=== PATIENT | male | born 1955 | race Caucasian/White ===

== ENCOUNTER 2018-01-05 15:35 | Emergency (ER) | payer MEDICAID, SELFPAY ==
[2018-01-05 15:36] VITALS: BP 117/71; PULSE 80; RESP 20; TEMP 36.9; O2SAT 98; BMI 33.7
--- NOTE | 2018-01-05 15:53 | CT_ITS ---
CT head/brain wo con HISTORY: Headache, pain,/laceration following injury ITS.REASON: HIT BY TREE LIMB ORDERING PHYSICIAN: Renny Kathleen MD PATIENT AGE: 62 years COMPARISON: None TECHNIQUE: Axial images obtained without contrast. Brain and bone windows reviewed. FINDINGS: No midline shift, mass effect, intracranial hemorrhage, hydrocephalus, or extra-axial fluid collection is evident. The calvarium has an unremarkable appearance. No mastoid effusion. There is an air-fluid level in the sphenoid sinus. IMPRESSION: 1. No acute intracranial finding. 2. Small air-fluid level in the sphenoid sinus
--- NOTE | 2018-01-05 15:53 | XR_ITS ---
XR shoulder LT min 2V HISTORY: Pain following injury ITS.REASON: HIT BY TREE LIMB ORDERING PHYSICIAN: Renny Kathleen MD PATIENT AGE: 62 years COMPARISON: None FINDINGS: No fracture or dislocation. No lytic or blastic change. There is normal mineralization. The joint spaces are well-preserved. No significant degenerative/arthritic changes. No erosive changes evident. IMPRESSION: Negative, no acute finding
--- NOTE | 2018-01-05 15:55 | CT_ITS ---
CT cervical spine w con CLINICAL INDICATION: Neck pain following injury, sprain/strain ITS.REASON: HIT BY TREE LIMB ORDERING PHYSICIAN: Renny Kathleen MD PATIENT AGE: 62 years TECHNIQUE: Axial images are obtained with sagittal and coronal reformats COMPARISON: None FINDINGS: Normal alignment. No obvious fracture or dislocation. No prevertebral soft tissue swelling. There is multilevel degenerative disc disease from C2 to T1 with decrease in the disc spaces and minimal hypertrophic changes of the endplates. Uncovertebral hypertrophy is also present. There is bilateral foraminal narrowing right greater than left C5-C6. No acute finding the lung apices. IMPRESSION: 1. No acute fracture 2. Cervical spondylosis with bilateral foraminal narrowing at C5-6
--- NOTE | 2018-01-05 17:27 | [facility].EDGENADL ---
ED Disposition Clinical Impression: Contusion of left shoulder Qualifiers: Encounter type: initial encounter Qualified Code(s): S40.012A - Contusion of left shoulder, initial encounter Head contusion Qualifiers: Encounter type: initial encounter Contusion of head detail: scalp Qualified Code(s): S00.03XA - Contusion of scalp, initial encounter Disposition: Home, Self-Care Condition on Discharge: Good Instructions: DI for Closed Head Injury, DI for Shoulder Pain Additional Instructions: Additional instructions for HEAD INJURY: See your physician as soon as possible for further evaluation. Return immediately if severe headache, vomiting, problems with vision or speech, numbness or weakness of the extremities, or severe neck pain. Additional instructions for CONTROLLED SUBSTANCES: You have been prescribed a medication that is a controlled substance. Controlled substances include pain medications known as opiates and sedative nerve medications known as benzodiazepines. Some common opiates include: Codeine (such as Tylenol #3) Hydrocodone (Vicodin, Lortab, Lorcet, Register) Oxycodone (Percocet, Percodan, Oxycodone, Oxy IR) Some common benzodiazepines include: Diazepam (Valium) Lorazepam (Ativan) Alprazolam (Xanax) Clonazepam (Klonopin) Oxazepam (Serax) All of these controlled substances are highly addictive and frequently abused. Misuse can and frequently does lead to addiction as well as overdose and . Medication should be stored in a locked cabinet or other secure storage unit. Do not store the medication in a motor vehicle. Short term supplies, 3 days or less, are prescribed because of the highly addictive nature of the medication. Any of the controlled substance medication NOT taken should be disposed of properly and NOT SAVED. The recommended method of disposing of unused medications is: Place the medicines in a sealable plastic bag. If the medicine is a solid, crush it or add water to dissolve it. Add something undesirable (cat litter, coffee grounds, etc.) Dispose of sealed bag in household trash Do not flush or pour unused medicines down a sink or drain. Controlled substances should not be shared, given away or sold. Because of the addictive nature and frequent abuse, these medications are sometimes stolen. These medications should be kept in a safe place where they cannot be stolen. Do not keep them in your car or purse. Lost or stolen prescriptions for controlled substances WILL NOT BE REFILLED in this emergency department, regardless of whether a police report was filed. Prescriptions: Acetaminophen with Codeine [Tylenol with Codeine #3 tablet] 1 - 2 tab PO Q6HP PRN #12 tab PRN Reason: Moderate Pain Referrals: Mickey Fine [Primary Care Provider] - - Critical Care Critical Care Time: No Attestation: On 01/05/18, the high probability of a clinically significant, sudden or life threatening deterioration of the following system(s) required my full and direct attention, intervention and personal management. The time I documented below is in addition to time spent performing reported procedures but includes the following listed in this critical care notation. Medical Decision Making - Nicholas Inquiry Pt receiving controlled substance: Yes Nicholas was queried for this patient: Yes Reference #:: [id number] Risks and benefits of using a controlled substance: were discussed with pt by me Comment: 0 rxs. Vital Signs: 01/05/18 15:36 Temperature 98.4 F Temperature Source Oral Pulse Rate [Right Radial] 80 Respiratory Rate 20 Blood Pressure [Right Arm] 117/71 Blood Pressure Mean [Right Arm] 86 Blood Pressure Source [Right Arm] Automatic Cuff Blood Pressure Position [Right Arm] Supine 02 Sat by Pulse Oximetry 98 Oxygen Delivery Method Room Air - Radiology Data #1 Image(s): Shoulder Image Reviewed: Yes I have reviewed radiologist's interpretation Preliminary Findings: Syl
[2018-01-05 18:25] VITALS: BP 112/85; PULSE 60; RESP 18; TEMP 36.7; O2SAT 96
== END 2018-01-05 18:25 | disposition home or self-care (01) ==
PROVIDERS: Emergency Provider Emergency Medicine; Family Provider Internal Medicine; PCP Internal Medicine
DX: S40.012A Contusion of left shoulder, initial encounter (principal); S00.03XA Contusion of scalp, initial encounter; W20.8XXA Other cause of strike by thrown, projected or falling object, initial encounter; Y92.89 Other specified places as the place of occurrence of the external cause; Z88.0 Allergy status to penicillin
CPT/HCPCS: 70450; 72126; 73030; 99282

== ENCOUNTER → 2018-03-09 15:51 | Outpatient (CLI) | payer MEDICAID, SELFPAY ==
--- NOTE | 2018-03-09 | XR_ITS ---
XR knee LT 3V HISTORY: ITS.REASON: LT KNEE PAIN/SWELLING ORDERING PHYSICIAN: Mickey Fine PATIENT AGE: 62 years COMPARISON: 06/12/2015 FINDINGS: There are moderate osteoarthritic changes of the medial compartment and patellofemoral joint with mild osteoarthritis of the lateral compartment. Bony spurring is present at the tibial spines and posterior patella. Otherwise negative. IMPRESSION: Osteoarthritis. This is slightly progressed when compared to the previous exam
== END ==
PROVIDERS: PCP Internal Medicine; Visit Provider Internal Medicine
DX: M25.562 Pain in left knee (principal); M25.462 Effusion, left knee
CPT/HCPCS: 73562

== ENCOUNTER → 2018-04-15 16:22 | Outpatient (CLI) | payer MEDICAID, SELFPAY ==
--- NOTE | 2018-04-15 16:26 | XR_ITS ---
XR cervical spine 5V Ordering Physician: Mickey Fine Patient Age: 62 years: Male HISTORY: ITS.REASON: LOWER NECK PAIN TECHNIQUE: 5 view cervical spine series COMPARISON :01/05/[address] FINDINGS No fracture nor subluxation. Prevertebral soft tissues appear normal. Degenerative disc space narrowing and cervical spondylosis most evident C5/6 disc space narrowing and mild posterior hypertrophic ridging at this level. This is nicely seen on the recent CT from December.. Mild/moderate bilateral foraminal encroachment at this level most evident to the left. Facets overall unremarkable. Only scant degenerative changes. C1-C2 relationships normal... Only very subtle levocurvature of the C-spine., Again noted. . The small ossifications of the posterior aspect of C7-T1 again noted reflecting old or developmental feature. IMPRESSION: 1. No acute findings. 2.... C5/6 Degenerative disc & Cervical spondylosis features most notable .. Posterior spurring & hypertrophic changes most evident the left, yielding mild bilateral foraminal encroachment, left greater than right (as nicely seen on December 2017 CT.) 3. C6/7 with scant disc space narrowing and very minor cervical spondylosis..
== END ==
PROVIDERS: PCP Internal Medicine; Visit Provider Internal Medicine
DX: M54.2 Cervicalgia (principal)
CPT/HCPCS: 72050

== ENCOUNTER → 2018-04-29 09:38 | Outpatient (CLI) | payer MEDICAID, SELFPAY ==
--- NOTE | 2018-04-29 10:00 | US_ITS ---
US abdomen limited History:Upper abdominal pain with nausea Ordering Physician:Mickey Fine Patient Age: 62 years Comparison:None Findings: Pancreas:Not well demonstrated due to overlying bowel gas Liver:2 cm isoechogenicity along the left hepatic lobe anteriorly likely related to a hepatic cyst. There is some increased echogenicity of the liver suggesting fatty liver. Right Kidney:Cortical thinning. No hydronephrosis Gallbladder:There is a small amount of gallbladder sludge. No shadowing stones demonstrated. No wall thickening, pericholecystic fluid, or biliary dilatation. The common bile duct is 4 mm. Gallbladder slightly distended at 11 x 3 cm Impression: 1. No gallstones apparent. 2. Mildly distended gallbladder with sludge. 3. Fatty liver with hepatic cyst
== END ==
PROVIDERS: Family Provider Internal Medicine; PCP Internal Medicine; Visit Provider Internal Medicine
DX: R10.13 Epigastric pain (principal); R11.0 Nausea; K21.9 Gastro-esophageal reflux disease without esophagitis
CPT/HCPCS: 76705

== ENCOUNTER → 2018-05-09 09:33 | Outpatient (CLI) | payer MEDICAID, SELFPAY ==
--- NOTE | 2018-05-09 09:36 | NM_ITS ---
HEPATOBILIARY SCAN WITH CCK: ORDERING PHYSICIAN : Mickey Fine PATIENT AGE: 62 years GENDER: Male HISTORY: Right upper quadrant pain and nausea Following 8.0 millicuries Tc Choletec, images of the right upper quadrant were obtained. There is prompt uptake of radionuclide by the liver which is grossly unremarkable. Small bowel is visualized. This initial pre-CCK portion of the study is normal. The gallbladder was allowed to fill out to 30 minutes which point 2 micrograms CCK was administered by way infusion pump in the typical fashion. This results in robust 92% percent fraction (normal greater than 50%; borderline 35-50%). Visual inspection of images supports the second No pain with CCK administration.. Ultrasound showed no gallstones IMPRESSION: 1. Normal functioning gallbladder . 92% gallbladder ejection fraction following CCK. No pain with administration
== END ==
PROVIDERS: Family Provider Internal Medicine; PCP Internal Medicine; Visit Provider Internal Medicine
DX: R10.11 Right upper quadrant pain (principal)
CPT/HCPCS: 78227; A9537; J2805

== ENCOUNTER → 2018-05-11 10:57 | Outpatient (CLI) | payer MEDICAID, SELFPAY ==
[2018-05-11 11:11] LABS: Basophils % 0.4 % (0.1-2.0); Eosinophils # 0.2 K/mm3 (0.0-0.4); Eosinophils % 2.7 % (0.1-12.0); Hematocrit 45.5 % (42.0-52.0); Hemoglobin 14.5 g/dL (14.1-18.0); Lymphocytes # 1.3 K/mm3 (0.7-4.5); Lymphocytes % 22.6 K/mm3 (10-50); Mean Corpuscular HGB Conc 31.8 g/dL (31.8-35.4); Mean Corpuscular Volume 84.9 fl (80-94); Mean Platelet Volume 8.2 fl (7.4-10.4); Monocytes # 0.5 K/mm3 (0.1-1.0); Monocytes % 8.4 % (1.7-9.3); Neutrophils # 3.7 K/mm3 (1.8-7.8); Platelet Count 216 K/mm3 (142-424); Red Blood Count 5.36 M/mm3 (4.60-6.20); Red Cell Distribution Width 13.8 % (11.5-17.5); White Blood Count 5.6 K/mm3 (4.8-10.8)
[2018-05-11 13:05] LABS: Alanine Aminotransferase 43 U/L (12-78); Albumin/Globulin Ratio 1.1 (1.1-1.8); Alkaline Phosphatase 66 U/L (46-116); Anion Gap 10.7 mEq/L (5-15); Aspartate Amino Transferase 20 U/L (15-37); Bilirubin,Total 0.8 mg/dL (0.2-1.0); Blood Urea Nitrogen 26 mg/dL (7-18); Calcium 10.1 mg/dL (8.5-10.1); Carbon Dioxide 29 mmol/L (21.0-32.0); Chloride 104 mmol/L (98-107); Creatinine,Serum 1.36 mg/dL (0.70-1.30); Estimated Glomerular Filt Rate 53 ml/min (>60); GFR (African American) 64 ML/MIN (>60); Globulin 3.5 gm/dl (1.3-3.2); Glucose 108 mg/dL (74-106); Potassium 4.7 mmoL/L (3.5-5.1); Sodium 139 mmol/L (136-145); Total Protein,Serum 7.5 gm/dL (6.4-8.2)
== END ==
PROVIDERS: Visit Provider Surgery
DX: Z01.818 Encounter for other preprocedural examination (principal); K81.0 Acute cholecystitis
CPT/HCPCS: 36415; 80053; 85025; 93005

== ENCOUNTER 2018-10-08 16:15 | Observation (INO) ==
--- NOTE | 2018-10-08 16:57 | Emergency Department Note ---
ED Disposition Clinical Impression: Thrombophlebitis arm, Nephrolithiasis, Arm DVT (deep venous thromboembolism), acute, Renal insufficiency Disposition: Still a Patient Condition on Discharge: Fair Referrals: Mickey Fine [Primary Care Provider] - - Critical Care Critical Care Time: No Attestation: On 10/08/18, the high probability of a clinically significant, sudden or life threatening deterioration of the following system(s) required my full and direct attention, intervention and personal management. The time I documented below is in addition to time spent performing reported procedures but includes the following listed in this critical care notation. Medical Decision Making - Nicholas Inquiry Pt receiving controlled substance: No Nicholas was queried for this patient: No Vital Signs: 10/08/18 16:29 Temperature 98.5 F Temperature Source Oral Pulse Rate [Left Radial] 69 Respiratory Rate 18 Blood Pressure [Right Arm] 129/68 Blood Pressure Mean [Right Arm] 88 Blood Pressure Source [Right Arm] Automatic Cuff Blood Pressure Position [Right Arm] Sitting 02 Sat by Pulse Oximetry 96 Oxygen Delivery Method Room Air - Lab Data Lab Results 10/08/18 17:20: WBC 4.9, RBC 4.96, Hgb 14.0 L, Hct 43.6, MCV 87.8, MCH 28.2, MCHC 32.0, RDW 13.1, Plt Count 242, MPV 7.7, Neut % (Auto) 64.5, Lymph % (Auto) 22.9, Hand % (Auto) 8.5, Eos % (Auto) 3.3, Baso % (Auto) 0.7, Neut # (Auto) 3.2, Lymph # (Auto) 1.1, Hand # (Auto) 0.4, Eos # (Auto) 0.2, Baso # (Auto) 0.0 10/08/18 17:20: PT 10.0, INR 0.97, APTT 25.7 10/08/18 17:20: D-Dimer 818 H* 10/08/18 17:25: Sodium 135 L, Potassium 3.8, Chloride 101, Carbon Dioxide 24, Anion Gap 13.8, BUN 26 H, Creatinine 1.49 H, Estimated Creat Clear 67, Estimated GFR 47 L, Est GFR ( Amer) 57 L, Glucose 125 H, Calcium 9.8, Total Bilirubin 0.4, AST 18, ALT 61, Alkaline Phosphatase 105, Total Protein 7.3, Albumin 3.5, Globulin 3.8 H, Albumin/Globulin Ratio 0.9 L Result diagrams: 10/08/18 17:20 10/08/18 17:25 Orders (Tests/Meds): ED MEDICATIONS Discontinued Medications Generic Name Dose Route Start Last Admin Trade Name Laciq PRN Reason Stop Dose Admin Enoxaparin Sodium 80 mg 10/08/18 16:53 10/08/18 17:28 Lovenox 80mg/0.8ml Syringe SQ 10/08/18 16:54 80 mg ONCE ONE Administration Iopamidol 75 ml 10/08/18 18:56 12 18:57 [id number]; 75ml Vial IV 10/08/18 18:57 75 ml ONCE ONE Administration Protocol Sodium Chloride 40 ml 10/08/18 18:56 10/08/18 18:57 Rad-Ns 50ml Vial IV 10/08/18 18:57 40 ml ONCE ONE Administration Sodium Chloride 10 ml 10/08/18 18:56 10/08/18 18:57 Rad-Saline Flush 10ml Syringe IV 10/08/18 18:57 10 ml ONCE ONE Administration ORDERS Category Date Time Status CT angio chest Stat Cat Scan 10/08/18 16:52 Taken US extremity LT limited Stat Exams 10/08/18 16:52 Ordered - CT Data CT Scan: Chest Time Received: 19:[address] Reviewed: Yes: I have viewed the radiologist's interpretation Preliminary Findings: Normal/NAD Medical Decision Narrative: The CT scan of the chest was negative for PE but the patient clinical presentation is strongly suggestive of a DVT of the left upper extremity. I spoke with Dr. Hull who covers Dr. Pace. After discussion we agreed to admit the patient and repeat the Lovenox in 12 hours obtain ultrasound in the morning and Dr. Pace will decide what is his best course of anticoagulation if needed. General Adult HPI - General Chief complaint: PAIN Stated complaint: Surg Kidney stones/Left swollen ,pain Time Seen by Provider: 10/08/18 16:40 Mode of Arrival: Ambulatory Limitations: No Limitations Description of Symptoms (Recalled from ER Triage Doc. by RN): Pt states he had surgery one week ago and states the arm he had an IV in his left arm and now he states it is swollen and was hot to touch earlier, states it hurts up into his left shoulder - History of Present Illness HPI narrative: 63 years old white male with a history of gout, GERD, appendectomy and 8 nephrolithiasis. His last kidney stone was 8 days ago when he required an IV access and lithotripsy. 2 days afterward he developed pain at the IV access site that progressively gotten worse to the left shoulder without chest pain, palpitations, shortness of breath shortness of breath, or hemoptysis. Onset (ago): day(s) (Guarded 6 days ago progressively worse to the left shoulder.) Location: left, upper extremity Severity: moderate Severity scale (1-10): 5 Quality: aching, dull Consistency: constant Relieving factors: movement Exacerbating factors: rest Associated symptoms: denies other symptoms Treatments prior to arrival: none - Related Data Home Medications Medication Instructions Recorded Confirmed Amlodipine Besylate [Norvasc 10mg 10 mg PO DAILY 04/17/18 10/08/18 tablet] Citalopram Hydrobromide [Celexa 10 mg PO DAILY 04/17/18 10/08/18 10mg Tablet] Ferrous Sulfate 325 mg PO TID 04/17/18 10/08/18 Loperamide HCl [Imodium 2 mg 2 mg PO NEEDED PRN 04/17/18 10/08/18 capsule] Losartan/Hydrochlorothiazide 1 tab PO DAILY 04/17/18 10/08/18 [Losartan-Hctz 100-25 mg Tab] Meloxicam 7.5 mg PO BID 04/17/18 10/08/18 Omeprazole [Omeprazole 20mg 40 mg PO DAILY 04/17/18 10/08/18 Capsule] Ondansetron HCl 4 mg PO NEEDED PRN 04/17/18 10/08/18 Tamsulosin HCl [Flomax 0.4mg 0.4 mg PO DAILY 04/17/18 10/08/18 capsule] Previous Rx's Medication Instructions Recorded Oxycodone HCl/Acetaminophen 1 each PO Q4HP PRN #20 tab 09/16/18 [Percocet 10-325 mg Tablet] Allergies Allergy/AdvReac Type Severity Reaction Status Date / Time No Known Allergies Allergy Verified 09/20/18 14:47 [facility] History - Hepatitis A Screen Drug use history?: No High risk sexual behaviors?: No History of sexually transmitted infection?: No Currently employed?: No Childcare worker?: No Do you have indoor plumbing?: Yes Do you have electricity?: Yes Attestation statement:: This patient has been screened for Hepatitis A risk factors. Medical History: Reports:: Hiatal Hernia, Hypertension Denies:: Cancer, Diabetes Mellitus Type 1, Diabetes Mellitus Type 2, Internal Pacemaker, Lung Disease, MRSA, Seizures Other Medical History: Denies: Blood Transfusion Reaction Laterality Cases: Right: Arthroscopy Knee Other Surgeries: Yes: No Previous Surgery, Appendectomy, Cholecystectomy, Other. No: Pacemaker Amputation: No Fractures: No - Social History Smoking Status: Never smoker Alcohol Intake: never Alcohol Intake Frequency:: other Substance Use Type: denies use Occupational Status: retired Housing: house Household Members: spouse - Psychiatric History Expresses thoughts of harming self/others: None Suicide Plan Description: No Plan Family Hx:: Hypertension ROS Obtained: Yes All systems reviewed & no additional complaints Physical Exam - General General appearance: alert, in no apparent distress - Head Head exam: atraumatic, normocephalic, normal inspection - Eye Eye exam: Present: normal appearance, PERRL, EOMI. Absent: scleral icterus, nystagmus - ENT ENT exam: Present: normal exam, normal oropharynx, mucous membranes moist, TM's normal bilaterally, normal external ear exam - Neck Neck exam: Present: normal inspection, full ROM, trachea midline. Absent: tenderness, meningismus, lymphadenopathy - Chest Chest inspection: Present: normal inspection, symmetric chest wall rise. Absent: tenderness - Respiratory Respiratory exam: Present: normal lung sounds bilaterally. Absent: respiratory distress, wheezes - Cardiovascular Cardiovascular exam: Present: regular rate, normal rhythm. Absent: JVD - Abdominal Exam Abdominal exam: Present: soft, normal bowel sounds. Absent: distention, tenderness, guarding, rebound, rigidity - Extremities Exam Extremities exam: Present: normal inspection, full ROM, tenderness, normal capillary refill, other (There is tenderness and cordlike structure in the dorsum of the left forearm extends to the left biceps medially. No palpable masses in the left axilla. No visible dilated veins in the anterior chest..). Absent: calf tenderness - Back Exam Back exam: Present: normal inspection. Absent: tenderness, CVA tenderness (R), CVA tenderness (L) - Neurological Exam Neurological exam: Present: alert, oriented X3, CN II-XII intact, motor sensory deficit, reflexes normal - Psychiatric Psychiatric exam: Present: normal affect, normal mood - Skin Skin exam: Present: warm, dry, intact, normal color - Lymphatic Lymphatic Findings: no adenopathy
[2018-10-08 17:42] LABS: Basophils % 0.7 % (0.1-2.0); Eosinophils # 0.2 K/mm3 (0.0-0.4); Eosinophils % 3.3 % (0.1-12.0); Hematocrit 43.6 % (42.0-52.0); Lymphocytes # 1.1 K/mm3 (0.7-4.5); Lymphocytes % 22.9 % (10-50); Mean Corpuscular Hemoglobin 28.2 pg (27.0-31.2); Mean Corpuscular Volume 87.8 fl (80-94); Mean Platelet Volume 7.7 fl (7.4-10.4); Monocytes # 0.4 K/mm3 (0.1-1.0); Monocytes % 8.5 % (1.7-9.3); Neutrophils # 3.2 K/mm3 (1.8-7.8); Neutrophils % 64.5 % (37.0-80.0); Platelet Count 242 K/mm3 (142-424); Red Blood Count 4.96 M/mm3 (4.60-6.20); Red Cell Distribution Width 13.1 % (11.5-17.5); White Blood Count 4.9 K/mm3 (4.8-10.8)
[2018-10-08 17:47] LABS: Activated Partial Thrombo Time 25.7 seconds (23.6-34.0); INR 0.97 (0.9-1.1)
[2018-10-08 17:52] LABS: Albumin Level 3.5 gm/dL (3.4-5.0); Albumin/Globulin Ratio 0.9 (1.1-1.8); Anion Gap 13.8 mEq/L (5-15); Bilirubin,Total 0.4 mg/dL (0.2-1.0); Calcium 9.8 mg/dL (8.5-10.1); Globulin 3.8 gm/dl (1.3-3.2); Potassium 3.8 mmoL/L (3.5-5.1); Total Protein,Serum 7.3 gm/dL (6.4-8.2)
[2018-10-09 06:41] LABS: Basophils # 0.1 K/mm3 (0-0.2); Basophils % 1.2 % (0.1-2.0); Eosinophils # 0.2 K/mm3 (0.0-0.4); Eosinophils % 4.1 % (0.1-12.0); Hematocrit 38.3 % (42.0-52.0); Lymphocytes # 1.4 K/mm3 (0.7-4.5); Lymphocytes % 36.6 % (10-50); Mean Corpuscular HGB Conc 32.7 g/dL (31.8-35.4); Mean Corpuscular Hemoglobin 28.5 pg (27.0-31.2); Mean Corpuscular Volume 87.2 fl (80-94); Mean Platelet Volume 7.7 fl (7.4-10.4); Monocytes # 0.4 K/mm3 (0.1-1.0); Monocytes % 9.8 % (1.7-9.3); Neutrophils # 1.9 K/mm3 (1.8-7.8); Neutrophils % 48.3 % (37.0-80.0); Platelet Count 202 K/mm3 (142-424); Red Cell Distribution Width 13.1 % (11.5-17.5); White Blood Count 3.9 K/mm3 (4.8-10.8)
[2018-10-09 06:45] LABS: Hemoglobin 12.5 g/dL (14.1-18.0)
[2018-10-09 06:58] LABS: Calcium 8.7 mg/dL (8.5-10.1)
--- NOTE | 2018-10-09 11:23 | H&P/Discharge Summary ---
General - General Admission date:: 10/08/18 Discharge date: 10/09/18 *Admission Date: 10/08/18 *History of present illness: Mr. Celis is a 63-year-old male with history of kidney stones status post lithotripsy approximately 1 week ago. He presented to the ER with left arm pain initiating at the site of his IV. He describes tenderness along the entire distribution of the cephalic and basilic veins. All the way up to his left axilla. Denies any swelling, fevers, redness. Pain reportedly began just over the past day or 2. Not taken anything for the pain at home. Otherwise doing well from his lithotripsy with no complaints of dysuria, hematuria. Admitted to medicine for further management of concern for DVT in left upper extremity versus thrombophlebitis. Ultrasound pending. [facility] History I have reviewed the patient's past medical history: Yes Medical History: Reports:: Hiatal Hernia, Hypertension Denies:: Cancer, Diabetes Mellitus Type 1, Diabetes Mellitus Type 2, Internal Pacemaker, Lung Disease, MRSA, Seizures Other Medical History: Denies: Blood Transfusion Reaction Laterality Cases: Right: Arthroscopy Knee, Bilateral: Tonsillectomy Other Surgeries: Yes: No Previous Surgery, Appendectomy, Cholecystectomy, Other (kidney stone removal). No: Pacemaker Amputation: No Fractures: No - *Social History Educational Level: Attended High School Smoking Status: Never smoker Alcohol Intake: never Alcohol Intake Frequency:: other Substance Use Type: denies use Occupational Status: retired Housing: house Household Members: spouse - Psychiatric History Expresses thoughts of harming self/others: None Suicide Plan Description: No Plan *Family Hx:: Cancer, Coronary Artery Disease, Heart Attack, Hypertension Review of Systems - Review of Systems Review of systems:: pertinent systems reviewed and negative unless documented below Exam Vital signs and Labs for Last 24 Hours: Temp Pulse Resp BP Pulse Ox 97.9 F 52 L 15 133/82 95 10/09/18 08:00 10/09/18 08:00 10/09/18 08:00 10/09/18 08:00 10/09/18 08:00 Laboratory Results - last 24 hr 10/08/18 17:20: WBC 4.9, RBC 4.96, Hgb 14.0 L, Hct 43.6, MCV 87.8, MCH 28.2, MCHC 32.0, RDW 13.1, Plt Count 242, MPV 7.7, Neut % (Auto) 64.5, Lymph % (Auto) 22.9, Talbot % (Auto) 8.5, Eos % (Auto) 3.3, Baso % (Auto) 0.7, Neut # (Auto) 3.2, Lymph # (Auto) 1.1, Talbot # (Auto) 0.4, Eos # (Auto) 0.2, Baso # (Auto) 0.0 10/08/18 17:20: PT 10.0, INR 0.97, APTT 25.7 10/08/18 17:20: D-Dimer 818 H* 10/08/18 17:25: Sodium 135 L, Potassium 3.8, Chloride 101, Carbon Dioxide 24, Anion Gap 13.8, BUN 26 H, Creatinine 1.49 H, Estimated Creat Clear 67, Estimated GFR 47 L, Est GFR ( Amer) 57 L, Glucose 125 H, Calcium 9.8, Total Bilirubin 0.4, AST 18, ALT 61, Alkaline Phosphatase 105, Total Protein 7.3, Albumin 3.5, Globulin 3.8 H, Albumin/Globulin Ratio 0.9 L 10/09/18 06:29: WBC 3.9 L, RBC 4.40 L, Hgb 12.5 L D, Hct 38.3 L, MCV 87.2, MCH 28.5, MCHC 32.7, RDW 13.1, Plt Count 202, MPV 7.7, Neut % (Auto) 48.3, Lymph % (Auto) 36.6, Talbot % (Auto) 9.8 H, Eos % (Auto) 4.1, Baso % (Auto) 1.2, Neut # (Auto) 1.9, Lymph # (Auto) 1.4, Talbot # (Auto) 0.4, Eos # (Auto) 0.2, Baso # (Auto) 0.1 10/09/18 06:29: Sodium 137, Potassium 4.0, Chloride 106, Carbon Dioxide 24, Anion Gap 11.0, BUN 19 H D, Creatinine 1.20, Estimated Creat Clear 86, Estimated GFR 61, Est GFR ( Amer) 74 D, Glucose 85 D, Calcium 8.7 D I & O for Last 24 hours: Intake & Output 10/06/18 10/07/18 10/08/18 10/09/18 23:59 23:59 23:59 23:59 Intake Total 2038 Balance 2038 Weight 98.6 kg - Constitutional no acute distress, obese - *Routine HEENT Exam Head: Present: normocephalic, atraumatic Eye: Present: EOMI ENT: Present: mucous membranes moist - *Routine Neck Exam Present: supple - Routine Chest/Breast/Axilla Exam Chest wall: Absent: tenderness - *Routine Respiratory Exam Present: CTA bilaterally. Absent: prolonged expiratory phase, wheezes, crackles - *Routine Cardiovascular Exam Present: RRR, Normal S1, Normal S2 - *Routine Rectal Exam Patient deferred: visual exam - *Routine Exam Patient deferred: penile exam - *Routine Extremities Exam Absent: cyanosis, clubbing, edema, palpable cord Comments: Left upper extremity tender from 2 inches proximal to wrist along cephalic vein distribution up to left axilla. No fluctuance, warmth, erythema, palpable cords. - *Routine Skin Exam Present: intact. Absent: cyanosis, erythema - *Routine Neurological Exam Present: alert, oriented X3. Absent: altered mental status Hospital Course Hospital Course: Admitted for medical management and pain control. Pain controlled with morphine. Received Lovenox. Pain somewhat improved with this treatment. Initiated warm compresses. Ultrasound of left upper extremity obtained showing SVT of cephalic vein, no evidence of DVT. Initiated ASA 325 daily for 6 weeks. Follow-up with PCP this week for further management. Home therapy of daily ASA 325mg, Ibuprofen for pain 600-800mg q6hr PRN, and Warm compresses daily. Medically stable at time of DC home. Results Labs on day of discharge: Labs from last 24 hours 10/09/18 10/09/18 10/08/18 06:29 06:29 17:25 WBC 3.9 L RBC 4.40 L Hgb 12.5 L D Hct 38.3 L MCV 87.2 MCH 28.5 MCHC 32.7 RDW 13.1 Plt Count 202 MPV 7.7 Neut % (Auto) 48.3 Lymph % (Auto) 36.6 Talbot % (Auto) 9.8 H Eos % (Auto) 4.1 Baso % (Auto) 1.2 Neut # (Auto) 1.9 Lymph # (Auto) 1.4 Talbot # (Auto) 0.4 Eos # (Auto) 0.2 Baso # (Auto) 0.1 PT INR APTT D-Dimer Sodium 137 135 L Potassium 4.0 3.8 Chloride 106 101 Carbon Dioxide 24 24 Anion Gap 11.0 13.8 BUN 19 H D 26 H Creatinine 1.20 1.49 H Estimated Creat Clear 86 67 Estimated GFR 61 47 L Est GFR ( Amer) 74 D 57 L Glucose 85 D 125 H Calcium 8.7 D 9.8 Total Bilirubin 0.4 AST 18 ALT 61 Alkaline Phosphatase 105 Total Protein 7.3 Albumin 3.5 Globulin 3.8 H Albumin/Globulin Ratio 0.9 L 10/08/18 10/08/18 10/08/18 17:20 17:20 17:20 WBC 4.9 RBC 4.96 Hgb 14.0 L Hct 43.6 MCV 87.8 MCH 28.2 MCHC 32.0 RDW 13.1 Plt Count 242 MPV 7.7 Neut % (Auto) 64.5 Lymph % (Auto) 22.9 Talbot % (Auto) 8.5 Eos % (Auto) 3.3 Baso % (Auto) 0.7 Neut # (Auto) 3.2 Lymph # (Auto) 1.1 Talbot # (Auto) 0.4 Eos # (Auto) 0.2 Baso # (Auto) 0.0 PT 10.0 INR 0.97 APTT 25.7 D-Dimer 818 H* Sodium Potassium Chloride Carbon Dioxide Anion Gap BUN Creatinine Estimated Creat Clear Estimated GFR Est GFR ( Amer) Glucose Calcium Total Bilirubin AST ALT Alkaline Phosphatase Total Protein Albumin Globulin Albumin/Globulin Ratio DS: Diagnosis - Discharge Diagnosis (1) Thrombophlebitis arm Status: Acute Problem details: Superficial Venous thrombosis of left Cephalic vein. Treated with lovenox and transitioned to ASA 325 for further treatment. Warm compresses 2-3 x daily (2) Elevated d-dimer Status: Acute (3) Renal insufficiency Status: Acute Discharge Medications - Medications for Discharge Home Medication List at Discharge: New Ibuprofen [Motrin 400mg tablet] 800 mg PO Q6HP PRN tablet PRN Reason: Breakthru Mild Pain Aspirin [Aspirin 325mg Tab] 325 mg PO DAILY 30 Days #30 tablet Continue Ferrous Sulfate 325 mg PO TID Ondansetron HCl 4 mg PO NEEDED PRN PRN Reason: Nausea Meloxicam 7.5 mg PO BID Loperamide HCl [Imodium 2 mg capsule] 2 mg PO NEEDED PRN PRN Reason: Diarrhea Citalopram Hydrobromide [Celexa 10mg Tablet] 10 mg PO DAILY Amlodipine Besylate [Norvasc 10mg tablet] 10 mg PO DAILY Losartan/Hydrochlorothiazide [Losartan-Hctz 100-25 mg Tab] 1 tab PO DAILY Omeprazole [Omeprazole 20mg Capsule] 40 mg PO DAILY Oxycodone HCl/Acetaminophen [Percocet 10-325 mg Tablet] 1 each PO Q4HP PRN #20 tab PRN Reason: Moderate To Severe Pain Allopurinol [Allopurinol 100mg tablet] 100 mg PO HS Tamsulosin HCl [Flomax 0.4mg capsule] 0.4 mg PO DAILY Disposition Disposition: Home, Self-Care
--- NOTE | 2018-10-09 13:00 | Non-Invasive Vascular Report ---
"Venous Exam Indications: 729.5 Pain in limb. Recent IV left forearm IMPRESSIONS 1. There is no evidence of significant reflux. 2. Superficial vein thrombosis involving the cephalic veinsuperficial of the left upper extremity, no evidence of DVT. History: Swelling in the left upper extremity. Left upper extremity venous duplex. Doppler flow study including spectral analysis, color and morales scale imaging. CRITICAL FINDINGS - Reported to: QUEENIE Bueno - Read back and verified. - 10/09/18 - 1250 - SVT Cephalic vein Tables: Venous flow and imaging: + + + |Location |Flow properties | + + + |Left internal jugular|Normal phasicity; spontaneous; compressible | + + + |Left subclavian |Normal phasicity; spontaneous; normal | | |augmentation; compressible | + + + |Left axillary |Normal phasicity; spontaneous; normal | | |augmentation; compressible | + + + |Left brachial |Normal phasicity; spontaneous; normal | | |augmentation; compressible | + + + |Left cephalic |Diminished phasicity; diminished spontaneity; | | |diminished augmentation; partially compressible | + + + |Left basilic |Normal phasicity ; spontaneous; normal | | |augmentation; compressible | + + + |Left radial |Compressible | + + + |Left ulnar |Compressible | + + + |Right subclavian |Normal phasicity; spontaneous; normal | | |augmentation; compressible | + + + (Report amended ) Electronically signed by: Eugenio Hilario [id number]"
--- NOTE | 2018-10-09 15:36 | Pharmacy Consult Notes ---
[facility] Pharmacy VTE Monitoring - Patient Demographics Admission date: 10/08/18 Report Date: 10/09/18 Time: 15:36 Allergies/Adverse Reactions: Patient Allergies No Known Allergies Allergy (Verified 09/20/18 14:47) Height: 1.78 m Weight: 98.6 kg - VTE Risk Labs: VTE Related Lab Results Hgb 12.5 g/dL (14.1-18.0) L D 10/09/18 06:29 Hct 38.3 % (42.0-52.0) L 10/09/18 06:29 Plt Count 202 K/mm3 (142-424) 10/09/18 06:29 PT 10.0 seconds (9.4-11.8) 10/08/18 17:20 INR 0.97 (0.9-1.1) 10/08/18 17:20 APTT 25.7 seconds (23.6-34.0) 10/08/18 17:20 BUN 19 mg/dL (7-18) H D 10/09/18 06:29 Creatinine 1.20 mg/dL (0.70-1.30) 10/09/18 06:29 Estimated Creat Clear 86 mL/min (50-200) 10/09/18 06:29 Was VTE Risk Assessment Performed: Yes VTE Score: 3 VTE Risk Level: Low Risk - Prophylaxis VTE Prophylaxis Ordered?: Yes Types of VTE Prophylaxis: Pharmacological Pharmacologic Type: Enoxaparin
== END 2018-10-09 14:51 | disposition home or self-care (01) ==
LOC: 2ND 16:15 → ER 16:15 → 2ND 20:46
PROVIDERS: ADMIT Family Medicine; ATTEND Internal Medicine Adolescent Medicine
CPT/HCPCS: 36415; 71275; 80048; 80053; 85025; 85378; 85610; 85730; 93971; 99284; G0378; Q9967

== ENCOUNTER → 2018-11-01 14:25 | Outpatient (CLI) | payer MEDICARE, SELFPAY ==
--- NOTE | 2018-11-01 14:32 | NVE_ITS ---
Venous Exam Indications: 729.5 Pain in limb. IMPRESSIONS 1. There is no evidence of significant reflux. 2. No evidence of deep vein thrombosis involving the veins of the left upper extremity 3. Superficial vein thrombosis involving the cephalic vein of the left upper extremity Left upper extremity venous duplex. Doppler flow study including spectral analysis, color and morales scale imaging. Location: Vascular laboratory. Patient status: Outpatient. CRITICAL FINDINGS - Reported to: Rashmi - Read back and verified. - 11/01/18 - 1445 - + SVT Tables: Venous flow and imaging: + + + Location Flow properties + + + Left internal jugular Normal phasicity; spontaneous; compressible + + + Left subclavian Normal phasicity; spontaneous; normal augmentation; compressible + + + Left axillary Normal phasicity; spontaneous; normal augmentation; compressible + + + Left brachial Normal phasicity; spontaneous; normal augmentation; compressible + + + Left cephalic Noncompressible + + + Left basilic Normal phasicity; spontaneous; normal augmentation; compressible + + + Left radial Compressible + + + Left ulnar Compressible + + + Right subclavian Normal phasicity; spontaneous; normal augmentation; compressible + + + (Report amended ) Electronically signed by: Tim Cuevas [id number]
== END ==
PROVIDERS: PCP Internal Medicine; Visit Provider Internal Medicine
DX: M79.602 Pain in left arm (principal); I80.8 Phlebitis and thrombophlebitis of other sites
CPT/HCPCS: 93971

== ENCOUNTER → 2018-11-08 09:37 | Outpatient (CLI) | payer MEDICARE, SELFPAY ==
--- NOTE | 2018-11-08 09:42 | CT_ITS ---
CT abdomen pelvis wo/w con CLINICAL INDICATION: Follow up left renal mass ITS.REASON: Renal Mass ORDERING PHYSICIAN: Chao Aparicio MD PATIENT AGE: 63 years COMPARISON: None TECHNIQUE: Axial images obtained without and with contrast. Sagittal and coronal reformats generated and reviewed. All CT scans at the facility use one or more dose reduction, viz: automated exposure control, ma/kV adjustment per patient size (including targeted exams where dose is matched to indication, i.e. head), or iterative reconstruction technique. PROCEDURE: Oral Contrast: None IV Contrast: 75 mL of Isovue-370. FINDINGS: Lung bases are clear. There are coronary artery calcifications. Hepatic cyst once again noted unchanged. Postcholecystectomy changes. The spleen, adrenal glands, and pancreas are unremarkable. There are multiple right renal calculi. The largest stone is in the mid polar region posteriorly 6 mm. There are small stone fragments in the right renal pelvis posteriorly measuring up to 3 mm. No hydronephrosis. No ureteral calculi. In the lower pole right kidney there is a complex hepatic lesion which measures 2.7 cm AP and 2 cm transverse. This is similar when compared to the previous exam and also similar when compared to 04/17/2018. The lesion is mostly fatty density with central area of soft tissue density consistent with an angiomyolipoma not significant changed. This does not demonstrate any contrast enhancement. In addition, there is an 18 mm isodense exophytic nodule projecting off the posterior aspect of the right kidney which is best identified on the immediate post enhanced images. This was identified on an older exam of 09/04/2016 measuring approximately 14 mm at that time. There has been some slight increase in size. There is a 4 cm cyst along the upper pole of the left kidney. No ureteral calculi. Urinary bladder has an unremarkable appearance. Prostate is slightly enlarged at 5.4 cm. There are some central prostate calcifications. No acute bony anomalies. IMPRESSION: 1. There is an 18 mm exophytic isodense nodule along the mid and posterior aspect of the right kidney which is slightly increased in size from 09/04/2016. A low-grade neoplasm is considered. 2. Right renal calculi noted as described above. 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
[2018-11-08 10:21] LABS: Blood Urea Nitrogen 20 mg/dL (7-18); Creatinine,Serum 1.16 mg/dL (0.70-1.30); Estimated Glomerular Filt Rate 63 ml/min (>60); GFR (African American) 76 ML/MIN (>60)
== END ==
PROVIDERS: PCP Internal Medicine; Visit Provider Urology
DX: N28.9 Disorder of kidney and ureter, unspecified (principal)
CPT/HCPCS: 36415; 74178; 82565; 84520; Q9967

== ENCOUNTER → 2018-11-09 14:19 | Outpatient (CLI) | payer MEDICARE, MEDICAID, SELFPAY ==
--- NOTE | 2018-11-09 14:27 | XR_ITS ---
XR hand LT min 3V HISTORY: Pain following injury ITS.REASON: S/P INJURY TO LT 3RD/4TH FINGER ORDERING PHYSICIAN: Mickey Fine PATIENT AGE: 63 years COMPARISON: None FINDINGS: No fracture or dislocation. There are osteoarthritic changes at the PIP joint of the second and third digits. IMPRESSION: No acute finding
== END ==
PROVIDERS: PCP Internal Medicine; Visit Provider Internal Medicine
DX: M79.645 Pain in left finger(s) (principal)
CPT/HCPCS: 73130

== ENCOUNTER → 2018-11-28 15:16 | Outpatient (CLI) | payer MEDICARE, SELFPAY ==
--- NOTE | 2018-11-28 15:18 | MR_ITS ---
MR cervical spine wo con, MR 3-d myelogram/MRCP HISTORY: PT states neck pain X 8-10 months. PT states when he lifts anything he gets dizzy as well. ITS.REASON: NECK PAIN, CERVICALGIA ORDERING PHYSICIAN: Mickey Fine PATIENT AGE: 63 years Comparison: CT 01/05/18. TECHNIQUE: Standard multiplanar multiecho sequences are performed without contrast. 3-D MIP and myelographic images are also rendered and reviewed FINDINGS: There is normal alignment. The craniocervical junction has an unremarkable appearance. C2-C3: Unremarkable. C3-C4: Unremarkable. C4-C5: Unremarkable. C5-C6: There is degenerative disc disease with mild concentric bulging disc. There is a small left paracentral and foraminal disc osteophyte complex causing left lateral recess and foraminal narrowing. There is mild right foraminal narrowing from uncovertebral hypertrophy as well. C6-C7: Mild degenerative disc disease. C7-T1: Mild degenerative disc disease. IMPRESSION: 1. Degenerative disc disease at C5-C6 with mild concentric bulging disc. There is a small left paracentral and foraminal disc osteophyte complex causing left lateral recess and foraminal narrowing. There is mild right foraminal narrowing from uncovertebral hypertrophy as well. 2. Cervical spondylosis with degenerative disc disease at C6-C7 and C7-T1.
== END ==
PROVIDERS: PCP Internal Medicine; Visit Provider Internal Medicine
DX: M54.2 Cervicalgia (principal)
CPT/HCPCS: 72141; 76376

== ENCOUNTER 2018-12-02 08:00 | Outpatient (RCR) | payer MEDICARE, SELFPAY ==
--- NOTE | 2018-10-26 08:45 | HMH.PTOPEV ---
PT Outpatient Evaluation Rehab PT Outpatient Evaluation Start: 10/26/18 07:57 Freq: Status: Active Protocol: Document 10/26/18 08:39 PHORNE (Rec: 10/26/18 08:45 PHORNE [id number]) Electronically Signed By Gabe Abdullahi, PT 10/26/18 08:39 Outpatient Therapy Subjective History Subjective History Pt is 63 yowm who presents with c/o pain in neck x 3-4 yrs, steadily worsening. He reports no c/o radicular symptoms or headaches, but does have associated dizziness with lifting and certain movements. He had X-ray and Ct scan perfomred which show C5- 6 DDD. He has PMH of HTN and kidney stones. Chief Complaint Pain Symptom Type Ache Dull Symptoms Relieved By Rest/Positioning Symptoms Aggravated By Physical Activity Lifting Prior Functional Limitations Lifting Current Functional Limitations Lifting Symptom Description Constant but Variable Level of pain today (0-10) 3 Pain scale - at its worst (0-10) 10 Cervical Eval Palpation Cervical Muscles R CT Junction L CT Junction R Upper Trapezius L Upper Trapezius Cervical/Thoracic Palpation Findings Tenderness Posture Head/C-Spine Posture Sitting Position Flexed Head/C-Spine Posture Standing Position Flexed Flexibility Deficits Upper Trapezius Muscle Length (R) Moderate Tightness (L) Moderate Tightness Levaetor Scapulae Muscle Length (R) Moderate Tightness (L) Moderate Tightness Passive Joint Mobility Cervical PIVM Dec: R C3/4 L C3/4 R C4/5 L C4/5 R C5/6 L C5/6 R C6/7 L C6/7 R C7/T1 L C7/T1 WNL: R OA L OA R AA L AA R C2/3 L C2/3 AROM Cervical Spine Extension Active Range of 0-45 Motion (degrees) Cervical Spine Flexion Active Range of 0-45 Motion (degrees)
== END 2018-12-02 08:05 | disposition home or self-care (01) ==
LOC: PT 08:00
PROVIDERS: Visit Provider Internal Medicine
DX: M54.2 Cervicalgia (principal)
CPT/HCPCS: 97010; 97012; 97014; 97035; 97110; 97140; 97163; G0283

== ENCOUNTER → 2019-05-15 11:05 | Outpatient (CLI) | payer MEDICARE, SELFPAY ==
[2019-05-15 11:39] LABS: Blood Urea Nitrogen 17 mg/dL (7-18); Creatinine,Serum 1.13 mg/dL (0.70-1.30); Estimated Glomerular Filt Rate 65 ml/min (>60); GFR (African American) 79 ML/MIN (>60)
--- NOTE | 2019-05-15 11:41 | CT_ITS ---
CT abdomen pelvis wo/w con CLINICAL INDICATION: ITS.REASON: pain ORDERING PHYSICIAN: Chao Aparicio MD PATIENT AGE: 63 years COMPARISON: 09/16/2018, 08/19/2016, and 11/08/2018. TECHNIQUE: Axial images obtained with sagittal and coronal reformats. All CT scans at the facility use one or more dose reduction, viz: automated exposure control, ma/kV adjustment per patient size (including targeted exams where dose is matched to indication, i.e. head), or iterative reconstruction technique. PROCEDURE: Oral Contrast: None IV Contrast: Yes . FINDINGS: Lower thorax: There is a subpleural noncalcified 6 mm nodular density posteriorly involving the superior segment of the right lower lobe. On the prior studies which included this area of the lower chest this was not present. ABDOMEN: Liver shows stable hypodense lesions since 08/19/2016 suggesting benign etiology. There are clips in the gallbladder fossa. Spleen, adrenal glands and pancreas are normal. Left kidney shows stable hypodense upper pole lesion suggesting a cyst. Right kidney now shows 2 small calcifications at the right UPJ and there is now mild right renal hydronephrosis. There are 2 contiguous 2 mm stones in the posterior calyx at the midpole area of the right kidney and stable 2.0 mm and 3.0 mm stones in the lower pole calyx of the right kidney. The previously described 1.8 cm posterior right renal cortical lesion is no lateral present and there is a hazy density at this site suggesting this was probably a cyst and has since collapsed. Also the hypodense area at the lower pole of the right kidney shows some fat however this was more solid on prior studies and therefore was probably a collapsed cyst as well rather than angiomyolipoma. There is no aortic dilatation. Contrasted study shows focal decreased nephrogram involving posterior right renal cortex at the site of the collapsed cyst. The remainder of the renal nephrograms appear normal. Partially contrast-filled urinary bladder on delayed images appear normal. GI tract is unremarkable however stomach is incompletely distended with fluid for adequate evaluation. There is no ascites or free air. Appendix is not visualized. There is no acute osseous or pelvic process. Impression: 2 of the small right renal stones have now migrated to the right UPJ causing obstructive changes. The larger of the 2 stones is approximately 4.1 mm and there are still at least 2 small stones in the posterior right renal pelvis and several intrarenal stones on the right side. Interval collapse of the posterior mid right renal lesion which apparently was a cyst. Stable liver lesions suggesting benign etiology.
== END ==
PROVIDERS: PCP Internal Medicine; Visit Provider Urology
DX: C64.9 Malignant neoplasm of unspecified kidney, except renal pelvis (principal); N20.0 Calculus of kidney
CPT/HCPCS: 36415; 74178; 82565; 84520; Q9967

== ENCOUNTER → 2019-10-23 10:24 | Outpatient (CLI) | payer MEDICARE, SELFPAY ==
--- NOTE | 2019-10-23 10:27 | XR_ITS ---
PROCEDURE: XR KUB CLINICAL INDICATION: kidney stone COMPARISON: CT ABDOMEN PELVIS WO CON from 10/21/2019 FINDINGS: There is scattered stool and gas in the hepatic flexure and transverse colon. This partially obscures the upper poles of both kidneys. However there is a faint opacity projecting over the expected location of the pelvis and/or lower pole right kidney likely representing at the UP junction right kidney. There are no suspicious calculi is seen along the course of either ureter. IMPRESSION: Renal shadows partially obscured but I suspect basically unchanged position of right UPJ calculus Dictated by: Dr. Jayson Weeks MD 10/23/2019 11:[address] Jayson Weeks MD in [place] 10/23/2019 11:22
== END ==
PROVIDERS: PCP Internal Medicine; Visit Provider Urology
DX: N20.0 Calculus of kidney (principal)
CPT/HCPCS: 74018

== ENCOUNTER → 2019-11-02 13:50 | Outpatient (CLI) | payer MEDICARE, SELFPAY ==
--- NOTE | 2019-11-02 13:57 | XR_ITS ---
PROCEDURE: XR KUB CLINICAL INDICATION: KIDNEY STONE Right-sided kidney stones COMPARISON: XR KUB from 10/23/2019 FINDINGS: There are multiple small punctate calculi in the mid and lower pole region of the right kidney. These appear more fragmented than when compared to the previous study. No obvious ureteral calculi. IMPRESSION: Right nephrolithiasis Dictated by: Tim Cuevas MD 11/02/2019 14:32 Electronically signed by Tim Cuevas MD in [place] 11/02/2019 14:32
[2019-11-13 15:10] LABS: Ca oxalate dihydrate 35 % (.)
[2019-11-15 17:35] LABS: Specimen Type Comment: (.)
== END ==
PROVIDERS: PCP Internal Medicine; Visit Provider Urology
DX: N20.0 Calculus of kidney (principal)
CPT/HCPCS: 74018; 82370

== ENCOUNTER → 2019-11-07 08:59 | Outpatient (CLI) | payer MEDICARE, SELFPAY ==
--- NOTE | 2019-11-07 09:08 | CT_ITS ---
PROCEDURE: CT ABDOMEN PELVIS WO/W CON CLINICAL INDICATION: renal cell cancer Interval resolution of previously described urinary tract obstruction at right ureteropelvic junction. Nonobstructing right renal calculi remain with continued right pyelocaliectasis. 1. Fat and soft tissue density mass along the inferior medial aspect of the right kidney not significantly changed over the short interval. Neoplasm benign or malignant should be considered. COMPARISON: CT ABDOMEN PELVIS WO CON from 10/21/2019 TECHNIQUE: IV Contrast: 75ML OPTIRAY 350 Oral Contrast none Axial images obtained with sagittal and coronal reformats. All CT scans at the facility use one or more dose reduction, viz: automated exposure control, ma/kV adjustment per patient size (including targeted exams where dose is matched to indication, i.e. head), or iterative reconstruction technique. FINDINGS: LOWER THORAX: No acute finding ABDOMEN & PELVIS: There has been interval resolution of previously described right urinary tract obstruction. The previously described uretero pelvic junction obstructing stone is no longer present.. Nonobstructing stones of the right kidney are noted. Along the inferior medial aspect of the right kidney there is a mixed predominantly fat and soft tissue density mass at least 2.5 x 2.2 x 2.1 centimeters in AP transverse and cephalocaudal dimensions. This may or may not correlate with stated history of renal cell carcinoma. The finding appears similar to the previous exam. Angiomyolipoma would also be in the differential diagnosis. There is been some interval decrease in right pyelocaliectasis. Hypodense lesions within the right liver are again noted and likely benign cysts 1 in the posterior liver appears smaller than on previous exam. There is a small hiatal hernia. Splenic granulomas are noted. Cortical cyst of the upper pole of left kidney is noted. There has been cholecystectomy. There is mild diverticulosis. Degenerative changes are seen throughout the spine. The prostate gland is enlarged with dystrophic calcification. IMPRESSION: Interval resolution of previously described right urinary tract obstruction. Nonobstructing right intrarenal stones are again noted. Continue presence of mixed fat and soft tissue and tissue density mass arising from inferior medial right kidney unchanged over the short interval. Neoplasm benign or malignant again should be considered. Dictated by: Donovan Cabello 11/07/2019 12:43 Electronically signed by Donovan Cabello in [place] 11/07/2019 12:43
[2019-11-07 09:24] LABS: Blood Urea Nitrogen 14 mg/dL (7-18); Creatinine,Serum 1.02 mg/dL (0.70-1.30); Estimated Glomerular Filt Rate 73 ml/min (>60); GFR (African American) 88 ML/MIN (>60)
== END ==
PROVIDERS: PCP Internal Medicine; Visit Provider Urology
DX: C64.9 Malignant neoplasm of unspecified kidney, except renal pelvis (principal)
CPT/HCPCS: 36415; 74178; 82565; 84520; Q9967

== ENCOUNTER → 2020-05-08 08:56 | Outpatient (CLI) | payer MEDICARE, SELFPAY ==
--- NOTE | 2020-05-08 09:01 | NM_ITS ---
PROCEDURE: NM BONE SCAN WHOLE BODY CLINICAL INDICATION: DIFFUSE JOINT PAIN, NECK PAIN History of kidney cancer COMPARISON: CT ABDOMEN PELVIS WO/W CON from 11/07/2019 TECHNIQUE: Dose: 25.1 mCi technetium MDP FINDINGS: Nonspecific periarticular activity is present in the knees, ankles, and shoulders. There is hydronephrosis of the right kidney with prominent activity noted in the right renal pelvis and calyceal system IMPRESSION: 1. No convincing evidence of metastatic disease. 2. Right hydronephrosis Dictated by: Tim Cuevas MD 05/08/2020 14:28 Electronically signed by Tim Cuevas MD in [place] 05/08/2020 14:28
== END ==
PROVIDERS: PCP Internal Medicine; Visit Provider Internal Medicine
DX: M54.2 Cervicalgia (principal)
CPT/HCPCS: 78306; A9503

== ENCOUNTER → 2020-05-17 12:31 | Outpatient (CLI) | payer MEDICARE, SELFPAY ==
[2020-05-17 16:11] LABS: Coronavirus 19 IgG Antibody Negative (Negative); Coronavirus 19 IgM Antibody Negative (Negative)
== END ==
PROVIDERS: Visit Provider Urology
DX: N13.5 Crossing vessel and stricture of ureter without hydronephrosis (principal); Z01.818 Encounter for other preprocedural examination
CPT/HCPCS: 36415; 86328

== ENCOUNTER 2020-05-20 08:01 | Day surgery (SDC) | payer MEDICARE, SELFPAY ==
[2020-05-16 12:52] VITALS: BMI 30.9
[2020-05-20] VITALS (10 sets, daily range): BP systolic 117–152; BP diastolic 72–87; PULSE 53–67; RESP 12–18; TEMP 36.4–36.6; O2SAT 96–99
--- NOTE | 2020-05-20 10:42 | P.PN_ITS ---
[facility] Anesthesia Checklist - Patient Identification Patient Identification: Arm Band, Verbal (Name & ) - Structural Data Admitted From: Home Planned Operative Procedure/s: Cystoscopy, retrogrades, pyelogram, right stent placement Consent for Planned Operative Procedure(s) Verified: Yes Verified Documents: Surgical Consent, History and Physical - NPO Status Verified Time NPO: 19:00 - Chart Verification Results Verified: None - Additional verifications Anesthesia Reactions: No Hx Blood Transfusions: No Blood Transfusion Reaction: Yes - Airway Assessment C-Spine Mobility Assessed: Yes (MP 3, full proctor, thick neck, TMD 3) TMJ Mobility Assessed: Yes Dentition: Poor Dentition (Broken teeth, missing) - Neurological Assessment Level of Consciousness: Awake, Alert, Appropriate, Follows Commands Hx Seizures: No Numbness or tingling in extremities: No - Anesthesia Plan Anesthesia Risk discussed: Yes Anesthesia Plan: Verified ASA Class: III Anesthesia Type: General [facility] History I have reviewed the patient's past medical history: Yes Medical History: Reports:: Cancer (kidney?), Deep Vein Thrombosis, Gastroesophageal Reflux Disease(GERD), Hiatal Hernia, Hypertension, Kidney Stones, MRSA (kidney), Seizures Denies:: Diabetes Mellitus Type 1, Diabetes Mellitus Type 2, Internal Pacemaker, Lung Disease *Have you ever received a pneumonia vaccine?: No *Have you received a flu vaccine this season?: Yes Other Medical History: Reports: Anemia, Arthritis, Blood Transfusion Reaction Comment:: obesity Anesthesia experience/problems:: None Laterality Cases: Right: Arthroscopy Knee, Bilateral: Tonsillectomy Other Surgeries: Yes: Appendectomy, Cancer Surgery, Cardiac Catheterization, Cholecystectomy, Colonoscopy, Other (kidney stone removal). No: Pacemaker Amputation: No Fractures: No - *Social History Last grade of school completed: 9th or 10th Smoking Status: Never smoker Alcohol Intake: never Alcohol Intake Frequency:: other Substance Use Type: denies use *Occupational Status:: retired Housing: house Household Members: spouse *Travel in the last 8 weeks: None Family Hx:: Cancer
--- NOTE | 2020-05-20 10:46 | HMH.ANESI ---
[facility] Anesthesia Record Part I Intake, IV Amount: 500 Estimated blood loss (mL): 0 Urine output (mL): 0 (NM) Blood Products used (#): none Blood Pressure: 129/77 SaO2: 96 Pulse Rate: 58 Respiratory Rate: 12 Temperature: 97.6 F Patient is:: Awake, Drowsy Stable to PACU at:: 10:48
--- NOTE | 2020-05-20 10:59 | XR_ITS ---
PROCEDURE: XR ABDOMEN MIN 2V CLINICAL INDICATION: CYSTOGRAM , STENT COMPARISON: CT ABDOMEN PELVIS WO/W CON from 11/07/2019 FINDINGS: Multiple images are submitted during contrast injection into the distal ureter under fluoroscopy. A right ureteral stent was placed. The proximal aspect of the stent was medial to the contrast within the renal caliceal system there was injected. There may be a duplicated renal collecting system. Please correlate with fluoroscopic findings. The distal aspect the urinary stent appears to be in good position in the region of the urinary bladder. Fluoroscopy time: 1 minutes and 29 seconds IMPRESSION: Status post stent placement with C-arm guidance Dictated by: Tim Cuevas MD 05/21/2020 07:13 Electronically signed by Tim Cuevas MD in [place] 05/21/2020 07:13
--- NOTE | 2020-05-20 11:10 | P.OP_ITS ---
Date of procedure: 05/20/20 Pre-op Diagnosis:: Right flank pain/right UPJ obstruction Post-op Diagnosis:: Right hydronephrosis with right ureteral deviation and narrowing Procedure performed:: Cystoscopy with right retrograde pyelogram and right stent placement Surgeon:: Mak Washington MD PERIPHERAL EDP EQUIPMENT OPERATOR:: Kj Lopez Anesthesia: GETA Estimated blood loss (mL): 0 Clinical Note:: 64-year-old white male with a 1 year history of a right-sided flank pain noted to have right hydronephrosis and deviation of the ureter on the CT scan. He is status post cryotherapy to the right lower pole 2 years ago. Operative findings:: Right ureter follows a normal course and caliber to the proximal portion of the ureter where the ureter is deviated laterally and there is a little narrowing of the proximal ureter but it is not extremely tight. The right renal pelvis is extrarenal and and shows severe hydronephrosis. Operative note:: Patient taken to the operating room after informed consent was obtained. Placed on the operating table in the supine position and prepped and draped in the standard surgical fashion. Preoperative antibiotics and sequential compression devices placed. He was placed into the dorsal lithotomy position prepped draped in standard surgical fashion. 22 Ross passed into the urethra and into the bladder without difficulty. The prostate showed some mild bilobar hyperplasia. The bladder was examined in a systematic fashion. There is no evidence of mucosal abnormalities, stones, trabeculation or cellule formation. The ureteral orifices were well away from the bladder neck and clear reflux was noted from each. Ureteral orifices were noted to be of normal shape and caliber. A cone- tip catheter was passed into the right ureteral orifice and contrast injected in a retrograde fashion. The right ureter showed a normal course and caliber to the proximal ureter where it deviated laterally and there was some narrowing at the proximal ureter. As it bent back to the medial portion there is noted to be severe hydronephrosis and caliectasis. Drainage films did not show a nice peristaltic motion from the renal pelvis. A guidewire was passed into the renal pelvis and it curled in a capacious extrarenal renal pelvis. A 6 x 26 Romanian stent was then passed over the guidewire and the guidewire and string removed. There was a good curl proximally and distally. The bladder drained and the scope removed. Urojet placed into the urethra for comfort measures. Patient tolerated well and discharged to recovery in stable condition. Condition: stable Disposition: PACU Specimens:: None Complications:: None
--- NOTE | 2020-05-20 19:26 | HMH.ANESII ---
[facility] Anesthesia Record Part II Discharge Time: 11:08 Destination: Surgical Day Care (OP Surgery) PACU nurse assessment reviewed?: Yes Patient Condition:: Good Anesthesia Complications:: None Swallowing reflex intact?: Yes Cyanosis?: No Blood Pressure: 123/76 Pulse Rate: 55 Temperature: 97.6 F Mental Status: Alert & Oriented Pain level:: 0 Nausea and/or vomitting:: None Intake, IV Amount: 0
== END 2020-05-20 11:39 | disposition home or self-care (01) ==
LOC: OR 08:03
PROVIDERS: PCP Internal Medicine; Visit Provider Urology
PROC: (CPT 52282; principal; 2020-05-20 11:30)
DX: N13.1 Hydronephrosis with ureteral stricture, not elsewhere classified; Q62.61 Deviation of ureter; Z85.53 Personal history of malignant neoplasm of renal pelvis; K21.9 Gastro-esophageal reflux disease without esophagitis; E78.5 Hyperlipidemia, unspecified; I10 Essential (primary) hypertension; I80.8 Phlebitis and thrombophlebitis of other sites; Z95.0 Presence of cardiac pacemaker; Z86.14 Personal history of Methicillin resistant Staphylococcus aureus infection; Z87.442 Personal history of urinary calculi; Z86.69 Personal history of other diseases of the nervous system and sense organs; Z90.89 Acquired absence of other organs
CPT/HCPCS: 52282; 74019; 76000; 96374; C2617; J2405; Q9967

== ENCOUNTER 2020-05-24 20:09 | Emergency (ER) | payer MEDICARE, SELFPAY ==
--- NOTE | 2020-05-24 20:22 | PC.NURSE ---
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 Washington for the symptoms he is experiencing since he couldn't remember what the names of them were and so our MD would be aware before pharmacy closes tonight while waiting to be evaluated by MD.
[2020-05-24 20:24] VITALS: BP 120/81; PULSE 72; RESP 16; TEMP 36.8; O2SAT 96; BMI 30.8
[2020-05-24 20:36] LABS: Microscopic, Urine URINE MICROSCOPIC (MICROSCOPIC)
--- NOTE | 2020-05-24 20:40 | PC.NURSE ---
Pts returned from pharmacy at this time, pharmacy was already closed.
[2020-05-24 20:52] VITALS: BP 119/82; PULSE 74; RESP 17; TEMP 36.8; O2SAT 97
--- NOTE | 2020-05-24 20:58 | HMH.EDUROGM ---
ED Disposition Clinical Impression: Left against medical advice, Drug-seeking behavior Disposition: Home, Self-Care Condition on Discharge: Good Instructions: DI for Urinary Tract Infection (UTI), DI for Urinary Tract Infection in Children Referrals: Mickey Fine [Primary Care Provider] - - Critical Care Critical Care Time: No Attestation: On 05/24/20, the high probability of a clinically significant, sudden or life threatening deterioration of the following system(s) required my full and direct attention, intervention and personal management. The time I documented below is in addition to time spent performing reported procedures but includes the following listed in this critical care notation. Medical Decision Making - Medical Records Medical records reviewed: Yes: I reviewed the patient's medical records. - Nicholas Inquiry Pt receiving controlled substance: No Vital Signs: 05/24/20 20:24 05/24/20 20:52 Temperature 98.2 F 98.2 F Temperature Source Oral Oral Pulse Rate 74 Pulse Rate [Right Brachial] 72 Respiratory Rate 16 17 Blood Pressure 119/82 Blood Pressure [Right Arm] 120/81 Blood Pressure Mean [Right Arm] 94 Blood Pressure Source Automatic Cuff Blood Pressure Source [Right Arm] Automatic Cuff Blood Pressure Position Sitting Blood Pressure Position [Right Arm] Sitting 02 Sat by Pulse Oximetry 96 Oxygen Delivery Method Room Air Room Air Orders (Tests/Meds): ORDERS Category Date Time Status Urinalysis and Microscopic Stat Lab 05/24/20 20:12 Received Medical Decision Narrative: After I asked the patient 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 I let her know that since she had pain medicine already called and and antibiotics to treat this issue per Dr. Washington from earlier today that I would not change the present management. At that time patient did walk out of the room and used explicit profanities towards me and is very abusive I then asked the patient to leave the emergency department or I was calling the police. Male Urogenital HPI - General Chief complaint: Urogenital-Male Stated complaint: Stint in urethea Wednesday, pain and bleeding Time Seen by Provider: 05/24/20 20:20 Mode of Arrival: Ambulatory Limitations: No Limitations Description of Symptoms (Recalled from ER Triage Doc. by RN): Patient reports he had surgery on wednesday with Dr. Washington and had a stent placed in his urethra. Patient reports since then he has been expericing alot of pain, blood in his urine and passing clots. Patient contacted Dr. Garcia office and today and they prescribed some pain medicine and antibiotic but he did not go pick those up and came here instead. - History of Present Illness HPI Narrative: 64-year-old male presents the emergency department for pain and bleeding in his urine. Patient recently had a stent placed on Wednesday by Dr. Washington and was told that having pain and some blood in the urine would be normal after the stent. Patient called her office today complaining about excessive pain and Dr. Washington called in pain medications and antibiotics to the patient's pharmacy. Patient states that when he went to the pharmacy to get the medications they would have been ready till 745 and since he was in pain he decided to come to the emergency department instead of taking his meds up at the pharmacy.Patient denies any recent cough or shortness of breath, patient denies any sore throat or headache, patient denies any loss of taste or smell, patient denies any malaise or fatigue, patient denies any abdominal pain nausea vomiting or diarrhea. - Related Data Home Medications Medication Instructions Recorded Confirmed Amlodipine Besylate [Norvasc 10mg 10 mg PO DAILY 04/17/18 05/13/20 tablet] Citalopram Hydrobromide 10 mg PO DAILY 04/17/18 05/13/20 [Ci
[2020-05-24 21:08] LABS: Appearance,Urine TURBID (Clear); Bilirubin,Urine Negative (Negative); Blood, Urine 3+ (Negative); Color,Urine RED (Yellow); Glucose,Urine (UA) Negative (Negative); Ketones,Urine TRACE (Negative); Leukocyte Esterase,Urine TRACE (Negative); Nitrate,Urine Negative (Negative); Protein,Urine 2+ (Negative); Specific Gravity, Urine >= 1.030 (1.005-1.030); Urobilinogen,Urine 0.2 EU/dl (0.2)
[2020-05-24 21:09] LABS: RBC,Urine TNTC #/hpf (0-3)
== END 2020-05-24 20:52 | disposition home or self-care (01) ==
PROVIDERS: Emergency Provider Family Medicine; PCP Internal Medicine
DX: Z53.21 Procedure and treatment not carried out due to patient leaving prior to being seen by health care provider (principal); G89.18 Other acute postprocedural pain; R31.9 Hematuria, unspecified
CPT/HCPCS: 81001; 87086; 99282

== ENCOUNTER 2020-05-26 16:00 | Inpatient (IN) | payer MEDICARE, SELFPAY ==
[2020-05-26 16:11] VITALS: BP 136/87; PULSE 71; RESP 17; TEMP 36.6; O2SAT 93; BMI 30.2
--- NOTE | 2020-05-26 16:15 | CT_ITS ---
Procedure: CT ABDOMEN PELVIS W CON Patient Age:64Y CLINICAL INDICATION: lower abd pain, recent urethral stent?? - Per ER History of kidney Renal cancer frozen twice (Provided history from ER or patient does not match findings) Stent placed 05/20/2020; with the right ureteral stent present on today's images. COMPARISON: CT ABDOMEN PELVIS WO/W CON from 11/07/2019 TECHNIQUE: 75 cc Optiray 350 IV contrast with 70 second scanning and then 4 minutes delayed scanning. But no oral contrast utilized Helical axial images obtained with sagittal and coronal reformats. All CT scans at the facility use one or more dose reduction, viz: automated exposure control, ma/kV adjustment per patient size (including targeted exams where dose is matched to indication, i.e. head), or iterative reconstruction technique. FINDINGS: Lower thorax: Lung bases clear. Small sliding hiatal hernia noted with generous surrounding fat. Heart normal size minimal coronary artery calcification ABDOMEN: Liver: Stable appearance since October 2019 again noting a benign hepatic cyst measuring up to 2 cm at the anterior left lobe. Smaller less than 10 mm cyst at the posterior right lobe. Gallbladder: Surgically removed. Common duct normal Pancreas: No masses or peripancreatic fluid collections. Spleen: unremarkable Adrenals: unremarkable tract RIGHT KIDNEY//URETER: Right ureteral stent in place; partially decompressed a previously dilated right pelvocaliceal system since October 2019. Mild residual prominence/dilatation of right pelvocaliceal structures. Ureteral stent appears to be in appropriate position with upper pigtail at the right renal pelvis and lower pigtail within the bladder Nonobstructing calculi lower pole right kidney-four small punctate calculi. Largest measuring 3 mm I believe associated with an area of scarring, volume loss with resulting dilated calyx posterior aspect lower pole right kidney. Similar appearance was seen previously with perhaps subtle decreased perfusion here. .. Axial image [id number] Inferior to the lower pole right kidney is a stable basically stable, perhaps incrementally smaller, small mass lesion measuring 2.7 cm AP the 18 mm height and width. But it is certainly no larger than October. 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 LEFT KIDNEY: 3.8 cm cyst upper pole. Left kidney left ureter otherwise unremarkable.. PELVIS:Images include the base of the scrotum were node bilateral vasectomy clips. Upper normal fluid surrounding both testicles may reflect minor hydrocele bilateral. Prostate appears is satisfactory upper normal-slightly enlarged measuring 4.8 cm transverse. Central calcifications. Urinary bladder.. Right ureteral stent pigtail within urinary bladder. Upper normal wall thickness at the posterior aspect of urinary bladder. Minimal air anterior aspect of urinary bladder requires correlation urinalysis to exclude UTI.. More likely air in the bladder is iatrogenic. ---GI tract------- Large bowel. Scattered diverticuli throughout the sigmoid colon and less evident left colon. Moderate stool right colon. Small bowel.: Abnormal Abnormal 20 cm length dilated small bowel loop the right lower quadrant anterior to the right colon. This segment of dilated small bowel loop measures up to 4 cm diameter point of obstruction and transition a described below at the lower right pelvis. Increased fluid with undigested food material/yielding stool appearing like material seen within this dilated small-bowel loop. This abnormal loop well seen on coronal image 29,-39. 24- More inferiorly at right pelvis there is abrupt tapering/rather abrupt
--- NOTE | 2020-05-26 16:21 | HMH.EDGENADL ---
ED Disposition Clinical Impression: Small bowel obstruction, Post-op pain Disposition: Admitted As Inpatient Condition on Discharge: Fair Time of Disposition: 18:18 - Critical Care Critical Care Time: No Attestation: On 05/26/20, the high probability of a clinically significant, sudden or life threatening deterioration of the following system(s) required my full and direct attention, intervention and personal management. The time I documented below is in addition to time spent performing reported procedures but includes the following listed in this critical care notation. Medical Decision Making - Medical Records Medical records reviewed: Yes: I reviewed the patient's medical records. - Nicholas Inquiry Pt receiving controlled substance: No Vital Signs: 05/26/20 16:11 05/26/20 16:38 05/26/20 17:29 Temperature 97.9 F Temperature Source Oral Pulse Rate Pulse Rate [Right Radial] 71 74 70 Respiratory Rate 17 Blood Pressure Blood Pressure [Right Arm] 136/87 112/69 118/74 Blood Pressure Mean [Right Arm] 103 83 88 Blood Pressure Source Blood Pressure Source [Right Arm] Automatic Cuff Automatic Cuff Blood Pressure Position Blood Pressure Position [Right Arm] Sitting Sitting 02 Sat by Pulse Oximetry 93 L 95 94 L Oxygen Delivery Method Room Air Room Air Room Air 05/26/20 18:00 05/26/20 19:36 Temperature 97.9 F Temperature Source Oral Pulse Rate 70 Pulse Rate [Right Radial] 72 Respiratory Rate 17 Blood Pressure 112/63 Blood Pressure [Right Arm] 113/66 Blood Pressure Mean [Right Arm] 81 Blood Pressure Source Automatic Cuff Blood Pressure Source [Right Arm] Automatic Cuff Blood Pressure Position Sitting Blood Pressure Position [Right Arm] Sitting 02 Sat by Pulse Oximetry 95 Oxygen Delivery Method Room Air - Lab Data Lab Results 05/26/20 16:30: Urine Color [place]ia[place]ro, Urine Appearance Cloudy, Urine pH 6.5, Ur Specific [place] 1.025, Urine Protein 3+, Urine Glucose (UA) 1+, Urine Ketones Trace, Urine Blood 3+, Urine Nitrate Positive, Urine Bilirubin 1+ A, Urine Urobilinogen >=8.0, Ur Leukocyte Esterase 2+ A, Urine RBC Tntc, Urine WBC 10-20, Ur Squamous Epith Cells 10-20, Urine Bacteria 1+ 05/26/20 16:30: WBC 10.4, RBC 5.08, Hgb 15.9, Hct 44.3, MCV 87.3, MCH 31.3 H, MCHC 35.9 H, RDW 14.3, Plt Count 250, MPV 7.7, Neut % (Auto) 84.0 H, Lymph % (Auto) 10.7, Evans % (Auto) 3.9, Eos % (Auto) 1.0, Baso % (Auto) 0.4, Neut # (Auto) 8.7 H, Lymph # (Auto) 1.1, Evans # (Auto) 0.4, Eos # (Auto) 0.1, Baso # (Auto) 0.0 05/26/20 16:30: Sodium 137, Potassium 4.2, Chloride 101, Carbon Dioxide 24, Anion Gap 16.2 H, BUN 32 H, Creatinine 1.40 H, Estimated Creat Clear 70, Estimated GFR 51 L, Est GFR ( Amer) 61, Glucose 114 H, Calcium 10.9 H, Total Bilirubin 0.7, AST 36, ALT 52, Alkaline Phosphatase 78, Total Protein 8.1, Albumin 4.6, Globulin 3.5 H, Albumin/Globulin Ratio 1.3 Result diagrams: 05/26/20 16:30 05/26/20 16:30 Orders (Tests/Meds): ED MEDICATIONS Generic Name Dose Route Start Last Admin Trade Name Freq PRN Reason Stop Dose Admin Sodium Chloride 1,000 mls @ 999 mls/hr 05/26/20 19:41 Sod Chlor 0.9% 1000ml Bag IV 05/26/20 20:41 .Q1H1M MELLISA Ceftriaxone Sodium 1 gm/ 50 mls @ 100 mls/hr 05/27/20 19:00 Sodium Chloride IV 06/09/20 18:59 Q24H MELLISA Protocol Sodium Chloride 1,000 mls @ 150 mls/hr 05/26/20 19:41 Sod Chlor 0.9% 1000ml Bag IV 06/25/20 19:40 .Q6H40M MELLISA Morphine Sulfate 4 mg 05/26/20 19:41 Morphine 2mg/Ml Syringe IV 06/25/20 19:40 Q4HP PRN Severe Pain Ondansetron HCl 4 mg 05/26/20 19:41 Zofran 4mg/2ml Vial IV 06/25/20 19:40 Q8HP PRN Nausea Discontinued Medications Generic Name Dose Route Start Last Admin Trade Name Freq PRN Reason Stop Dose Admin Sodium Chloride 1,000 mls @ 999 mls/hr 05/26/20 16:30 05/26/20 16:27 Sod Chlor 0.9% 1000ml Bag IV 05/26/20 17:30 999 mls/hr .Q1H1M MELLISA Admini
[2020-05-26 16:34] LABS: Basophils % 0.4 % (0.1-2.0); Eosinophils # 0.1 K/mm3 (0.0-0.4); Hematocrit 44.3 % (42.0-52.0); Hemoglobin 15.9 g/dL (14.1-18.0); Lymphocytes # 1.1 K/mm3 (0.7-4.5); Lymphocytes % 10.7 % (10-50); Mean Corpuscular HGB Conc 35.9 g/dL (31.8-35.4); Mean Corpuscular Hemoglobin 31.3 pg (27.0-31.2); Mean Corpuscular Volume 87.3 fl (80-94); Mean Platelet Volume 7.7 fl (7.4-10.4); Monocytes # 0.4 K/mm3 (0.1-1.0); Monocytes % 3.9 % (1.7-9.3); Neutrophils # 8.7 K/mm3 (1.8-7.8); Platelet Count 250 K/mm3 (142-424); Red Blood Count 5.08 M/mm3 (4.60-6.20); Red Cell Distribution Width 14.3 % (11.5-17.5); White Blood Count 10.4 K/mm3 (4.8-10.8)
[2020-05-26 16:37] LABS: Microscopic, Urine URINE MICROSCOPIC (MICROSCOPIC)
[2020-05-26 16:38] VITALS: BP 112/69; PULSE 74; O2SAT 95
[2020-05-26 16:39] LABS: Appearance,Urine CLOUDY (Clear); Blood, Urine 3+ (Negative); Color,Urine ORANGE (Yellow); Glucose,Urine (UA) 1+ (Negative); Ketones,Urine TRACE (Negative); Leukocyte Esterase,Urine 2+ (Negative); Nitrate,Urine POSITIVE (Negative); PH,Urine 6.5 (5.0-8.5); Protein,Urine 3+ (Negative); Specific Gravity, Urine 1.025 (1.005-1.030); Urobilinogen,Urine >=8.0 EU/dl (0.2)
[2020-05-26 16:41] LABS: Alanine Aminotransferase 52 U/L (12-78); Albumin Level 4.6 g/dl (3.5-5.0); Albumin/Globulin Ratio 1.3 (1.1-1.8); Alkaline Phosphatase 78 U/L (38-126); Anion Gap 16.2 mEq/L (5-15); Aspartate Amino Transferase 36 U/L (17-59); Bilirubin,Total 0.7 mg/dl (0.2-1.3); Blood Urea Nitrogen 32 mg/dl (9-20); Calcium 10.9 mg/dl (8.4-10.2); Carbon Dioxide 24 mmol/L (22.0-30.0); Chloride 101 mmol/L (98-107); Creatinine Clearance Estimated 70 mL/min (50-200); Estimated Glomerular Filt Rate 51 ml/min (>60); GFR (African American) 61 ML/MIN (>60); Globulin 3.5 g/dL (1.3-3.2); Glucose 114 mg/dl (74-100); Potassium 4.2 mmoL/L (3.5-5.1); Sodium 137 mmol/L (136-145); Total Protein,Serum 8.1 g/dl (6.3-8.2)
[2020-05-26 16:42] LABS: Bilirubin,Urine 1+ (Negative)
[2020-05-26 16:48] LABS: RBC,Urine TNTC #/hpf (0-3)
[2020-05-26 16:49] LABS: Bacteria,Urine 1+ /lpf
--- NOTE | 2020-05-26 17:28 | PC.NURSE ---
Pt returned from rad
[2020-05-26 17:29] VITALS: BP 118/74; PULSE 70; O2SAT 94
[2020-05-26 18:00] VITALS: BP 113/66; PULSE 72; O2SAT 95
--- NOTE | 2020-05-26 18:42 | PC.NURSE ---
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 maya) per ER MD request
--- NOTE | 2020-05-26 18:44 | PC.NURSE ---
MAMTA GRAMAJO speaking with Dr. Kennedy
--- NOTE | 2020-05-26 18:48 | PC.NURSE ---
faculty i on call medical assistant for jeanne espino.
--- NOTE | 2020-05-26 18:50 | PC.NURSE ---
Dr Barnard returned call.
--- NOTE | 2020-05-26 19:05 | PC.NURSE ---
notified lab of new orders on pt, spoke with re
[2020-05-26 19:08] VITALS: BMI 31.2
[2020-05-26 19:36] VITALS: BP 112/63; PULSE 70; RESP 17; TEMP 36.6; O2SAT 96
[2020-05-26 19:39] LABS: Lactic Acid 0.8 mmol/L (0.7-2.1)
[2020-05-26 19:58] VITALS: BP 110/59; PULSE 50; RESP 18; TEMP 36.7; O2SAT 93
--- NOTE | 2020-05-26 19:58 | PC.NURSE ---
PT ARRIVED TO THE FLOOR VIA W/C FROM ED @ 1957.
--- NOTE | 2020-05-27 03:07 | PC.NURSE ---
Pt A&OX4. Lungs CTA. Pt c/o of lower abd pain medicated per MAR. ABD is tender with guarding. Pt has ambulated to BR independently several times this shift. Pt is NPO for consults this AM. 20G RAC infusing NS @ 150ml VSS
[2020-05-27 04:00] VITALS: BP 105/56; PULSE 64; RESP 18; TEMP 36.4; O2SAT 98
[2020-05-27 05:46] VITALS: BMI 32.0
[2020-05-27 05:50] LABS: Basophils % 0.8 % (0.1-2.0); Eosinophils # 0.1 K/mm3 (0.0-0.4); Eosinophils % 2.6 % (0.1-12.0); Hematocrit 38.7 % (42.0-52.0); Hemoglobin 13.6 g/dL (14.1-18.0); Lymphocytes # 1.3 K/mm3 (0.7-4.5); Lymphocytes % 25.9 % (10-50); Mean Corpuscular HGB Conc 35.2 g/dL (31.8-35.4); Mean Corpuscular Hemoglobin 31.5 pg (27.0-31.2); Mean Corpuscular Volume 89.6 fl (80-94); Mean Platelet Volume 8.1 fl (7.4-10.4); Monocytes # 0.4 K/mm3 (0.1-1.0); Monocytes % 7.2 % (1.7-9.3); Neutrophils # 3.2 K/mm3 (1.8-7.8); Neutrophils % 63.4 % (37.0-80.0); Platelet Count 181 K/mm3 (142-424); Red Blood Count 4.32 M/mm3 (4.60-6.20); Red Cell Distribution Width 14.2 % (11.5-17.5); White Blood Count 5.1 K/mm3 (4.8-10.8)
[2020-05-27 06:00] LABS: Blood Urea Nitrogen 25 mg/dl (9-20); Carbon Dioxide 27 mmol/L (22.0-30.0); Chloride 103 mmol/L (98-107); Creatinine Clearance Estimated 95 mL/min (50-200); Estimated Glomerular Filt Rate 67 ml/min (>60); GFR (African American) 81 ML/MIN (>60); Glucose 95 mg/dl (74-100); Sodium 137 mmol/L (136-145)
[2020-05-27 06:02] LABS: Lactic Acid 0.6 mmol/L (0.7-2.1)
[2020-05-27 06:15] LABS: Calcium 9.5 mg/dl (8.4-10.2)
--- NOTE | 2020-05-27 07:13 | HMH.PHAVTE ---
[facility] Pharmacy VTE Monitoring - Patient Demographics Admission date: 05/26/20 Report Date: 05/27/20 Time: 07:13 Allergies/Adverse Reactions: Patient Allergies No Known Allergies Allergy (Verified 05/24/20 20:34) Height: 1.78 m Weight: 101.406 kg Patient Problems: Current Active Problems Abdominal pain (Acute) Small bowel obstruction (Acute) Post-op pain (Acute) - VTE Risk Labs: VTE Related Lab Results Hgb 13.6 g/dL (14.1-18.0) L D 05/27/20 05:40 Hct 38.7 % (42.0-52.0) L 05/27/20 05:40 Plt Count 181 K/mm3 (142-424) D 05/27/20 05:40 BUN 25 mg/dl (9-20) H 05/27/20 05:40 Creatinine 1.10 mg/dl (0.66-1.25) D 05/27/20 05:40 Estimated Creat Clear 95 mL/min (50-200) 05/27/20 05:40 VTE Risk Level: Low Risk - Prophylaxis VTE Prophylaxis Ordered?: Yes Types of VTE Prophylaxis: TEDS Knee High Location of Applied Device: Bilateral Lower Extremeties - VTE Diagnosis Confirmed Treatment or plan recommended: Continue Current Treatment
--- NOTE | 2020-05-27 07:56 | HMH.PHAINT ---
MEDICATION RECONCILIATION COMPLETED ON PATIENT USING EXTERNAL FILL HISTORY FROM PHARMACY. -RYNE CARUSO, ALBIND
--- NOTE | 2020-05-27 07:57 | HMH.GSCON ---
*Admission Date: 05/26/20 *Reason for consult:: Bowel obstruction *History of present illness: Patient is a pleasant 64-year-old male. He had undergone right ureteral stent placement 1 week ago for right hydronephrosis. He has had 1 year history of right flank pain. He states that a couple of days after his stent placement he had some onset of right lower quadrant abdominal pain. This is become progressively severe over several days until quite severe yesterday evening. Had some associated vomiting. He presented to the emergency department yesterday evening where he underwent thorough evaluation. He had CT scan with intravenous contrast which revealeled appropriate stent placement but there were findings of possible obstructive loop of small bowel in the right lower quadrant. He was admitted for inpatient management and surgical and urologic consultations. Patient has continued to have pain requiring narcotics. Of note, he previously underwent open appendectomy decades ago. Review of Systems - Review of Systems Review of systems:: pertinent systems reviewed and negative unless documented below - *Neurologic Denies dizziness, Denies headache(s) [facility] History Medical History: Reports:: Deep Vein Thrombosis, Gastroesophageal Reflux Disease(GERD), Hiatal Hernia, Hypertension, Kidney Stones Denies:: Cancer, Diabetes Mellitus Type 1, Diabetes Mellitus Type 2, Internal Pacemaker, Lung Disease, MRSA, Seizures *Have you ever received a pneumonia vaccine?: No *Have you received a flu vaccine this season?: Yes Other Medical History: Reports: Anemia, Arthritis, Blood Transfusion Reaction Laterality Cases: Right: Arthroscopy Knee, Bilateral: Tonsillectomy Other Surgeries: Yes: No Previous Surgery, Appendectomy, Cancer Surgery, Cardiac Catheterization, Cholecystectomy, Colonoscopy, Other (kidney stone removal). No: Pacemaker Amputation: No Fractures: No - *Social History Last grade of school completed: High school graduate Smoking Status: Former smoker Alcohol Intake: never Alcohol Intake Frequency:: other Substance Use Type: denies use *Occupational Status:: retired Housing: house Household Members: spouse *Travel in the last 8 weeks: None Family Hx:: No significant family history Meds Home Medications Medication Instructions Recorded Confirmed Type Amlodipine Besylate [Norvasc 10mg 10 mg PO DAILY 04/17/18 05/26/20 History tablet] Citalopram Hydrobromide 10 mg PO DAILY 04/17/18 05/26/20 History [Citalopram 10mg Tablet] Ferrous Sulfate 325 mg PO TID 04/17/18 05/26/20 History Tamsulosin HCl [Flomax 0.4mg 0.4 mg PO DAILY 04/17/18 05/26/20 History capsule] allopurinoL [Allopurinol 100mg 300 mg PO HS 10/08/18 05/26/20 History tablet] Phenazopyridine HCl 200 mg PO TIDP PRN 05/26/20 05/27/20 History levoFLOXacin [Levaquin 500mg 500 mg PO DAILY 05/26/20 05/26/20 History tab] Aspirin [Aspirin 81mg EC Tab] 81 mg PO DAILY 05/27/20 05/27/20 History Diclofenac Sodium [Diclofenac 75mg 75 mg PO BID 05/27/20 05/27/20 History Tab] Hydrocodone/Acetaminophen 1 each PO Q4HP PRN 05/27/20 05/27/20 History [Hydrocodone-Acetamin 5-325 mg] Losartan Potassium [Cozaar 100mg 100 mg PO DAILY 05/27/20 05/27/20 History Tablets] Omeprazole [Omeprazole 40mg 40 mg PO DAILY 05/27/20 05/27/20 History Capsule] Trazodone HCl [Desyrel 50mg tablet] 50 mg PO HSP PRN 05/27/20 05/27/20 History hydroCHLOROthiazide [HCTZ 25mg 25 mg PO DAILY 05/27/20 05/27/20 History tab] Allergies Allergy/AdvReac Type Severity Reaction Status Date / Time No Known Allergies Allergy Verified 05/24/20 20:34 Exam Vital signs and Labs for Last 24 Hours: Temp Pulse Resp BP Pulse Ox 97.6 F 64 18 105/56 L 98 05/27/20 04:00 05/27/20 04:00 05/27/20 04:00 05/27/20 04:00 05/27/20 04:00 Laboratory Results - last 24 hr 05/26/20 16:30: Urine Color [place], Urine Appearance Cloudy, Urine pH 6.5, Ur
[2020-05-27 08:00] VITALS: BP 124/54; PULSE 62; RESP 20; TEMP 36.9; O2SAT 95
--- NOTE | 2020-05-27 08:22 | HMH.HP ---
*Admission Date: 05/26/20 *Chief complaint: Small bowel obstruction *History of present illness: Patient is a pleasant 64-year-old male. He had undergone right ureteral stent placement 1 week ago for right hydronephrosis. He has had 1 year history of right flank pain. He states that a couple of days after his stent placement he had some onset of right lower quadrant abdominal pain. This is become progressively severe over several days until quite severe yesterday evening. Had some associated vomiting. He presented to the emergency department yesterday evening where he underwent thorough evaluation. He had CT scan with intravenous contrast which revealeled appropriate stent placement but there were findings of possible obstructive loop of small bowel in the right lower quadrant. He was admitted for inpatient management and surgical and urologic consultations. Patient has continued to have pain requiring narcotics. Of note, he previously underwent open appendectomy decades ago. Above note per surgery consultation. Patient notes that his functional status at home is excellent. Denies cardiac or pulmonary issues. Has never had problems with surgery, anesthesia or free bleeding. [facility] History I have reviewed the patient's past medical history: Yes Medical History: Reports:: Deep Vein Thrombosis, Gastroesophageal Reflux Disease(GERD), Hiatal Hernia, Hypertension, Kidney Stones Denies:: Cancer, Diabetes Mellitus Type 1, Diabetes Mellitus Type 2, Internal Pacemaker, Lung Disease, MRSA, Seizures *Have you ever received a pneumonia vaccine?: No *Have you received a flu vaccine this season?: Yes Other Medical History: Reports: Anemia, Arthritis, Blood Transfusion Reaction Laterality Cases: Right: Arthroscopy Knee, Bilateral: Tonsillectomy Other Surgeries: Yes: No Previous Surgery, Appendectomy, Cancer Surgery, Cardiac Catheterization, Cholecystectomy, Colonoscopy, Other (kidney stone removal). No: Pacemaker Amputation: No Fractures: No - *Social History Last grade of school completed: High school graduate Smoking Status: Former smoker Alcohol Intake: never Alcohol Intake Frequency:: other Substance Use Type: denies use *Occupational Status:: retired Housing: house Household Members: spouse *Travel in the last 8 weeks: None Family Hx:: No significant family history Review of Systems - Review of Systems Review of systems:: pertinent systems reviewed and negative unless documented below - *Neurologic Denies dizziness, Denies headache(s) Meds Home Medications Medication Instructions Recorded Confirmed Type Amlodipine Besylate [Norvasc 10mg 10 mg PO DAILY 04/17/18 05/26/20 History tablet] Citalopram Hydrobromide 10 mg PO DAILY 04/17/18 05/26/20 History [Citalopram 10mg Tablet] Ferrous Sulfate 325 mg PO TID 04/17/18 05/26/20 History Tamsulosin HCl [Flomax 0.4mg 0.4 mg PO DAILY 04/17/18 05/26/20 History capsule] allopurinoL [Allopurinol 100mg 300 mg PO HS 10/08/18 05/26/20 History tablet] Phenazopyridine HCl 200 mg PO TIDP PRN 05/26/20 05/27/20 History levoFLOXacin [Levaquin 500mg 500 mg PO DAILY 05/26/20 05/26/20 History tab] Aspirin [Aspirin 81mg EC Tab] 81 mg PO DAILY 05/27/20 05/27/20 History Diclofenac Sodium [Diclofenac 75mg 75 mg PO BID 05/27/20 05/27/20 History Tab] Hydrocodone/Acetaminophen 1 each PO Q4HP PRN 05/27/20 05/27/20 History [Hydrocodone-Acetamin 5-325 mg] Losartan Potassium [Cozaar 100mg 100 mg PO DAILY 05/27/20 05/27/20 History Tablets] Omeprazole [Omeprazole 40mg 40 mg PO DAILY 05/27/20 05/27/20 History Capsule] Trazodone HCl [Desyrel 50mg tablet] 50 mg PO HSP PRN 05/27/20 05/27/20 History hydroCHLOROthiazide [HCTZ 25mg 25 mg PO DAILY 05/27/20 05/27/20 History tab] Allergies Allergy/AdvReac Type Severity Reaction Status Date / Time No Known Allergies Allergy Verified 05/24/20 20:34 Exam Vital signs and Labs for Last 24 H
--- NOTE | 2020-05-27 08:22 | PC.NURSE ---
Contacted Dr. Washington's office about consult for this pt. Stated he is aware and would be up after his surgeries this AM.
--- NOTE | 2020-05-27 08:27 | FL_ITS ---
PROCEDURE: FL SMALL BOWEL FOLLOW THROUGH CLINICAL INDICATION: RLQ ABDOMINAL PAIN, ABNORMAL CT SCAN COMPARISON: No exams were available for comparison FINDINGS: Fluoroscopy time: 1 minutes 24 seconds Boiler Setter exam shows a right ureteral stent in place. Evaluation of the small bowel is performed following ingestion of barium Gastrografin mixed. There is a small duodenal diverticulum projecting off the medial portion of the duodenum. Small bowel has an unremarkable appearance. No dilatation, obstructing lesions, or mucosal abnormalities are evident. Spot views of the terminal ileum are unremarkable. IMPRESSION: Unremarkable small bowel follow-through Dictated by: Tim Cuevas MD 05/27/2020 14:39 Electronically signed by Tim Cuevas MD in [place] 05/27/2020 14:39
--- NOTE | 2020-05-27 10:28 | PC.NURSE ---
pt to radiology @ 1014
--- NOTE | 2020-05-27 12:16 | PC.NURSE ---
back from radiology
[2020-05-27 15:18] VITALS: BP 110/62; PULSE 90; RESP 18; TEMP 36.5; O2SAT 96
--- NOTE | 2020-05-27 17:05 | HMH.CONS ---
*Admission Date: 05/26/20 *Reason for consult:: Right lower quadrant pain status post recent right ureteral stent placement *History of present illness: Patient is a pleasant 64-year-old male. He had undergone right ureteral stent placement 1 week ago for right hydronephrosis. He has had 1 year history of right flank pain. He states that a couple of days after his stent placement he had some onset of right lower quadrant abdominal pain. This is become progressively severe over several days until quite severe yesterday evening. Had some associated vomiting. He presented to the emergency department yesterday evening where he underwent thorough evaluation. He had CT scan with intravenous contrast which revealed appropriate stent placement but there were findings of possible obstructive loop of small bowel in the right lower quadrant. He was admitted for inpatient management and surgical and urologic consultations. Patient has continued to have pain requiring narcotics. Of note, he previously underwent open appendectomy decades ago. After Allran is seen the patient and a small bowel follow-through was performed which showed no evidence of bowel obstruction today. Patient still having some right lower quadrant discomfort is taking some narcotics. His white count is normal and his creatinine has improved. Patient has a history of a right lower pole renal mass and is undergone cryotherapy twice for treatment of the renal mass. 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 A stent was placed recently for passive dilation. Plan is to leave it in for 6 weeks [facility] History Medical History: Reports:: Deep Vein Thrombosis, Gastroesophageal Reflux Disease(GERD), Hiatal Hernia, Hypertension, Kidney Stones Denies:: Cancer, Diabetes Mellitus Type 1, Diabetes Mellitus Type 2, Internal Pacemaker, Lung Disease, MRSA, Seizures *Have you ever received a pneumonia vaccine?: No *Have you received a flu vaccine this season?: Yes Other Medical History: Reports: Anemia, Arthritis, Blood Transfusion Reaction Laterality Cases: Right: Arthroscopy Knee, Bilateral: Tonsillectomy Other Surgeries: Yes: No Previous Surgery, Appendectomy, Cancer Surgery, Cardiac Catheterization, Cholecystectomy, Colonoscopy, Other (kidney stone removal). No: Pacemaker Amputation: No Fractures: No - *Social History Last grade of school completed: High school graduate Smoking Status: Former smoker Alcohol Intake: never Alcohol Intake Frequency:: other Substance Use Type: denies use *Occupational Status:: retired Housing: house Household Members: spouse *Travel in the last 8 weeks: None Family Hx:: No significant family history Review of Systems - Review of Systems Review of systems:: pertinent systems reviewed and negative unless documented below - *Neurologic Denies dizziness, Denies headache(s) Meds Home Medications Medication Instructions Recorded Confirmed Type Amlodipine Besylate [Norvasc 10mg 10 mg PO DAILY 04/17/18 05/26/20 History tablet] Citalopram Hydrobromide 10 mg PO DAILY 04/17/18 05/26/20 History [Citalopram 10mg Tablet] Ferrous Sulfate 325 mg PO TID 04/17/18 05/26/20 History Tamsulosin HCl [Flomax 0.4mg 0.4 mg PO DAILY 04/17/18 05/26/20 History capsule] allopurinoL [Allopurinol 100mg 300 mg PO HS 10/08/18 05/26/20 History tablet] Phenazopyridine HCl 200 mg PO TIDP PRN 05/26/20 05/27/20 History levoFLOXacin [Levaquin 500mg 500 mg PO DAILY 05/26/20 05/26/20 History tab] Aspirin [Aspirin 81mg EC Tab] 81 mg PO DAILY 05/27/20 05/27/20 History Diclofenac Sodium [Diclofenac 75mg 75 mg PO BID 05/27/20 05/27/20 History Tab] Hydrocodone/Acetaminophen 1 each PO Q4HP PRN 05/27/20 05/27/20 History [Hydrocodone-Acetamin 5-325 mg] Losartan Potassium [Coz
--- NOTE | 2020-05-27 17:09 | PC.NURSE ---
Pt has done well this shift. No issues noted. Initiated clear liquid diet this afternoon per Dr. Kennedy. Is tolerating clears well. Has had 2 normal BMs today. VSS. Is ambulatory to and from bathroom without assistance. He refuses TEDs.
[2020-05-27 20:00] VITALS: BP 122/71; PULSE 50; RESP 17; TEMP 36.7; O2SAT 97
[2020-05-28 04:00] VITALS: BP 118/69; PULSE 52; RESP 16; TEMP 36.7; O2SAT 95
[2020-05-28 05:07] VITALS: BMI 32.1
--- NOTE | 2020-05-28 05:23 | PC.NURSE ---
PT. C/O R SIDE PAIN X1 THIS SHIFT; ADMINISTERED MORPHINE PER MAR; EFFECTIVENESS NOTED. PT. REPORTED DYSURIA AT BEGINNING OF SHIFT, EDUCATED PT. ON AVAILABLE PRN MEDS, PT. DID NOT WANT TO TAKE THESE MEDS AT THIS TIME. NO C/O N/V/D, SOA OR DIZZINESS THIS SHIFT.
--- NOTE | 2020-05-28 07:06 | HMH.GSPN ---
Subjective Narrative: Patient slept well overnight. Small bowel follow-through showed no evidence of any obstruction and was normal . Seen by urology. Patient started on clear liquids. Did have some right lower quadrant pain last night. Exam Vital signs and Labs for Last 24 Hours: Temp Pulse Resp BP Pulse Ox 98.0 F 52 L 16 118/69 95 05/28/20 04:00 05/28/20 04:00 05/28/20 04:00 05/28/20 04:00 05/28/20 04:00 I & O for Last 24 hours: Intake & Output 05/25/20 05/26/20 05/27/20 05/28/20 11:59 11:59 11:59 11:59 Intake Total 1375 / 1375 2143 / 2143 Output Total 700 / 700 2952 / 2952 Balance 675 / 675 -809 / -809 Weight 223 lb 9 oz 224 lb Microbiology Reports for the Last 24 Hours: Microbiology 05/26/20 16:30 Urine,Clean Catch Urine Culture - Preliminary NO GROWTH AFTER 24 HOURS - *Routine Abdominal Exam Present: soft Comments: Minor right lower quadrant tenderness. Progress Note: A&P (1) Small bowel obstruction Status: Acute Current Visit: Yes (2) Abdominal pain Status: Acute Current Visit: Yes Assessment and Plan for All Diagnoses:: I will see how he does with advancement to full liquids.
--- NOTE | 2020-05-28 07:17 | HMH.ACPN2 ---
Internal Medicine - PN: Subj *Date: 05/28/20 *Time: 08:12 Interval history: Patient did well overnight tolerating diet. No vomiting, chest pain, abdominal pain. Hemodynamically stable this morning. Had 2 bowel movements yesterday. Denies shortness of breath, syncope. Exam Vital signs and Labs for Last 24 Hours: Temp Pulse Resp BP Pulse Ox 98.0 F 52 L 16 118/69 95 05/28/20 04:00 05/28/20 04:00 05/28/20 04:00 05/28/20 04:00 05/28/20 04:00 I & O for Last 24 hours: Intake & Output 05/25/20 05/26/20 05/27/20 05/28/20 23:59 23:59 23:59 23:59 Intake Total 1845 / 1845 1673 / 1673 Output Total 200 / 200 2802 / 3152 1600 / 1600 Balance -200 / -200 -957 / -1307 73 / 73 Weight 99.11 kg 101.406 kg 101.605 kg Microbiology Reports for the Last 24 Hours: Microbiology 05/26/20 16:30 Urine,Clean Catch Urine Culture - Preliminary NO GROWTH AFTER 24 HOURS Narrative: - *Routine HEENT Exam Head: Present: normocephalic Eye: Present: EOMI, PERRL ENT: Present: mucous membranes moist - *Routine Neck Exam Present: supple. Absent: lymphadenopathy - *Routine Respiratory Exam Present: CTA bilaterally - *Routine Cardiovascular Exam Present: RRR - *Routine Abdominal Exam Present: soft. Very minimal tenderness in right lower quadrant, otherwise nontender through the rest of the abdomen; No masses no CVA tenderness; - *Routine Extremities Exam Absent: cyanosis, clubbing, edema - *Routine Skin Exam Present: warm. Absent: rash - *Routine Neurological Exam Present: alert, oriented X3 Assessment and Plan (1) Small bowel obstruction Current visit: Yes Status: Acute Category: Medical Code(s): K56.609 - Unspecified intestinal obstruction, unspecified as to partial versus complete obstruction (2) Abdominal pain Current visit: Yes Status: Acute Category: Medical Code(s): R10.9 - Unspecified abdominal pain (3) Obesity (BMI 30.0-34.9) Current visit: No Status: Chronic Category: Medical Code(s): E66.9 - Obesity, unspecified Complicates all aspects of his care - Assessment and plan all Dx Assessment and Plan for all problems:: Patient's abdominal exam somewhat improved. Tolerating advancement in diet. Continue full liquid today, if tolerates that through lunch, will advance to mechanical soft. Hemodynamically stable. Transition pain regimen to oral. Continue antibiotics at this time. Discharge criteria include oral pain regimen, hemodynamically stable, toleration of fluid and oral intake needs, daily bowel movement and urine output. Anticipate discharge likely tomorrow
[2020-05-28 07:29] VITALS: BP 133/75; PULSE 57; RESP 20; TEMP 37; O2SAT 95
--- NOTE | 2020-05-28 10:26 | HMH.CONFU ---
Internal Medicine - PN: Subj *Date: 05/28/20 *Time: 10:26 Interval history: Patient still complains of some right lower quadrant pain. The pain is improved from his admission but is still present. In the absence of a bowel obstruction I believe his stent is the likely source of his discomfort. He does state trouble with prior stent placement. He is tolerating clear liquids and has had 2 bowel movements since yesterday. Exam Vital signs and Labs for Last 24 Hours: Temp Pulse Resp BP Pulse Ox 98.6 F 57 L 20 133/75 95 05/28/20 07:29 05/28/20 07:29 05/28/20 07:29 05/28/20 07:29 05/28/20 07:29 I & O for Last 24 hours: Intake & Output 05/25/20 05/26/20 05/27/20 05/28/20 23:59 23:59 23:59 23:59 Intake Total 1845 / 1845 2077 / 2077 Output Total 200 / 200 2802 / 3152 1600 / 1600 Balance -200 / -200 -957 / -1307 477 / 477 Weight 99.11 kg 101.406 kg 101.605 kg Microbiology Reports for the Last 24 Hours: Microbiology 05/26/20 16:30 Urine,Clean Catch Urine Culture - Preliminary NO GROWTH AFTER 24 HOURS Narrative: Well-nourished white male in no apparent distress Pupils equal round reactive to light Head is normocephalic Neck is symmetric Normal respiratory effort Abdomen normal visual inspection Alert and oriented x3 Assessment and Plan (1) Small bowel obstruction Current visit: Yes Status: Acute Category: Medical Code(s): K56.609 - Unspecified intestinal obstruction, unspecified as to partial versus complete obstruction (2) Abdominal pain Current visit: Yes Status: Acute Category: Medical Code(s): R10.9 - Unspecified abdominal pain Patient with history of right UPJ obstruction creating right-sided hydronephrosis. Recent CT scan shows improvement in the right hydronephrosis but patient new development of right lower quadrant pain. It is likely that the stent is causing the discomfort and we discussed that trying to put up with the pain for a few weeks so that the ureter may dilate appropriately. If he cannot tolerate the discomfort we discussed removing the stent sooner. He will contact me if he cannot tolerate it. (3) Obesity (BMI 30.0-34.9) Current visit: No Status: Chronic Category: Medical Code(s): E66.9 - Obesity, unspecified
[2020-05-28 16:00] VITALS: BP 112/67; PULSE 63; RESP 20; TEMP 36.7; O2SAT 99
--- NOTE | 2020-05-28 16:33 | PC.NURSE ---
NO C/O OF N/V/D THIS SHIFT. PT HAS BEEN UP TO CHAIR VISITING WITH FAMILY T/O SHIFT. PT NOT ON TELE, ON RA SAT 99%. PT HAS TOLERATED FULL LIQUID DIET DIET T/O SHIFT. NO ABD PAIN THIS SHIFT. NO NEEDS AT THIS TIME. WILL CONTINUE TO MONITOR
[2020-05-28 19:53] VITALS: BP 135/74; PULSE 55; RESP 17; TEMP 36.8; O2SAT 96
[2020-05-28 20:30] VITALS: O2SAT 96
[2020-05-29] VITALS: BP 128/74; PULSE 56; RESP 17; TEMP 36.7; O2SAT 96
--- NOTE | 2020-05-29 03:22 | PC.NURSE ---
A&OX4. PT HAS TOLERATED ROOM AIR WELL THROUGHOUT SHIFT. RESPIRATIONS REGULAR AND UNLABORED. CLEAR LUNG SOUNDS NOTED THROUGHOUT. NO COUGH NOTED. ACTIVE BOWEL SOUNDS HEARD IN ALL 4 QUADRANTS. SOFT AND NONTENDER ABDOMEN. PT AMBULATES INDEPENDENTLY IN THE ROOM AND TO THE RESTROOM. STEADY GAIT NOTED. TOLERATES WELL. 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 NO EDEMA NOTED. NO COMPLAINS OF PAIN OR NAUSEA THUS FAR. NS INFUSING AT 75ML/HR. +2 PULSES NOTED THROUGHOUT. HAS TOLERATED SOFT DIET WELL TONIGHT. PT CURRENTLY SLEEPING IN BED WITH CALL LIGHT WITHIN REACH. BED IN LOWEST POSITION. VSS. NO CONCERNS AT THIS TIME. WILL CONTINUE TO MONITOR.
[2020-05-29 04:00] VITALS: BP 121/79; PULSE 54; RESP 16; TEMP 36.7; O2SAT 94
[2020-05-29 06:00] VITALS: BMI 31.6
[2020-05-29 06:34] LABS: Basophils % 0.8 % (0.1-2.0); Eosinophils # 0.2 K/mm3 (0.0-0.4); Hematocrit 39.1 % (42.0-52.0); Hemoglobin 13.6 g/dL (14.1-18.0); Lymphocytes # 1.4 K/mm3 (0.7-4.5); Lymphocytes % 27.7 % (10-50); Mean Corpuscular Hemoglobin 31.2 pg (27.0-31.2); Mean Corpuscular Volume 89.2 fl (80-94); Mean Platelet Volume 7.8 fl (7.4-10.4); Monocytes # 0.4 K/mm3 (0.1-1.0); Monocytes % 7.8 % (1.7-9.3); Neutrophils # 3.1 K/mm3 (1.8-7.8); Neutrophils % 60.7 % (37.0-80.0); Platelet Count 192 K/mm3 (142-424); Red Blood Count 4.38 M/mm3 (4.60-6.20); Red Cell Distribution Width 14.2 % (11.5-17.5)
[2020-05-29 06:41] LABS: Anion Gap 12.2 mEq/L (5-15); Blood Urea Nitrogen 13 mg/dl (9-20); Calcium 9.7 mg/dl (8.4-10.2); Carbon Dioxide 28 mmol/L (22.0-30.0); Chloride 101 mmol/L (98-107); Creatinine Clearance Estimated 104 mL/min (50-200); Estimated Glomerular Filt Rate 84 ml/min (>60); GFR (African American) 102 ML/MIN (>60); Glucose 100 mg/dl (74-100); Potassium 4.2 mmoL/L (3.5-5.1); Sodium 137 mmol/L (136-145)
--- NOTE | 2020-05-29 07:57 | HMH.DCSUM ---
General - General Admission date:: 05/26/20 Discharge date: 05/29/20 HPI HPI: Patient is a pleasant 64-year-old male. He had undergone right ureteral stent placement 1 week ago for right hydronephrosis. He has had 1 year history of right flank pain. He states that a couple of days after his stent placement he had some onset of right lower quadrant abdominal pain. This is become progressively severe over several days until quite severe yesterday evening. Had some associated vomiting. He presented to the emergency department yesterday evening where he underwent thorough evaluation. He had CT scan with intravenous contrast which revealeled appropriate stent placement but there were findings of possible obstructive loop of small bowel in the right lower quadrant. He was admitted for inpatient management and surgical and urologic consultations. Patient has continued to have pain requiring narcotics. Of note, he previously underwent open appendectomy decades ago. Above note per surgery consultation. Patient notes that his functional status at home is excellent. Denies cardiac or pulmonary issues. Has never had problems with surgery, anesthesia or free bleeding. Hospital Course Hospital Course: Patient was admitted, placed on bowel rest, IV fluids, and surgery was consulted. CT scan reading was certainly indicative of bowel obstruction but his clinical situation improved very quickly. Small bowel follow-through was done which revealed no evidence of obstruction and diet was restarted. Urology was consulted, felt that the stent was probably the cause of his very mild pain, and instructed patient to call if he could not handle the pain to have the stent removed. Of note patient has not been taking his narcotic pain medication because of issues with sleep disturbance and constipation when he takes this. Over the last couple of days patient continues to improve, good diet, good bowel movements yesterday. This morning his abdomen was soft and nontender. Will be discharged home with a limited diet and surgical follow-up. Objective Vital signs: Temp Pulse Resp BP Pulse Ox 98.1 F 54 L 16 121/79 94 L 05/29/20 04:00 05/29/20 04:00 05/29/20 04:00 05/29/20 04:00 05/29/20 04:00 no acute distress - *Routine HEENT Exam Head: Present: normocephalic Eye: Present: EOMI, PERRL ENT: Present: mucous membranes moist - *Routine Neck Exam Present: supple - *Routine Respiratory Exam Present: CTA bilaterally - *Routine Cardiovascular Exam Present: RRR - *Routine Abdominal Exam Present: soft, normoactive bowel sounds. Absent: tenderness - *Routine Extremities Exam Absent: cyanosis, clubbing, edema - *Routine Skin Exam Present: warm. Absent: rash - Detailed Eye Exam Eyelids: Bilateral normal inspection Results Labs on day of discharge: Labs from last 24 hours 05/29/20 05/29/20 06:05 05:58 WBC 5.0 RBC 4.38 L Hgb 13.6 L Hct 39.1 L MCV 89.2 MCH 31.2 MCHC 35.0 RDW 14.2 Plt Count 192 MPV 7.8 Neut % (Auto) 60.7 Lymph % (Auto) 27.7 [place] % (Auto) 7.8 Eos % (Auto) 3.0 Baso % (Auto) 0.8 Neut # (Auto) 3.1 Lymph # (Auto) 1.4 [place] # (Auto) 0.4 Eos # (Auto) 0.2 Baso # (Auto) 0.0 Sodium 137 Potassium 4.2 Chloride 101 Carbon Dioxide 28 Anion Gap 12.2 BUN 13 D Creatinine 0.90 Estimated Creat Clear 104 Estimated GFR 84 Est GFR ( Amer) 102 D Glucose 100 Calcium 9.7 Preliminary micro results at discharge 05/26/20 19:24 Blood Culture - Preliminary Blood NO GROWTH AFTER 48 HOURS 05/26/20 19:24 Blood Culture - Preliminary Blood NO GROWTH AFTER 48 HOURS DS: Diagnosis - Discharge Diagnosis (1) Small bowel obstruction Status: Resolved (2) Abdominal pain Status: Resolved (3) Obesity (BMI 30.0-34.9) Status: Chronic Discharge Plan - Patient Discharge Instructions ACTIVITY:
[2020-05-29 08:00] VITALS: BP 133/70; PULSE 63; RESP 18; TEMP 36.7; O2SAT 97
--- NOTE | 2020-05-29 08:00 | HMH.GSPN ---
Subjective Narrative: Patient feels much better. He has been tolerating full liquids without issue. He moved his bowels a couple times yesterday. He states he does feel somewhat full today like he does need to have a bowel movement but has had no results. He states that his pain is resolved. Exam Vital signs and Labs for Last 24 Hours: Temp Pulse Resp BP Pulse Ox 98.1 F 54 L 16 121/79 94 L 05/29/20 04:00 05/29/20 04:00 05/29/20 04:00 05/29/20 04:00 05/29/20 04:00 Laboratory Results - last 24 hr 05/29/20 05:58: WBC 5.0, RBC 4.38 L, Hgb 13.6 L, Hct 39.1 L, MCV 89.2, MCH 31.2, MCHC 35.0, RDW 14.2, Plt Count 192, MPV 7.8, Neut % (Auto) 60.7, Lymph % (Auto) 27.7, [place] % (Auto) 7.8, Eos % (Auto) 3.0, Baso % (Auto) 0.8, Neut # (Auto) 3.1, Lymph # (Auto) 1.4, [place] # (Auto) 0.4, Eos # (Auto) 0.2, Baso # (Auto) 0.0 05/29/20 06:05: Sodium 137, Potassium 4.2, Chloride 101, Carbon Dioxide 28, Anion Gap 12.2, BUN 13 D, Creatinine 0.90, Estimated Creat Clear 104, Estimated GFR 84, Est GFR ( Amer) 102 D, Glucose 100, Calcium 9.7 I & O for Last 24 hours: Intake & Output 05/26/20 05/27/20 05/28/20 05/29/20 11:59 11:59 11:59 11:59 Intake Total 1375 / 1375 2547 / 2547 480 / 480 Output Total 700 / 700 3902 / 3902 800 / 800 Balance 675 / 675 -1355 / -1355 -320 / -320 Weight 223 lb 9 oz 224 lb 221 lb 3 oz Microbiology Reports for the Last 24 Hours: Microbiology 05/26/20 19:24 Blood Blood Culture - Preliminary NO GROWTH AFTER 48 HOURS 05/26/20 19:24 Blood Blood Culture - Preliminary NO GROWTH AFTER 48 HOURS 05/26/20 16:30 Urine,Clean Catch Urine Culture - Final NO GROWTH AFTER 48 HOURS - *Routine Abdominal Exam Comments: Abdomen is soft and nontender. Progress Note: A&P (1) Small bowel obstruction Status: Resolved Current Visit: Yes (2) Abdominal pain Status: Resolved Current Visit: Yes (3) Obesity (BMI 30.0-34.9) Status: Chronic Current Visit: No Assessment and Plan for All Diagnoses:: Plan is for discharge home today
--- NOTE | 2020-05-29 10:22 | HMH.PHAINT ---
DISCHARGE COUNSELING COMPLETED ON PATIENT. NO NEW PRESCRIPTIONS AT THIS TIME. PATIENT IS TO HOLD IRON SUPPLEMENT AT THIS TIME PER DR. MIRANDA BECAUSE OF CONSTIPATION. PATIENT VERBALIZED UNDERSTANDING AND HAD NO QUESTIONS AT THIS TIME. -RYNE CARUSO, ALBIND
== END 2020-05-29 10:30 | disposition home or self-care (01) | DRG 699 ==
LOC: ER 16:19 → 2ND 20:16
PROVIDERS: Internal Medicine Adolescent Medicine; Admitting Provider Family Medicine; Emergency Provider Emergency Medicine; PCP Internal Medicine; Visit Provider Internal Medicine Adolescent Medicine
DX: T83.84XA Pain due to genitourinary prosthetic devices, implants and grafts, initial encounter (principal); N13.30 Unspecified hydronephrosis; R10.31 Right lower quadrant pain; I10 Essential (primary) hypertension; Z79.899 Other long term (current) drug therapy; Z85.50 Personal history of malignant neoplasm of unspecified urinary tract organ; D64.9 Anemia, unspecified
CPT/HCPCS: 36415; 74177; 74250; 80048; 80053; 81001; 83605; 85025; 87040; 87086; 96365; 96375; 96376; 99282; 99285; J2405; Q9967

== ENCOUNTER → 2020-06-07 16:16 | Outpatient (CLI) | payer MEDICARE, SELFPAY | PROVIDERS: Visit Provider Surgery | DX: N13.5 Crossing vessel and stricture of ureter without hydronephrosis (principal) | CPT/HCPCS: 87086; 87088; 87186 ==

== ENCOUNTER → 2020-06-24 10:46 | Outpatient (CLI) | payer MEDICARE, SELFPAY ==
[2020-06-24 13:40] LABS: Coronavirus 19 IgG Antibody Negative (Negative); Coronavirus 19 IgM Antibody Negative (Negative)
== END ==
PROVIDERS: Visit Provider Surgery
DX: Z01.818 Encounter for other preprocedural examination (principal); Z12.11 Encounter for screening for malignant neoplasm of colon
CPT/HCPCS: 36415; 86328

== ENCOUNTER 2020-06-25 09:26 | Day surgery (SDC) | payer MEDICARE, SELFPAY ==
[2020-06-25 10:53] VITALS: BP 141/80; PULSE 54; RESP 18; TEMP 36; O2SAT 96; BMI 30.1
[2020-06-25 12:01] VITALS: O2SAT 97
[2020-06-25 12:33] VITALS: BP 92/60; PULSE 60; RESP 18; TEMP 36.1; O2SAT 96
--- NOTE | 2020-06-25 12:34 | HMH.SCOPE ---
- Procedure: Date: 06/25/20 Patient Date of :: 1955 Procedure Performed:: Total colonoscopy to terminal ileum with random biopsies Indications:: Patient presents for colonoscopy after his inpatient hospitalization. He had been admitted with right lower quadrant pain. CT scan was suggestive of bowel obstruction with dilated segment of bowel in the right lower quadrant. Of note, about 3 weeks ago patient had ureteral stent placed and he was concerned that this could be the etiology of his pain. He did see Dr. Washington as an inpatient. He did undergo a small bowel follow-through as an inpatient which was normal with no evidence of obstruction. Patient has continued to have some hematuria. He denies any nausea. He states that his bowels are still not right. Particularly he describes some bowel irregularity with occasionally loose stools and hard stools. It appears as though his last colonoscopy was by Dr. Han in 2010. Plan was made to perform colonoscopy with particular attention to the cecum and ileocecal region. Consideration is to be given for possible capsule endoscopy. Performing Provider:: Jairo Kennedy MD Referring Provider:: Johnie Sanchez MD Sedation:: Propofol Procedure:: Patient was taken to endoscopy procedure room. He was positioned in a lateral decubitus position. Adequate intravenous sedation was achieved with anesthesia titration of propofol. Variable stiffness Olympus colonoscope was inserted via the anus and advanced to the cecum without difficulty. Colonic preparation was fair as there was fatty liquid stool throughout the colon. However adequate visualization was achieved with thorough irrigation and suctioning. Ileocecal valve and appendiceal orifice were clearly identified. Colonoscope was advanced briefly into the terminal ileum which appeared grossly normal. Colonoscope was withdrawn through the colon with careful surveillance. There were no masses lesions or diverticuli noted. Several biopsies were obtained using cold biopsy forceps differentiating right and left colon to evaluate for any microscopic colitis. Retroflexion within the rectum revealed no evidence of any pathologic internal hemorrhoids. Colonoscope was withdrawn. Findings:: No mass lesion Recommendations:: Follow-up on pathology. His right lower quadrant pain and change in bowel habits may be functional. Complications:: None immediately apparent Estimated blood obtained (mL): 2
[2020-06-25 12:43] VITALS: BP 109/72; PULSE 49; RESP 18; O2SAT 92
[2020-06-25 12:53] VITALS: BP 117/76; PULSE 45; RESP 18; O2SAT 94
[2020-06-25 13:07] VITALS: BP 132/87; PULSE 57; RESP 18; O2SAT 96
== END 2020-06-25 13:07 | disposition home or self-care (01) ==
LOC: OUTP 09:27
PROVIDERS: PCP Internal Medicine; Visit Provider Surgery
PROC: 0DJD8ZZ Inspection of Lower Intestinal Tract, Via Natural or Artificial Opening Endoscopic (ICD-10-PCS; CPT 45380; principal; 2020-06-25 11:30)
DX: R19.7 Diarrhea, unspecified (principal); K59.09 Other constipation; R31.9 Hematuria, unspecified; R10.31 Right lower quadrant pain; Z79.82 Long term (current) use of aspirin; Z79.899 Other long term (current) drug therapy; Z87.39 Personal history of other diseases of the musculoskeletal system and connective tissue; Z90.89 Acquired absence of other organs; Z87.891 Personal history of nicotine dependence; E78.5 Hyperlipidemia, unspecified; I10 Essential (primary) hypertension
CPT/HCPCS: 45380; 88305

== ENCOUNTER → 2020-07-05 10:36 | Outpatient (CLI) | payer MEDICARE, SELFPAY ==
[2020-07-05 19:00] LABS: Coronavirus 19 IgG Antibody Negative (Negative); Coronavirus 19 IgM Antibody Negative (Negative)
== END ==
PROVIDERS: Visit Provider Urology
DX: Z03.818 Encounter for observation for suspected exposure to other biological agents ruled out (principal)
CPT/HCPCS: 36415; 86328

== ENCOUNTER 2020-07-08 08:24 | Day surgery (SDC) | payer MEDICARE, SELFPAY ==
[2020-07-08 08:51] VITALS: BP 120/62; PULSE 53; RESP 18; TEMP 36.3; O2SAT 98; BMI 30.1
--- NOTE | 2020-07-08 08:52 | HMH.ANESCL ---
[facility] Anesthesia Checklist - Patient Identification Patient Identification: Arm Band, Verbal (Name & ) - Structural Data Admitted From: Home Planned Operative Procedure/s: cysto Consent for Planned Operative Procedure(s) Verified: No Verified Documents: History and Physical - NPO Status Verified Time NPO: 00:00 - Additional verifications Patient : No Anesthesia Reactions: No Hx Blood Transfusions: No Blood Transfusion Reaction: Yes Cephalosporin Allergy: No Previous Colonoscopy: Yes - Cardiovascular Assessment Heart Sounds: S1 & S2 Pulse Strength: Baseline Pulse Rhythm: Regular Peripheral Edema: No - Airway Assessment C-Spine Mobility Assessed: Yes TMJ Mobility Assessed: Yes Dentition: Good Dentition - Neurological Assessment Level of Consciousness: Awake, Alert, Appropriate Hx Seizures: No Numbness or tingling in extremities: No - Anesthesia Plan Anesthesia Risk discussed: Yes Anesthesia Plan: Verified ASA Class: III Anesthesia Type: MAC [facility] History I have reviewed the patient's past medical history: Yes Medical History: Reports:: Cancer, Deep Vein Thrombosis, Gastroesophageal Reflux Disease(GERD), Hiatal Hernia, Hyperlipidemia, Hypertension, Kidney Stones, MRSA, Urinary Tract Infection Denies:: Diabetes Mellitus Type 1, Diabetes Mellitus Type 2, Internal Pacemaker, Lung Disease, Seizures *Have you ever received a pneumonia vaccine?: No *Have you received a flu vaccine this season?: Yes Other Medical History: Reports: Anemia, Arthritis, Blood Transfusion Reaction Anesthesia experience/problems:: none Laterality Cases: Right: Arthroscopy Knee, Bilateral: Tonsillectomy Other Surgeries: Yes: No Previous Surgery, Appendectomy, Cancer Surgery, Cardiac Catheterization, Cholecystectomy, Colonoscopy, Other (kidney stone removal). No: Pacemaker Amputation: No Fractures: No - *Social History Smoking Status: Former smoker Alcohol Intake: never Alcohol Intake Frequency:: other Substance Use Type: denies use *Occupational Status:: retired Housing: house Household Members: spouse *Travel in the last 8 weeks: None Family Hx:: No significant family history
[2020-07-08 10:09] VITALS: BP 85/41; PULSE 49; RESP 18; TEMP 36.1; O2SAT 98
[2020-07-08 10:20] VITALS: BP 86/43; PULSE 51; RESP 18; O2SAT 91
[2020-07-08 10:29] VITALS: BP 91/48; PULSE 48; RESP 18; O2SAT 96
[2020-07-08 10:43] VITALS: BP 89/52; PULSE 52; RESP 18; O2SAT 95
--- NOTE | 2020-07-08 13:49 | P.OP_ITS ---
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 A ureteral stent was placed for decompression of the right extrarenal pelvis. With a stent in place a repeat CT scan shows decompression of the right renal pelvis. The patient's right flank pain has resolved although he has had some moderate stent colic. Operative findings:: Right ureteral stent noted from the right ureteral orifice on cystoscopy. It was removed without difficulty. Operative note:: Patient taken to the operating room after informed consent was obtained. Placed on the operating table in the supine position and monitored anesthesia care administered. Sequential compression devices and preoperative antibiotics administered. He was prepped draped in the standard surgical fashion. The flexible cystoscope introduced into the urethral meatus and it was passed proximally into the bladder without difficulty. Right ureteral stent was noted from the right ureteral orifice. Flexible grasper was passed through the scope and the stent grasped and removed without difficulty. The scope was repassed in the bladder and there is no evidence of any ureteral or bladder trauma. Patient tolerated procedure well we will see him back in 3 weeks in follow-up. Condition: stable Disposition: same day Specimens:: Right ureteral stent Complications:: None
== END 2020-07-08 10:43 | disposition home or self-care (01) ==
LOC: OR 08:25
PROVIDERS: PCP Internal Medicine; Visit Provider Urology
PROC: (CPT 52310; principal; 2020-07-08 10:00)
DX: N13.5 Crossing vessel and stricture of ureter without hydronephrosis (principal); K21.9 Gastro-esophageal reflux disease without esophagitis; E78.5 Hyperlipidemia, unspecified; I10 Essential (primary) hypertension; D64.9 Anemia, unspecified; M19.90 Unspecified osteoarthritis, unspecified site; Z87.442 Personal history of urinary calculi; I82.409 Acute embolism and thrombosis of unspecified deep veins of unspecified lower extremity; Z87.440 Personal history of urinary (tract) infections; Z86.14 Personal history of Methicillin resistant Staphylococcus aureus infection; Z87.39 Personal history of other diseases of the musculoskeletal system and connective tissue; Z90.89 Acquired absence of other organs
CPT/HCPCS: 52310

== ENCOUNTER 2020-09-05 10:00 | Outpatient (RCR) | payer MEDICARE, SELFPAY | END 2020-09-05 10:05 | disposition home or self-care (01) | LOC: PT 10:00 | PROVIDERS: Visit Provider Internal Medicine | DX: M54.2 Cervicalgia (principal); M54.6 Pain in thoracic spine; M25.561 Pain in right knee | CPT/HCPCS: 20560; 97010; 97014; 97035; 97110; 97140; 97163; 97164; G0283 ==

== ENCOUNTER → 2020-09-30 13:18 | Outpatient (POV) | payer MEDICARE, SELFPAY | PROVIDERS: Visit Provider Nurse Practitioner Family | DX: Z00.00 Encounter for general adult medical examination without abnormal findings (principal) ==

== ENCOUNTER → 2020-12-23 15:36 | Outpatient (CLI) | payer MEDICARE, SELFPAY ==
--- NOTE | 2020-12-23 15:45 | XR_ITS ---
PROCEDURE: XR KNEE LT 3V CLINICAL INDICATION: LEFT KNEE PAIN AND SWELLING COMPARISON: CR [id number] KNEE-4 OR 5 VIEWS-RT from 04/24/2015 CR [id number] KNEE-4 OR 5 VIEWS-LT from 04/24/2015 CR [id number] KNEE-3 VIEWS-LT from 06/12/2015 CR [id number] XR knee LT 3V from 03/09/2018 FINDINGS: No fracture or dislocation. No lytic or blastic change. There is normal mineralization. There are moderate to severe osteoarthritic changes of the medial compartment and patellofemoral joint with decrease in the joint space and osteophyte formation. Prominent osteophytes are present at tibial spines as well. The osteoarthritis has progressed compared to 03/09/2018. Other findings:None. IMPRESSION: Moderate to severe osteoarthritic Dictated by: Tim Cuevas MD 12/23/2020 17:16 Tim Cuevas MD in [place] 12/23/2020 17:16
== END ==
PROVIDERS: PCP Internal Medicine; Visit Provider Internal Medicine
DX: M25.562 Pain in left knee (principal); M25.462 Effusion, left knee
CPT/HCPCS: 73562

== ENCOUNTER → 2021-01-06 11:07 | Outpatient (POV) | payer MEDICARE, SELFPAY | PROVIDERS: Visit Provider Nurse Practitioner Family | DX: Z00.00 Encounter for general adult medical examination without abnormal findings (principal) ==

== ENCOUNTER → 2021-01-10 14:08 | Outpatient (CLI) | payer MEDICARE, SELFPAY ==
--- NOTE | 2021-01-10 14:11 | XR_ITS ---
PROCEDURE: XR KNEE LT 4V CLINICAL INDICATION: left knee pain COMPARISON: No exams were available for comparison FINDINGS: There are moderate to severe osteoarthritic changes of the medial compartment and patellofemoral joint with mild osteoarthritis of the lateral compartment. Intra-articular loose body projects over the lateral compartment measuring 9 mm. No fracture or dislocation. No lytic or blastic change. There may be a small suprapatellar effusion Other findings:None. IMPRESSION: Overall no change moderate to severe osteoarthritis of the left knee Dictated by: Tim Cuevas MD 01/10/2021 14:48 Tim Cuevas MD in [place] 01/10/2021 14:48
== END ==
PROVIDERS: PCP Internal Medicine; Visit Provider Orthopaedic Surgery
DX: M25.562 Pain in left knee (principal)
CPT/HCPCS: 73564

== ENCOUNTER 2021-04-17 09:04 | Emergency (ER) | payer MEDICARE, SELFPAY ==
[2021-04-17] VITALS (7 sets, daily range): BP systolic 153–163; BP diastolic 81–100; PULSE 46–74; RESP 13–18; TEMP 36.7–36.8; O2SAT 94–98; BMI 33.0
--- NOTE | 2021-04-17 09:04 | ECG_ITS ---
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: Resting ECG HR:52 bpm ECG Measurements Heart Rate 52 AXES AR 190 P 57 QRSd 82 QRS 6 QT 414 T 38 QTc 385 Conclusion Sinus bradycardia Minimal voltage criteria for LVH, may be normal variant Borderline ECG Electronically signed by : Douglas Pace, 04/17/2021 18:02:51
--- NOTE | 2021-04-17 09:07 | HMH.EDGENADL ---
ED Disposition Clinical Impression: Atypical chest pain, Left arm pain, Paresthesias in left hand Disposition: Home, Self-Care Condition on Discharge: Good Instructions: DI for Atypical Chest Pain Additional Instructions: Prednisone as prescribed. Dinuba as needed for pain for sleep. Follow-up with Dr. Oviedo/Alberto in the office within 1 to 2 weeks. Follow-up with primary care provider, call for appointment. Additional instructions for CHEST PAIN: See your physician as soon as possible for further evaluation. Return immediately if worsening chest pain, vomiting, shortness of breath, fever, coughing of blood. Prescriptions: Hydrocod/Acet 5/325 mg [[place] 5/325mg tablet] 1 tab PO Q6HP PRN #10 tab PRN Reason: Pain Transmission Status: Sent to [facility] #[id number] predniSONE [Prednisone 20mg Tab] 20 mg PO BID #10 tab Transmission Status: Pending to [facility] #[id number] Referrals: Mickey Fine [Primary Care Provider] - - Critical Care Critical Care Time: No Attestation: On , the high probability of a clinically significant, sudden or life threatening deterioration of the following system(s) required my full and direct attention, intervention and personal management. The time I documented below is in addition to time spent performing reported procedures but includes the following listed in this critical care notation. Medical Decision Making - Medical Records Medical records reviewed: Yes: I reviewed the patient's medical records. MR Comment: Prior cardiac cath result reviewed, see below. - Nicholas Inquiry Pt receiving controlled substance: No Vital Signs: 04/17/21 09:10 04/17/21 09:30 04/17/21 10:00 Temperature 98.0 F Temperature Source Oral Pulse Rate 54 L 53 L Pulse Rate [Right] 55 L Respiratory Rate 18 13 14 Blood Pressure 163/99 H 154/100 H Blood Pressure Mean 120 119 Blood Pressure Source [Right Arm] Automatic Cuff Blood Pressure Position [Right Arm] Sitting 02 Sat by Pulse Oximetry 97 95 95 04/17/21 10:30 Temperature Temperature Source Pulse Rate 46 L Pulse Rate [Right] Respiratory Rate 18 Blood Pressure 154/87 H Blood Pressure Mean 120 Blood Pressure Source [Right Arm] Blood Pressure Position [Right Arm] 02 Sat by Pulse Oximetry 94 L - Lab Data Lab Results 04/17/21 09:03: WBC 5.5, RBC 5.08, Hgb 15.2, Hct 44.2, MCV 87.0, MCH 29.9, MCHC 34.3, RDW 13.9, Plt Count 230, MPV 7.8, Neut % (Auto) 60.1, Lymph % (Auto) 28.3, [place] % (Auto) 6.7, Eos % (Auto) 3.9, Baso % (Auto) 1.1, Neut # (Auto) 3.3, Lymph # (Auto) 1.5, [place] # (Auto) 0.4, Eos # (Auto) 0.2, Baso # (Auto) 0.1 04/17/21 09:03: Troponin I < 0.01 04/17/21 09:03: Sodium 139, Potassium 4.3, Chloride 104, Carbon Dioxide 29, Anion Gap 10.3, BUN 13, Creatinine 1.00, Estimated Creat Clear 106, Estimated GFR 75, Est GFR ( Amer) 90, Glucose 104 H, Calcium 10.1, Total Bilirubin 0.8, AST 45, ALT 55, Alkaline Phosphatase 68, NT-Pro-B Natriuret Pep 128 H, Total Protein 7.3, Albumin 4.2, Globulin 3.1, Albumin/Globulin Ratio 1.4 04/17/21 12:24: Troponin I < 0.01 Result diagrams: 04/17/21 09:03 04/17/21 09:03 Orders (Tests/Meds): ED MEDICATIONS Discontinued Medications Generic Name Dose Route Start Last Admin Trade Name Freq PRN Reason Stop Dose Admin Iopamidol 70 ml 04/17/21 11:27 04/17/21 11:28 Iopamidol-370 (76%);100ml Bottle IV 04/17/21 11:28 70 ml ONCE ONE Administration Sodium Chloride 50 ml 04/17/21 11:27 04/17/21 11:28 0.9 % Sodium Chloride 50 Ml Vial IV 04/17/21 11:28 50 ml ONCE ONE Administration Sodium Chloride 10 ml 04/17/21 11:27 04/17/21 11:28 Sodium Chloride 0.9% 10ml Syr (Rad Only) IV 04/17/21 11:28 10 ml ONCE ONE Administration ORDERS Category Date Time Status Consult to Cardiology [CONS] Routine Cons 04/17/21 09:46 Active Troponin I Q3H Lab 04/17/21 15:30 Ordered PROCEDURES Left heart catheterization L
--- NOTE | 2021-04-17 09:16 | XR_ITS ---
PROCEDURE: XR CHEST PORTABLE CLINICAL HISTORY: chest pain COMPARISON: CR CXR1 CHEST-PORTABLE from 03/01/2014 CR CXR1 CHEST-PORTABLE from 03/21/[address] angio chest from 10/08/2018 CR XR CHEST PORTABLE from 08/07/2019 FINDINGS: The cardiomediastinal silhouette and pulmonary vascularity are within normal limits. The lungs are clear without infiltrates, suspicious nodules, or pleural effusions. No acute bony abnormalities. IMPRESSION: No acute findings. Dictated by: Tim Cuevas MD 04/17/2021 10:26 Tim Cuevas MD in [place] 04/17/2021 10:26
--- NOTE | 2021-04-17 09:20 | PC.NURSE ---
rad here for portable cxr
[2021-04-17 09:25] LABS: Basophils # 0.1 K/mm3 (0-0.2); Basophils % 1.1 % (0.1-2.0); Eosinophils # 0.2 K/mm3 (0.0-0.4); Eosinophils % 3.9 % (0.1-12.0); Hematocrit 44.2 % (42.0-52.0); Hemoglobin 15.2 g/dL (14.1-18.0); Lymphocytes # 1.5 K/mm3 (0.7-4.5); Lymphocytes % 28.3 % (10-50); Mean Corpuscular HGB Conc 34.3 g/dL (31.8-35.4); Mean Corpuscular Hemoglobin 29.9 pg (27.0-31.2); Mean Platelet Volume 7.8 fl (7.4-10.4); Monocytes # 0.4 K/mm3 (0.1-1.0); Monocytes % 6.7 % (1.7-9.3); Neutrophils # 3.3 K/mm3 (1.8-7.8); Neutrophils % 60.1 % (37.0-80.0); Platelet Count 230 K/mm3 (142-424); Red Blood Count 5.08 M/mm3 (4.60-6.20); Red Cell Distribution Width 13.9 % (11.5-17.5); White Blood Count 5.5 K/mm3 (4.8-10.8)
[2021-04-17 09:32] LABS: Alanine Aminotransferase 55 U/L (12-78); Albumin Level 4.2 g/dl (3.5-5.0); Albumin/Globulin Ratio 1.4 (1.1-1.8); Alkaline Phosphatase 68 U/L (38-126); Anion Gap 10.3 mEq/L (5-15); Aspartate Amino Transferase 45 U/L (17-59); Bilirubin,Total 0.8 mg/dl (0.2-1.3); Blood Urea Nitrogen 13 mg/dl (9-20); Calcium 10.1 mg/dl (8.4-10.2); Carbon Dioxide 29 mmol/L (22.0-30.0); Chloride 104 mmol/L (98-107); Creatinine Clearance Estimated 106 mL/min (50-200); Estimated Glomerular Filt Rate 75 ml/min (>60); GFR (African American) 90 ML/MIN (>60); Globulin 3.1 g/dL (1.3-3.2); Glucose 104 mg/dl (74-100); Potassium 4.3 mmoL/L (3.5-5.1); Sodium 139 mmol/L (136-145); Total Protein,Serum 7.3 g/dl (6.3-8.2)
[2021-04-17 09:40] LABS: NT Pro Brain Natriuretic Pep. 128 pg/mL (0-125)
--- NOTE | 2021-04-17 09:46 | PC.NURSE ---
called for cardiology consult
[2021-04-17 09:47] LABS: Troponin I < 0.01 ng/ml (0.00-0.034)
--- NOTE | 2021-04-17 10:47 | PC.NURSE ---
Alberto Arguelles at bedside
--- NOTE | 2021-04-17 10:54 | CT_ITS ---
PROCEDURE INFORMATION: Exam: CTA Chest With Contrast Exam date and time: 04/17/2021 10:54 AM Age: 65 years old Clinical indication: Pain; Angina pectoris; Additional info: Cp, left arm numbness, R/O aortic dissection TECHNIQUE: Imaging protocol: Computed tomographic angiography of the chest with contrast. 3D rendering (Not supervised by radiologist): MIP and/or 3D reconstructed images were created by the technologist. Radiation optimization: All CT scans at this facility use at least one of these dose optimization techniques: automated exposure control; mA and/or kV adjustment per patient size (includes targeted exams where dose is matched to clinical indication); or iterative reconstruction. Contrast material: ISO 370; Contrast volume: 100 ml; Contrast route: INTRAVENOUS (IV); COMPARISON: 1. AGCHEST CT angio chest 10/08/2018 6:51 PM 2. CR XR CHEST PORTABLE 04/17/2021 9:21 AM FINDINGS: Pulmonary arteries: Normal. No pulmonary emboli. Aorta: The contrast bolus is not optimized for evaluation of the aorta. Nevertheless, no obvious aortic aneurysm or dissection. Lungs: Unremarkable. No consolidation. No masses. Pleural spaces: Unremarkable. No pneumothorax. No pleural effusion. Heart: Coronary artery calcifications. No cardiomegaly. Mediastinal space: Small hiatal hernia, present previously. Lymph nodes: Unremarkable. No enlarged lymph nodes. Liver: Hypodensity in the liver is difficult to completely characterize. It is unchanged since the previous CT and probably a simple cyst. Bones/joints: Unremarkable. No acute fracture. Soft tissues: Unremarkable. IMPRESSION: 1. Coronary artery calcifications are associated with stenotic lesions. 2. Otherwise, unremarkable CT angiogram chest. No aortic aneurysm or dissection.
--- NOTE | 2021-04-17 11:50 | HMH.CNCARD ---
History of Present Illness Consult date: 04/17/21 Requesting physician: Renny Kathleen Consult reason: chest pain Chief complaint: chest pain, arm pain Additional Medical History:: 1. Hypertension 2. Mild coronary artery disease by cardiac catheterization, 2018 3. History of cervical radiculopathy improved with rehab 4. Hyperlipidemia 5. History of gout 6. History of arthritis 7. Status post cholecystectomy History of present illness: 3-day history of constant pain in his left anterior chest going down his left arm to his hand. Some tingling of his hand and fingers. Denies shortness of breath, diaphoresis. He has had nausea today without vomiting. No previous similar pain. He had a heart cath done a couple of years ago at this facility for chest pain, but that chest pain was different. He does have hypertension and hyperlipidemia. He does not smoke and he is not diabetic. No neck pain. No leg pain or swelling. States that he has a prior history of a blood clot in his left arm a couple of years ago from an IV. The above per Dr. Kathleen The above confirmed with the patient. No aggravating or alleviating symptoms noted. Pain has been consistent for 3 days. EKG is sinus rhythm with no acute ST segment changes, minor voltage criteria for LVH noted.. Initial troponin is normal. Chest x-ray shows no acute findings. [facility] History Medical History: Reports:: Deep Vein Thrombosis, Diabetes Mellitus Type 2, Gastroesophageal Reflux Disease(GERD), Hiatal Hernia, Hyperlipidemia, Hypertension, Kidney Stones, Urinary Tract Infection Denies:: Cancer, Diabetes Mellitus Type 1, Internal Pacemaker, Lung Disease, MRSA, Seizures *Have you ever received a pneumonia vaccine?: No *Have you received a flu vaccine this season?: No Other Medical History: Reports: Anemia, Arthritis, Blood Transfusion Reaction Laterality Cases: Right: Arthroscopy Knee, Bilateral: Tonsillectomy Other Surgeries: Yes: No Previous Surgery, Appendectomy, Cancer Surgery, Cardiac Catheterization, Cholecystectomy, Colonoscopy, Other (kidney stone removal). No: Pacemaker Amputation: No Fractures: No - *Social History Smoking Status: Never smoker Alcohol Intake: never Alcohol Intake Frequency:: other Substance Use Type: denies use *Occupational Status:: retired Housing: house Household Members: spouse *Travel in the last 8 weeks: Inside the [facility] Family Hx:: Cancer Meds Home Medications Medication Instructions Recorded Confirmed Type Amlodipine Besylate [Norvasc 10mg 10 mg PO DAILY 04/17/18 02/28/21 History tablet] Citalopram Hydrobromide 10 mg PO DAILY 04/17/18 02/28/21 History [Citalopram 10mg Tablet] Ferrous Sulfate 325 mg PO TID 04/17/18 02/28/21 History Tamsulosin HCl [Flomax 0.4mg 0.4 mg PO DAILY 04/17/18 02/28/21 History capsule] allopurinoL [Allopurinol 100mg 300 mg PO HS 10/08/18 02/28/21 History tablet] Phenazopyridine HCl 200 mg PO TIDP PRN 05/26/20 02/28/21 History Aspirin [Aspirin 81mg EC Tab] 81 mg PO DAILY 05/27/20 02/28/21 History Diclofenac Sodium [Diclofenac 75mg 75 mg PO BID 05/27/20 02/28/21 History Tab] Hydrocodone/Acetaminophen 1 each PO Q4HP PRN 05/27/20 02/28/21 History [Hydrocodone-Acetamin 5-325 mg] Losartan Potassium [Cozaar 100mg 100 mg PO DAILY 05/27/20 02/28/21 History Tablets] Omeprazole [Omeprazole 40mg 40 mg PO DAILY 05/27/20 02/28/21 History Capsule] Trazodone HCl [Desyrel 50mg tablet] 50 mg PO HSP PRN 05/27/20 02/28/21 History hydroCHLOROthiazide [HCTZ 25mg 25 mg PO DAILY 05/27/20 02/28/21 History tab] meloxicam 15 mg tablet 15 mg PO tab 07/22/20 02/28/21 History Allergies Allergy/AdvReac Type Severity Reaction Status Date / Time No Known Allergies Allergy Verified 04/17/21 09:15 Exam Vital signs and Labs for Last 24 Hours: Temp Pulse Resp BP Pulse Ox 98.0 F 46 L 18 154/87 H 94 L 04/17/21 09:10 04/17/21 10:30 04/17/21 10:30
--- NOTE | 2021-04-17 12:56 | PC.NURSE ---
Dr Kathleen speaking with Alberto Arguelles
--- NOTE | 2021-04-17 13:09 | PC.NURSE ---
LAbs states that second trop will be finished in 7 minutes
[2021-04-17 13:15] LABS: Troponin I < 0.01 ng/ml (0.00-0.034)
== END 2021-04-17 13:58 | disposition home or self-care (01) ==
PROVIDERS: Emergency Provider Emergency Medicine; PCP Internal Medicine
DX: R07.89 Other chest pain (principal); R20.0 Anesthesia of skin; I25.10 Atherosclerotic heart disease of native coronary artery without angina pectoris; E11.9 Type 2 diabetes mellitus without complications; K21.9 Gastro-esophageal reflux disease without esophagitis; E78.5 Hyperlipidemia, unspecified; R06.02 Shortness of breath; I10 Essential (primary) hypertension
CPT/HCPCS: 36415; 71045; 71275; 80053; 83880; 84484; 85025; 93005; 96374; 99283; Q9967

== ENCOUNTER → 2021-07-16 09:27 | Outpatient (CLI) | payer MEDICARE, SELFPAY ==
[2021-07-16 09:47] LABS: Basophils # 0.1 K/mm3 (0-0.2); Eosinophils # 0.2 K/mm3 (0.0-0.4); Eosinophils % 3.4 % (0.1-12.0); Hematocrit 48.1 % (42.0-52.0); Hemoglobin 15.4 g/dL (14.1-18.0); Lymphocytes # 1.5 K/mm3 (0.7-4.5); Lymphocytes % 28.7 % (10-50); Mean Corpuscular HGB Conc 31.9 g/dL (31.8-35.4); Mean Corpuscular Hemoglobin 29.8 pg (27.0-31.2); Mean Corpuscular Volume 93.3 fl (80-94); Monocytes # 0.4 K/mm3 (0.1-1.0); Monocytes % 6.8 % (1.7-9.3); Neutrophils # 3.2 K/mm3 (1.8-7.8); Neutrophils % 60.1 % (37.0-80.0); Platelet Count 250 K/mm3 (142-424); Red Blood Count 5.15 M/mm3 (4.60-6.20); Red Cell Distribution Width 14.3 % (11.5-17.5); White Blood Count 5.3 K/mm3 (4.8-10.8)
[2021-07-16 11:03] LABS: Alanine Aminotransferase 56 U/L (12-78); Albumin Level 4.3 g/dl (3.5-5.0); Albumin/Globulin Ratio 1.5 (1.1-1.8); Alkaline Phosphatase 62 U/L (38-126); Anion Gap 12.2 mEq/L (5-15); Aspartate Amino Transferase 45 U/L (17-59); Bilirubin,Total 0.8 mg/dl (0.2-1.3); Blood Urea Nitrogen 23 mg/dl (9-20); Calcium 10.4 mg/dl (8.4-10.2); Carbon Dioxide 31 mmol/L (22.0-30.0); Chloride 102 mmol/L (98-107); Chol/HDL Ratio 2.9 (1-3.5); Cholesterol 141 mg/dl (140-200); Estimated Glomerular Filt Rate 67 ml/min (>60); GFR (African American) 81 ML/MIN (>60); Globulin 2.8 g/dL (1.3-3.2); Glucose 97 mg/dl (74-100); HDL Cholesterol 48 mg/dl (40-60); Potassium 5.2 mmoL/L (3.5-5.1); Sodium 140 mmol/L (136-145); Total Protein,Serum 7.1 g/dl (6.3-8.2); Triglycerides 112 mg/dl (30-150); VLDL Cholesterol 22 mg/dL (0-40)
[2021-07-16 11:15] LABS: Direct LDL Cholesterol 62.56 mg/dL (100-129)
[2021-07-16 11:34] LABS: Prostate Specific Ag, Diagnost 0.526 ng/ml (0.0-4.0)
== END ==
PROVIDERS: Visit Provider Internal Medicine
DX: I10 Essential (primary) hypertension (principal); I25.10 Atherosclerotic heart disease of native coronary artery without angina pectoris; E78.5 Hyperlipidemia, unspecified; D50.9 Iron deficiency anemia, unspecified; M15.0 Primary generalized (osteo)arthritis; N40.1 Benign prostatic hyperplasia with lower urinary tract symptoms; Z85.528 Personal history of other malignant neoplasm of kidney
CPT/HCPCS: 36415; 80053; 80061; 84153; 85025

== ENCOUNTER 2021-07-28 10:36 | Inpatient (IN) | payer MEDICARE, SELFPAY ==
[2021-07-28] VITALS (13 sets, daily range): BP systolic 113–140; BP diastolic 68–88; PULSE 59–85; RESP 14–18; TEMP 36.6–36.9; O2SAT 90–95; BMI 33.0; BMI 32.1
--- NOTE | 2021-07-28 10:40 | CT_ITS ---
PROCEDURE INFORMATION: Exam: CT Abdomen And Pelvis With Contrast Exam date and time: 07/28/2021 10:40 AM Age: 65 years old Clinical indication: Abdominal pain; Generalized; Patient HX: Patient had previous bowel obstruction and is having pain in abdomen similar, nausea, vomitting and pain; Additional info: Pain, n/v TECHNIQUE: Imaging protocol: Computed tomography of the abdomen and pelvis with contrast. Radiation optimization: All CT scans at this facility use at least one of these dose optimization techniques: automated exposure control; mA and/or kV adjustment per patient size (includes targeted exams where dose is matched to clinical indication); or iterative reconstruction. Contrast material: [place]OV[place]; Contrast volume: 75 ml; Contrast route: IV; COMPARISON: CT ABDOMEN PELVIS W CON 05/26/2020 5:03 PM FINDINGS: Lungs: The lung bases are unremarkable. Mediastinal space: There is a hiatal hernia. Liver: There is a stable 1.9 cm low-dense lesion anterior margin of the liver which may represent hemangioma since there appears to be early contrast spilling peripherally. There is also stable 1.1 cm low-dense lesion. Gallbladder and bile ducts: Cholecystectomy. Pancreas: The pancreas is normal. Spleen: Calcified granulomas are seen in the spleen likely due to old granulomatous disease. Adrenal glands: The adrenal glands are unremarkable. Kidneys and ureters: There are multiple right renal calculi which have increased in number in comparison to the 05/26/2020 CT. There also appears to be asymmetric renal cortical thinning possibly due to prior infection or infarction. There is a stable 1.7 cm fat containing lesion lower pole right kidney which may be postoperative or could represent an angiomyolipoma among other etiologies. There is no hydronephrosis. No left renal calculi. There is a stable 5 cm upper pole cyst left kidney. No follow-up required. Stomach and bowel: There are fluid filled mildly dilated small bowel loops measuring up 3.2 cm in width. The colon is decompressed. The point of obstruction may be in midline the level of the umbilicus. Series 601 images 33, 34 or in the right lower quadrant. Diverticulae are again seen without evidence of diverticulitis. Appendix: No evidence of appendicitis. Intraperitoneal space: Unremarkable. No free air. No significant fluid collection. Vasculature: There is no evidence of an infrarenal abdominal aortic aneurysm. There is mild atherosclerotic calcification. Lymph nodes: There is a 1.2 cm mesenteric lymph nodes right lower quadrant. Urinary bladder: Unremarkable as visualized. Reproductive: Vasectomy. Bones/joints: Unremarkable. No acute fracture. Soft tissues: Unremarkable. IMPRESSION: 1. Probable early or partial small bowel obstruction which may be due to adhesions or internal hernia. No obstructing mass is identified. 2. Hiatal hernia. 3. Multiple nonobstructing right renal calculi.
--- NOTE | 2021-07-28 10:44 | ECG_ITS ---
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: Resting ECG HR:85 bpm ECG Measurements Heart Rate 85 AXES KS 156 P 32 QRSd 78 QRS 0 QT 368 T 27 QTc 437 Conclusion Normal sinus rhythm Normal ECG Electronically signed by : Douglas Pace MD 07/29/2021 10:54:49
[2021-07-28 11:05] LABS: Basophils % 0.2 % (0.1-2.0); Eosinophils % 0.4 % (0.1-12.0); Hematocrit 49.5 % (42.0-52.0); Hemoglobin 16.3 g/dL (14.1-18.0); Lymphocytes # 0.8 K/mm3 (0.7-4.5); Lymphocytes % 9.9 % (10-50); Mean Corpuscular Hemoglobin 30.5 pg (27.0-31.2); Mean Corpuscular Volume 92.4 fl (80-94); Mean Platelet Volume 8.4 fl (7.4-10.4); Monocytes # 0.3 K/mm3 (0.1-1.0); Monocytes % 3.9 % (1.7-9.3); Neutrophils # 6.9 K/mm3 (1.8-7.8); Neutrophils % 85.6 % (37.0-80.0); Platelet Count 303 K/mm3 (142-424); Red Blood Count 5.35 M/mm3 (4.60-6.20); Red Cell Distribution Width 14.4 % (11.5-17.5)
[2021-07-28 11:07] LABS: MANUAL DIFFERENTIAL MANUAL DIFFERENTIAL (MANUAL DIFF)
[2021-07-28 11:08] LABS: Chloride 101 mmol/L (98-107); Potassium 4.3 mmoL/L (3.5-5.1); Sodium 137 mmol/L (136-145)
[2021-07-28 11:11] LABS: Alanine Aminotransferase 57 U/L (12-78); Albumin Level 4.6 g/dl (3.5-5.0); Albumin/Globulin Ratio 1.3 (1.1-1.8); Alkaline Phosphatase 82 U/L (38-126); Anion Gap 12.3 mEq/L (5-15); Aspartate Amino Transferase 47 U/L (17-59); Bilirubin,Total 1.1 mg/dl (0.2-1.3); Blood Urea Nitrogen 14 mg/dl (9-20); Calcium 10.4 mg/dl (8.4-10.2); Carbon Dioxide 28 mmol/L (22.0-30.0); Creatinine Clearance Estimated 106 mL/min (50-200); Estimated Glomerular Filt Rate 84 ml/min (>60); GFR (African American) 102 ML/MIN (>60); Globulin 3.5 g/dL (1.3-3.2); Glucose 137 mg/dl (74-100); Lipase 75 U/L (23-300); Total Protein,Serum 8.1 g/dl (6.3-8.2)
--- NOTE | 2021-07-28 11:20 | HMH.EDGENADL ---
ED Disposition Clinical Impression: Small bowel obstruction Disposition: Admitted As Inpatient Condition on Discharge: Fair Referrals: Mickey Fine [Primary Care Provider] - Time of Disposition: 16:39 - Critical Care Critical Care Time: No Attestation: On 07/28/21, the high probability of a clinically significant, sudden or life threatening deterioration of the following system(s) required my full and direct attention, intervention and personal management. The time I documented below is in addition to time spent performing reported procedures but includes the following listed in this critical care notation. Medical Decision Making - Medical Records Medical records reviewed: Yes: I reviewed the patient's medical records. - Nicholas Inquiry Pt receiving controlled substance: No Vital Signs: 07/28/21 10:37 07/28/21 11:09 07/28/21 11:31 Temperature 97.8 F Temperature Source Oral Pulse Rate 70 Pulse Rate [Right Radial] 85 Respiratory Rate 14 16 18 Blood Pressure 114/72 113/68 Blood Pressure [Right Arm] 133/85 Blood Pressure Mean 83 Blood Pressure Mean [Right Arm] 101 Blood Pressure Source [Right Arm] Automatic Cuff Blood Pressure Position [Right Arm] Sitting 02 Sat by Pulse Oximetry 93 L 90 L Oxygen Delivery Method Room Air 07/28/21 12:07 07/28/21 12:30 07/28/21 13:00 Temperature Temperature Source Pulse Rate 65 61 64 Pulse Rate [Right Radial] Respiratory Rate 16 18 16 Blood Pressure 115/78 118/81 Blood Pressure [Right Arm] Blood Pressure Mean Blood Pressure Mean [Right Arm] Blood Pressure Source [Right Arm] Blood Pressure Position [Right Arm] 02 Sat by Pulse Oximetry 95 91 L 93 L Oxygen Delivery Method 07/28/21 13:30 07/28/21 14:00 07/28/21 14:30 Temperature Temperature Source Pulse Rate 66 62 73 Pulse Rate [Right Radial] Respiratory Rate 16 16 16 Blood Pressure 113/77 122/82 132/88 Blood Pressure [Right Arm] Blood Pressure Mean Blood Pressure Mean [Right Arm] Blood Pressure Source [Right Arm] Blood Pressure Position [Right Arm] 02 Sat by Pulse Oximetry 95 94 L 94 L Oxygen Delivery Method 07/28/21 15:00 Temperature Temperature Source Pulse Rate 62 Pulse Rate [Right Radial] Respiratory Rate 16 Blood Pressure 125/80 Blood Pressure [Right Arm] Blood Pressure Mean Blood Pressure Mean [Right Arm] Blood Pressure Source [Right Arm] Blood Pressure Position [Right Arm] 02 Sat by Pulse Oximetry 93 L Oxygen Delivery Method - Lab Data Lab results reviewed: Yes: I reviewed the patient's lab results. Lab Results 07/28/21 10:50: WBC 8.0, RBC 5.35, Hgb 16.3, Hct 49.5, MCV 92.4, MCH 30.5, MCHC 33.0, RDW 14.4, Plt Count 303, MPV 8.4, Neut % (Auto) 85.6 H, Lymph % (Auto) 9.9 L, [place] % (Auto) 3.9, Eos % (Auto) 0.4, Baso % (Auto) 0.2, Neut # (Auto) 6.9, Lymph # (Auto) 0.8, [place] # (Auto) 0.3, Eos # (Auto) 0.0, Baso # (Auto) 0.0, Total Counted 100, Neutrophils % (Manual) 91 H, Lymphocytes % (Manual) 7 L, Monocytes % (Manual) 2, Platelet Estimate Normal, Hypochromasia 2+ 07/28/21 10:50: Sodium 137, Potassium 4.3, Chloride 101, Carbon Dioxide 28, Anion Gap 12.3, BUN 14, Creatinine 0.90, Estimated Creat Clear 106, Estimated GFR 84, Est GFR ( Amer) 102, Glucose 137 H, Calcium 10.4 H, Total Bilirubin 1.1, AST 47, ALT 57, Alkaline Phosphatase 82, Total Protein 8.1, Albumin 4.6, Globulin 3.5 H, Albumin/Globulin Ratio 1.3, Lipase 75 07/28/21 13:15: Urine Color [place], Urine Appearance Sl cloudy, Urine pH 7.0, Ur Specific [place] 1.015, Urine Protein Trace, Urine Glucose (UA) Negative, Urine Ketones Trace, Urine Blood 3+, Urine Nitrate Negative, Urine Bilirubin 1+ A, Urine Urobilinogen 1.0, Ur Leukocyte Esterase Negative, Urine RBC 5-10, Urine WBC Occasional, Ur Squamous Epith Cells None, Urine Bacteria Trace Result diagrams: 07/28/21 10:50 07/28/21 10:50 Orders (Tests/Meds): ED MEDICATIONS Discontinued Medicati
[2021-07-28 11:47] LABS: Hypochromasia 2+; Lymphocytes % 7 % (10-50); Monocytes % 2 % (2-9); Neutrophils % 91 % (42-76); Platelet Estimate Normal; Total Cells Counted 100
[2021-07-28 13:22] LABS: Microscopic, Urine URINE MICROSCOPIC (MICROSCOPIC)
[2021-07-28 13:27] LABS: Appearance,Urine SL CLOUDY (Clear); Blood, Urine 3+ (Negative); Color,Urine ORANGE (Yellow); Glucose,Urine (UA) Negative (Negative); Ketones,Urine TRACE (Negative); Leukocyte Esterase,Urine Negative (Negative); Nitrate,Urine Negative (Negative); Protein,Urine TRACE (Negative); Specific Gravity, Urine 1.015 (1.005-1.030)
[2021-07-28 13:33] LABS: Bilirubin,Urine 1+ (Negative)
[2021-07-28 13:39] LABS: Bacteria,Urine Trace /lpf; WBC,Urine Occasional #/hpf (0-3)
--- NOTE | 2021-07-28 14:41 | PC.NURSE ---
Danish PARKER CALLED SPOKE WITH DR ROWE WITH CT FINDINGS OF A BOWEL OBSTRUCTION
--- NOTE | 2021-07-28 16:12 | PC.NURSE ---
DR ROWE SPOKE WITH DR ALTAMIRANO REGARDING ADMISSION
--- NOTE | 2021-07-28 16:23 | PC.NURSE ---
HOUSE CALLED FOR BED
[2021-07-28 17:15] LABS: Coronavirus 19, PCR Not Detected (NotDetected); Influenza A, PCR Not Detected (NotDetected); Influenza B, PCR Not Detected (NotDetected)
--- NOTE | 2021-07-28 20:37 | HMH.GSCON ---
*Admission Date: 07/28/21 *Reason for consult:: Bowel obstruction *History of present illness: Patient is a 65-year-old white male. He has had previous laparoscopic cholecystectomy and apparent epigastric hernia repair as well as open appendectomy many years ago. He had been admitted in May 2020 with a probable partial small bowel obstruction. He had dilated loops of small bowel in the right lower quadrant. This was able to be managed nonoperatively. He underwent small bowel follow-through during that hospitalization and this was unremarkable. After discharge she underwent colonoscopy with cannulation of terminal ileum. Interestingly, the patient states that he previously had capsule endoscopy performed in [place]. He was in his usual state of health until earlier today. He had developed some upper abdominal and epigastric type pain. He felt bloated. He had vomiting of foul yellowish thick material. He has had decreased stool output. He underwent CT scan in the emergency department which revealed findings consistent with possible partial or early bowel obstruction. Review of Systems - Review of Systems Review of systems:: pertinent systems reviewed and negative unless documented below [facility] History I have reviewed the patient's past medical history: Yes Medical History: Reports:: Deep Vein Thrombosis, Diabetes Mellitus Type 2, Gastroesophageal Reflux Disease(GERD), Hiatal Hernia, Hyperlipidemia, Hypertension, Kidney Stones, Urinary Tract Infection Denies:: Cancer, Diabetes Mellitus Type 1, Internal Pacemaker, Lung Disease, MRSA, Seizures *Have you ever received a pneumonia vaccine?: No *Have you received a flu vaccine this season?: Yes Other Medical History: Reports: Anemia, Arthritis, Blood Transfusion Reaction Laterality Cases: Right: Arthroscopy Knee, Bilateral: Tonsillectomy Other Surgeries: Yes: No Previous Surgery, Appendectomy, Cancer Surgery, Cardiac Catheterization, Cholecystectomy, Colonoscopy, Other (kidney stone removal). No: Pacemaker Amputation: No Fractures: No - *Social History Smoking Status: Never smoker Alcohol Intake: never Alcohol Intake Frequency:: other Substance Use Type: denies use *Occupational Status:: retired Housing: house Household Members: spouse *Travel in the last 8 weeks: None Family Hx:: Cancer Meds Home Medications Medication Instructions Recorded Confirmed Type Amlodipine Besylate [Norvasc 10mg 10 mg PO DAILY 04/17/18 07/28/21 History tablet] Citalopram Hydrobromide 10 mg PO DAILY 04/17/18 07/28/21 History [Citalopram 10mg Tablet] Ferrous Sulfate 325 mg PO TID 04/17/18 07/28/21 History Tamsulosin HCl [Flomax 0.4mg 0.4 mg PO DAILY 04/17/18 07/28/21 History capsule] allopurinoL [Allopurinol 100mg 300 mg PO HS 10/08/18 07/28/21 History tablet] Phenazopyridine HCl 200 mg PO TIDP PRN 05/26/20 07/28/21 History Aspirin [Aspirin 81mg EC Tab] 81 mg PO DAILY 05/27/20 07/28/21 History Diclofenac Sodium [Diclofenac 75mg 75 mg PO BID 05/27/20 07/28/21 History Tab] Losartan Potassium [Cozaar 100mg 100 mg PO DAILY 05/27/20 07/28/21 History Tablets] Omeprazole [Omeprazole 40mg 40 mg PO DAILY 05/27/20 07/28/21 History Capsule] Trazodone HCl [Desyrel 50mg tablet] 50 mg PO HSP PRN 05/27/20 07/28/21 History hydroCHLOROthiazide [HCTZ 25mg 25 mg PO DAILY 05/27/20 07/28/21 History tab] meloxicam 15 mg tablet 15 mg PO DAILY tab 07/22/20 07/28/21 History Hydrocod/Acet 5/325 mg [[place] 1 tab PO Q6HP PRN #10 tab 04/17/21 07/28/21 Rx 5/325mg tablet] predniSONE [Prednisone 20mg 20 mg PO BID 07/28/21 07/28/21 History Tab] Allergies Allergy/AdvReac Type Severity Reaction Status Date / Time No Known Allergies Allergy Verified 04/17/21 09:15 Exam Vital signs and Labs for Last 24 Hours: Temp Pulse Resp BP Pulse Ox 98.1 F 62 16 140/82 94 L 07/28/21 18:54 07/28/21 18:54 07/28/21 18:54 07/28/21 18:54 10
--- NOTE | 2021-07-29 03:24 | PC.NURSE ---
Pt is A/O x4. Pt has c/o of pain in abdomen t/o the shift, admin meds per MAR with relief. IV is patent and infusing LR @ 150ml/hr. This RN attempted NG insertion, as well as supervisor fabrication department. Pt would not sit still and ended up refusing NG at this time. VSS, call light within reach. Will continue to monitor.
[2021-07-29 04:00] VITALS: BP 111/61; PULSE 62; RESP 14; TEMP 36.9; O2SAT 93
[2021-07-29 05:35] VITALS: BMI 32.5
--- NOTE | 2021-07-29 06:17 | XR_ITS ---
PROCEDURE: XR ACUTE ABDOMEN SERIES CLINICAL INDICATION: SBO progress COMPARISON: CT CT ABDOMEN PELVIS W CON from 07/28/2021 FINDINGS: Frontal view of the chest shows no acute finding. Upright and supine views of the abdomen demonstrates numerous right renal calculi. Small amount of contrast is present in the urinary bladder. There are few scattered air-fluid levels within the small bowel. 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 No free air is evident. There is now some air noted in the rectosigmoid region. IMPRESSION: Persistent air-fluid levels within the small bowel which does not appear significantly distended. There is now some air noted in the rectosigmoid region. Dictated by: Tim Cuevas MD 07/29/2021 08:37 Tim Cuevas MD in [place] 07/29/2021 08:37
--- NOTE | 2021-07-29 06:34 | HMH.GSPN ---
Subjective Narrative: Patient states that he feels somewhat better. Still has upper abdominal pain. No nausea. Was unable to tolerate NG tube insertion. Progress Note: A&P Assessment and Plan for All Diagnoses:: We will obtain small bowel follow-through today Exam Vital signs and Labs for Last 24 Hours: Temp Pulse Resp BP Pulse Ox 98.5 F 62 14 111/61 93 L 07/29/21 04:00 07/29/21 04:00 07/29/21 04:00 07/29/21 04:00 07/29/21 04:00 Laboratory Results - last 24 hr 07/28/21 10:50: WBC 8.0, RBC 5.35, Hgb 16.3, Hct 49.5, MCV 92.4, MCH 30.5, MCHC 33.0, RDW 14.4, Plt Count 303, MPV 8.4, Neut % (Auto) 85.6 H, Lymph % (Auto) 9.9 L, [place] % (Auto) 3.9, Eos % (Auto) 0.4, Baso % (Auto) 0.2, Neut # (Auto) 6.9, Lymph # (Auto) 0.8, [place] # (Auto) 0.3, Eos # (Auto) 0.0, Baso # (Auto) 0.0, Total Counted 100, Neutrophils % (Manual) 91 H, Lymphocytes % (Manual) 7 L, Monocytes % (Manual) 2, Platelet Estimate Normal, Hypochromasia 2+ 07/28/21 10:50: Sodium 137, Potassium 4.3, Chloride 101, Carbon Dioxide 28, Anion Gap 12.3, BUN 14, Creatinine 0.90, Estimated Creat Clear 106, Estimated GFR 84, Est GFR ( Amer) 102, Glucose 137 H, Calcium 10.4 H, Total Bilirubin 1.1, AST 47, ALT 57, Alkaline Phosphatase 82, Total Protein 8.1, Albumin 4.6, Globulin 3.5 H, Albumin/Globulin Ratio 1.3, Lipase 75 07/28/21 13:15: Urine Color [place], Urine Appearance Sl cloudy, Urine pH 7.0, Ur Specific [place] 1.015, Urine Protein Trace, Urine Glucose (UA) Negative, Urine Ketones Trace, Urine Blood 3+, Urine Nitrate Negative, Urine Bilirubin 1+ A, Urine Urobilinogen 1.0, Ur Leukocyte Esterase Negative, Urine RBC 5-10, Urine WBC Occasional, Ur Squamous Epith Cells None, Urine Bacteria Trace 07/28/21 17:05: SARS-CoV-2 (PCR) Not detected, Influenza A Untype (PCR) Not detected, Influenza Type B (PCR) Not detected I & O for Last 24 hours: Intake & Output 07/26/21 07/27/21 07/28/21 07/29/21 11:59 11:59 11:59 11:59 Weight 230 lb 227 lb 3.2 oz - *Routine Abdominal Exam Present: soft
--- NOTE | 2021-07-29 06:35 | FL_ITS ---
PROCEDURE: FL SMALL BOWEL FOLLOW THROUGH CLINICAL INDICATION: abdominal pain, nausea. COMPARISON: CT ABDPELWW CT abdomen pelvis wo/w con from 05/15/[address] ABDOMEN PELVIS W CON from 05/26/2020 DX,RF FL SMALL BOWEL FOLLOW THROUGH from 05/27/[address] ABDOMEN PELVIS W CON from 07/28/2021 FINDINGS: Fluoroscopy time: 2.07 minutes. There is mild dilatation of the small bowel with loops measuring up 2 4 cm in with. This prominence is present throughout the small bowel to the right lower quadrant where there is a persistent bandlike area of narrowing. Spot-compression views are obtained of this region showing a persistent moderate degree of narrowing raising the question of a small apple-core type lesion. However there is no shouldering of contrast. There is some minimal poststenotic dilatation. Retrospective review of the CT scan of 07/28/2021 also shows an area of narrowing at this region. The small bowel is decompressed distal to this area. The terminal ileum has an unremarkable appearance.. IMPRESSION: Partial small bowel obstruction with a transition point in the right lower quadrant involving the mid to distal 1/3 of the ileum. This could be related to an area of adhesions versus an early apple-core lesion. Dictated by: Tim Cuevas MD 07/29/2021 14:06 Tim Cuevas MD in [place] 07/29/2021 14:06
[2021-07-29 07:03] LABS: Basophils % 0.3 % (0.1-2.0); Eosinophils % 0.7 % (0.1-12.0); Hematocrit 43.2 % (42.0-52.0); Mean Corpuscular HGB Conc 32.3 g/dL (31.8-35.4); Mean Platelet Volume 8.7 fl (7.4-10.4); Monocytes # 0.5 K/mm3 (0.1-1.0); Monocytes % 10.3 % (1.7-9.3); Neutrophils % 66.8 % (37.0-80.0); Platelet Count 217 K/mm3 (142-424); Red Blood Count 4.64 M/mm3 (4.60-6.20); Red Cell Distribution Width 14.4 % (11.5-17.5); White Blood Count 4.5 K/mm3 (4.8-10.8)
--- NOTE | 2021-07-29 07:24 | HMH.HP ---
*Admission Date: 07/28/21 *Chief complaint: Abdominal pain *History of present illness: 65-year-old male with history of partial small bowel obstruction hospitalized 1 year ago presented to the emergency department after decrease in bowel movements along with mild abdominal pain and distention reminiscent of prior bowel obstruction. Work-up in the emergency department revealed an early partial small bowel obstruction. Patient was admitted for IV fluids and bowel rest. There was an attempt to place an NG tube but this caused severe pain. Patient reports mild improvement this morning. [facility] History I have reviewed the patient's past medical history: Yes Medical History: Reports:: Cancer (Kidney), Deep Vein Thrombosis, Gastroesophageal Reflux Disease(GERD), Hiatal Hernia, Hyperlipidemia, Hypertension, Kidney Stones, Urinary Tract Infection Denies:: Diabetes Mellitus Type 1, Diabetes Mellitus Type 2, Internal Pacemaker, Lung Disease, MRSA, Seizures *Have you ever received a pneumonia vaccine?: No *Have you received a flu vaccine this season?: Yes Other Medical History: Reports: Anemia, Arthritis, Blood Transfusion Reaction Laterality Cases: Right: Arthroscopy Knee, Bilateral: Tonsillectomy Other Surgeries: Yes: No Previous Surgery, Appendectomy, Cancer Surgery, Cardiac Catheterization, Cholecystectomy, Colonoscopy, EGD, Hernia Repair, Other (kidney stone removal). No: Pacemaker Amputation: No Fractures: No - *Social History Smoking Status: Never smoker Alcohol Intake: never Alcohol Intake Frequency:: other Substance Use Type: denies use *Occupational Status:: retired Housing: house Household Members: spouse *Travel in the last 8 weeks: None Family Hx:: No significant family history Review of Systems - Review of Systems Review of systems:: pertinent systems reviewed and negative unless documented below Meds Home Medications Medication Instructions Recorded Confirmed Type Amlodipine Besylate [Norvasc 10mg 10 mg PO DAILY 04/17/18 07/28/21 History tablet] Citalopram Hydrobromide 10 mg PO DAILY 04/17/18 07/28/21 History [Citalopram 10mg Tablet] Ferrous Sulfate 325 mg PO TID 04/17/18 07/28/21 History Tamsulosin HCl [Flomax 0.4mg 0.4 mg PO DAILY 04/17/18 07/28/21 History capsule] allopurinoL [Allopurinol 100mg 300 mg PO HS 10/08/18 07/28/21 History tablet] Phenazopyridine HCl 200 mg PO TIDP PRN 05/26/20 07/28/21 History Aspirin [Aspirin 81mg EC Tab] 81 mg PO DAILY 05/27/20 07/28/21 History Diclofenac Sodium [Diclofenac 75mg 75 mg PO BID 05/27/20 07/28/21 History Tab] Losartan Potassium [Cozaar 100mg 100 mg PO DAILY 05/27/20 07/28/21 History Tablets] Omeprazole [Omeprazole 40mg 40 mg PO DAILY 05/27/20 07/28/21 History Capsule] Trazodone HCl [Desyrel 50mg tablet] 50 mg PO HSP PRN 05/27/20 07/28/21 History hydroCHLOROthiazide [HCTZ 25mg 25 mg PO DAILY 05/27/20 07/28/21 History tab] meloxicam 15 mg tablet 15 mg PO DAILY tab 07/22/20 07/28/21 History Hydrocod/Acet 5/325 mg [[place] 1 tab PO Q6HP PRN #10 tab 04/17/21 07/28/21 Rx 5/325mg tablet] predniSONE [Prednisone 20mg 20 mg PO BID 07/28/21 07/28/21 History Tab] Allergies Allergy/AdvReac Type Severity Reaction Status Date / Time No Known Allergies Allergy Verified 04/17/21 09:15 Exam Vital signs and Labs for Last 24 Hours: Temp Pulse Resp BP Pulse Ox 98.5 F 62 14 111/61 93 L 07/29/21 04:00 07/29/21 04:00 07/29/21 04:00 07/29/21 04:00 07/29/21 04:00 Laboratory Results - last 24 hr 07/28/21 10:50: WBC 8.0, RBC 5.35, Hgb 16.3, Hct 49.5, MCV 92.4, MCH 30.5, MCHC 33.0, RDW 14.4, Plt Count 303, MPV 8.4, Neut % (Auto) 85.6 H, Lymph % (Auto) 9.9 L, [place] % (Auto) 3.9, Eos % (Auto) 0.4, Baso % (Auto) 0.2, Neut # (Auto) 6.9, Lymph # (Auto) 0.8, [place] # (Auto) 0.3, Eos # (Auto) 0.0, Baso # (Auto) 0.0, Total Counted 100, Neutrophils % (Manual) 91 H, Lymphocytes % (Manual) 7 L, Monocytes %
--- NOTE | 2021-07-29 07:59 | HMH.PHAVTE ---
[facility] Pharmacy VTE Monitoring - Patient Demographics Admission date: 07/29/21 Report Date: 07/29/21 Time: 08:00 Allergies/Adverse Reactions: Patient Allergies No Known Allergies Allergy (Verified 04/17/21 09:15) Height: 1.78 m Weight: 103.056 kg Patient Problems: Current Active Problems Small bowel obstruction (Acute) - VTE Risk Labs: VTE Related Lab Results Hgb 16.3 g/dL (14.1-18.0) 07/28/21 10:50 Hct 43.2 % (42.0-52.0) 07/29/21 06:44 Plt Count 217 K/mm3 (142-424) D 07/29/21 06:44 BUN 14 mg/dl (9-20) 07/28/21 10:50 Creatinine 0.90 mg/dl (0.66-1.25) 07/28/21 10:50 Estimated Creat Clear 106 mL/min (50-200) 07/28/21 10:50 Was VTE Risk Assessment Performed: Yes VTE Score: 3 VTE Risk Level: Low Risk Clinical Trial Participant: No - Prophylaxis VTE Prophylaxis Ordered?: Yes Types of VTE Prophylaxis: TEDS Knee High, Pharmacological Pharmacologic Type: Enoxaparin
[2021-07-29 08:00] VITALS: BP 126/66; PULSE 66; RESP 18; TEMP 37.2; O2SAT 94; O2SAT 96
[2021-07-29 08:02] LABS: Alanine Aminotransferase 88 U/L (12-78); Albumin Level 3.6 g/dl (3.5-5.0); Albumin/Globulin Ratio 1.3 (1.1-1.8); Alkaline Phosphatase 90 U/L (38-126); Anion Gap 9.4 mEq/L (5-15); Aspartate Amino Transferase 81 U/L (17-59); Bilirubin,Total 1.8 mg/dl (0.2-1.3); Blood Urea Nitrogen 22 mg/dl (9-20); Calcium 9.4 mg/dl (8.4-10.2); Carbon Dioxide 28 mmol/L (22.0-30.0); Chloride 104 mmol/L (98-107); Creatinine Clearance Estimated 104 mL/min (50-200); Estimated Glomerular Filt Rate 84 ml/min (>60); GFR (African American) 102 ML/MIN (>60); Globulin 2.7 g/dL (1.3-3.2); Glucose 98 mg/dl (74-100); Potassium 4.4 mmoL/L (3.5-5.1); Sodium 137 mmol/L (136-145); Total Protein,Serum 6.3 g/dl (6.3-8.2)
--- NOTE | 2021-07-29 08:10 | PC.NURSE ---
pt off floor with radiology at this time.
--- NOTE | 2021-07-29 10:56 | PC.NURSE ---
PT REPORTS LARGE FORMED BM
--- NOTE | 2021-07-29 13:58 | HMH.PHAINT ---
MEDICATION RECONCILIATION COMPLETE USING PHARMACY INFORMATION
[2021-07-29 16:00] VITALS: BP 113/64; PULSE 56; RESP 20; TEMP 36.6; O2SAT 90
[2021-07-29 20:00] VITALS: BP 123/69; PULSE 68; RESP 18; TEMP 37.1; O2SAT 95
--- NOTE | 2021-07-29 20:00 | PC.NURSE ---
HE IS AOX4, ABLE TO MAKE NEEDS KNOWN TO STAF, HAS TOLERATED AMBULATING IN ROOM INDEPENDENTLY. WAS UP TO CHAIR FOR MOST OF SHIFT, REPORTS BM AFTER SB F/T THIS AFTERNOON, ABD IS MILDLY DISTENDED WITH SOME TENDERNESS. VSS.
[2021-07-30 04:00] VITALS: BP 107/66; PULSE 55; RESP 20; TEMP 36.6; O2SAT 93
[2021-07-30 04:58] VITALS: BMI 32.5
--- NOTE | 2021-07-30 05:24 | PC.NURSE ---
A&OX4. TOLERATING RA WELL. PT HAS HAD NO C/O PAIN/NA/VO THUS FAR THIS SHIFT. TOLERATING NPO DIET WELL. RESTING MAJORITY OF SHIFT. VSS WILL CONTINUE TO MONITOR.
--- NOTE | 2021-07-30 06:00 | XR_ITS ---
PROCEDURE INFORMATION: Exam: XR Complete Acute Abdomen Series Including Chest Exam date and time: 07/30/2021 6:00 AM Age: 65 years old Clinical indication: Screening exam; Patient HX: F/u sbo; Additional info: Sbo progress TECHNIQUE: Imaging protocol: XR complete acute abdomen series, including 2 or more views of the abdomen and a single view chest. COMPARISON: CR XR ACUTE ABDOMEN SERIES 07/29/2021 8:13 AM FINDINGS: Lungs: Lungs are clear. Pleural spaces: No pleural effusion or pneumothorax. Heart/Mediastinum: Cardiomediastinal silhouette is within normal limits. Gastrointestinal tract: Dilation of small bowel loops in the upper abdomen measuring up to 3.9 cm. Enteric contrast is seen throughout the colon. Intraperitoneal space: Normal. No free air. Organs: Cholecystectomy clips. Bones/joints: Osseous structures appear within normal limits. No acute fractures. Soft tissues: Normal. IMPRESSION: Enteric contrast is seen throughout the colon. Persistently dilated loops of small bowel are seen in the upper abdomen, which again may reflect a partial small-bowel obstruction.
--- NOTE | 2021-07-30 06:43 | P.PN_ITS ---
Subjective Narrative: Patient states he feels good today. No complaints. Had large bowel movement while in radiology for SBFT yesterday. No obstruction but lesion in ileum possibly secondary to adhesions or intrinsic lesion. Progress Note: A&P (1) Small bowel obstruction Status: Acute Assessment and Plan for All Diagnoses:: Plan to give full liquid. If tolerates may be able to be discharged. Likely would plan outpatient capsule endoscopy. Exam Vital signs and Labs for Last 24 Hours: Temp Pulse Resp BP Pulse Ox 98 F 55 L 20 107/66 L 93 L 07/30/21 04:00 07/30/21 04:00 07/30/21 04:00 07/30/21 04:00 07/30/21 04:00 Laboratory Results - last 24 hr 07/29/21 06:44: WBC 4.5 L D, RBC 4.64, Hgb 14.0 L D, Hct 43.2, MCV 93.0, MCH 30.0, MCHC 32.3, RDW 14.4, Plt Count 217 D, MPV 8.7, Neut % (Auto) 66.8, Lymph % (Auto) 22.0, [place] % (Auto) 10.3 H, Eos % (Auto) 0.7, Baso % (Auto) 0.3, Neut # (Auto) 3.0, Lymph # (Auto) 1.0, [place] # (Auto) 0.5, Eos # (Auto) 0.0, Baso # (Auto) 0.0 07/29/21 06:44: Sodium 137, Potassium 4.4, Chloride 104, Carbon Dioxide 28, Anion Gap 9.4, BUN 22 H D, Creatinine 0.90, Estimated Creat Clear 104, Estimated GFR 84, Est GFR ( Amer) 102, Glucose 98 D, Calcium 9.4, Total Bilirubin 1.8 H, AST 81 H D, ALT 88 H D, Alkaline Phosphatase 90, Total Protein 6.3, Albumin 3.6 D, Globulin 2.7, Albumin/Globulin Ratio 1.3 I & O for Last 24 hours: Intake & Output 07/27/21 07/28/21 07/29/21 07/30/21 11:59 11:59 11:59 11:59 Weight 230 lb 227 lb 3.2 oz 227 lb 2 oz - *Routine Abdominal Exam Present: soft. Absent: tenderness
--- NOTE | 2021-07-30 07:04 | P.PN_ITS ---
Internal Medicine - PN: Subj *Date: 07/30/21 *Time: 07:04 Interval history: Patient had a large BM yesterday which relieved some of his abdominal pain. Upper GI with small bowel follow-through was also performed which did confirm the presence of partial small bowel obstruction in the right lower quadrant. Exam Vital signs and Labs for Last 24 Hours: Temp Pulse Resp BP Pulse Ox 98 F 55 L 20 107/66 L 93 L 07/30/21 04:00 07/30/21 04:00 07/30/21 04:00 07/30/21 04:00 07/30/21 04:00 Laboratory Results - last 24 hr 07/29/21 06:44: WBC 4.5 L D, RBC 4.64, Hgb 14.0 L D, Hct 43.2, MCV 93.0, MCH 30.0, MCHC 32.3, RDW 14.4, Plt Count 217 D, MPV 8.7, Neut % (Auto) 66.8, Lymph % (Auto) 22.0, [place] % (Auto) 10.3 H, Eos % (Auto) 0.7, Baso % (Auto) 0.3, Neut # (Auto) 3.0, Lymph # (Auto) 1.0, [place] # (Auto) 0.5, Eos # (Auto) 0.0, Baso # (Auto) 0.0 07/29/21 06:44: Sodium 137, Potassium 4.4, Chloride 104, Carbon Dioxide 28, Anion Gap 9.4, BUN 22 H D, Creatinine 0.90, Estimated Creat Clear 104, Estimated GFR 84, Est GFR ( Amer) 102, Glucose 98 D, Calcium 9.4, Total Bilirubin 1.8 H, AST 81 H D, ALT 88 H D, Alkaline Phosphatase 90, Total Protein 6.3, Albumin 3.6 D, Globulin 2.7, Albumin/Globulin Ratio 1.3 I & O for Last 24 hours: Intake & Output 07/27/21 07/28/21 07/29/21 07/30/21 11:59 11:59 11:59 11:59 Weight 230 lb 227 lb 3.2 oz 227 lb 2 oz Narrative: Patient looks comfortable. Abdomen is soft and nontender with active bowel sounds. Assessment and Plan (1) Small bowel obstruction Status: Acute Category: Medical Code(s): K56.609 - Unspecified intestinal obstruction, unspecified as to partial versus complete obstruction - Assessment and plan all Dx Assessment and Plan for all problems:: 1. Diet has been advanced by Dr. Kennedy 2. Encourage ambulation
[2021-07-30 08:00] VITALS: BP 113/63; PULSE 64; RESP 18; TEMP 36.7; O2SAT 95
[2021-07-30 13:42] VITALS: BMI 32.5
[2021-07-30 16:00] VITALS: BP 116/66; PULSE 58; RESP 16; TEMP 36.9; O2SAT 96
--- NOTE | 2021-07-30 17:18 | HMH.DCSUM ---
General - General Admission date:: 07/28/21 Discharge date: 07/30/21 HPI HPI: 65-year-old male with history of partial small bowel obstruction hospitalized 1 year ago presented to the emergency department after decrease in bowel movements along with mild abdominal pain and distention reminiscent of prior bowel obstruction. Work-up in the emergency department revealed an early partial small bowel obstruction. Patient was admitted for IV fluids and bowel rest. There was an attempt to place an NG tube but this caused severe pain. Patient reports mild improvement this morning. Hospital Course Hospital Course: Patient was admitted for partial small bowel obstruction. Consult to general surgery was made and patient was evaluated by Dr. Kennedy who is familiar with the patient. Patient underwent upper GI with small bowel follow-through which showed partial small bowel obstruction in the right lower quadrant at the terminal ileum. After upper GI with small bowel follow-through patient had a large bowel movement with improvement in abdominal pain. Patient continued to have bowel movements. On July 30 diet was advanced to full liquids which patient tolerated throughout the day without nausea, abdominal distention or increase in pain. Patient was discharged home. Dr. Kennedy is recommended capsule endoscopy. He will follow up with Dr. Kennedy in 1 week. Patient will follow up with his primary care physician Dr. Fine in 1 week. Objective Vital signs: Temp Pulse Resp BP Pulse Ox 98.5 F 58 L 16 116/66 96 07/30/21 16:00 07/30/21 16:00 07/30/21 16:00 07/30/21 16:00 07/30/21 16:00 DS: Diagnosis - Discharge Diagnosis (1) Small bowel obstruction Status: Acute Discharge Plan - Patient Discharge Instructions ACTIVITY: Continue current activity DIET: continue same diet Patient Instructions: Small Bowel Obstruction, DI for Acute Abdominal Pain - Follow up Plan Follow up with: Jairo Kennedy MD [Staff Physician] - 1 week (Call the office in the morning for appointment time.) Mickey Fine [Primary Care Provider] - 1 week (Call the office in the morning for appointment time.) Disposition: Home, Self-Care Condition at discharge:: Improved Home Medications: Home Medications Medication Instructions Recorded Confirmed Type Citalopram Hydrobromide 10 mg PO DAILY 04/17/18 07/28/21 History [Citalopram 10mg Tablet] Ferrous Sulfate 325 mg PO TID 04/17/18 07/28/21 History Tamsulosin HCl [Flomax 0.4mg 0.4 mg PO DAILY 04/17/18 07/28/21 History capsule] allopurinoL [Allopurinol 100mg 300 mg PO HS 10/08/18 07/28/21 History tablet] Phenazopyridine HCl 200 mg PO TIDP PRN 05/26/20 07/28/21 History Aspirin [Aspirin 81mg EC Tab] 81 mg PO DAILY 05/27/20 07/28/21 History Diclofenac Sodium [Diclofenac 75mg 75 mg PO BIDP PRN 05/27/20 07/29/21 History Tab] Losartan Potassium [Cozaar 100mg 100 mg PO DAILY 05/27/20 07/28/21 History Tablets] Omeprazole [Omeprazole 40mg 40 mg PO DAILY 05/27/20 07/28/21 History Capsule] Trazodone HCl [Desyrel 50mg tablet] 50 mg PO HSP PRN 05/27/20 07/28/21 History Hydrocod/Acet 5/325 mg [[place] 1 tab PO Q6HP PRN #10 tab 04/17/21 07/28/21 Rx 5/325mg tablet] Atorvastatin Calcium [Lipitor 20mg 20 mg PO HS 07/29/21 07/29/21 History Tab] Potassium Chloride [Klor-Con 10mEq 10 meq PO BID 07/29/21 07/29/21 History tab] Prescriptions/Medication Reconciliation: Continued Ferrous Sulfate 325 mg PO TID Citalopram Hydrobromide [Citalopram 10mg Tablet] 10 mg PO DAILY allopurinoL [Allopurinol 100mg tablet] 300 mg PO HS Aspirin [Aspirin 81mg EC Tab] 81 mg PO DAILY Diclofenac Sodium [Diclofenac 75mg Tab] 75 mg PO BIDP PRN PRN Reason: PAIN Omeprazole [Omeprazole 40mg Capsule] 40 mg PO DAILY Trazodone HCl [Desyrel 50mg tablet] 50 mg PO HSP PRN PRN Reason: Sleep Potassium Chlori
== END 2021-07-30 18:30 | disposition home or self-care (01) | DRG 390 ==
LOC: ER 10:40 → 2ND 16:39
PROVIDERS: Admitting Provider Family Medicine; Emergency Provider Family Medicine; PCP Internal Medicine; Visit Provider Family Medicine
DX: K56.609 Unspecified intestinal obstruction, unspecified as to partial versus complete obstruction (principal); K21.9 Gastro-esophageal reflux disease without esophagitis; E11.9 Type 2 diabetes mellitus without complications; I10 Essential (primary) hypertension; Z20.822 Contact with and (suspected) exposure to COVID-19; Z86.718 Personal history of other venous thrombosis and embolism; M19.90 Unspecified osteoarthritis, unspecified site; E78.5 Hyperlipidemia, unspecified; Z85.528 Personal history of other malignant neoplasm of kidney
CPT/HCPCS: 74021; 74177; 74250; 80053; 81001; 83690; 85007; 85025; 93005; 96365; 96375; 96376; 99284; C9803; J2405; Q9967; U0003; U0005

== ENCOUNTER → 2021-08-25 16:14 | Outpatient (CLI) | payer MEDICARE, SELFPAY ==
--- NOTE | 2021-08-25 16:18 | MM_ITS ---
PROCEDURE: MM DIG MAMM BI DX W/CAD Digital Breast Tomosynthesis Included Left breast ultrasound complete CLINICAL INDICATION: KNOT LT BREAST, LT BREAST TENDERNESS COMPARISON: US US BREAST LT COMPLETE from 08/25/2021 TECHNIQUE: Standard CC and MLO images and 3D Tomosynthesis was obtained. R2 CAD reviewed. Left breast ultrasound FINDINGS: Right breast has an unremarkable appearance. Flame shaped increase in fibroglandular tissue noted in the retroareolar region and central aspect of the left breast consistent with gynecomastia. No malignant appearing mass or microcalcification. Small nodules present in the left axilla suggesting a small lymph node at 4 mm Left breast ultrasound: Irregular decreased echogenicity is present in the retroareolar region on the left consistent with gynecomastia. IMPRESSION: Left-sided gynecomastia. No evidence of malignancy. BI-RAD Category: 2 Benign Finding FOLLOW-UP: Follow-up as clinically warranted (A letter has been sent to the patient regarding results of the study.) Dictated by: Tim Cuevas MD 08/27/2021 17:49 Tim Cuevas MD in [place] 08/27/2021 17:49
[2021-08-25 21:07] LABS: HCG,Quantitative < 2 mIU/ml (0-5.42)
[2021-08-27 10:25] LABS: Estradiol 23.6 pg/mL (7.6-42.6); FSH 2.7 mIU/mL (1.5-12.4); LH 2.7 mIU/mL (1.7-8.6); Testosterone,Total 200 ng/dL (264-916)
== END ==
PROVIDERS: PCP Internal Medicine; Visit Provider Internal Medicine
DX: N63.20 Unspecified lump in the left breast, unspecified quadrant (principal); N62 Hypertrophy of breast; E29.1 Testicular hypofunction
CPT/HCPCS: 76641; 77062; 77066; 82670; 83001; 83002; 84403; 84702; G0279

== ENCOUNTER → 2021-11-01 11:52 | Outpatient (CLI) | payer MEDICARE, SELFPAY | PROVIDERS: Visit Provider Internal Medicine | DX: I10 Essential (primary) hypertension (principal); E78.5 Hyperlipidemia, unspecified ==

== ENCOUNTER → 2021-11-15 11:10 | Outpatient (CLI) | payer MEDICARE, SELFPAY ==
[2021-11-16 09:13] LABS: Testosterone,Total 220 ng/dL (264-916)
== END ==
PROVIDERS: PCP Internal Medicine; Visit Provider Internal Medicine
DX: E29.1 Testicular hypofunction (principal)
CPT/HCPCS: 36415; 84403

== ENCOUNTER 2022-01-30 08:37 | Emergency (ER) | payer MEDICARE, SELFPAY ==
--- NOTE | 2022-01-30 08:35 | ECG_ITS ---
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: Resting ECG HR:69 bpm ECG Measurements Heart Rate 69 AXES GA 190 P 33 QRSd 77 QRS 9 QT 378 T 63 QTc 397 Conclusion SINUS RHYTHM NORMAL ECG UNCONFIRMED REPORT Electronically signed by : Douglas Pace MD 01/30/2022 14:50:19
[2022-01-30 08:37] VITALS: BP 130/82; PULSE 70; RESP 20; TEMP 36.6; O2SAT 98; BMI 33.0
--- NOTE | 2022-01-30 08:38 | HMH.EDCP ---
ED Disposition Clinical Impression: Spasm of muscle Disposition: Home, Self-Care Condition on Discharge: Good Instructions: DI for Atypical Chest Pain Additional Instructions: Are to take in your furosemide/Lasix every other day for the next few days to see whether your symptoms improve. You may take [id number] Tylenol for your symptoms. Please return to the emergency department immediately if you have any new symptoms or if your symptoms worsen. Your work-up today in the emergency department did not reveal any dangerous or life-threatening conditions. Referrals: Mickey Fine [Primary Care Provider] - - Critical Care Critical Care Time: No Attestation: On , the high probability of a clinically significant, sudden or life threatening deterioration of the following system(s) required my full and direct attention, intervention and personal management. The time I documented below is in addition to time spent performing reported procedures but includes the following listed in this critical care notation. Medical Decision Making - Medical Records Medical records reviewed: Yes: I reviewed the patient's medical records. - Nicholas Inquiry Pt receiving controlled substance: No Vital Signs: 01/30/22 08:37 01/30/22 10:00 Temperature 97.9 F Temperature Source Oral Pulse Rate 70 Pulse Rate [Radial] 70 Respiratory Rate 20 17 Blood Pressure 117/84 Blood Pressure [Right Arm] 130/82 Blood Pressure Mean 92 Blood Pressure Mean [Right Arm] 98 Blood Pressure Position [Right Arm] Sitting 02 Sat by Pulse Oximetry 98 97 Oxygen Delivery Method Room Air Room Air - Lab Data Lab results reviewed: Yes: I reviewed the patient's lab results. Lab Results 01/30/22 08:45: WBC 5.8, RBC 5.18, Hgb 15.6, Hct 46.6, MCV 89.9, MCH 30.1, MCHC 33.4, RDW 14.2, Plt Count 273, MPV 8.2, Neut % (Auto) 62.7, Lymph % (Auto) 22.6, Rush % (Auto) 12.5 H, Eos % (Auto) 1.5, Baso % (Auto) 0.7, Neut # (Auto) 3.7, Lymph # (Auto) 1.3, Rush # (Auto) 0.7, Eos # (Auto) 0.1, Baso # (Auto) 0.0 01/30/22 08:45: Sodium 136, Potassium 4.3, Chloride 104, Carbon Dioxide 25, Anion Gap 11.3, BUN 16, Creatinine 0.90, Estimated Creat Clear 104, Estimated GFR 84, Est GFR ( Amer) 102, Glucose 111 H, Calcium 10.0, Total Bilirubin 0.7, AST 58, ALT 85 H, Alkaline Phosphatase 92, Troponin I < 0.01, NT-Pro-B Natriuret Pep < 11.1, Total Protein 7.4, Albumin 4.4, Globulin 3.0, Albumin/Globulin Ratio 1.5 01/30/22 08:45: PT 11.0, INR 0.97, APTT 26.2 01/30/22 08:45: Magnesium 1.8 Result diagrams: 01/30/22 08:45 01/30/22 08:45 Orders (Tests/Meds): ED MEDICATIONS Discontinued Medications Generic Name Dose Route Start Last Admin Trade Name Freq PRN Reason Stop Dose Admin Ketorolac Tromethamine 30 mg 01/30/22 09:38 01/30/22 09:58 Ketorolac 30mg/Ml Vial IV 01/30/22 09:39 30 mg ONCE ONE Administration ORDERS Category Date Time Status XR chest portable Stat Exams 01/30/22 08:47 Taken Troponin I Q3H Lab 01/30/22 12:00 Ordered Troponin I Q3H Lab 01/30/22 15:00 Ordered ECG Request by /Wilder Stat Y 01/30/22 08:47 Ordered - Radiology Data #1 Image(s): Chest Image Reviewed: Yes I reviewed the patient's radiology image Preliminary Findings: Normal/NAD - ECG Data Tracing #1 I reviewed this ECG and interpreted as documented below: The patient is ECG was performed at 8:35 AM it shows a normal sinus rhythm with a rate of 69 bpm there are no signs of ischemia. There is no dysrhythmia. There are no peaked T waves. There are no ST depressions. The intervals are normal. Normal Sinus Rhythm: Yes - FORREST Score for Non-Stemi Age of Patient: 60-69 years old Heart Rate: 70-89 bpm Systolic Blood Pressure: 120-139 mmhg Serum Creatinine: 0.80-1.19 mg/dl CHF [place] Class: I-No CHF Other Risk Factors: None Non-Stemi Risk Score: 108 Medical Decision Narrative: The patient presents to the emergency department complaining of mu
--- NOTE | 2022-01-30 08:47 | XR_ITS ---
FINAL REPORT CLINICAL HISTORY: chest pain, cramping all over FINDINGS: SINGLE VIEW CHEST. The heart is normal in size. The mediastinum is unremarkable. There is mild bibasilar atelectasis or scarring. There is no pneumothorax. IMPRESSION: Mild bibasilar atelectasis or scarring. Reviewed, Interpreted and Dictated by Jairo Nur III, MD Transcribed by Ofelia Pierce Authenticated by Jairo Nur III, MD on 01/30/2022 10:37:50 AM [facility]
[2022-01-30 09:26] LABS: Basophils % 0.7 % (0.1-2.0); Eosinophils # 0.1 K/mm3 (0.0-0.4); Eosinophils % 1.5 % (0.1-12.0); Hematocrit 46.6 % (42.0-52.0); Hemoglobin 15.6 g/dL (14.1-18.0); Lymphocytes # 1.3 K/mm3 (0.7-4.5); Lymphocytes % 22.6 % (10-50); Mean Corpuscular HGB Conc 33.4 g/dL (31.8-35.4); Mean Corpuscular Hemoglobin 30.1 pg (27.0-31.2); Mean Corpuscular Volume 89.9 fl (80-94); Mean Platelet Volume 8.2 fl (7.4-10.4); Monocytes # 0.7 K/mm3 (0.1-1.0); Monocytes % 12.5 % (1.7-9.3); Neutrophils # 3.7 K/mm3 (1.8-7.8); Neutrophils % 62.7 % (37.0-80.0); Platelet Count 273 K/mm3 (142-424); Red Blood Count 5.18 M/mm3 (4.60-6.20); Red Cell Distribution Width 14.2 % (11.5-17.5); White Blood Count 5.8 K/mm3 (4.8-10.8)
[2022-01-30 09:28] LABS: Magnesium 1.8 mg/dl (1.6-2.3)
[2022-01-30 09:34] LABS: Alanine Aminotransferase 85 U/L (12-78); Albumin Level 4.4 g/dl (3.5-5.0); Albumin/Globulin Ratio 1.5 (1.1-1.8); Alkaline Phosphatase 92 U/L (38-126); Anion Gap 11.3 mEq/L (5-15); Aspartate Amino Transferase 58 U/L (17-59); Bilirubin,Total 0.7 mg/dl (0.2-1.3); Blood Urea Nitrogen 16 mg/dl (9-20); Carbon Dioxide 25 mmol/L (22.0-30.0); Chloride 104 mmol/L (98-107); Creatinine Clearance Estimated 104 mL/min (50-200); Estimated Glomerular Filt Rate 84 ml/min (>60); GFR (African American) 102 ML/MIN (>60); Glucose 111 mg/dl (74-100); Potassium 4.3 mmoL/L (3.5-5.1); Sodium 136 mmol/L (136-145); Total Protein,Serum 7.4 g/dl (6.3-8.2)
[2022-01-30 09:35] LABS: Activated Partial Thrombo Time 26.2 seconds (22.8-30.6); INR 0.97 (0.9-1.1)
[2022-01-30 09:46] LABS: NT Pro Brain Natriuretic Pep. < 11.1 pg/mL (0-125); Troponin I < 0.01 ng/ml (0.00-0.034)
[2022-01-30 10:00] VITALS: BP 117/84; PULSE 70; RESP 17; O2SAT 97
[2022-01-30 10:35] VITALS: BP 123/81; PULSE 68; RESP 16; TEMP 36.6; O2SAT 97
[2022-01-30 11:25] LABS: Creatine Kinase 258 U/L (55-170)
== END 2022-01-30 10:36 | disposition home or self-care (01) ==
PROVIDERS: Emergency Provider Emergency Medicine; PCP Internal Medicine
DX: R07.89 Other chest pain (principal); M62.838 Other muscle spasm; I10 Essential (primary) hypertension; E78.5 Hyperlipidemia, unspecified; K21.9 Gastro-esophageal reflux disease without esophagitis; R06.09 Other forms of dyspnea
CPT/HCPCS: 71045; 80053; 82550; 83735; 83880; 84484; 85025; 85610; 85730; 93005; 96374; 96375; 99284

== ENCOUNTER → 2022-02-13 17:18 | Outpatient (CLI) | payer MEDICARE, SELFPAY ==
[2022-02-13 19:41] LABS: Chloride 105 mmol/L (98-107); Sodium 139 mmol/L (136-145)
[2022-02-13 19:42] LABS: Potassium 4.5 mmoL/L (3.5-5.1)
[2022-02-13 19:45] LABS: Anion Gap 10.5 mEq/L (5-15); Blood Urea Nitrogen 16 mg/dl (9-20); Calcium 9.4 mg/dl (8.4-10.2); Carbon Dioxide 28 mmol/L (22.0-30.0); Estimated Glomerular Filt Rate 67 ml/min (>60); GFR (African American) 81 ML/MIN (>60); Glucose 72 mg/dl (74-100)
== END ==
PROVIDERS: PCP Internal Medicine; Visit Provider Internal Medicine
DX: E83.42 Hypomagnesemia (principal); I10 Essential (primary) hypertension; M79.10 Myalgia, unspecified site; R25.2 Cramp and spasm
CPT/HCPCS: 80048; 83735

== ENCOUNTER → 2022-04-03 16:51 | Outpatient (CLI) | payer MEDICARE, SELFPAY ==
[2022-04-03 18:06] LABS: Basophils # 0.1 K/mm3 (0-0.2); Basophils % 1.4 % (0.1-2.0); Eosinophils # 0.2 K/mm3 (0.0-0.4); Eosinophils % 4.3 % (0.1-12.0); Hematocrit 42.3 % (42.0-52.0); Lymphocytes # 1.2 K/mm3 (0.7-4.5); Lymphocytes % 30.6 % (10-50); Mean Corpuscular Hemoglobin 29.8 pg (27.0-31.2); Mean Corpuscular Volume 90.2 fl (80-94); Mean Platelet Volume 9.6 fl (7.4-10.4); Monocytes # 0.3 K/mm3 (0.1-1.0); Monocytes % 7.5 % (1.7-9.3); Neutrophils # 2.1 K/mm3 (1.8-7.8); Neutrophils % 56.3 % (37.0-80.0); Platelet Count 245 K/mm3 (142-424); Red Blood Count 4.69 M/mm3 (4.60-6.20); Red Cell Distribution Width 14.8 % (11.5-17.5); White Blood Count 3.8 K/mm3 (4.8-10.8)
[2022-04-03 18:28] LABS: Alanine Aminotransferase 76 U/L (12-78); Albumin Level 3.8 g/dl (3.5-5.0); Albumin/Globulin Ratio 1.4 (1.1-1.8); Alkaline Phosphatase 88 U/L (38-126); Anion Gap 8.2 mEq/L (5-15); Aspartate Amino Transferase 55 U/L (17-59); Bilirubin,Total 0.3 mg/dl (0.2-1.3); Blood Urea Nitrogen 21 mg/dl (9-20); Calcium 9.9 mg/dl (8.4-10.2); Carbon Dioxide 27 mmol/L (22.0-30.0); Chloride 104 mmol/L (98-107); Chol/HDL Ratio 3.1 (1-3.5); Cholesterol 141 mg/dl (140-200); Estimated Glomerular Filt Rate 74 ml/min (>60); GFR (African American) 90 ML/MIN (>60); Globulin 2.7 g/dL (1.3-3.2); Glucose 99 mg/dl (74-100); HDL Cholesterol 46 mg/dl (40-60); Potassium 4.2 mmoL/L (3.5-5.1); Sodium 135 mmol/L (136-145); Total Protein,Serum 6.5 g/dl (6.3-8.2); Triglycerides 73 mg/dl (30-150); VLDL Cholesterol 15 mg/dL (0-40)
[2022-04-03 18:40] LABS: Direct LDL Cholesterol 64.05 mg/dL (100-129)
[2022-04-03 18:46] LABS: 25-OH Vitamin D, Total 59.6 ng/mL (30-100)
[2022-04-03 18:59] LABS: Prostate Specific Ag Screen 0.4 ng/ml (0.0-4.0); Thyroid Stimulating Hormone 1.26 uIU/mL (0.465-4.68)
== END ==
PROVIDERS: PCP Internal Medicine; Visit Provider Internal Medicine
DX: I25.10 Atherosclerotic heart disease of native coronary artery without angina pectoris (principal); I10 Essential (primary) hypertension; E78.5 Hyperlipidemia, unspecified; D50.9 Iron deficiency anemia, unspecified; K21.9 Gastro-esophageal reflux disease without esophagitis; M15.0 Primary generalized (osteo)arthritis; Z85.528 Personal history of other malignant neoplasm of kidney; E66.9 Obesity, unspecified; Z68.32 Body mass index [BMI] 32.0-32.9, adult; Z12.5 Encounter for screening for malignant neoplasm of prostate
CPT/HCPCS: 80053; 80061; 82306; 84443; 85025; G0103

== ENCOUNTER 2022-04-05 00:27 | Emergency (ER) | payer MEDICARE, SELFPAY ==
[2022-04-05 00:29] VITALS: BP 163/91; PULSE 69; RESP 18; TEMP 36.7; O2SAT 95; BMI 30.1
--- NOTE | 2022-04-05 00:38 | HMH.EDGENADL ---
ED Disposition Clinical Impression: Ureteral stone with hydronephrosis Disposition: Home, Self-Care Condition on Discharge: Good Instructions: DI for Kidney Stones Prescriptions: Tamsulosin HCl [Flomax 0.4mg capsule] 0.4 mg PO HS 14 Days #14 cap Transmission Status: Pending to [facility] # Ketorolac Tromethamine [Toradol 10mg tablet] 10 mg PO TID PRN 5 Days #15 tab MDD 40mg/day PRN Reason: Moderate Pain Transmission Status: Pending to [facility] # Referrals: Mickey Fine MD [Primary Care Provider] - Mak Washington MD [Staff Physician] - - Critical Care Critical Care Time: No Attestation: On 04/05/22, the high probability of a clinically significant, sudden or life threatening deterioration of the following system(s) required my full and direct attention, intervention and personal management. The time I documented below is in addition to time spent performing reported procedures but includes the following listed in this critical care notation. Medical Decision Making - Medical Records Medical records reviewed: Yes: I reviewed the patient's medical records. - Nicholas Inquiry Pt receiving controlled substance: No Vital Signs: 04/05/22 00:29 04/05/22 02:43 04/05/22 03:00 Temperature 98.1 F Temperature Source Oral Pulse Rate 67 57 L Pulse Rate [Right] 69 Respiratory Rate 18 Blood Pressure 159/91 H 156/93 H Blood Pressure [Right Arm] 163/91 H Blood Pressure Mean 114 114 Blood Pressure Mean [Right Arm] 115 02 Sat by Pulse Oximetry 95 92 L 97 - Lab Data Lab Results 04/05/22 01:18: WBC 5.8 D, RBC 4.87, Hgb 14.3, Hct 43.5, MCV 89.2, MCH 29.3, MCHC 32.9, RDW 14.6, Plt Count 251, MPV 8.6, Neut % (Auto) 74.3, Lymph % (Auto) 16.7, [place] % (Auto) 5.5, Eos % (Auto) 2.4, Baso % (Auto) 1.0, Neut # (Auto) 4.3, Lymph # (Auto) 1.0, [place] # (Auto) 0.3, Eos # (Auto) 0.1, Baso # (Auto) 0.1 04/05/22 01:18: Sodium 136, Potassium 4.3, Chloride 100, Carbon Dioxide 31 H, Anion Gap 9.3, BUN 20, Creatinine 1.10, Estimated Creat Clear 87, Estimated GFR 67, Est GFR ( Amer) 81, Glucose 107 H, Calcium 10.3 H, Total Bilirubin 0.2, AST 49, ALT 71, Alkaline Phosphatase 78, Total Protein 6.5, Albumin 3.8, Globulin 2.7, Albumin/Globulin Ratio 1.4, Lipase 130 04/05/22 03:25: Urine Color Yellow, Urine Appearance Clear, Urine pH 6.0, Ur Specific [place] 1.010, Urine Protein Negative, Urine Glucose (UA) Negative, Urine Ketones Negative, Urine Blood Trace-i, Urine Nitrate Negative, Urine Bilirubin Negative, Urine Urobilinogen 0.2, Ur Leukocyte Esterase Negative, Urine RBC 3-5, Urine WBC Occasional, Urine Bacteria Trace Result diagrams: 04/05/22 01:18 04/05/22 01:18 Orders (Tests/Meds): ED MEDICATIONS Generic Name Dose Route Start Last Admin Trade Name Freq PRN Reason Stop Dose Admin Sodium Chloride 1,000 mls @ 999 mls/hr 04/05/22 01:00 04/05/22 01:07 Sod Chlor 0.9% 1000ml Bag IV 04/05/22 02:00 999 mls/hr .Q1H1M MELLISA Administration Sodium Chloride 1,000 mls @ 999 mls/hr 04/05/22 03:30 04/05/22 03:30 Sod Chlor 0.9% 1000ml Bag IV 04/05/22 04:30 999 mls/hr .Q1H1M MELLISA Administration Morphine Sulfate 4 mg 04/05/22 00:49 04/05/22 01:06 Morphine 4mg/Ml Syringe IV 05/05/22 00:48 4 mg Q4HP PRN Administration Mild to Moderate Pain Discontinued Medications Generic Name Dose Route Start Last Admin Trade Name Freq PRN Reason Stop Dose Admin Belladonna Alkaloids 60 ml 04/05/22 00:49 04/05/22 01:00 Gi Cocktail 60ml Udc PO 04/05/22 00:50 60 ml ONCE ONE Administration Diatrizoate Meglum/Diatrizoate Sod 30 ml 04/05/22 00:49 04/05/22 01:00 Diatrizoate Daja 66% & Diatrizoate Na 10% 30ml Udc PO 04/05/22 00:50 30 ml ONCE ONE Administration Dicyclomine HCl 20 mg 04/05/22 00:49 04/05/22 01:06 Dicyclomine 10mg Capsule PO 04/05/22 00:50 20 mg ONCE ONE Administration Iopamidol 75 ml 04/05/22 02:33 04/05/22 02:34 I
--- NOTE | 2022-04-05 00:49 | CT_ITS ---
PROCEDURE INFORMATION: Exam: CT Abdomen And Pelvis With Contrast Exam date and time: 04/05/2022 2:16 AM Age: 66 years old Clinical indication: Nausea and vomiting; Abdominal pain; Localized; Lower; Prior surgery; Surgery type: Gallbladder, hernia, kidney stone TECHNIQUE: Imaging protocol: Computed tomography of the abdomen and pelvis with contrast. Radiation optimization: All CT scans at this facility use at least one of these dose optimization techniques: automated exposure control; mA and/or kV adjustment per patient size (includes targeted exams where dose is matched to clinical indication); or iterative reconstruction. Contrast material: ISOVUE; Contrast volume: 75 ml; Contrast route: IV; COMPARISON: CT ABDOMEN PELVIS W CON 07/28/2021 11:44 AM FINDINGS: Diaphragm: Small hiatal hernia, unchanged. Liver: No suspicious liver lesions. Gallbladder and bile ducts: Status post cholecystectomy. Pancreas: Unremarkable. Spleen: Scattered punctate calcifications in the spleen compatible with sequelae of prior granulomatous disease, unchanged. Adrenal glands: Unremarkable. Kidneys and ureters: Proximal right ureteral stone (6 mm) at the ureteropelvic junction with moderate associated right hydronephrosis, delayed nephrogram and perinephric fat stranding. Multiple additional 4-5 mm non-obstructing right renal stones. No left renal or ureteral stones. No left hydronephrosis. Stable left simple renal cyst. Stomach and bowel: Oral contrast material is present in the stomach and bowel to the level of the ascending colon. Small gas-containing periampullary duodenal diverticulum. No evidence of small bowel obstruction. Colonic diverticulosis without evidence of diverticulitis, unchanged. Appendix: No evidence of appendicitis. Intraperitoneal space: No free fluid. No pneumoperitoneum. Vasculature: Mild amount of calcific arterial atherosclerosis. No abdominal aortic aneurysm or dissection. Lymph nodes: Unremarkable. Urinary bladder: Unremarkable. Reproductive: Mildly enlarged prostate with nonspecific prostate calcifications, unchanged. Bones/joints: No acute osseous abnormality. Soft tissues: Gynecomastia. IMPRESSION: 1. Right ureteral stone (6 mm) at the ureteropelvic junction with moderate associated hydronephrosis and renal edema. 2. Multiple additional 4-5 mm non-obstructing right renal stones. 3. Small gas-containing periampullary duodenal diverticulum. Findings can be associated with intermittent biliary colic. 4. Gynecomastia. 5. Additional chronic ancillary findings are unchanged from prior exam, as detailed above.
--- NOTE | 2022-04-05 01:03 | PC.NURSE ---
notified xray pt completed oral contrast
[2022-04-05 01:33] LABS: Basophils # 0.1 K/mm3 (0-0.2); Eosinophils # 0.1 K/mm3 (0.0-0.4); Eosinophils % 2.4 % (0.1-12.0); Hematocrit 43.5 % (42.0-52.0); Hemoglobin 14.3 g/dL (14.1-18.0); Lymphocytes % 16.7 % (10-50); Mean Corpuscular HGB Conc 32.9 g/dL (31.8-35.4); Mean Corpuscular Hemoglobin 29.3 pg (27.0-31.2); Mean Corpuscular Volume 89.2 fl (80-94); Mean Platelet Volume 8.6 fl (7.4-10.4); Monocytes # 0.3 K/mm3 (0.1-1.0); Monocytes % 5.5 % (1.7-9.3); Neutrophils # 4.3 K/mm3 (1.8-7.8); Neutrophils % 74.3 % (37.0-80.0); Platelet Count 251 K/mm3 (142-424); Red Blood Count 4.87 M/mm3 (4.60-6.20); Red Cell Distribution Width 14.6 % (11.5-17.5); White Blood Count 5.8 K/mm3 (4.8-10.8)
[2022-04-05 01:45] LABS: Alanine Aminotransferase 71 U/L (12-78); Albumin Level 3.8 g/dl (3.5-5.0); Albumin/Globulin Ratio 1.4 (1.1-1.8); Alkaline Phosphatase 78 U/L (38-126); Anion Gap 9.3 mEq/L (5-15); Aspartate Amino Transferase 49 U/L (17-59); Bilirubin,Total 0.2 mg/dl (0.2-1.3); Blood Urea Nitrogen 20 mg/dl (9-20); Calcium 10.3 mg/dl (8.4-10.2); Carbon Dioxide 31 mmol/L (22.0-30.0); Chloride 100 mmol/L (98-107); Creatinine Clearance Estimated 87 mL/min (50-200); Estimated Glomerular Filt Rate 67 ml/min (>60); GFR (African American) 81 ML/MIN (>60); Globulin 2.7 g/dL (1.3-3.2); Glucose 107 mg/dl (74-100); Lipase 130 U/L (23-300); Potassium 4.3 mmoL/L (3.5-5.1); Sodium 136 mmol/L (136-145); Total Protein,Serum 6.5 g/dl (6.3-8.2)
--- NOTE | 2022-04-05 02:20 | PC.NURSE ---
pt vomited 2x recently, MS aware, pheneregan ordered per DEC and CT updated to include IV contrast.
[2022-04-05 02:43] VITALS: BP 159/91; PULSE 67; O2SAT 92
[2022-04-05 03:00] VITALS: BP 156/93; PULSE 57; O2SAT 97
[2022-04-05 03:28] LABS: Microscopic, Urine URINE MICROSCOPIC (MICROSCOPIC)
[2022-04-05 03:29] LABS: Appearance,Urine CLEAR (Clear); Bilirubin,Urine Negative (Negative); Blood, Urine TRACE-I (Negative); Color,Urine YELLOW (Yellow); Glucose,Urine (UA) Negative (Negative); Ketones,Urine Negative (Negative); Leukocyte Esterase,Urine Negative (Negative); Nitrate,Urine Negative (Negative); Protein,Urine Negative (Negative); Urobilinogen,Urine 0.2 EU/dl (0.2)
[2022-04-05 03:53] LABS: Bacteria,Urine Trace /lpf; WBC,Urine Occasional #/hpf (0-3)
[2022-04-05 04:45] VITALS: BP 145/75; PULSE 57; RESP 18; TEMP 36.7; O2SAT 98
== END 2022-04-05 04:46 | disposition home or self-care (01) ==
PROVIDERS: Emergency Provider Student in an Organized Health Care Education/Training Program; PCP Internal Medicine
DX: N13.2 Hydronephrosis with renal and ureteral calculous obstruction (principal); Z87.442 Personal history of urinary calculi; I10 Essential (primary) hypertension
CPT/HCPCS: 74177; 80053; 81001; 83690; 85025; 96361; 96374; 96375; 96376; 99284; J2405; Q9967

== ENCOUNTER → 2022-04-07 14:35 | Outpatient (CLI) | payer MEDICARE, SELFPAY | PROVIDERS: PCP Internal Medicine; Visit Provider Urology | DX: N20.1 Calculus of ureter (principal); Z01.812 Encounter for preprocedural laboratory examination; Z20.822 Contact with and (suspected) exposure to COVID-19 | CPT/HCPCS: C9803; U0003; U0005 ==

== ENCOUNTER 2022-04-09 09:39 | Day surgery (SDC) | payer MEDICARE, SELFPAY ==
[2022-04-09] VITALS (10 sets, daily range): BP systolic 118–133; BP diastolic 71–86; PULSE 53–76; RESP 12–18; TEMP 36.3–37.1; O2SAT 93–97; BMI 31.5
--- NOTE | 2022-04-09 10:14 | P.PN_ITS ---
[facility] Anesthesia Checklist - Patient Identification Patient Identification: Arm Band - Structural Data Admitted From: Home Planned Operative Procedure/s: Cysto with stent - NPO Status Verified Time NPO: 00:00 - Additional verifications Anesthesia Reactions: No Hx Blood Transfusions: No Blood Transfusion Reaction: Yes - Airway Assessment C-Spine Mobility Assessed: Yes TMJ Mobility Assessed: Yes Dentition: Poor Dentition - Neurological Assessment Level of Consciousness: Awake Hx Seizures: No Numbness or tingling in extremities: No - Anesthesia Plan Anesthesia Risk discussed: Yes Anesthesia Plan: Verified ASA Class: III Anesthesia Type: General [facility] History I have reviewed the patient's past medical history: Yes Medical History: Reports:: Cancer, Deep Vein Thrombosis, Gastroesophageal Reflux Disease(GERD), Hiatal Hernia, Hyperlipidemia, Hypertension, Kidney Stones, Urinary Tract Infection Denies:: Diabetes Mellitus Type 1, Diabetes Mellitus Type 2, Internal Pacem jay, Lung Disease, MRSA, Seizures *Have you ever received a pneumonia vaccine?: No *Have you received a flu vaccine this season?: No Other Medical History: Reports: Anemia, Arthritis, Blood Transfusion Reaction Anesthesia experience/problems:: None Laterality Cases: Right: Arthroscopy Knee, Bilateral: Tonsillectomy Other Surgeries: Yes: No Previous Surgery, Appendectomy, Cancer Surgery, Cardiac Catheterization, Cholecystectomy, Colonoscopy, EGD, Hernia Repair, Other (kidney stone removal). No: Pacemaker Amputation: No Fractures: No - *Social History Smoking Status: Never smoker Alcohol Intake: never Alcohol Intake Frequency:: other Substance Use Type: denies use *Occupational Status:: retired Housing: house Household Members: spouse *Travel in the last 8 weeks: None Family Hx:: No significant family history
--- NOTE | 2022-04-09 12:16 | XR_ITS ---
FINAL REPORT CLINICAL HISTORY: RIGHT STENT PLACED IN KIDNEY IN OR FLUORO TIME-1.28 FINDINGS: Fluoroscopic guidance was provided for the operating services. Two spot films were provided. A minute 28 seconds of fluoroscopy time was utilized. A ureteral stent is visualized. IMPRESSION: 1 minute 28 seconds of fluoroscopy time. Reviewed, Interpreted and Dictated by Jairo Nur III, MD Transcribed by Kermit Hendricks Authenticated and [facility]
--- NOTE | 2022-04-09 12:21 | HMH.ANESI ---
[facility] Anesthesia Record Part I Intake, IV Amount: 1,500 Estimated blood loss (mL): 0 Urine output (mL): 0 Blood Pressure: 132/72 SaO2: 95 Pulse Rate: 57 Respiratory Rate: 12 Temperature: 98.8 F Patient is:: Awake, Stable Stable to PACU at:: 12:15
--- NOTE | 2022-04-09 12:28 | HMH.OPNOTE ---
Date of procedure: 04/09/22 Pre-op Diagnosis:: Right proximal ureteral stone, 6 mm Post-op Diagnosis:: Same Procedure performed:: Cystoscopy with ureteral stone manipulation and right stent placement Surgeon:: Mak Washington MD BOTTOM TURNING LATHE TENDER:: iMc Randhawa Anesthesia: LMA Estimated blood loss (mL): 0 Clinical Note:: 66-year-old white male with history of nephrolithiasis with recent right flank pain. CT reveals a 6 mm proximal ureteral stone with hydronephrosis. Patient presents today for urologic management. Operative findings:: Hazy calcification in the right proximal ureter. It was manipulated back into the renal pelvis and a 6 Indonesian stent was placed. Operative note:: Patient taken to the operating room after informed consent was obtained. He was placed on the operating table in the supine position and general anesthesia administered. Preoperative antibiotics and sequential compression devices placed. Patient then placed into the dorsal lithotomy position and prepped and draped in the standard surgical fashion. The 22 Indonesian cystoscope passed into the urethra and into the bladder without difficulty. The bladder was examined in a systematic fashion. There is no evidence of stones, diverticula, trabeculation. Ureteral orifices in their normal anatomic position. A 5 Indonesian ureteral catheter passed into the right ureter and then under fluoroscopy the catheter was visualized up to the level of the right proximal ureteral stone which was a bit hazy. The stone was manipulated back into the renal pelvis and a guidewire then passed through the ureteral catheter and the ureteral catheter removed. A 6 x 26 Indonesian stent then passed over the guidewire. The guidewire removed and the string removed. There was copious urine from the ureteral stent after placement. The bladder drained the scope removed Urojet placed into the urethra for comfort measures. Patient tolerated procedure well. Condition: stable Disposition: PACU Specimens:: None Complications:: None
--- NOTE | 2022-04-13 08:34 | P.PN_ITS ---
[facility] Anesthesia Record Part II Discharge Time: 12:45 Destination: [facility] PACU nurse assessment reviewed?: Yes Patient Condition:: Good Anesthesia Complications:: None Swallowing reflex intact?: Yes Cyanosis?: No Blood Pressure: 122/74 Pulse Rate: 73 Temperature: 97.4 F Mental Status: Alert & Oriented Pain level:: 0 Nausea and/or vomitting:: None Intake, IV Amount: 500
[2022-04-13 08:35] VITALS: BP 122/74; PULSE 73; TEMP 36.3
== END 2022-04-09 13:21 | disposition home or self-care (01) ==
LOC: OR 09:40
PROVIDERS: PCP Internal Medicine; Visit Provider Urology
DX: N20.1 Calculus of ureter (principal); R10.9 Unspecified abdominal pain; Z87.442 Personal history of urinary calculi; K21.9 Gastro-esophageal reflux disease without esophagitis; I10 Essential (primary) hypertension; E78.5 Hyperlipidemia, unspecified; Z87.440 Personal history of urinary (tract) infections
CPT/HCPCS: 52282; 74018; 76000; 96374; C2617; J2405

== ENCOUNTER → 2022-04-30 16:27 | Outpatient (CLI) | payer MEDICARE, SELFPAY | PROVIDERS: PCP Internal Medicine; Visit Provider Urology | DX: N20.0 Calculus of kidney (principal); N20.1 Calculus of ureter; Z01.812 Encounter for preprocedural laboratory examination; Z20.822 Contact with and (suspected) exposure to COVID-19 | CPT/HCPCS: C9803; U0003; U0005 ==

== ENCOUNTER 2022-05-01 08:21 | Day surgery (SDC) | payer MEDICARE, SELFPAY ==
[2022-05-01] VITALS (9 sets, daily range): BP systolic 130–155; BP diastolic 60–91; PULSE 56–79; RESP 13–18; TEMP 36.2–36.4; O2SAT 93–97; BMI 30.1
--- NOTE | 2022-05-01 08:28 | XR_ITS ---
FINAL REPORT CLINICAL HISTORY: KIDNEY STONES FINDINGS: There is a nonobstructive bowel gas pattern. There are no abnormally dilated loops of small bowel. A right ureteral stent is present. There are multiple stones adjacent to the proximal stent measuring up to 6 mm. Postoperative changes are seen in the right upper quadrant. IMPRESSION: Right nephrolithiasis with ureteral stent in place. Reviewed, Interpreted and Dictated by Jairo Nur III, MD Transcribed by Kermit Hendricks Authenticated and [facility]
--- NOTE | 2022-05-01 12:37 | P.PN_ITS ---
[facility] Anesthesia Record Part I Intake, IV Amount: 300 Estimated blood loss (mL): 0 Urine output (mL): 0 Blood Pressure: 132/60 SaO2: 94 Pulse Rate: 79 Respiratory Rate: 13 Temperature: 97.6 F Patient is:: Drowsy, Oral/Nasal airway Stable to PACU at:: 12:35
--- NOTE | 2022-05-01 14:11 | P.OP_ITS ---
Date of procedure: 05/01/22 Pre-op Diagnosis:: Right nephrolithiasis Post-op Diagnosis:: Same Procedure performed:: Right ESWL Surgeon:: Mak Washington MD REFINERY OPERATOR ALKYLATION:: Tiffanie Ko Anesthesia: LMA Estimated blood loss (mL): 0 Clinical Note:: 66-year-old white male with a history of nephrolithiasis with recent right renal colic noted to have a 6 mm stone in the right proximal ureter. He also had some stones in his right lower pole. He underwent right stent placement 3 weeks ago. 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 He presents today for ESWL. Preoperative KUB reveals that the right lower pole stones now are at the right UPJ along with the original right proximal ureteral stone. Operative findings:: Preoperative KUB reveals for calcifications at the right UPJ. The stent is in good position. ESWL was performed with good fragmentation of the stones. Operative note:: Patient taken to the operating room after informed consent was obtained. He was placed on the operating table in the supine position and general anesthesia administered. Preoperative antibiotics and sequential compression devices placed. He was padded and positioned appropriately. The treatment head was focused onto the right kidney stones and 3000 shockwaves delivered at a maximum energy level of 7. There appeared to be good fragmentation of the stones. Patient tolerated procedure well there are no complications. Condition: stable Disposition: same day Specimens:: None Complications:: None
--- NOTE | 2022-05-04 07:09 | HMH.ANESII ---
[facility] Anesthesia Record Part II Discharge Time: 13:05 Destination: Surgical Day Care (OP Surgery) PACU nurse assessment reviewed?: Yes Patient Condition:: Good Anesthesia Complications:: None Swallowing reflex intact?: Yes Cyanosis?: No Blood Pressure: 137/83 Pulse Rate: 56 Temperature: 97.5 F Mental Status: Alert & Oriented Pain level:: 0 Nausea and/or vomitting:: None Intake, IV Amount: 0
[2022-05-04 07:10] VITALS: BP 137/83; PULSE 56; TEMP 36.4
== END 2022-05-01 13:35 | disposition home or self-care (01) ==
PROVIDERS: PCP Internal Medicine; Visit Provider Urology
DX: N13.2 Hydronephrosis with renal and ureteral calculous obstruction (principal); C64.1 Malignant neoplasm of right kidney, except renal pelvis; N28.1 Cyst of kidney, acquired; I10 Essential (primary) hypertension; I25.10 Atherosclerotic heart disease of native coronary artery without angina pectoris; E78.5 Hyperlipidemia, unspecified
CPT/HCPCS: 50590; 74018; 96374

== ENCOUNTER → 2022-05-08 14:51 | Outpatient (CLI) | payer MEDICARE, SELFPAY ==
--- NOTE | 2022-05-08 14:56 | XR_ITS ---
FINAL REPORT CLINICAL HISTORY: kidney stone stent on right side FINDINGS: ABDOMEN SINGLE VIEW There is a nonspecific, nonobstructive bowel gas pattern. No bowel dilation is identified. Right ureteral stent is present. There are multiple right renal stones measuring up to 0.8 cm in greatest dimension. No definite stones are seen on the left. IMPRESSION: Right renal stones. Reviewed, Interpreted and Dictated by Johnie Holden MD Transcribed by Francie Perez Authenticated and [facility]
== END ==
PROVIDERS: PCP Internal Medicine; Visit Provider Urology
DX: N20.0 Calculus of kidney (principal)
CPT/HCPCS: 74018

== ENCOUNTER 2022-08-04 00:11 | Observation (INO) | payer MEDICARE, SELFPAY ==
[2022-08-04] VITALS (33 sets, daily range): BP systolic 98–130; BP diastolic 52–79; PULSE 48–70; RESP 12–18; TEMP 36.4–36.8; O2SAT 90–100; BMI 31.5; BMI 29.3
--- NOTE | 2022-08-04 | IR_ITS ---
APPROVED REPORT Patient Location: Inpatient Siding Coreboard Inspector: JOSELINE Napoles RT (R) PROCEDURES Left heart catheterization Left ventriculogram Selective coronary angiogram INDICATION Unstable angina Informed consent was obtained prior to the procedure. COMPLICATIONS None Estimated Blood Loss: Less than 10 mls TECHNIQUE One percent lidocaine used to anesthetize the right anterior aspect of the wrist. The right radial artery was accessed via the Seldinger technique. A 6 [place]uv[place] sheath was placed in the right radial artery. 2.5 mg of verapamil, 800 mcg of nitroglycerin, 1mg Lidocaine and 5000 U Heparin were given through the arterial sheath. The papa catheter was also used to perform left heart catheterization, left ventriculogram and selective coronary angiogram. At the end of the procedure the sheath was removed good hemostasis was achieved using Traclet band, patient was transferred to the postop holding area in stable condition. ANGIOGRAPHIC RESULTS The left main artery Normal The left anterior descending artery Has proximal 30% stenoses with mid vessel 10 to 20% stenoses The circumflex artery Nondominant with mild diffuse 10 to 20% luminal regularities The right coronary artery Dominant and has mid vessel 20 to 30% luminal regularities The REAVES ventriculogram reveals Normal 65% The left ventricular end-diastolic pressure 10 mmHg IMPRESSION Mild nonflow limiting coronary disease Normal ejection fraction Normal left ventricular end-diastolic pressure PLAN 1. Evaluation of noncardiac symptoms 2. Continue to risk factor modification Electronically signed by : New Oviedo MD 08/04/2022 13:35:56
--- NOTE | 2022-08-04 00:08 | ECG_ITS ---
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: Resting ECG HR:58 bpm ECG Measurements Heart Rate 58 AXES WY 192 P 48 QRSd 97 QRS 32 QT 392 T 49 QTc 388 Conclusion SINUS BRADYCARDIA BORDERLINE ECG UNCONFIRMED REPORT Electronically signed by : Douglas Pace MD 08/04/2022 20:12:51
--- NOTE | 2022-08-04 00:15 | PC.NURSE ---
Pt refuses to take Nitro 0.4mg SL tab. states last time I was here and got it made my blood pressure drop and they has to give me something to help it . Pt educated on nitroglycerin, he continues to refuse. MD aware of this
--- NOTE | 2022-08-04 00:25 | XR_ITS ---
PROCEDURE INFORMATION: Exam: XR Chest Exam date and time: 08/04/2022 12:28 AM Age: 66 years old Clinical indication: Patient HX: PT states chest pressure/pain, pain radiating down left upper arm; Additional info: Cp, cough TECHNIQUE: Imaging protocol: Radiologic exam of the chest. Views: 2 views. COMPARISON: CR XR CHEST PORTABLE 01/30/2022 9:08 AM FINDINGS: Lungs: No acute airspace consolidation. No appreciable pulmonary edema. Pleural spaces: No pleural effusion. No pneumothorax. Heart/Mediastinum: Cardiomediastinal silouhette is within normal limits. Bones/joints: No evidence of acute osseous abnormality. IMPRESSION: No acute findings.
--- NOTE | 2022-08-04 00:25 | HMH.EDCP ---
Discharge Plan Disposition Patient Disposition: Admitted as Observation Chief Complaint: Chest Pain Prescriptions Prescriptions: No Action phenazopyridine 200 MG tablet 200 mg PO TIDP PRN (Reason: Dysuria) losartan 100 MG tablet 100 mg PO DAILY omeprazole 40 MG capsule,delayed release(DR/EC) 40 mg PO DAILY diclofenac sodium 75 MG tablet,delayed release (DR/EC) 75 mg PO BIDP PRN (Reason: PAIN) hydrocodone-acetaminophen 1 TAB tablet 1 tab PO Q6HP PRN (Reason: Pain) Qty: 10 0RF atorvastatin 20 MG tablet 20 mg PO HS potassium chloride 10 MEQ tablet extended release 10 meq PO BID magnesium oxide 400 mg (241.3 mg magnesium) tablet 400 mg PO BID Label Comments: TAKE 1 TABLET BY MOUTH TWICE DAILY WITH MEALS FOR MUSCLE CRAMPS allopurinol 300 mg tablet 300 mg PO DAILY Label Comments: TAKE 1 TABLET BY MOUTH EVERY DAY citalopram 10 MG tablet 10 mg PO DAILY Label Comments: TAKE 1 TABLET EVERY MORNING tamsulosin 0.4 MG capsule 0.4 mg PO HS Referrals Follow up/Referrals: Mickey Fine MD [Primary Care Provider] - See instructions Clinical Impressions Clinical Impression: Chest pain, Angina pectoris Discharge ED Provider: Mansoor Norton Chest Pain HPI General Chief Complaint: Chest Pain Stated Complaint: Chest Pain Time Seen by Provider: 08/04/22 00:25 Mode of Arrival: Family Vehicle Source of Information: Patient and Medical Record Limitations: No Limitations Description of Symptoms (Recalled from ER Triage Doc. by RN): Pt c/o midsternal chest pain that radiates into L shoulder and jaw. 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 States he has been dealing with this pain for 2 days but it really started to bother me at work tonight . He also c/o cough for 2 days. Denies fever, chills. Denies headache, n/v/d, or body aches. He had anegative heart cath with Dr. Oviedo in 2019. History of Present Illness HPI narrative: chest pain with rad to lt upper ext progressive over the last 2 days - new type of pain - had cath in 2019 no stents complaint: chest pain indicative of cardiac Onset (ago): day(s) Duration: intermittent Activity at onset: light activity Pain location: substernal Severity: moderate Quality: heaviness Pain radiation: LUE and jaw/teeth Risk Factors for CAD: Hypertension and Family Hx of CAD Treatments prior to or on arrival for Cardiac Chest Pain: none FORREST Score for Non-Stemi Age of Patient: 60-69 years old Heart Rate: 50-69 bpm Systolic Blood Pressure: 100-119 mmHg Serum Creatinine: 0.80-1.19 mg/dl CHF Killip Class: I-No CHF Other Risk Factors: None Non-Stemi Risk Score: 111 Related Data Prior Cardiac Testing/Procedures: Cardiac Angiogram Home Medications Medication Instructions Recorded Confirmed citalopram 10 mg tablet 10 mg PO DAILY mood 04/17/18 05/18/22 phenazopyridine 200 mg tablet 200 mg PO TIDP PRN Dysuria 05/26/20 05/18/22 diclofenac sodium 75 mg 75 mg PO BIDP PRN PAIN 05/27/20 05/18/22 tablet,delayed release losartan 100 mg tablet 100 mg PO DAILY Hypertension 05/27/20 05/18/22 omeprazole 40 mg capsule,delayed 40 mg PO DAILY GERD 05/27/20 05/18/22 release atorvastatin 20 mg tablet 20 mg PO HS Cholesterol 07/29/21 05/18/22 potassium chloride 10 mEq 10 meq PO BID POTASSIUM SUPPLEMENT 07/29/21 05/18/22 tablet,extended release tamsulosin 0.4 mg capsule 0.4 mg PO HS prostate 04/09/22 05/18/22 allopurinol 300 mg tablet 300 mg PO DAILY gout 08/04/22 08/04/22 magnesium oxide 400 mg (241.3 mg 400 mg PO BID muscle cramps 08/04/22 08/04/22 magnesium) tablet Previous Rx's Medication Instructions Recorded hydrocodone 5 mg-acetaminophen 325 1 tab PO Q6HP PRN Pain #10 tabs 04/17/21 mg tablet Allergies Allergy/AdvReac Type Severity Reaction Status Date / Time No Known Allergies Allergy Verified 05/18/22 15:38 [facility] Medical History (Updated 08/04/22 @ 01:23 by Mansoor
[2022-08-04 00:35] LABS: Coronavirus 19, PCR Not Detected (NotDetected); Influenza A, PCR Not Detected (NotDetected); Influenza B, PCR Not Detected (NotDetected)
[2022-08-04 00:40] LABS: Basophils # 0.1 K/mm3 (0-0.2); Basophils % 0.8 % (0.1-2.0); Eosinophils # 0.2 K/mm3 (0.0-0.4); Eosinophils % 2.3 % (0.1-12.0); Hemoglobin 14.4 g/dL (14.1-18.0); Lymphocytes # 1.7 K/mm3 (0.7-4.5); Lymphocytes % 20.5 % (10-50); Mean Corpuscular HGB Conc 32.1 g/dL (31.8-35.4); Mean Corpuscular Hemoglobin 28.7 pg (27.0-31.2); Mean Corpuscular Volume 89.5 fl (80-94); Mean Platelet Volume 8.4 fl (7.4-10.4); Monocytes # 0.5 K/mm3 (0.1-1.0); Monocytes % 5.5 % (1.7-9.3); Neutrophils % 70.8 % (37.0-80.0); Platelet Count 268 K/mm3 (142-424); Red Blood Count 5.04 M/mm3 (4.60-6.20); Red Cell Distribution Width 15.4 % (11.5-17.5); White Blood Count 8.4 K/mm3 (4.8-10.8)
[2022-08-04 00:43] LABS: Anion Gap 12.4 mEq/L (5-15); Blood Urea Nitrogen 17 mg/dl (9-20); Calcium 9.8 mg/dl (8.4-10.2); Carbon Dioxide 25 mmol/L (22.0-30.0); Chloride 101 mmol/L (98-107); Creatinine Clearance Estimated 91 mL/min (50-200); Estimated Glomerular Filt Rate 67 ml/min (>60); GFR (African American) 81 ML/MIN (>60); Glucose 143 mg/dl (74-100); Potassium 4.4 mmoL/L (3.5-5.1); Sodium 134 mmol/L (136-145)
[2022-08-04 00:55] LABS: NT Pro Brain Natriuretic Pep. 67.2 pg/mL (0-125)
[2022-08-04 00:56] LABS: Troponin I < 0.01 ng/ml (0.00-0.034)
--- NOTE | 2022-08-04 01:13 | ECG_ITS ---
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: Resting ECG HR:55 bpm ECG Measurements Heart Rate 55 AXES DC 166 P 269 QRSd 100 QRS 30 QT 413 T 32 QTc 401 Conclusion ECTOPIC ATRIAL BRADYCARDIA ABNORMAL RHYTHM ECG UNCONFIRMED REPORT Electronically signed by : Douglas Paec MD 08/04/2022 20:12:47
[2022-08-04 01:24] LABS: Chol/HDL Ratio 2.9 (1-3.5); Cholesterol 146 mg/dl (140-200); HDL Cholesterol 51 mg/dl (40-60); Triglycerides 102 mg/dl (30-150); VLDL Cholesterol 20 mg/dL (0-40)
[2022-08-04 01:35] LABS: Direct LDL Cholesterol 61.81 mg/dL (100-129)
--- NOTE | 2022-08-04 01:51 | EXP.HP ---
History of Present Illness *Admission Date: 08/04/22 *Reason for visit:: chest pain *History of present illness: Mr. Jairo Jin is a 66 year-old male with a past medical history that is positive for HTN, Hyperlipidemia, Gout, Depression and BPH. He presents to the facility due to retrosternal chest pressure that he reports has been going on and off x 3 days duration that has been associated with left arm pain and SOA. The patient was seen today in ER bed 6, his was present at bedside. The patient reports that he had chest pressure/tightness that developed in the left mid-sternal region of his chest 3 days earlier. He reports that the pressure would come and go and seemed to be associated with activity. He reports that 2 days ago in addition to the chest pressure he developed a pain that radiated down into his left arm. He states that the pain became severe in the left arm 1 day ago. Today at work, he reports that the pain worsened, he also reports both chest pressure and arm pain were associated with SOA. He reports he became concerned that it could be his heart so he came into the ER for evaluation. In the ER per records reviewed, Cxray shows no acute cardiopulmonary findings. Troponin was <0.01. BNP was 67.2. ER records show interpretation of EKG showed NSR with no ST segment elevation or depression. ER attending consulted Cardiology. The patient will be seen by Cardiology on 08/04/2022 with possible heart cath for evaluation. The plan of care was discussed with both the patient and his prior to admission, both verbalized understanding and agreement with the plan of care. [facility] PFS Medical History GERD (gastroesophageal reflux disease) Gout History of kidney stones HLD (hyperlipidemia) HTN (hypertension) Surgical History History of extraction of renal calculus Hx laparoscopic cholecystectomy Hx of appendectomy Hx of knee surgery Family History Other Family history of myocardial infarction Lung cancer Social History Smoking Status: Never smoker second hand exposure: No alcohol intake: never counseling provided: none substance use type: denies use current occupational status: employed and unemployed Travel in the last 8 weeks: None household members: spouse housing: house lives independently: No marital status: service: No prison: No current occupation: [employer] current occupational exposures/hazards: No pets and animals: Yes caffeine: No Review of Systems Constitutional Constitutional: Reports system reviewed and no additional complaints, except as documented Eyes Eyes: Reports system reviewed and no additional complaints, except as documented ENT Ears, Nose, Mouth, and Throat: Reports system reviewed and no additional complaints, except as documented *Cardiovascular Cardiovascular: Reports chest pain, Reports chest pain at rest, Reports chest pain with activity, Reports dyspnea, Reports dyspnea on exertion and Reports radiating jaw, neck or arm pain *Respiratory Respiratory: Reports dyspnea and Reports dyspnea on exertion *Gastrointestinal Gastrointestinal: Reports system reviewed and no additional complaints, except as documented *Genitourinary Genitourinary: Reports system reviewed and no additional complaints, except as documented *Musculoskeletal Musculoskeletal: Reports system reviewed and no additional complaints, except as documented *Neurologic Neurologic: Reports system reviewed and no additional complaints, except as documented Endocrine Endocrine: Reports system reviewed and no additional complaints, except as documented Meds Home Medications and Allergies Home Medications Medication Instructions Recorded Con
--- NOTE | 2022-08-04 02:10 | PC.NURSE ---
PT ARRIVED TO FLOOR VIA WHEELCHAIR @ 0208.
[2022-08-04 03:38] LABS: Troponin I < 0.01 ng/ml (0.00-0.034)
--- NOTE | 2022-08-04 05:11 | PC.NURSE ---
pt admitted this shift. he is a&oX4. he has c/o CP and was medicated per MAR. no c/o SOA. PT noted to have inverted P waves on tele for about 15-30 minutes this morning.
[2022-08-04 06:40] LABS: Basophils % 0.5 % (0.1-2.0); Eosinophils # 0.1 K/mm3 (0.0-0.4); Eosinophils % 1.1 % (0.1-12.0); Hematocrit 40.3 % (42.0-52.0); Lymphocytes # 1.2 K/mm3 (0.7-4.5); Lymphocytes % 17.2 % (10-50); Mean Corpuscular HGB Conc 32.2 g/dL (31.8-35.4); Mean Platelet Volume 8.2 fl (7.4-10.4); Monocytes # 0.4 K/mm3 (0.1-1.0); Monocytes % 6.1 % (1.7-9.3); Neutrophils # 5.3 K/mm3 (1.8-7.8); Neutrophils % 75.1 % (37.0-80.0); Platelet Count 208 K/mm3 (142-424); Red Blood Count 4.48 M/mm3 (4.60-6.20); Red Cell Distribution Width 15.5 % (11.5-17.5); White Blood Count 7.1 K/mm3 (4.8-10.8)
[2022-08-04 06:41] LABS: Chloride 103 mmol/L (98-107); Sodium 136 mmol/L (136-145)
[2022-08-04 06:42] LABS: Potassium 4.2 mmoL/L (3.5-5.1)
[2022-08-04 06:44] LABS: Alanine Aminotransferase 22 U/L (12-78); Albumin Level 3.6 g/dl (3.5-5.0); Albumin/Globulin Ratio 1.4 (1.1-1.8); Alkaline Phosphatase 81 U/L (38-126); Anion Gap 11.2 mEq/L (5-15); Aspartate Amino Transferase 29 U/L (17-59); Bilirubin,Total 0.2 mg/dl (0.2-1.3); Blood Urea Nitrogen 16 mg/dl (9-20); Carbon Dioxide 26 mmol/L (22.0-30.0); Cholesterol 126 mg/dl (140-200); Creatinine Clearance Estimated 93 mL/min (50-200); Estimated Glomerular Filt Rate 84 ml/min (>60); GFR (African American) 102 ML/MIN (>60); Globulin 2.5 g/dL (1.3-3.2); Total Protein,Serum 6.1 g/dl (6.3-8.2); Triglycerides 61 mg/dl (30-150); VLDL Cholesterol 12 mg/dL (0-40)
[2022-08-04 06:45] LABS: Calcium 9.4 mg/dl (8.4-10.2); Chol/HDL Ratio 2.7 (1-3.5); Glucose 107 mg/dl (74-100); HDL Cholesterol 46 mg/dl (40-60)
[2022-08-04 06:56] LABS: Direct LDL Cholesterol 55.17 mg/dL (100-129)
[2022-08-04 07:06] LABS: Troponin I < 0.01 ng/ml (0.00-0.034)
--- NOTE | 2022-08-04 07:18 | HMH.PHAINT1 ---
Pharmacy Intervention Comments: home medication list verified suing list from outpatient pharmacy and pt interview
--- NOTE | 2022-08-04 09:04 | CA_ITS ---
APPROVED REPORT EXAM: Comprehensive 2D, Doppler, and color-flow Echocardiogram Supervisor Quality Control: Jacklyn Atwood, HANNAH, RVS Ht: 5 ft 10 in Wt: 204lbs BSA: 2.10 BP: 123/74 mmHg Indications: Unstable angina, Chest pressure x 3 days Left arm pain , SOA, HTN, HLD 2D Dimensions LVDs 2.73 cm LA Volume 63.30 mL Aortic Root 3.19 cm LA Volume Index 30.430644 mL/m2 (M/F) 16-34 Left Atrium 4.47 cm LVOT 1.99 cm (M/F) 1.5-2.5 Ascending Aorta 2.88 cm M-Mode Dimensions RVDd 2.77 cm (0.9-2.6) LA Diam 4.68 cm (1.9-4.0) LVDd 5.38 cm (3.5-5.7) Ao Diam 3.25 cm (2.0-3.7) LVDs 3.41 cm (3.5-5.7) IVSd 1.37 cm (0.6-1.1) PWd 0.84 cm (0.6-1.1) EF (Teich) 65.90% EPSs 0.32 cm FS 36.60% EDV (Teich) 140.10 mL TAPSE 2.39 (<1.7) ESV (Teich) 47.80 mL LV Diastology E Decel Time 193.00 (160-240 msec) E/A Ratio 1.37 MED E' 7.10 (< 7 cm/sec) MED A' 8.90 cm/s E'/MED E' Ratio 16.04 (>14) LAT E' 6.30 (<10 cm/sec) LAT A' 11.10 cm/s E/LAT E' Ratio 18.08 (>14) Aortic Valve LVOT Max 125.00 (70-110 cm/s) LVOT VTI 30.72 cm AoV Peak Torey. 182.00 (50-130 cm/s) AI PHT 736.00 ms AO Peak GR. 13.30 mmHg AO Mean GR. 6.60 (<5 mmHg) AO VTI 45.81 (18-25 cm) HUSEYIN (VTI) 2.09 (2.5-4.5 cm2) Mitral Valve MV A Velocity 83.00 (40-130 cm/s) E/A Ratio 1.37 MV Decel. Time 193.00 (160-240 ms) MV PHT 57.00 ms Pulmonary Valve PV Peak Velocity 84.00 (50-150 cm/s) Tricuspid Valve TR P. Velocity 281.00 cm/s RAP Estimate 10.00 mmHg RVSP 41.50 mmHg Left Ventricle Left atrium is mildly enlarged, left ventricle is normal size, mild concentric left ventricular hypertrophy, estimated ejection fraction 55% with no regional wall motion abnormality, grade 2 diastolic dysfunction seen with tissue Doppler evidence of raise left atrial pressure. Right Ventricle Right atrium and right ventricle are mildly enlarged with normal contractility. Aortic Valve Aortic valve is thickened and calcified without aortic stenosis, there is mild aortic insufficiency. Mitral Valve Mitral valve leaflets are minimally thickened, there is mild to moderate mitral regurgitation. tricuspid regurgitation, Tricuspid Valve Tricuspid valve grossly normal, there is mild tricuspid regurgitation, calculated right ventricular systolic pressure is 29 mmHg. Pulmonic Valve Pulmonic valve is poorly visualized. Great Vessels Aortic root is normal size. Inferior vena cava is normal size with normal inspiratory collapse . Pericardium No significant pericardial effusion noted. Conclusion 1. Mild biatrial enlargement, normal left ventricular size, mild concentric left ventricular hypertrophy, estimated ejection fraction 55% with no regional wall motion abnormality, grade 2 diastolic dysfunction seen with tissue Doppler evidence of raise left atrial pressure. 2. Mildly enlarged right ventricle with normal contractility. 3. Mild aortic, mild to moderate mitral and mild tricuspid regurgitation, calculated right ventricular systolic pressure 49 mmHg. 4. No significant pericardial effusion. 5. Inferior vena cava is normal size with normal inspiratory collapse. Electronically signed by : Micah Diaz MD 08/04/2022 20:59:20
--- NOTE | 2022-08-04 09:51 | EXP.PN ---
Subjective *Date: 08/04/22 *Time: 09:51 Interval history: No acute events overnight. Pt reports he continues to have left, lateral, upper chest pain that is sharp and radiates down his left arm. He also has central chest pressure with exertion. Pt reports shortness of breath with exertion and occasional swelling in ankles. He denies h/o CHF but reports LHC 3 years ago that showed a 30% blockage. Exam Data for Last 24 hours Vital signs and Labs for Last 24 Hours: Temp Pulse Resp BP Pulse Ox 97.9 F 55 L 18 112/65 96 08/04/22 07:48 08/04/22 07:48 08/04/22 07:48 08/04/22 07:48 08/04/22 07:48 Laboratory Results - last 24 hr 08/04/22 00:12: WBC 8.4, RBC 5.04, Hgb 14.4, Hct 45.0, MCV 89.5, MCH 28.7, MCHC 32.1, RDW 15.4, Plt Count 268, MPV 8.4, Neut % (Auto) 70.8, Lymph % (Auto) 20.5, [place] % (Auto) 5.5, Eos % (Auto) 2.3, Baso % (Auto) 0.8, Neut # (Auto) 6.0, Lymph # (Auto) 1.7, [place] # (Auto) 0.5, Eos # (Auto) 0.2, Baso # (Auto) 0.1 08/04/22 00:12: Sodium 134 L, Potassium 4.4, Chloride 101, Carbon Dioxide 25, Anion Gap 12.4, BUN 17, Creatinine 1.10, Estimated Creat Clear 91, Estimated GFR 67, Est GFR ( Amer) 81, Glucose 143 H, Calcium 9.8, Troponin I < 0.01, NT-Pro-B Natriuret Pep 67.2 08/04/22 00:12: SARS-CoV-2 (PCR) Not detected, Influenza A Untype (PCR) Not detected, Influenza Type B (PCR) Not detected 08/04/22 00:12: Triglycerides 102, Cholesterol 146, LDL Cholesterol Direct 61.81 L, VLDL Cholesterol 20, HDL Cholesterol 51, Cholesterol/HDL Ratio 2.9 08/04/22 03:14: Troponin I < 0.01 08/04/22 06:00: Troponin I < 0.01 08/04/22 06:00: WBC 7.1, RBC 4.48 L, Hgb 13.0 L, Hct 40.3 L, MCV 90.0, MCH 29.0, MCHC 32.2, RDW 15.5, Plt Count 208, MPV 8.2, Neut % (Auto) 75.1, Lymph % (Auto) 17.2, [place] % (Auto) 6.1, Eos % (Auto) 1.1, Baso % (Auto) 0.5, Neut # (Auto) 5.3, Lymph # (Auto) 1.2, [place] # (Auto) 0.4, Eos # (Auto) 0.1, Baso # (Auto) 0.0 08/04/22 06:00: Sodium 136, Potassium 4.2, Chloride 103, Carbon Dioxide 26, Anion Gap 11.2, BUN 16, Creatinine 0.90, Estimated Creat Clear 93, Estimated GFR 84, Est GFR ( Amer) 102 D, Glucose 107 H D, Calcium 9.4, Total Bilirubin 0.2, AST 29, ALT 22, Alkaline Phosphatase 81, Total Protein 6.1 L, Albumin 3.6, Globulin 2.5, Albumin/Globulin Ratio 1.4, Triglycerides 61, Cholesterol 126 L, LDL Cholesterol Direct 55.17 L, VLDL Cholesterol 12, HDL Cholesterol 46, Cholesterol/HDL Ratio 2.7 I & O for Last 24 hours: Intake & Output 08/01/22 08/02/22 08/03/22 08/04/22 23:59 23:59 23:59 23:59 Output Total 0 / 0 Balance 0 / 0 Weight 92.941 kg Constitutional Constitutional: no acute distress and cooperative *Routine HEENT Exam Head: Present normocephalic and atraumatic Eye: Present EOMI and PERRL ENT: Present mucous membranes moist *Routine Respiratory Exam Respiratory: Present crackles (bibasilar, otherwise CTAB ); Absent accessory muscle use or respiratory distress *Routine Cardiovascular Exam Cardiovascular: Present RRR, Normal S1 and Normal S2; Absent murmur *Routine Abdominal Exam Abdominal: Present soft and normoactive bowel sounds; Absent tenderness, distended or rebound *Routine Extremities Exam Extremities: Present edema (trace to ankles bilaterally ); Absent clubbing *Routine Skin Exam Skin: Present intact *Routine Neurological Exam Neurological: Present alert, oriented X3, CN II-XII intact, moving all extremities, normal tone and hearing grossly intact; Absent motor deficit or altered mental status Routine Psychiatric Exam Psychiatric: Present normal affect, normal thought process, cooperative, good insight and good judgment Assessment and Plan *Assessment and plan (1) BPH (benign prostatic hyperplasia): Status: Acute Category: Medical Code(s): N40.0 - Benign prostatic hyperplasia without lower urinary tract symptoms Plan: cont home flomax (2) Hypertension: Status: Acute Category: Medical Code(s): I10 - Essential (primary) hy
--- NOTE | 2022-08-04 10:13 | EXP.CARD.CON ---
History of Present Illness History of Present Illness Consult date: 08/04/22 Requesting physician: Johnie Sanchez Consult reason: chest pain Chief complaint: chest pain Additional Medical History:: Significant past medical hx: CAD- medical management 2018 with no imaging since Mixed HLD Renal cell carcinoma Essential HTN 07/2019 [facility] ANGIOGRAPHIC RESULTS The left main artery Normal The left anterior descending artery Has proximal calcified 20% stenoses with mid vessel 10% stenoses The circumflex artery Is codominant and has proximal 20 to 30% stenosis The right coronary artery Is codominant and has proximal and mid vessel 20 to 30% stenosis The REAVES ventriculogram reveals Normal 65% The left ventricular end-diastolic pressure 20 mmHg IMPRESSION Mild [id number] coronary artery disease Normal ejection fraction Mildly elevated LVEDP PLAN 1. Medical management Echo 07/2019 Conclusion 1.? Mildly enlarged left atrium, normal left ventricular size, mild concentric left ventricular hypertrophy, visually estimated ejection fraction 55% with no regional wall motion abnormality, grade 1 diastolic dysfunction seen without tissue Doppler evidence of raise left atrial pressure, endocardial surfaces are poorly visualized. 2.? Mild mitral and tricuspid regurgitation 3.? Thickened and calcified aortic valve without aortic stenosis aortic insufficiency. 4.? No significant pericardial effusion noted. History of present illness: 66 year old white male with above past medical hx presented to ED with complaint of intermittent midsternal chest pressure radiating to left arm, associated with soa x 3 days. Patient reports has had increased episodes of chest pressure x the last 6 months but significantly worse the last few days. Reports pain was usually with activity but lately has been present at rest. Reports sometimes has pain when simply watching tv. Symptoms started again yesterday while at work and would not ease off prompting him to come to ER. Serial trops were negative. EKG showed sinus fadumo rate of 58 with no acute ischemic changes. chest xray showed no acute cardiopulmonary findings. Patient was admitted for cardiology evaluation. [facility] Medical History GERD (gastroesophageal reflux disease) Gout History of kidney stones HLD (hyperlipidemia) HTN (hypertension) Surgical History History of extraction of renal calculus Hx laparoscopic cholecystectomy Hx of appendectomy Hx of knee surgery Family History Other Family history of myocardial infarction Lung cancer Social History Smoking Status: Never smoker second hand exposure: No alcohol intake: never counseling provided: none substance use type: denies use current occupational status: employed and unemployed Travel in the last 8 weeks: None household members: spouse housing: house lives independently: No marital status: service: No skilled nursing: No current occupation: [employer] current occupational exposures/hazards: No pets and animals: Yes caffeine: No Review of Systems Review of Systems Review of systems:: pertinent systems reviewed and negative unless documented below Constitutional Constitutional: Reports system reviewed and no additional complaints, except as documented *Cardiovascular Cardiovascular: Reports chest pain *Respiratory Respiratory: Reports system reviewed and no additional complaints, except as documented *Gastrointestinal Gastrointestinal: Reports system reviewed and no additional complaints, except as documented *Neurologic Neurologic: Reports system reviewed and no additional complaints, except as documented and Denies confusion Psychiatric Psychiatric: Reports system reviewed and no a
--- NOTE | 2022-08-04 21:01 | PC.NURSE ---
Spoke with hospitalist Hung Mcintosh regarding nitro order for tonight. was ordered to hold
[2022-08-05] VITALS: BP 128/73; PULSE 50; PULSE 53; RESP 16; TEMP 37; O2SAT 97
[2022-08-05 04:00] VITALS: BP 125/76; PULSE 53; PULSE 60; RESP 16; TEMP 37; O2SAT 94
--- NOTE | 2022-08-05 05:21 | PC.NURSE ---
pt has denied chest pain and/or SOA this shift. he has ambulated to the BR with standby assist and has tolerated well. pt has been junctional fadumo and sinus fadumo on telemetry. HR has been 50-53. SBP has been 110-128. he remains on RA and O2 sats have been 93-97%. Right radial cath site dressing is C/D/I. BUE warm/pink.
[2022-08-05 06:31] LABS: Chloride 103 mmol/L (98-107); Potassium 4.5 mmoL/L (3.5-5.1); Sodium 135 mmol/L (136-145)
[2022-08-05 06:34] LABS: Anion Gap 8.5 mEq/L (5-15); Blood Urea Nitrogen 13 mg/dl (9-20); Calcium 9.2 mg/dl (8.4-10.2); Carbon Dioxide 28 mmol/L (22.0-30.0); Creatinine Clearance Estimated 93 mL/min (50-200); Estimated Glomerular Filt Rate 84 ml/min (>60); GFR (African American) 102 ML/MIN (>60); Glucose 98 mg/dl (74-100)
[2022-08-05 06:36] LABS: Basophils % 0.5 % (0.1-2.0); Eosinophils # 0.1 K/mm3 (0.0-0.4); Eosinophils % 2.7 % (0.1-12.0); Hematocrit 39.3 % (42.0-52.0); Hemoglobin 12.1 g/dL (14.1-18.0); Lymphocytes # 1.1 K/mm3 (0.7-4.5); Lymphocytes % 25.6 % (10-50); Mean Corpuscular HGB Conc 30.8 g/dL (31.8-35.4); Mean Corpuscular Hemoglobin 28.3 pg (27.0-31.2); Mean Corpuscular Volume 91.9 fl (80-94); Mean Platelet Volume 7.5 fl (7.4-10.4); Monocytes # 0.4 K/mm3 (0.1-1.0); Neutrophils # 2.8 K/mm3 (1.8-7.8); Neutrophils % 62.2 % (37.0-80.0); Platelet Count 191 K/mm3 (142-424); Red Blood Count 4.28 M/mm3 (4.60-6.20); Red Cell Distribution Width 15.1 % (11.5-17.5); White Blood Count 4.5 K/mm3 (4.8-10.8)
[2022-08-05 07:42] VITALS: BP 124/50; PULSE 59; RESP 17; TEMP 36.6; O2SAT 93
--- NOTE | 2022-08-05 08:43 | EXP.CARD.PN ---
Subjective Subjective Date: 08/05/22 Time: 08:00 Principal diagnosis: unstable angina Interval history: s/p [facility] yesterday ANGIOGRAPHIC RESULTS The left main artery Normal The left anterior descending artery Has proximal 30% stenoses with mid vessel 10 to 20% stenoses The circumflex artery Nondominant with mild diffuse 10 to 20% luminal regularities The right coronary artery Dominant and has mid vessel 20 to 30% luminal regularities The REAVES ventriculogram reveals Normal 65% The left ventricular end-diastolic pressure 10 mmHg IMPRESSION Mild nonflow limiting coronary disease Normal ejection fraction Normal left ventricular end-diastolic pressure PLAN 1. Evaluation of noncardiac symptoms 2. Continue to risk factor modification Doing well this am, denies chest pain. Right radial site- no bleeding, warmth, redness noted. Exam Data for Last 24 hours Vital signs and Labs for Last 24 Hours: Temp Pulse Resp BP Pulse Ox 97.9 F 59 L 17 124/50 L 93 L 08/05/22 07:42 08/05/22 07:42 08/05/22 07:42 08/05/22 07:42 08/05/22 07:42 Laboratory Results - last 24 hr 08/05/22 05:50: WBC 4.5 L D, RBC 4.28 L, Hgb 12.1 L, Hct 39.3 L, MCV 91.9, MCH 28.3, MCHC 30.8 L, RDW 15.1, Plt Count 191, MPV 7.5, Neut % (Auto) 62.2, Lymph % (Auto) 25.6, [place] % (Auto) 9.0, Eos % (Auto) 2.7, Baso % (Auto) 0.5, Neut # (Auto) 2.8, Lymph # (Auto) 1.1, [place] # (Auto) 0.4, Eos # (Auto) 0.1, Baso # (Auto) 0.0 08/05/22 05:50: Sodium 135 L, Potassium 4.5, Chloride 103, Carbon Dioxide 28, Anion Gap 8.5, BUN 13, Creatinine 0.90, Estimated Creat Clear 93, Estimated GFR 84, Est GFR ( Amer) 102, Glucose 98, Calcium 9.2 I & O for Last 24 hours: Intake & Output 08/02/22 08/03/22 08/04/22 08/05/22 23:59 23:59 23:59 23:59 Intake Total 960 / 960 360 / 360 Output Total 0 / 0 Balance 960 / 960 360 / 360 Weight 204 lb 14.4 oz Constitutional Constitutional: no acute distress *Routine HEENT Exam Head: Present normocephalic Eye: Present EOMI and PERRL ENT: Present mucous membranes moist *Routine Neck Exam Neck: Present supple; Absent lymphadenopathy *Routine Respiratory Exam Respiratory: Present CTA bilaterally *Routine Cardiovascular Exam Cardiovascular: Present RRR *Routine Abdominal Exam Abdominal: Present soft and normoactive bowel sounds; Absent tenderness *Routine Extremities Exam Extremities: Absent cyanosis, clubbing or edema *Routine Skin Exam Skin: Present warm; Absent rash *Routine Neurological Exam Neurological: Present alert and oriented X3 Progress Note: A&P Assessment and plan (1) Hyperlipidemia: Status: Acute (2) Hypertension: Status: Acute (3) Unstable angina due to arteriosclerosis of autologous artery coronary artery bypass graft: Status: Acute (4) CAD (coronary artery disease): Status: Chronic Assessment and Plan Assessment and Plan for All Diagnoses:: Unstable angina CCS 3- resolved -s/p C yesterday, see report above. Hx of nonflow limiting CAD -Aspirin 81mg QD, Coreg 3.125, and crestor 40mg QD. HTN -Continue Losartan 100mg WD and add coreg 3.125 BID HLD -LDL goal < 55, crestor 40mg QD CV stable: dc home with follow up in office in 2 weeks. Home cardiac meds Aspirin 81mg QD coreg 3.125 BID Losartan 100mg QD Crestor 40mg QD
--- NOTE | 2022-08-05 09:43 | EXP.DC.SUM ---
General Admission date:: 08/04/22 Discharge date: 08/05/22 HPI HPI HPI: Mr. Jairo Jin is a 66 year-old male with a past medical history that is positive for HTN, Hyperlipidemia, Gout, Depression and BPH. He presents to the facility due to retrosternal chest pressure that he reports has been going on and off x 3 days duration that has been associated with left arm pain and SOA. The patient was seen today in ER bed 6, his was present at bedside. The patient reports that he had chest pressure/tightness that developed in the left mid-sternal region of his chest 3 days earlier. He reports that the pressure would come and go and seemed to be associated with activity. He reports that 2 days ago in addition to the chest pressure he developed a pain that radiated down into his left arm. He states that the pain became severe in the left arm 1 day ago. Today at work, he reports that the pain worsened, he also reports both chest pressure and arm pain were associated with SOA. He reports he became concerned that it could be his heart so he came into the ER for evaluation. In the ER per records reviewed, Cxray shows no acute cardiopulmonary findings. Troponin was <0.01. BNP was 67.2. ER records show interpretation of EKG showed NSR with no ST segment elevation or depression. ER attending consulted Cardiology. The patient will be seen by Cardiology on 08/04/2022 with possible heart cath for evaluation. The plan of care was discussed with both the patient and his prior to admission, both verbalized understanding and agreement with the plan of care. Hospital Course Hospital Course Hospital Course: Patient was admitted in the die finisher hours of 08/04 for left-sided chest pain worrisome for acute coronary syndrome. Patient had a left heart cath yesterday which was essentially unchanged from his previous left heart cath 3 years ago that showed 30% blockage of his left anterior descending artery. This did not require stenting and patient will be discharged home with no changes to his home medications. Exam Data for Last 24 hours Vital signs and Labs for Last 24 Hours: Temp Pulse Resp BP Pulse Ox 97.9 F 59 L 17 124/50 L 93 L 08/05/22 07:42 08/05/22 07:42 08/05/22 07:42 08/05/22 07:42 08/05/22 07:42 Laboratory Results - last 24 hr 08/05/22 05:50: WBC 4.5 L D, RBC 4.28 L, Hgb 12.1 L, Hct 39.3 L, MCV 91.9, MCH 28.3, MCHC 30.8 L, RDW 15.1, Plt Count 191, MPV 7.5, Neut % (Auto) 62.2, Lymph % (Auto) 25.6, [place] % (Auto) 9.0, Eos % (Auto) 2.7, Baso % (Auto) 0.5, Neut # (Auto) 2.8, Lymph # (Auto) 1.1, [place] # (Auto) 0.4, Eos # (Auto) 0.1, Baso # (Auto) 0.0 08/05/22 05:50: Sodium 135 L, Potassium 4.5, Chloride 103, Carbon Dioxide 28, Anion Gap 8.5, BUN 13, Creatinine 0.90, Estimated Creat Clear 93, Estimated GFR 84, Est GFR ( Amer) 102, Glucose 98, Calcium 9.2 I & O for Last 24 hours: Intake & Output 08/02/22 08/03/22 08/04/22 08/05/22 23:59 23:59 23:59 23:59 Intake Total 960 / 960 360 / 360 Output Total 0 / 0 0 / 0 Balance 960 / 960 360 / 360 Weight 92.941 kg Constitutional Constitutional: no acute distress *Routine HEENT Exam Head: Present normocephalic Eye: Present EOMI and PERRL ENT: Present mucous membranes moist *Routine Neck Exam Neck: Present supple; Absent lymphadenopathy *Routine Respiratory Exam Respiratory: Present CTA bilaterally *Routine Cardiovascular Exam Cardiovascular: Present RRR *Routine Abdominal Exam Abdominal: Present soft and normoactive bowel sounds; Absent tenderness *Routine Extremities Exam Extremities: Absent cyanosis, clubbing or edema *Routine Skin Exam Skin: Present warm; Absent rash Comments: wrist band removed last night, no evidence of residual bleeding *Routine Neurological Exam Neurological: Present alert and oriented X3 Results Data Completed and Pending Labs on day of discharge: Labs from last 24 hours 08/05/22 08/05/22 05:50 05:50
--- NOTE | 2022-08-06 13:35 | CARE MANAGER ---
Contacted patient related to hospital discharge. He states that he is doing better. He didn't have any new medications and is aware of his follow up appointments. Denies questions or concerns. QUEENIE Gutierrez
== END 2022-08-05 10:57 | disposition home or self-care (01) ==
LOC: ER 01:23 → 2ND 02:04
PROVIDERS: Internal Medicine; Nurse Practitioner Family; Admitting Provider Internal Medicine Adolescent Medicine; Emergency Provider Emergency Medicine; PCP Internal Medicine; Visit Provider Internal Medicine Adolescent Medicine
DX: I25.110 Atherosclerotic heart disease of native coronary artery with unstable angina pectoris (principal); I25.720 Atherosclerosis of autologous artery coronary artery bypass graft(s) with unstable angina pectoris; R07.9 Chest pain, unspecified; E78.5 Hyperlipidemia, unspecified; I10 Essential (primary) hypertension; N40.0 Benign prostatic hyperplasia without lower urinary tract symptoms; Z20.822 Contact with and (suspected) exposure to COVID-19
CPT/HCPCS: G0378; 36415; 71046; 80048; 80053; 80061; 83880; 84484; 85025; 93005; 93306; 93458; 99152; 99285; C1725; C1769; C9803; J1644; J2405; Q9967; U0003; U0005

== ENCOUNTER 2023-02-13 10:25 | Emergency (ER) | payer MEDICARE, SELFPAY ==
[2023-02-13] VITALS (20 sets, daily range): BP systolic 86–113; BP diastolic 45–64; PULSE 44–68; RESP 12–20; TEMP 36.3–36.6; O2SAT 93–98; BMI 30.1
--- NOTE | 2023-02-13 10:31 | ECG_ITS ---
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: Resting ECG HR:53 bpm ECG Measurements Heart Rate 53 AXES VT 186 P 58 QRSd 92 QRS 50 QT 439 T 57 QTc 422 Conclusion SINUS BRADYCARDIA BORDERLINE ECG UNCONFIRMED REPORT Electronically signed by : Douglas Pace MD 02/13/2023 15:38:42
--- NOTE | 2023-02-13 10:40 | ECG_ITS ---
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: Resting ECG HR:48 bpm ECG Measurements Heart Rate 48 AXES OH 191 P 57 QRSd 90 QRS 37 QT 436 T 47 QTc 403 Conclusion SINUS BRADYCARDIA BORDERLINE ECG UNCONFIRMED REPORT Electronically signed by : Douglas Pace MD 02/15/2023 19:45:21
[2023-02-13 10:43] LABS: MANUAL DIFFERENTIAL MANUAL DIFFERENTIAL (MANUAL DIFF)
--- NOTE | 2023-02-13 10:43 | PC.NURSE ---
MD called to patients bedside. pt c/o sharp stabbing pain to abdomen and feeling dizzy again at this time.
--- NOTE | 2023-02-13 10:46 | HMH.EDSYNC ---
Discharge Plan Disposition Patient Disposition: Home, Self-Care Prescriptions Prescriptions: No Action isosorbide mononitrate 30 mg tablet extended release 24 hr 30 mg PO DAILY Qty: 90 3RF losartan 100 MG tablet 100 mg PO DAILY omeprazole 40 MG capsule,delayed release(DR/EC) 40 mg PO DAILY diclofenac sodium 75 MG tablet,delayed release (DR/EC) 75 mg PO BIDP PRN (Reason: PAIN) hydrocodone-acetaminophen 1 TAB tablet 1 tab PO Q6HP PRN (Reason: Pain) Qty: 10 0RF atorvastatin 20 MG tablet 20 mg PO HS potassium chloride 10 MEQ tablet extended release 10 meq PO BID magnesium oxide 400 mg (241.3 mg magnesium) tablet 400 mg PO BID Label Comments: TAKE 1 TABLET BY MOUTH TWICE DAILY WITH MEALS FOR MUSCLE CRAMPS allopurinol 300 mg tablet 300 mg PO DAILY Label Comments: TAKE 1 TABLET BY MOUTH EVERY DAY citalopram 10 MG tablet 10 mg PO DAILY Label Comments: TAKE 1 TABLET EVERY MORNING tamsulosin 0.4 MG capsule 0.4 mg PO HS Referrals Follow up/Referrals: Mickey Fine MD [Primary Care Provider] - See instructions Activity Restrictions/Add. Instructions Additional Instructions/Restrictions: Please do not take any of your blood pressure medication today or tomorrow. Follow-up with your primary care doctor on Wednesday. Return to the emergency department immediately if you feel worse in any way. Your heart rate is much slower than a normal heart rate. I strongly suggest that you be seen by terminal operations supervisor within the next week. I also suggest that you do not take your tamosulin for the next few days. Even though this medication is being used for your prostate, it can lower your blood pressure. Clinical Impressions Clinical Impression: Syncope, vasovagal, Abrasion of knee, left, Bradycardia by electrocardiogram, Hypotension arterial Instructions Patient Instructions: DI for Syncope in Adults (Fainting) Discharge ED Provider: Dawna Reyes Syncope HPI General Chief Complaint: Dizziness Stated Complaint: passed out, dizziness,Pale lips,Shaking Time Seen by Provider: 02/13/23 10:43 Mode of Arrival: Wheelchair Source of Information: Patient and Spouse Limitations: No Limitations Description of Symptoms (Recalled from ER Triage Doc. by RN): pt presents to ED stating that him and his were at the car wash when pt passed out. states when she got out of the vehicle pt was getting off the ground. pt reports when I woke up this morning I was hurting between my shoulder blades. History of Present Illness HPI narrative: The patient presents to the emergency department after having had a syncopal episode about half an hour prior to arrival. This was witnessed by the patient's . Patient has a history of hypertension. He does not have a history of coronary artery disease. He denies Marfan syndrome. And denies illicit drug use. MD complaint: loss of consciousness Related Data Home Medications Medication Instructions Recorded Confirmed citalopram 10 mg tablet 10 mg PO DAILY mood 04/17/18 09/03/22 diclofenac sodium 75 mg 75 mg PO BIDP PRN PAIN 05/27/20 09/03/22 tablet,delayed release losartan 100 mg tablet 100 mg PO DAILY Hypertension 05/27/20 09/03/22 omeprazole 40 mg capsule,delayed 40 mg PO DAILY acid reflux 05/27/20 09/03/22 release atorvastatin 20 mg tablet 20 mg PO HS Cholesterol 07/29/21 09/03/22 potassium chloride 10 mEq 10 meq PO BID POTASSIUM SUPPLEMENT 07/29/21 09/03/22 tablet,extended release tamsulosin 0.4 mg capsule 0.4 mg PO HS prostate 04/09/22 09/03/22 allopurinol 300 mg tablet 300 mg PO DAILY gout 08/04/22 09/03/22 magnesium oxide 400 mg (241.3 mg 400 mg PO BID muscle cramps 08/04/22 09/03/22 magnesium) tablet Previous Rx's Medication Instructions Recorded hydrocodone 5 mg-acetaminophen 325 1 tab PO Q6HP PRN Pain #10 tabs 04/17/21 mg tablet isosorbide mononitrate 30 mg 30 mg PO DAILY #90 tabs
[2023-02-13 10:48] LABS: Basophils % 0.5 % (0.1-2.0); Eosinophils # 0.2 K/mm3 (0.0-0.4); Hematocrit 43.3 % (42.0-52.0); Hemoglobin 13.9 g/dL (14.1-18.0); Lymphocytes # 2.1 K/mm3 (0.7-4.5); Lymphocytes % 39.1 % (10-50); Mean Corpuscular HGB Conc 32.1 g/dL (31.8-35.4); Mean Corpuscular Hemoglobin 28.6 pg (27.0-31.2); Monocytes # 0.3 K/mm3 (0.1-1.0); Monocytes % 6.3 % (1.7-9.3); Neutrophils # 2.7 K/mm3 (1.8-7.8); Neutrophils % 50.9 % (37.0-80.0); Platelet Count 264 K/mm3 (142-424); Red Blood Count 4.86 M/mm3 (4.60-6.20); Red Cell Distribution Width 14.6 % (11.5-17.5); White Blood Count 5.4 K/mm3 (4.8-10.8)
--- NOTE | 2023-02-13 10:49 | CT_ITS ---
PROCEDURE INFORMATION: Exam: CTA Chest With Contrast Exam date and time: 02/13/2023 11:10 AM Age: 67 years old Clinical indication: Pain; Other: Epigastric; Additional info: Syncope followed by epigastric pain radiating TECHNIQUE: Imaging protocol: Computed tomographic angiography of the chest with contrast. 3D rendering (Not supervised by radiologist): MIP and/or 3D reconstructed images were created by the technologist. Radiation optimization: All CT scans at this facility use at least one of these dose optimization techniques: automated exposure control; mA and/or kV adjustment per patient size (includes targeted exams where dose is matched to clinical indication); or iterative reconstruction. Contrast material: ISOVUE; Contrast volume: 100 ml; Contrast route: INTRAVENOUS (IV); REPORTING DATA: Count of CT and Cardiac NM exams in prior 12 months: This patient has received [address] and 0 known cardiac nuclear medicine studies in the 12 months prior to the current study. COMPARISON: CT ANGIO CHEST 04/17/2021 11:34 AM FINDINGS: Pulmonary arteries: There is suboptimal opacification of pulmonary arteries due to contrast bolus timing. Aorta: Regions of atherosclerotic vascular calcification involving the aortic arch. Lungs: Unremarkable. No consolidation. No masses. Pleural spaces: Unremarkable. No pneumothorax. No pleural effusion. Heart: Unremarkable. No cardiomegaly. No pericardial effusion. Coronary arteries: Coronary artery calcification. Lymph nodes: Calcified left hilar lymph nodes. Diaphragm: Small hiatal hernia. Liver: Persistent hypodensity within the liver. Findings incompletely visualized. Kidneys and ureters: Persistent left renal cyst. Nonobstructing calculi upper and mid pole right kidney measuring up to 5 mm . Bones/joints: Unremarkable. No acute fracture. Soft tissues: Unremarkable. IMPRESSION: 1. No large or central pulmonary embolus. Evaluation of the peripheral pulmonary arteries is limited. 2. Please see above report for discussion of nonacute findings.
[2023-02-13 10:52] LABS: Chloride 104 mmol/L (98-107); Sodium 136 mmol/L (136-145)
[2023-02-13 10:55] LABS: Blood Urea Nitrogen 22 mg/dl (9-20); Calcium 9.7 mg/dl (8.4-10.2); Carbon Dioxide 25 mmol/L (22.0-30.0); Creatinine Clearance Estimated 72 mL/min (50-200); Estimated Glomerular Filt Rate 55 ml/min (>60); GFR (African American) 66 ML/MIN (>60); Glucose 157 mg/dl (74-100)
[2023-02-13 11:08] LABS: Troponin I < 0.01 ng/ml (0.00-0.034)
[2023-02-13 11:11] LABS: Eosinophils % 3 % (0-3); Lymphocytes % 32 % (10-50); Monocytes % 6 % (2-9); Neutrophils % 59 % (42-76); RBC Morphology Normal; Total Cells Counted 100
[2023-02-13 11:12] LABS: Platelet Estimate Normal
--- NOTE | 2023-02-13 11:17 | PC.NURSE ---
pt returned from CT scan.
--- NOTE | 2023-02-13 11:22 | PC.NURSE ---
rounded on patient, warm blanket given. updated on POC. updated on wait time for CT result.
[2023-02-13 11:23] LABS: POC Glucose,Bedside 147 (70-110)
--- NOTE | 2023-02-13 11:38 | PC.NURSE ---
L knee abrasion cleansed with saline. Neosporin applied. Dry, non-adhesive dressing applied.
--- NOTE | 2023-02-13 12:29 | PC.NURSE ---
VO for oral fluids and additional NS 1000ml bolus. Pt given oral fluids; tolerating well. Pt updated on plan of care.
--- NOTE | 2023-02-13 13:52 | PC.NURSE ---
pt given additional warm blanket, pt laying on L side, light dimmed in room for comfort, pt trying to rest. call light in reach
[2023-02-13 13:59] LABS: Troponin I < 0.01 ng/ml (0.00-0.034)
--- NOTE | 2023-02-13 14:20 | PC.NURSE ---
Pt awakened. Pt ambulated to bathroom. Denies dizziness or lightheadedness. Steady gait noted.
--- NOTE | 2023-02-13 14:29 | PC.NURSE ---
Provider at bedside.
== END 2023-02-13 14:35 | disposition home or self-care (01) ==
PROVIDERS: Emergency Provider Emergency Medicine; PCP Internal Medicine
DX: R55 Syncope and collapse (principal); R00.1 Bradycardia, unspecified; I95.89 Other hypotension
CPT/HCPCS: 71275; 80048; 82962; 84484; 85007; 85014; 85018; 85048; 85049; 93005; 96360; 96361; 96374; 96376; 99285; Q9967

== ENCOUNTER 2023-02-17 00:21 | Observation (INO) | payer MEDICARE, SELFPAY ==
[2023-02-17] VITALS (16 sets, daily range): BP systolic 137–163; BP diastolic 65–96; PULSE 50–113; RESP 9–20; TEMP 36.4–36.8; O2SAT 93–99; BMI 30.1; BMI 29.7
--- NOTE | 2023-02-17 00:20 | ECG_ITS ---
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: Resting ECG HR:54 bpm ECG Measurements Heart Rate 54 AXES WI 183 P 59 QRSd 99 QRS 24 QT 398 T 34 QTc 383 Conclusion SINUS BRADYCARDIA BORDERLINE ECG UNCONFIRMED REPORT Electronically signed by : Douglas Pace MD 02/17/2023 20:28:37
--- NOTE | 2023-02-17 00:26 | XR_ITS ---
PROCEDURE INFORMATION: Exam: XR Chest Exam date and time: 02/17/2023 12:29 AM Age: 67 years old Clinical indication: Sternal or substernal pain; Patient HX: C/O chest pain that has been going on for a while. states pain has not increased but has not gone away. ; Additional info: Chest pain, nonsmoker TECHNIQUE: Imaging protocol: Radiologic exam of the chest. Views: 2 views. COMPARISON: CT ANGIO CHEST 02/13/2023 11:10 AM FINDINGS: Lungs: Unremarkable. No consolidation. Pleural spaces: Unremarkable. No pleural effusion. No pneumothorax. Heart/Mediastinum: Unremarkable. No cardiomegaly. Bones/joints: Unremarkable. IMPRESSION: No acute findings.
[2023-02-17 00:36] LABS: Basophils % 0.3 % (0.1-2.0); Eosinophils # 0.2 K/mm3 (0.0-0.4); Eosinophils % 2.1 % (0.1-12.0); Hematocrit 43.9 % (42.0-52.0); Hemoglobin 14.5 g/dL (14.1-18.0); Lymphocytes # 1.1 K/mm3 (0.7-4.5); Lymphocytes % 13.6 % (10-50); Mean Corpuscular Hemoglobin 29.1 pg (27.0-31.2); Mean Corpuscular Volume 88.1 fl (80-94); Mean Platelet Volume 7.8 fl (7.4-10.4); Monocytes # 0.5 K/mm3 (0.1-1.0); Monocytes % 5.9 % (1.7-9.3); Neutrophils # 6.2 K/mm3 (1.8-7.8); Neutrophils % 78.3 % (37.0-80.0); Platelet Count 263 K/mm3 (142-424); Red Blood Count 4.98 M/mm3 (4.60-6.20); Red Cell Distribution Width 14.7 % (11.5-17.5); White Blood Count 7.9 K/mm3 (4.8-10.8)
[2023-02-17 00:40] LABS: Anion Gap 12.3 mEq/L (5-15); Blood Urea Nitrogen 21 mg/dl (9-20); Calcium 10.2 mg/dl (8.4-10.2); Carbon Dioxide 28 mmol/L (22.0-30.0); Chloride 102 mmol/L (98-107); Creatinine Clearance Estimated 85 mL/min (50-200); Estimated Glomerular Filt Rate 66 ml/min (>60); GFR (African American) 80 ML/MIN (>60); Glucose 105 mg/dl (74-100); Magnesium 1.9 mg/dl (1.6-2.3); Potassium 4.3 mmoL/L (3.5-5.1); Sodium 138 mmol/L (136-145)
[2023-02-17 00:45] LABS: C-Reactive Protein 5.9 mg/L (0-4)
[2023-02-17 00:53] LABS: Alanine Aminotransferase 34 U/L (12-78); Albumin Level 4.5 g/dl (3.5-5.0); Alkaline Phosphatase 89 U/L (38-126); Aspartate Amino Transferase 37 U/L (17-59); Bilirubin,Indirect 0.9 mg/dL (0.0-0.9); Bilirubin,Total 0.9 mg/dl (0.2-1.3); Bilirubin,Unconjugated 0.9 mg/dL (0.0-1.1); Total Protein,Serum 7.8 g/dl (6.3-8.2)
[2023-02-17 00:54] LABS: NT Pro Brain Natriuretic Pep. 90.1 pg/mL (0-125)
[2023-02-17 00:56] LABS: Troponin I < 0.01 ng/ml (0.00-0.034)
[2023-02-17 00:59] LABS: Procalcitonin 0.063 ng/mL (0.0-2.0)
[2023-02-17 01:17] LABS: Erythrocyte Sedimentation Rate 12 mm/hr (0-20)
--- NOTE | 2023-02-17 03:00 | PC.NURSE ---
rechecked pt's pain, he is in no pain at this time. Denies any nausea as well. notified
--- NOTE | 2023-02-17 03:11 | HMH.EDCP ---
Discharge Plan Disposition Patient Disposition: Admitted as Observation Chief Complaint: Chest Pain Prescriptions Prescriptions: No Action losartan 100 MG tablet 100 mg PO DAILY omeprazole 40 MG capsule,delayed release(DR/EC) 40 mg PO DAILY diclofenac sodium 75 MG tablet,delayed release (DR/EC) 75 mg PO BIDP PRN (Reason: PAIN) hydrocodone-acetaminophen 1 TAB tablet 1 tab PO Q6HP PRN (Reason: Pain) Qty: 10 0RF atorvastatin 20 MG tablet 20 mg PO HS magnesium oxide 400 mg (241.3 mg magnesium) tablet 400 mg PO BID Label Comments: TAKE 1 TABLET BY MOUTH TWICE DAILY WITH MEALS FOR MUSCLE CRAMPS allopurinol 300 mg tablet 300 mg PO DAILY Label Comments: TAKE 1 TABLET BY MOUTH EVERY DAY isosorbide mononitrate 30 mg tablet extended release 24 hr 30 mg PO DAILY citalopram 10 MG tablet 10 mg PO DAILY Label Comments: TAKE 1 TABLET EVERY MORNING tamsulosin 0.4 MG capsule 0.4 mg PO HS Referrals Follow up/Referrals: Mickey Fine MD [Primary Care Provider] - See instructions Clinical Impressions Clinical Impression: Chest pain, Bradycardia by electrocardiogram Discharge ED Provider: Cierra (ED)[place] Chest Pain HPI General Chief Complaint: Chest Pain Stated Complaint: chest pain Time Seen by Provider: 02/17/23 03:12 Mode of Arrival: Family Vehicle Source of Information: Patient, Spouse and Medical Record Limitations: No Limitations Description of Symptoms (Recalled from ER Triage Doc. 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 States he was seen here on 02/13 for a syncopal episode. Pt had a follow up with his PCP and he is to have a holter monitor next week. Pt reports the pain is currently 6/10 on [employer]. He denies any SOA or dyspnea. He reports when the pain worsened tonight he did feel dizzy and light-headed but no LOC. States I was told my heart rate was a little low last time I was here . 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 He reports mild nausea and began having diarrhea earlier today. History of Present Illness HPI narrative: pt at work with episode of chest pain and dizzyness and was here wednesday for syncopal episode and has low hr and bp sep - saw pcp wednesday - has been off bp meds - pt with neg ht cath 2019 - MD complaint: chest pain indicative of cardiac Onset (ago): hour(s) Duration: intermittent Activity at onset: light activity Pain location: substernal and epigastric Severity: moderate Quality: sharp Associated symptoms: nausea Risk Factors for CAD: Hypertension and Family Hx of CAD Treatments prior to or on arrival for Cardiac Chest Pain: none FORREST Score for Non-Stemi Age of Patient: 60-69 years old Heart Rate: 50-69 bpm Systolic Blood Pressure: 140-159 mmHg Serum Creatinine: 0.80-1.19 mg/dl CHF [place] Class: I-No CHF Other Risk Factors: None Non-Stemi Risk Score: 92 Risk Stratification: 1-108 = Low Risk Related Data Prior Cardiac Testing/Procedures: Echocardiogram and Cardiac Angiogram Home Medications Medication Instructions Recorded Confirmed citalopram 10 mg tablet 10 mg PO DAILY mood 04/17/18 02/17/23 diclofenac sodium 75 mg 75 mg PO BIDP PRN PAIN 05/27/20 02/17/23 tablet,delayed release losartan 100 mg tablet 100 mg PO DAILY Hypertension 05/27/20 02/17/23 omeprazole 40 mg capsule,delayed 40 mg PO DAILY acid reflux 05/27/20 02/17/23 release atorvastatin 20 mg tablet 20 mg PO HS Cholesterol 07/29/21 02/17/23 tamsulosin 0.4 mg capsule 0.4 mg PO HS prostate 04/09/22 02/17/23 allopurinol 300 mg tablet 300 mg PO DAILY gout 08/04/22 02/17/23 magnesium oxide 400 mg (241.3 mg 400 mg PO BID muscle cramps 08/04/22 02/17/23 magnesium) tablet isosorbide mononitrate 30 mg 30 mg PO DAILY Chest pain 02/17/23 02/17/23 tablet,extended release 24 hr Previous Rx's Medication Instructions Recorded hydrocodone 5 mg-acetami
--- NOTE | 2023-02-17 03:15 | PC.NURSE ---
Dr. Norton at bedside
[2023-02-17 04:12] LABS: Troponin I < 0.01 ng/ml (0.00-0.034)
--- NOTE | 2023-02-17 04:15 | PC.NURSE ---
Dr. Norton s/w Leonard Platt, hospitalist, for possible admission
--- NOTE | 2023-02-17 04:26 | PC.NURSE ---
Leonard the hospitalist in room talking with patient at this time.
--- NOTE | 2023-02-17 04:33 | EXP.HP ---
History of Present Illness *Admission Date: 02/17/23 *Reason for visit:: Chest Pain *History of present illness: Mr. Jin is a 67-year-old male with a past medical history of HTN, Hyperlipidemia, Gout and BPH. [facility] due to an acute episode of chest pain that occurred while at work. He reports that the pain was located in the mid central portion of his chest with radiation to the epigastric region. He reports that the pain was associated with nausea and dizziness. He had a similar episode 3 days prior to this admission and was seen in the ER, was found to be bradycardic and was given Atropine, he was discharged to home and had follow-up with his PCP and had outpatient Cardiology follow-up arranged. In the ER, the patient underwent an EKG that showed Sinus Bradycardia with HR [address] segment elevation or depression. Troponin was <0.01. Cxray showed no acute cardiopulmonary findings. CBC and CMP were unremarkable. [facility] Disclaimer: The information contained in this section may have been updated after the patient was seen, as this information can be updated by other users. Medical History GERD (gastroesophageal reflux disease) Gout History of kidney stones HLD (hyperlipidemia) HTN (hypertension) Surgical History History of extraction of renal calculus Hx laparoscopic cholecystectomy Hx of appendectomy Hx of knee surgery Family History Other Family history of myocardial infarction Lung cancer Social History Smoking Status: Never smoker second hand exposure: No alcohol intake: never counseling provided: none substance use type: denies use current occupational status: employed and unemployed Travel in the last 8 weeks: None household members: spouse housing: house lives independently: No marital status: service: No residential: No current occupation: [employer] current occupational exposures/hazards: No pets and animals: Yes caffeine: No Review of Systems Review of Systems Review of systems:: pertinent systems reviewed and negative unless documented below Constitutional Constitutional: Reports system reviewed and no additional complaints, except as documented Eyes Eyes: Reports system reviewed and no additional complaints, except as documented ENT Ears, Nose, Mouth, and Throat: Reports system reviewed and no additional complaints, except as documented *Cardiovascular Cardiovascular: Reports chest pain, Reports chest pain with activity, Reports dyspnea and Reports lightheadedness *Respiratory Respiratory: Reports dyspnea *Gastrointestinal Gastrointestinal: Reports nausea *Genitourinary Genitourinary: Reports system reviewed and no additional complaints, except as documented *Musculoskeletal Musculoskeletal: Reports system reviewed and no additional complaints, except as documented Integumentary/Breasts Skin/Breast: Reports system reviewed and no additional complaints, except as documented *Neurologic Neurologic: Reports system reviewed and no additional complaints, except as documented Psychiatric Psychiatric: Reports system reviewed and no additional complaints, except as documented Endocrine Endocrine: Reports system reviewed and no additional complaints, except as documented Hematologic/Lymphatic Hematologic/Lymphatic: Reports system reviewed and no additional complaints, except as documented Allergic/Immunologic Allergic/Immunologic: Reports system reviewed and no additional complaints, except as documented Meds Home Medications and Allergies Home Medications Medication Instructions Recorded Confirmed Type citalopram 10 mg tablet 10 mg PO DAILY mood 04/17/18 02/17/23 History diclofenac sodium 75 mg 75
--- NOTE | 2023-02-17 04:41 | PC.NURSE ---
MICHELLE Taylor, contacted [facility], for bed assignment.
[2023-02-17 04:42] LABS: Chol/HDL Ratio 2.9 (1-3.5); Cholesterol 122 mg/dl (140-200); HDL Cholesterol 42 mg/dl (40-60); Triglycerides 95 mg/dl (30-150); VLDL Cholesterol 19 mg/dL (0-40)
--- NOTE | 2023-02-17 04:48 | PC.NURSE ---
Patient observation admission with dx of Chest Pain and Bradycardia, service of Dr. Sanchez. .
[2023-02-17 04:53] LABS: Direct LDL Cholesterol 57.38 mg/dL (100-129)
--- NOTE | 2023-02-17 05:39 | PC.NURSE ---
pt arrived via wheelchair @ 529am
--- NOTE | 2023-02-17 07:27 | HMH.PHAINT1 ---
Pharmacy Intervention Comments: Reconciled patient's home medications using pharmacy fill history ([facility]).
[2023-02-17 08:39] LABS: Troponin I < 0.01 ng/ml (0.00-0.034)
--- NOTE | 2023-02-17 10:46 | EXP.CARD.CON ---
History of Present Illness History of Present Illness Consult date: 02/17/23 Requesting physician: Johnie Sanchez Consult reason: chest pain Chief complaint: chest pain Additional Medical History:: 1. Coronary artery disease A. Cardiac catheterization, 08/04/2022, mild nonflow limiting CAD with normal EF and LVEDP of 20 mmHg. 10 to 30% stenosis of the LAD, circumflex and RCA noted. Normal left main 2. Hypertension A. Echocardiogram, 07/2019, mild LAE, normal LV size, mild concentric LVH, EF 55% with no regional WMA. Grade 1 DD. Mild MR/TR. Thickened aortic valve without aortic stenosis or insufficiency B. Echo, 08/04/2022, mild biatrial enlargement, normal LV size, mild concentric LVH, EF 55% with no regional WMA. Grade 2 diastolic dysfunction. Enlarged right ventricle with normal contractility. Mild aortic regurgitation, mild to moderate MR and mild TR with RVSP 49 mmHg. C. Echo, 02/17/2023, pending 3. GERD 4. Possible history of hiatal hernia 5. Hyperlipidemia 6. BPH 7. Recent history of syncope (felt to be vasovagal), 02/13/2023 with ER evaluation including CTA of the chest unremarkable except for low blood pressure, mild dehydration and bradycardia which responded to atropine and IV fluids. Blood pressure medications were instructed to be held with no recurrent syncopal episodes since then History of present illness: Mr. Jin is a 67-year-old male with a past medical history of HTN, Hyperlipidemia, Gout and BPH. He presents to [facility] due to an acute episode of chest pain that occurred while at work.? He reports that the pain was located in the mid central portion of his chest with radiation to the epigastric region.? He reports that the pain was associated with nausea and dizziness.? He had a similar episode 3 days prior to this admission and was seen in the ER, was found to be bradycardic and was given Atropine, he was discharged to home and had follow-up with his PCP and had outpatient Cardiology follow-up arranged. In the ER, the patient underwent an EKG that showed Sinus Bradycardia with HR [address] segment elevation or depression.? Troponin was <0.01.? Cxray showed no acute cardiopulmonary findings.? CBC and CMP were unremarkable. The above per Leonard Browning DNP, for the Hospitalist service. Above events confirmed with the patient. Upon further evaluation patient states he has had a history of hiatal hernia and also significant reflux. Since holding his blood pressure medications from his ER visit earlier in the week patient's blood pressure has improved and he has had no more episodes of syncope. Instructed him to hold his losartan, isosorbide and nitro tablets at this time with plans to get a event monitor at discharge. Preliminary echocardiogram today shows preserved ejection fraction and troponins are normal. Recent cardiac catheterization showed only mild disease PFSH [facility] Disclaimer: The information contained in this section may have been updated after the patient was seen, as this information can be updated by other users. Medical History GERD (gastroesophageal reflux disease) Gout History of kidney stones HLD (hyperlipidemia) HTN (hypertension) Surgical History History of extraction of renal calculus Hx laparoscopic cholecystectomy Hx of appendectomy Hx of knee surgery Family History Other Family history of myocardial infarction Lung cancer Social History Smoking Status: Never smoker second hand exposure: No alcohol intake: never counseling provided: none substance use type: denies use current occupational status: employed and unemployed Travel in the last 8 weeks: None household members: spouse housing: house lives independently: No marital sta
--- NOTE | 2023-02-17 11:16 | PC.NURSE ---
Called Dr. Sanchez, new diet orders received.
--- NOTE | 2023-02-17 12:16 | EXP.DC.SUM ---
General Admission date:: 02/16/23 Discharge date: 02/17/23 HPI HPI HPI: Mr. Jin is a 67-year-old male with a past medical history of HTN, Hyperlipidemia, Gout and BPH. He presents to [facility] due to an acute episode of chest pain that occurred while at work. He reports that the pain was located in the mid central portion of his chest with radiation to the epigastric region. He reports that the pain was associated with nausea and dizziness. He had a similar episode 3 days prior to this admission and was seen in the ER, was found to be bradycardic and was given Atropine, he was discharged to home and had follow-up with his PCP and had outpatient Cardiology follow-up arranged. In the ER, the patient underwent an EKG that showed Sinus Bradycardia with HR [address] segment elevation or depression. Troponin was <0.01. Cxray showed no acute cardiopulmonary findings. CBC and CMP were unremarkable. Hospital Course Hospital Course Hospital Course: 67-year-old male with past medical history of HTN, Hyperlipidemia, Gout and BPH presents with an acute episode of chest pain - Chest Pain - Hypertension - Sinus Bradycardia Presents from work with chest pain associated with dizziness and nausea. Monitored overnight with serial troponins. EKG with no ST elevations, showing sinus bradycardia. No signs of ischemia. Held patient's blood pressure medication during admission. Cardiology consulted. Recommend event monitor and holding medications at this time. Patient is to record his blood pressures at home and have close follow-up in 1 to 2 weeks to further evaluate. Echo obtained, formal read still pending, preliminary normal. Lipids well controlled with statin. Continue home statin. Stable for discharge home with close follow-up. Strong concern for noncardiac etiology of his pain. Patient has a history of hiatal hernia. Given positive epigastric pain, will refer to surgery for EGD and further management of noncardiac causes of chest pain. - Hyperlipidemia: Continue Statin - Gout: Continue home Allopurinol - BPH: Continue home Flomax Medically stable to [place] home, follow-up closely with cardiology. Event monitor placed prior to discharge. Exam Data for Last 24 hours Vital signs and Labs for Last 24 Hours: Temp Pulse Resp BP Pulse Ox 97.6 F 51 L 18 143/65 H 96 02/17/23 07:21 02/17/23 07:21 02/17/23 07:21 02/17/23 07:21 02/17/23 07:21 Laboratory Results - last 24 hr 02/17/23 00:23: WBC 7.9, RBC 4.98, Hgb 14.5, Hct 43.9, MCV 88.1, MCH 29.1, MCHC 33.0, RDW 14.7, Plt Count 263, MPV 7.8, Neut % (Auto) 78.3, Lymph % (Auto) 13.6, [place] % (Auto) 5.9, Eos % (Auto) 2.1, Baso % (Auto) 0.3, Neut # (Auto) 6.2, Lymph # (Auto) 1.1, [place] # (Auto) 0.5, Eos # (Auto) 0.2, Baso # (Auto) 0.0, ESR 12 02/17/23 00:23: Sodium 138, Potassium 4.3, Chloride 102, Carbon Dioxide 28, Anion Gap 12.3, BUN 21 H, Creatinine 1.10, Estimated Creat Clear 85, Estimated GFR 66, Est GFR ( Amer) 80, Glucose 105 H, Calcium 10.2, Magnesium 1.9, Troponin I < 0.01, C-Reactive Protein 5.9 H, NT-Pro-B Natriuret Pep 90.1, Procalcitonin 0.063 02/17/23 00:30: Total Bilirubin 0.9, Direct Bilirubin 0.0, Conjugated Bilirubin 0.0, Indirect Bilirubin 0.9, Unconjugated Bilirubin 0.9, AST 37, ALT 34, Alkaline Phosphatase 89, Total Protein 7.8 D, Albumin 4.5 02/17/23 03:30: Troponin I < 0.01 02/17/23 03:30: Triglycerides 95, Cholesterol 122 L, LDL Cholesterol Direct 57.38 L, VLDL Cholesterol 19, HDL Cholesterol 42, Cholesterol/HDL Ratio 2.9 02/17/23 08:00: Troponin I < 0.01 I & O for Last 24 hours: Intake & Output 02/14/23 02/15/23 02/16/23 02/17/23 23:59 23:59 23:59 23:59 Intake Total 1999 / 1999 Output Total 200 / 200 Balance 1800 / 1800 Weight 94.404 kg Constitutional Constitutional: no acute distress and average body habitus *Routine HEENT Exam Head: Present normocephalic Eye: Present EOMI and PERRL ENT: Present mucous
--- NOTE | 2023-02-17 13:22 | P.CONPHA_ITS ---
Pharmacy Intervention Comments: Counseled patient and family on one new medication to START at discharge (pantoprazole), one medication to HOLD until cardiology follow-up (losartan), and two medications to STOP (omeprazole, isosorbide mononitrate) at discharge. Patient and family expressed understanding of therapy changes and new medica tion's indication, dose, route, frequency, and potential side effects.
--- NOTE | 2023-02-18 13:44 | CARE MANAGER ---
Contacted patient related to hospital discharge. He states he is feeling better and has not picked up his prescription yet but is getting it this afternoon. He denies questions or concerns and is aware of follow up appointments. QUEENIE Gutierrez
== END 2023-02-17 14:58 | disposition home or self-care (01) ==
LOC: ER 04:29 → 2ND 05:41
PROVIDERS: Nurse Practitioner Family; Admitting Provider Internal Medicine Adolescent Medicine; Emergency Provider Emergency Medicine; PCP Internal Medicine; Visit Provider Internal Medicine Adolescent Medicine
DX: R07.9 Chest pain, unspecified (principal); I10 Essential (primary) hypertension; E78.5 Hyperlipidemia, unspecified; M10.9 Gout, unspecified; N40.0 Benign prostatic hyperplasia without lower urinary tract symptoms; I25.10 Atherosclerotic heart disease of native coronary artery without angina pectoris; Z79.899 Other long term (current) drug therapy; R00.1 Bradycardia, unspecified; Z82.49 Family history of ischemic heart disease and other diseases of the circulatory system; R06.9 Unspecified abnormalities of breathing
CPT/HCPCS: G0378; 36415; 71046; 80048; 80061; 80076; 83735; 83880; 84145; 84484; 85025; 85651; 86140; 93005; 93270; 93306; 99285

== ENCOUNTER 2023-03-16 08:14 | Day surgery (SDC) | payer MEDICARE, SELFPAY ==
[2023-03-11 15:07] VITALS: BMI 28.7
[2023-03-16 08:35] VITALS: BP 134/81; PULSE 56; RESP 18; TEMP 37.1; O2SAT 93
--- NOTE | 2023-03-16 09:00 | EXP.ANES.CKL ---
[facility] Disclaimer: The information contained in this section may have been updated after the patient was seen, as this information can be updated by other users. Medical History GERD (gastroesophageal reflux disease) Gout History of kidney stones HLD (hyperlipidemia) HTN (hypertension) Syncope, vasovagal Surgical History History of extraction of renal calculus Hx laparoscopic cholecystectomy Hx of appendectomy Hx of knee surgery Family History Other Family history of myocardial infarction Lung cancer Social History Smoking Status: Never smoker second hand exposure: No alcohol intake: never counseling provided: none substance use type: denies use current occupational status: employed and unemployed Travel in the last 8 weeks: None household members: spouse housing: house lives independently: No marital status: service: No assisted: No current occupation: [employer] current occupational exposures/hazards: No pets and animals: Yes caffeine: No [facility] Anesthesia Checklist Patient Identification Patient Identification: Arm Band Structural Data Admitted From: Home Planned Operative Procedure/s: EGD Consent for Planned Operative Procedure(s) Verified: Yes Verified Documents: Surgical Consent and History and Physical NPO Status Verified Time NPO: 00:00 Additional verifications Anesthesia Reactions: No Hx Blood Transfusions: No Blood Transfusion Reaction: Yes Airway Assessment C-Spine Mobility Assessed: Yes TMJ Mobility Assessed: Yes Dentition: Poor Dentition Neurological Assessment Level of Consciousness: Awake and Alert Anesthesia Plan Anesthesia Risk discussed: Yes Anesthesia Plan: Verified ASA Class: III Anesthesia Type: MAC
--- NOTE | 2023-03-16 09:06 | P.PCN_ITS ---
Procedure: Date: 03/16/23 Patient Date of :: 1955 Procedure Performed:: Esophagogastroduodenoscopy with biopsy Indications:: Dysphagia Sliding hiatal hernia Gastroesophageal reflux Performing Provider:: Royal Abdul MD Referring Provider:: . Sedation:: Monitored anesthesia care Procedure:: After informed consent was obtained the patient was taken to the endoscopy suite. Sedation ensued after the patient was transferred to the left lateral decubitus position. Pulse, blood pressure, and oxygen saturation were monitored throughout the procedure. The endoscope was advanced beyond the duodenal bulb. Retroflexion within the gastric lumen was accomplished. The gastroscope was carefully removed and the patient was transferred to recovery in stable condition. Please see findings and specimens below for detail. Findings:: Gastroesophageal junction at 37 cm Mild/early Schatzki ring with no sign of significant stricture Patulous/tortuous esophagus Sliding hiatal hernia (unchanged) Fairly high-arcing cardia Moderate streaking distal gastritis versus gastric antral vascular ectasia (no bleeding) Specimens:: Antral biopsy Recommendations:: Follow-up pathology Consider barium swallow and/or modified barium swallow May benefit from ENT consultation Will discuss evaluation by Dr. Pravin Herrera at the [facility] regarding possible hiatal hernia repair Complications:: No immediate Estimated blood obtained (mL): 1
[2023-03-16 09:10] VITALS: O2SAT 93
[2023-03-16 09:31] VITALS: BP 95/55; PULSE 54; RESP 18; TEMP 36.5; O2SAT 91
[2023-03-16 09:41] VITALS: BP 102/65; PULSE 54; RESP 18; O2SAT 93
[2023-03-16 09:50] VITALS: BP 107/69; PULSE 59; RESP 18; O2SAT 94
[2023-03-16 10:00] VITALS: BP 123/75; PULSE 51; RESP 18; O2SAT 95
== END 2023-03-16 10:00 | disposition home or self-care (01) ==
PROVIDERS: PCP Internal Medicine; Visit Provider Surgery
PROC: 0DJ08ZZ Inspection of Upper Intestinal Tract, Via Natural or Artificial Opening Endoscopic (ICD-10-PCS; CPT 43235; principal; 2023-03-16 09:30)
DX: R13.10 Dysphagia, unspecified (principal); K21.9 Gastro-esophageal reflux disease without esophagitis; K44.9 Diaphragmatic hernia without obstruction or gangrene; Z79.899 Other long term (current) drug therapy
CPT/HCPCS: 43239; 88305

== ENCOUNTER → 2023-04-02 10:03 | Outpatient (CLI) | payer MEDICARE, SELFPAY ==
--- NOTE | 2023-04-02 10:03 | FL_ITS ---
FINAL REPORT CLINICAL HISTORY: DYSPHAGIA X 3 MONTHS 69.12MgY 1.11 MIN FLOURO TIME FINDINGS: ESOPHAGRAM HISTORY: Dysphagia, feels like food getting stuck in throat. TECHNIQUE: Patient ingested thick and thin barium contrast. Spot films were performed. 33 images were saved. FINDINGS: The esophagus demonstrates a moderate sliding-type hiatal hernia. There is no gastroesophageal reflux demonstrated. No mucosal defects are seen. There is severe esophageal dysmotility. No changes of esophagitis are evident. 13 mm barium tablet passes easily through the esophagus and into the stomach. Incidental note is made of silent aspiration of contrast. FLUOROSCOPY TIME: 1.1 minutes RADIATION DOSE: 69.12 mGy IMPRESSION: Moderate hiatal hernia. Severe esophageal dysmotility. Silent aspiration of contrast noted. Reviewed, Interpreted and Dictated by Nikki Waldrop MD Transcribed by Yuki Harper PA-C Authenticated and . [facility]
== END ==
LOC: RAD 10:03
PROVIDERS: PCP Internal Medicine; Visit Provider Surgery
DX: R13.10 Dysphagia, unspecified (principal)
CPT/HCPCS: 74220

== ENCOUNTER → 2023-05-03 10:44 | Outpatient (CLI) | payer MEDICARE, SELFPAY ==
--- NOTE | 2023-05-03 10:44 | FL_ITS ---
FINAL REPORT CLINICAL HISTORY: FT 1:11 difficulty swallowing FINDINGS: MODIFIED BARIUM SWALLOW History: Dysphagia FINDINGS: Fluoroscopy was provided for the speech pathologist to evaluate the swallowing mechanism. The patient was given several different consistencies of barium while the swallow was visualized fluoroscopically. The report of the speech pathologist should be consulted prior to making dietary decisions. FLUOROSCOPY TIME: 1 minute 11 seconds IMPRESSION: Modified barium swallow under fluoroscopic guidance. Please see the report of the speech pathologist for Dietary recommendations. Reviewed, Interpreted and Dictated by Jairo Nur III, MD Transcribed by JAREK Arteaga Authenticated and . [facility]
--- NOTE | 2023-05-03 11:39 | HMH.SLMBS2 ---
Speech & Language Evaluation Speech/Language Mod Barium Swallow Start: 05/03/23 11:21 Freq: once Status: Complete Protocol: Document 05/03/23 11:22 [email or web address] (Rec: 05/03/23 11:39 POORNIMA [id number]) General Information General Current Food Consistency Regular,Thin Liquids Dentition Poor Dentition Oxygen Status Room Air Facial Symmetry Symmetrical Patient Orientation Person,Place,Time,Situation Ability to Follow Directions Excellent Communication Ability No Impairment MBS Recommendations Diet Dietary Recommendations Regular,Thin Liquids Treatment/Strategies Strategy/Precaution Recommend Sitting Upright (90 deg),Small Bites and Sips,Alternate Liquids/Solids Referrals/Other Recommended Referrals GI Consult Mod Barium Swallow Impressions Summary and Impressions Oral Phase Impression Minimal Impairment Oral Phase Summary Minimal impairment of oral phase of swallow. Minimal anterior spillage noted on thin liquid trials. Minimal residue noted in oral cavity on puree consistency trial, which was cleared with liquid wash. Mastication was effective for mechanical soft and regular food trials. AP transit was noted to be effective and timely on all trials. Pharyngeal Phase Impression Mild Impairment Pharyngeal Phase Summary Mild impairment of pharyngeal phase of swallow. No s/sx of aspiration/penetration noted on the study. During thin liquid from cup and straw, pharyngeal stripping BOT retraction were observed to be mildly reduced. Hyolaryngeal elevation was mildly reduced on all consistencies trialed. Minimally reduced epiglottic inversion on all trials. Mild vallecular residue noted on regular food trial which spilled into pyriform sinuses, which was cleared with a thin liquid wash. Pill trial was adequate and pill was successfully cleared. Speech/Language MBS Assessment/Goals/P
== END ==
LOC: RAD 10:44
PROVIDERS: PCP Internal Medicine; Visit Provider Surgery
DX: R13.10 Dysphagia, unspecified (principal); K22.4 Dyskinesia of esophagus
CPT/HCPCS: 70371; 92611

== ENCOUNTER 2023-12-21 17:57 | Inpatient (IN) | payer MEDICARE, SELFPAY ==
[2023-12-21] VITALS (7 sets, daily range): BP systolic 137–159; BP diastolic 85–98; PULSE 55–71; RESP 16–18; TEMP 36.6–36.8; O2SAT 90–97; BMI 33.0; BMI 31.1
--- NOTE | 2023-12-21 18:17 | CT_ITS ---
PROCEDURE INFORMATION: Exam: CT Abdomen And Pelvis With Contrast Exam date and time: 12/21/2023 7:07 PM Age: 68 years old Clinical indication: Abdominal pain; Prior surgery; Surgery date: 6+ months; Surgery type: Hernia repair, gb removed, appendix removed. ; Additional info: Generalized pain, n/v, h/o obstruction TECHNIQUE: Imaging protocol: Computed tomography of the abdomen and pelvis with contrast. Radiation optimization: All CT scans at this facility use at least one of these dose optimization techniques: automated exposure control; mA and/or kV adjustment per patient size (includes targeted exams where dose is matched to clinical indication); or iterative reconstruction. Contrast material: ISOVUE; Contrast volume: 75 ml; Contrast route: IV; COMPARISON: CT ABDOMEN PELVIS W CON 04/05/2022 2:16 AM FINDINGS: Lungs: Lung bases are clear. Diaphragm: Small to moderate-sized hiatal hernia. Liver: A 2.3 cm benign-appearing cyst in the anteromedial segment left lobe of the liver redemonstrated. Subcentimeter low-density lesion in the superior right lobe of liver on image 29 too small to characterize but similar to previous compatible with a cyst or some other benign process. Gallbladder and bile ducts: Status post cholecystectomy. No evident bile duct dilatation allowing for prior cholecystectomy. Pancreas: Normal. No ductal dilation. Spleen: Normal. No splenomegaly. Adrenal glands: Normal. No mass. Kidneys and ureters: Multiple nonobstructing stones noted in the in the upper, mid and lower portions of the right kidney in the right renal pelvis largest measuring 7 mm. Scarring of the posteroinferior medial right kidney noted. Stable 19 mm fat density lesion adjacent to the inferior medial right kidney compatible with benign lesion. Mildly distended right renal pelvis noted with interval improvement that may be residual of the previously noted hydronephrosis. A 4.4 cm benign-appearing cyst superomedial left kidney. No follow-up for this lesion advised. Kidneys and ureters otherwise unremarkable with no obstructing stones or uropathy. Stomach and bowel: [id number] dilated fluid filled small bowel loops are noted extending into the right lower quadrant measuring up to 4.1 cm in diameter. Associated transition to decompressed more distal bowel loops in the anterior upper right pelvis on axial image 104. The more distal small bowel loops in the right lower quadrant and pelvis are essentially completely decompressed. There is associated mild wall thickening and enhancement of the more distal dilated small bowel loops most pronounced involving the loop just proximal to the transition point. Occasional diverticulum in the sigmoid. GI tract structures otherwise unremarkable. No evident pneumatosis or free air. Appendix: Patient is status post appendectomy per history. Intraperitoneal space: Small amount of mesenteric edema noted in the right mid abdomen and right lower quadrant region. Vasculature: [id number] atherosclerotic narrowing of the origins of the celiac and SMA similar to previous. Moderate narrowing of the proximal right and [id number] narrowing of the proximal left renal artery similar to previous. Lymph nodes: Unremarkable. No enlarged lymph nodes. Urinary bladder: Unremarkable as visualized. Reproductive: Unremarkable as visualized. Bones/joints: Unremarkable. No acute fracture. Soft tissues: Unremarkable. IMPRESSION: 1. Findings compatible with distal small bowel obstruction with transition point in the right lower quadrant. Associated mild wall thickening and mesenteric edema of the distal dilated small bowel loops of uncertain significance and might reflect a superimposed enteritis but developing complicated small bowel obstruction can not be totally excluded in the proper clinical setting. 2. Atherosclerotic changes with [id number]-[id number] atherosclerotic narrowing of the SMA, celiac, and left renal arteries. 3. Additional nonemergent findings as above.. COMMENTS: Consistent with the [employer]'s Incidental Findings Committee white paper (J Am Aniyah Radiol 2018): Any incidental renal lesion less than 1 cm or classified as too small to characterize, or any incidental cystic renal lesion characterized as simple-appearing, is likely benign. No follow-up imaging is recommended for these lesions per consensus recommendations based on imaging criteria.
[2023-12-21] MEDS: MORPHINE 4MG/ML SYRINGE 4 MG IV (18:23)
[2023-12-21] MEDS: METOCLOPRAMIDE HCL 10MG/2ML VIAL 10 MG IVP (18:24)
[2023-12-21] MEDS: LACTATED RINGERS 1000ML 1,000 ML 999 ML IV (18:24)
[2023-12-21 18:47] LABS: Basophils % 0.2 % (0.1-2.0); Eosinophils % 0.5 % (0.1-12.0); Hematocrit 50.3 % (42.0-52.0); Hemoglobin 15.6 g/dL (14.1-18.0); Lymphocytes # 1.4 K/mm3 (0.7-4.5); Mean Corpuscular HGB Conc 31.1 g/dL (31.8-35.4); Mean Corpuscular Hemoglobin 29.2 pg (27.0-31.2); Mean Platelet Volume 8.5 fl (7.4-10.4); Monocytes # 0.5 K/mm3 (0.1-1.0); Monocytes % 6.6 % (1.7-9.3); Neutrophils % 74.7 % (37.0-80.0); Platelet Count 286 K/mm3 (142-424); Red Blood Count 5.35 M/mm3 (4.60-6.20)
[2023-12-21 18:50] LABS: Alanine Aminotransferase 59 U/L (12-78); Albumin Level 4.4 g/dl (3.5-5.0); Albumin/Globulin Ratio 1.3 (1.1-1.8); Alkaline Phosphatase 97 U/L (38-126); Anion Gap 11.3 mEq/L (5-15); Aspartate Amino Transferase 47 U/L (17-59); Bilirubin,Total 1.4 mg/dl (0.2-1.3); Blood Urea Nitrogen 18 mg/dl (9-20); Calcium 10.8 mg/dl (8.4-10.2); Carbon Dioxide 29 mmol/L (22.0-30.0); Chloride 102 mmol/L (98-107); Creatinine Clearance Estimated 92 mL/min (50-200); Estimated Glomerular Filt Rate 66 ml/min (>60); GFR (African American) 80 ML/MIN (>60); Globulin 3.5 g/dL (1.3-3.2); Glucose 128 mg/dl (74-100); Lipase 45 U/L (23-300); Potassium 4.3 mmoL/L (3.5-5.1); Sodium 138 mmol/L (136-145); Total Protein,Serum 7.9 g/dl (6.3-8.2)
--- NOTE | 2023-12-21 19:08 | HMH.EDGENADL ---
Discharge Plan Disposition Patient Disposition: Admitted Clinical Impressions Clinical Impression: Small bowel obstruction Discharge ED Provider: Mi Reza General Adult HPI General Chief complaint: Abdominal Pain Stated complaint: abd pain, no bowel movement 2 days Time Seen by Provider: 12/21/23 18:04 Mode of Arrival: Ambulatory Source of Information: Patient Limitations: No Limitations Description of Symptoms (Recalled from ER Triage Doc. by RN): pt c/o upper middle abd pain that is sharp in nature. pt states the pain is intermittant when it hits is an 8/10. pt states his last bm was 3d ago. pt reports this feels the same as when he had a bowel obstruction a few years ago. pt states he has not passed any gas since yesterday. pt reports he started having N/V last night and today it turned brown in color. History of Present Illness HPI narrative: This patient is a 68-year-old male with a history of hiatal hernia, hernia repair surgery, bowel obstruction, hypertension, hyperlipidemia, CAD, and BPH presenting to the emergency department for evaluation with concern for generalized abdominal pain, nausea, vomiting, and inability to pass gas or had a bowel movement since yesterday around 8 AM. Emesis is bilious. He states that this feels the same as his prior bowel obstruction, which he had approximately 2 to 3 years ago. He states that bowel obstruction was treated conservatively. He did not have to have surgery. No other concerns noted, such as fevers, chills, or other issues. Related Data Home Medications Medication Instructions Recorded Confirmed citalopram 10 mg tablet 10 mg PO DAILY mood 04/17/18 12/21/23 diclofenac sodium 75 mg 75 mg PO BIDP PRN PAIN 05/27/20 12/21/23 tablet,delayed release losartan 100 mg tablet 100 mg PO DAILY High blood pressure 05/27/20 12/21/23 atorvastatin 20 mg tablet 20 mg PO HS Cholesterol 07/29/21 12/21/23 tamsulosin 0.4 mg capsule 0.4 mg PO HS prostate 04/09/22 12/21/23 allopurinol 300 mg tablet 300 mg PO DAILY gout 08/04/22 12/21/23 magnesium oxide 400 mg (241.3 mg 400 mg PO BID muscle cramps 08/04/22 12/21/23 magnesium) tablet isosorbide mononitrate 30 mg 30 mg PO DAILY DAILY 03/02/23 12/21/23 tablet,extended release 24 hr pantoprazole 40 mg tablet,delayed 40 mg PO HS GERD 03/11/23 12/21/23 release bisoprolol fumarate 5 mg tablet 1 mg PO HS 12/21/23 12/21/23 hydrocodone 5 mg-acetaminophen 325 1 tab PO Q6H PRN Pain, Moderate 12/21/23 12/21/23 mg tablet Allergies Allergy/AdvReac Type Severity Reaction Status Date / Time No Known Allergies Allergy Verified 05/14/23 09:02 [facility] Disclaimer: The information contained in this section may have been updated after the patient was seen, as this information can be updated by other users. Medical History GERD (gastroesophageal reflux disease) Gout History of kidney stones HLD (hyperlipidemia) HTN (hypertension) Syncope, vasovagal Surgical History History of colonoscopy History of esophagogastroduodenoscopy (EGD) History of extraction of renal calculus Hx laparoscopic cholecystectomy Hx of appendectomy Hx of knee surgery Family History Other Family history of myocardial infarction Lung cancer Social History (Updated 12/21/23 @ 21:04 by Yanna Walton RN) Smoking Status: Never smoker second hand exposure: No alcohol intake: never counseling provided: none substance use type: denies use current occupational status: employed and unemployed Travel in the last 8 weeks: None household members: spouse housing: house lives independently: No marital status: service: No longterm: No current occupation: [employer] current occupational exposures/hazards: No pets and animals: Yes caffeine: No ROS Obtained: Yes All systems reviewed & no additional complaints except as documented Physical Exam General General appearance: alert Comment: Uncomfortable appearing, actively retching Head Head exam: atraumatic and normocephalic Eye Eye exam: Present normal appearance, PERRL and EOMI ENT ENT exam: Present normal exam, normal oropharynx, mucous membranes moist and normal external ear exam Neck Neck exam: Present normal inspection, full ROM and trachea midline; Absent tenderness Chest Chest inspection: Present normal inspection and symmetric chest wall rise; Absent tenderness Respiratory Respiratory exam: Present normal lung sounds bilaterally; Absent respiratory distress, wheezes, stridor or accessory muscle use Cardiovascular Cardiovascular exam: Present regular rate and normal rhythm Abdominal Exam Abdominal exam: Present distention and tenderness (Generalized); Absent guarding, rebound or rigidity Extremities Exam Extremities exam: Present normal inspection, full ROM and normal capillary refill; Absent tenderness or edema Back Exam Back exam: Present normal inspection and full ROM; Absent tenderness Neurological Exam Neurological exam: Present alert, oriented X3, CN II-XII intact and normal gait; Absent motor sensory deficit Psychiatric Psychiatric exam: Present normal affect and normal mood Skin Skin exam: Present warm and dry Medical Decision Making Medical Records Medical records reviewed: Yes I reviewed the patient's medical records. Nicholas Inquiry Pt receiving controlled substance: No Vital Signs: 12/21/23 18:16 12/21/23 18:50 12/21/23 19:00 Temperature 98.3 F Temperature Source Oral Pulse Rate 65 59 L Pulse Rate [Left] 71 Respiratory Rate 18 Blood Pressure 159/98 H 137/85 Blood Pressure [Right Arm] 141/92 H Blood Pressure Mean [Right Arm] 108 Blood Pressure Source [Right Arm] Automatic Cuff Blood Pressure Position [Right Arm] Sitting 02 Sat by Pulse Oximetry 95 90 L 91 L Oxygen Delivery Method Room Air 12/21/23 19:30 Temperature Temperature Source Pulse Rate 59 L Pulse Rate [Left] Respiratory Rate Blood Pressure 155/92 H Blood Pressure [Right Arm] Blood Pressure Mean [Right Arm] Blood Pressure Source [Right Arm] Blood Pressure Position [Right Arm] 02 Sat by Pulse Oximetry 91 L Oxygen Delivery Method Lab Data Lab results reviewed: Yes I reviewed the patient's lab results. Lab Results 12/21/23 18:14: WBC 8.0, RBC 5.35, Hgb 15.6, Hct 50.3, MCV 94.0, MCH 29.2, MCHC 31.1 L, RDW 15.0, Plt Count 286, MPV 8.5, Neut % (Auto) 74.7, Lymph % (Auto) 18.0, [place] % (Auto) 6.6, Eos % (Auto) 0.5, Baso % (Auto) 0.2, Neut # (Auto) 6.0, Lymph # (Auto) 1.4, [place] # (Auto) 0.5, Eos # (Auto) 0.0, Baso # (Auto) 0.0, Sodium 138, Potassium 4.3, Chloride 102, Carbon Dioxide 29, Anion Gap 11.3, BUN 18, Creatinine 1.10, Estimated Creat Clear 92, Estimated GFR 66, Est GFR ( Amer) 80, Glucose 128 H, Calcium 10.8 H, Total Bilirubin 1.4 H, AST 47, ALT 59, Alkaline Phosphatase 97, Total Protein 7.9, Albumin 4.4, Globulin 3.5 H, Albumin/Globulin Ratio 1.3, Lipase 45 12/21/23 18:45: Lactate 1.6 12/21/23 19:22: Urine Color Yellow, Urine Appearance Clear, Urine pH 6.5, Ur Specific [place] 1.020, Urine Protein 1+, Urine Glucose (UA) Negative, Urine Ketones Negative, Urine Blood 3+, Urine Nitrate Negative, Urine Bilirubin 1+ A, Urine Urobilinogen 4.0, Ur Leukocyte Esterase Negative, Urine RBC 10-20, Urine WBC Occasional, Ur Squamous Epith Cells Occasional, Calcium Oxalate Crystal Trace, Urine Bacteria Trace 12/21/23 18:14 12/21/23 18:14 Orders (Tests/Meds): ED MEDICATIONS Generic Name Dose Route Start Last Admin Trade Name Freq PRN Reason Stop Dose Admin Acetaminophen 650 mg 12/21/23 20:25 Acetaminophen 325mg Tab PO 01/20/24 20:24 Q4HP PRN Fever or Mild Pain (1-3) Allopurinol 300 mg 12/22/23 09:00 Allopurinol 300mg Tablet PO 01/21/24 08:59 DAILY [facility] Atorvastatin Calcium 20 mg 12/22/23 21:00 Atorvastatin 20mg Tablet PO 01/21/24 20:59 HS MELLISA Bisoprolol Fumarate 1 mg 12/22/23 21:00 Bisoprolol 5mg Tablet PO 01/21/24 20:59 HS MELLISA Citalopram Hydrobromide 10 mg 12/22/23 09:00 Citalopram 10mg Tablet PO 01/21/24 08:59 DAILY MELLISA Metronidazole 500 mg in 100 mls @ 100 mls/hr 12/21/23 21:30 12/21/23 22:25 Flagyl 500mg/100ml Ivpb IV 12/31/23 21:29 100 mls/hr Q8H MELLISA Administration Irbesartan 150 mg 12/22/23 09:00 Irbesartan 150mg Tab PO 01/21/24 08:59 DAILY MELLISA Isosorbide Mononitrate 30 mg 12/22/23 09:00 Isosorbide [place] 30mg Tab.Er.24h PO 01/21/24 08:59 DAILY MELLISA Morphine Sulfate 2 mg 12/21/23 20:25 12/21/23 22:30 Morphine 2mg/Ml Syringe IV 01/20/24 20:24 2 mg Q2HP PRN Administration Severe Pain (7-10) Sodium Chloride 10 ml 12/21/23 19:07 12/21/23 19:09 Sodium Chloride 0.9% 10ml Syr (Rad Only) IV 01/20/24 19:06 10 ml NEEDED PRN Administration Maintain IV Site Tamsulosin HCl 0.4 mg 12/22/23 21:00 Tamsulosin 0.4mg Capsule PO 01/21/24 20:59 HS MELLISA Discontinued Medications Generic Name Dose Route Start Last Admin Trade Name Freq PRN Reason Stop Dose Admin Lactated Ringer's 1,000 mls @ 999 mls/hr 12/21/23 18:17 12/21/23 18:24 Lactated Ringer's 1000 Ml Bag IV 12/21/23 19:17 999 mls/hr .Q1H1M ONE Administration Iopamidol 75 ml 12/21/23 19:07 12/21/23 19:09 Iopamidol-370 (76%);100ml Bottle IV 12/21/23 19:08 75 ml ONCE ONE Administration Metoclopramide HCl 10 mg 12/21/23 18:17 12/21/23 18:24 Metoclopramide Hcl 10mg/2ml Vial IVP 12/21/23 18:18 10 mg ONCE ONE Administration Morphine Sulfate 4 mg 12/21/23 18:19 12/21/23 18:23 Morphine 4mg/Ml Syringe IV 12/21/23 18:20 4 mg ONCE ONE Administration ORDERS Category Date Time Status CT abdomen pelvis w con Stat Cat Scan 12/21/23 18:17 Completed Surgery Consult (on-call) [Consult to On-Call Gen'l Cons 12/21/23 20:25 Ordered Surgeon] [CONS] Routine Complete Blood Count Auto Diff AMLAB Lab 12/22/23 06:00 Ordered Complete Blood Count Auto Diff Stat Lab 12/21/23 18:14 Completed Comprehensive Metabolic Panel AMLAB Lab 12/22/23 06:00 Ordered Comprehensive Metabolic Panel Stat Lab 12/21/23 18:14 Completed Lactic Acid Stat Lab 12/21/23 18:45 Completed Lipase Stat Lab 12/21/23 18:14 Completed Magnesium AMLAB Lab 12/22/23 06:00 Ordered Urinalysis and Microscopic Stat Lab 12/21/23 19:22 Completed Medical Decision Narrative: In summary, this patient is a 68-year-old male presenting to the Emergency Department for evaluation of generalized abdominal pain, nausea, vomiting, and inability to have a bowel movement or pass gas since yesterday. Differential diagnoses considered include but are not limited to bowel obstruction, constipation, bowel ischemia, gastroenteritis, colitis, pancreatitis, cholecystitis. Ruling out the most morbid conditions drove assessment. On exam, the patient is uncomfortable appearing with abdominal distention and generalized abdominal tenderness. He states this feels the same as her prior bowel obstruction. Based on clinical picture, feel this is most likely. Workup included CBC, CMP, lipase, lactic acid, urinalysis, and CT scan abdomen pelvis with IV contrast. He was given a bolus of IV fluids as well as IV Reglan and morphine for symptomatic improvement. I independently interpreted CT scan prior to the radiologist read and noted for bowel obstruction with dilated loops of bowel that are fluid-filled. Please see their read for final interpretation. Labs were obtained that demonstrated no significant leukocytosis, elevated lactic or other concerns. Labs are overall reassuring. On reassessment, patient had significant improvement after administration of mentioned above. He had no recurrence of vomiting. His abdominal exam is benign. Radiology called me and noted concern for mild mesenteric edema, which they stated was nonspecific and could just be related to enteritis, but could be concerning for possible complicated bowel obstruction. Given the patient's benign exam and normal labs, I do not feel that colonic ischemia is likely. I had an indirect discussion with the hospitalist who admitted the patient for further evaluation and management in the setting of acute small bowel obstruction. I considered placing an NG tube prior to admission, however given that the patient does not have a significant dilated stomach and has not had recurrence of vomiting, I do not feel that this is indicated. Critical Care Critical Care Time Critical Care Time: No
[2023-12-21] MEDS: IOPAMIDOL-370 (76%);100ML BOTTLE 75 ML IV (19:09)
[2023-12-21] MEDS: SODIUM CHLORIDE 0.9% 10ML SYR (RAD ONLY) 10 ML IV (19:09)
[2023-12-21 19:12] LABS: Lactic Acid 1.6 mmol/L (0.7-2.1)
[2023-12-21 19:26] LABS: Microscopic, Urine URINE MICROSCOPIC (MICROSCOPIC)
[2023-12-21 19:35] LABS: Appearance,Urine CLEAR (Clear); Blood, Urine 3+ (Negative); Color,Urine YELLOW (Yellow); Glucose,Urine (UA) Negative (Negative); Ketones,Urine Negative (Negative); Leukocyte Esterase,Urine Negative (Negative); Nitrate,Urine Negative (Negative); PH,Urine 6.5 (5.0-8.5); Protein,Urine 1+ (Negative)
[2023-12-21 19:38] LABS: Bilirubin,Urine 1+ (Negative)
[2023-12-21 19:46] LABS: Bacteria,Urine Trace /lpf; Calcium Oxalate Crystals,Urine Trace /lpf; Squamous Epithelial Cell,Urine Occasional #/hpf (0-5); WBC,Urine Occasional #/hpf (0-3)
--- NOTE | 2023-12-21 20:18 | PC.NURSE ---
supervisor files made aware of admission to 2nd floor at this time.
--- NOTE | 2023-12-21 20:27 | P.HP_ITS ---
Attending attestation Patient was seen and evaluated at the bedside myself, agree with VERONIKA note. History of Present Illness *Admission Date: 12/21/23 *Reason for visit:: abdominal pain *History of present illness: This is a 68-year-old male with PMHx of hiatal hernia, hernia repair surgery, bowel obstruction, hypertension, hyperlipidemia, CAD, and BPH presenting to the emergency department for evaluation with concern for generalized abdominal pain, nausea, vomiting, and inability to pass gas or had a bowel movement since yesterday around 8 AM. Emesis is bilious. He states that this feels the same as his prior bowel obstruction, which he had approximately 2 to 3 years ago. He states that bowel obstruction was treated conservatively. He did not have to have surgery. No other concerns noted, such as fevers, chills, or other issues. Admitted for evaluation and treatment. [facility] Disclaimer: The information contained in this section may have been updated after the patient was seen, as this information can be updated by other users. Medical History GERD (gastroesophageal reflux disease) Gout History of kidney stones HLD (hyperlipidemia) HTN (hypertension) Syncope, vasovagal Surgical History History of colonoscopy History of esophagogastroduodenoscopy (EGD) History of extraction of renal calculus Hx laparoscopic cholecystectomy Hx of appendectomy Hx of knee surgery Family History Other Family history of myocardial infarction Lung cancer Social History (Updated 12/21/23 @ 21:04 by Yanna Walton RN) Smoking Status: Never smoker second hand exposure: No alcohol intake: never counseling provided: none substance use type: denies use current occupational status: employed and unemployed Travel in the last 8 weeks: None household members: spouse housing: house lives independently: No marital status: service: No senior care: No current occupation: [employer] current occupational exposures/hazards: No pets and animals: Yes caffeine: No Review of Systems Review of Systems Review of systems:: pertinent systems reviewed and negative unless documented below Meds Home Medications and Allergies Home Medications Medication Instructions Recorded Confirmed Type citalopram 10 mg tablet 10 mg PO DAILY mood 04/17/18 12/21/23 History diclofenac sodium 75 mg 75 mg PO BIDP PRN PAIN 05/27/20 12/21/23 History tablet,delayed release losartan 100 mg tablet 100 mg PO DAILY High blood pressure 05/27/20 12/21/23 [place] atorvastatin 20 mg tablet 20 mg PO HS Cholesterol 07/29/21 12/21/23 History tamsulosin 0.4 mg capsule 0.4 mg PO HS prostate 04/09/22 12/21/23 History allopurinol 300 mg tablet 300 mg PO DAILY gout 08/04/22 12/21/23 History magnesium oxide 400 mg (241.3 mg 400 mg PO BID muscle cramps 08/04/22 12/21/23 History magnesium) tablet isosorbide mononitrate 30 mg 30 mg PO DAILY DAILY 03/02/23 12/21/23 History tablet,extended release 24 hr pantoprazole 40 mg tablet,delayed 40 mg PO HS GERD 03/11/23 12/21/23 History release bisoprolol fumarate 5 mg tablet 1 mg PO HS 12/21/23 12/21/23 History hydrocodone 5 mg-acetaminophen 325 1 tab PO Q6H PRN Pain, Moderate 12/21/23 12/21/23 History mg tablet New Prescriptions to Start Prescriptions: Allergies Allergy/AdvReac Type Severity Reaction Status Date / Time No Known Allergies Allergy Verified 05/14/23 09:02 Exam Data for Last 24 hours Vital signs and Labs for Last 24 Hours: Temp Pulse Resp BP Pulse Ox O2 Del Method 98.3 F 59 L 18 155/92 H 91 L Room Air 12/21/23 18:16 12/21/23 19:30 12/21/23 18:16 12/21/23 19:30 12/21/23 19:30 12/21/23 18:50 Laboratory Results - last 24 hr 12/21/23 18:14: WBC 8.0, RBC 5.35, Hgb 15.6, Hct 50.3, MCV 94.0, MCH 29.2, MCHC 31.1 L, RDW 15.0, Plt Count 286, MPV 8.5, Neut % (Auto) 74.7, Lymph % (Auto) 18.0, [place] % (Auto) 6.6, Eos % (Auto) 0.5, Baso % (Auto) 0.2, Neut # (Auto) 6.0, Lymph # (Auto) 1.4, [place] # (Auto) 0.5, Eos # (Auto) 0.0, Baso # (Auto) 0.0, Sodium 138, Potassium 4.3, Chloride 102, Carbon Dioxide 29, Anion Gap 11.3, BUN 18, Creatinine 1.10, Estimated Creat Clear 92, Estimated GFR 66, Est GFR ( Amer) 80, Glucose 128 H, Calcium 10.8 H, Total Bilirubin 1.4 H, AST 47, ALT 59, Alkaline Phosphatase 97, Total Protein 7.9, Albumin 4.4, Globulin 3.5 H, Albumin/Globulin Ratio 1.3, Lipase 45 12/21/23 18:45: Lactate 1.6 12/21/23 19:22: Urine Color Yellow, Urine Appearance Clear, Urine pH 6.5, Ur Specific [place] 1.020, Urine Protein 1+, Urine Glucose (UA) Negative, Urine Ketones Negative, Urine Blood 3+, Urine Nitrate Negative, Urine Bilirubin 1+ A, Urine Urobilinogen 4.0, Ur Leukocyte Esterase Negative, Urine RBC 10-20, Urine WBC Occasional, Ur Squamous Epith Cells Occasional, Calcium Oxalate Crystal Trace, Urine Bacteria Trace I & O for Last 24 hours: Intake & Output 12/18/23 12/19/23 12/20/23 12/21/23 23:59 23:59 23:59 23:59 Weight 104.326 kg Constitutional Constitutional: no acute distress *Routine HEENT Exam Head: Present normocephalic Eye: Present EOMI ENT: Present mucous membranes moist *Routine Neck Exam Neck: Present supple *Routine Respiratory Exam Respiratory: Present CTA bilaterally *Routine Cardiovascular Exam Cardiovascular: Present RRR, Normal S1 and Normal S2 *Routine Abdominal Exam Abdominal: Present soft and normoactive bowel sounds *Routine Rectal Exam Rectal:: deferred *Routine Genitalia Exam Genitalia:: deferred *Routine Skin Exam Skin: Present intact Routine Psychiatric Exam Psychiatric: Present normal affect H&P: Result Imaging and Cardiology EKG: Status: image reviewed by me and Preliminary report CT scan - abdomen: Status: image reviewed by me, Preliminary report and final report Assessment and Plan *Assessment and plan (1) Small bowel obstruction: Status: Acute Category: Medical Code(s): K56.609 - Unspecified intestinal obstruction, unspecified as to partial versus complete obstruction (2) Hiatal hernia: Status: Acute Category: Medical Code(s): K44.9 - Diaphragmatic hernia without obstruction or gangrene (3) BPH (benign prostatic hyperplasia): Status: Acute Qualifiers: Lower urinary tract symptom presence: unspecified whether lower urinary tract symptoms present Qualified Code(s): N40.0 - Benign prostatic hyperplasia without lower urinary tract symptoms Category: Medical Code(s): N40.0 - Benign prostatic hyperplasia without lower urinary tract symptoms (4) Hyperlipidemia: Status: Acute Qualifiers: Hyperlipidemia type: unspecified Qualified Code(s): E78.5 - Hyperlipidemia, unspecified Category: Medical Code(s): E78.5 - Hyperlipidemia, unspecified (5) Hypertension: Status: Acute Qualifiers: Hypertension type: unspecified Qualified Code(s): I10 - Essential (primary) hypertension Category: Medical Code(s): I10 - Essential (primary) hypertension Plan 68-year-old male with PMHx of hiatal hernia, hernia repair surgery, bowel obstruction, hypertension, hyperlipidemia, CAD, and BPH presenting to the emergency department for evaluation with concern for generalized abdominal pain, nausea, vomiting, and inability to pass gas or had a bowel movement since yesterday around 8 AM. Workup included CBC, CMP, lipase, lactic acid, urinalysis, and CT scan abdomen pelvis with IV contrast. He was given a bolus of IV fluids as well as IV Reglan and morphine for symptomatic improvement. CTA of abdomen concerned for bowel obstruction with dilated loops of bowel that are fluid-filled. imaging reviewed. Labs were obtained that demonstrated no significant leukocytosis, elevated lactic or other concerns. Finding discussed with ER for admission. Plan as follow: - SBO: hernia hiatal Admit patient for medical services. Dispo med-surg Consult surgeon. Keep NPO. pain and nausea management. monitor per unit protocols Cont IV hydration started on Flagyl empirically repeat labs in the morning. monitor for electrolytes imbalances -Others chronic conditions: BPH, HTN, CAD HLD. conditions reviewed and stables reconciled and resumed home medication SCD for DVT ppx On protonix Full code
--- NOTE | 2023-12-21 20:31 | PC.NURSE ---
report called to QUEENIE Qiu
--- NOTE | 2023-12-21 20:41 | PC.NURSE ---
patient arrived to floor via wheelchair @20:38
[2023-12-21] MEDS: METRONIDAZ/SOD CHL 500 MG/100 ML PIGGYBACK 100 MG IV (22:25)
[2023-12-21] MEDS: MORPHINE 2MG/ML SYRINGE 2 MG IV (22:30)
[2023-12-22] VITALS: BP 125/68; PULSE 58; RESP 18; TEMP 37.2; O2SAT 94
[2023-12-22] MEDS: MORPHINE 2MG/ML SYRINGE 2 MG IV (01:14)
[2023-12-22 04:00] VITALS: BP 112/56; PULSE 60; RESP 18; TEMP 37.1; O2SAT 95; BMI 31.1
[2023-12-22] MEDS: METRONIDAZ/SOD CHL 500 MG/100 ML PIGGYBACK 100 MG IV ×3 (05:52→21:55)
--- NOTE | 2023-12-22 06:43 | PC.NURSE ---
Patient VS WNL; Recvd pain medication x 2. Has recvd 2 doses of Flagyl. Patient voices no concerns at this time.
[2023-12-22 06:49] LABS: Basophils % 0.2 % (0.1-2.0); Monocytes # 0.5 K/mm3 (0.1-1.0); Neutrophils % 70.9 % (37.0-80.0)
[2023-12-22 06:53] LABS: Chloride 104 mmol/L (98-107); Sodium 136 mmol/L (136-145)
[2023-12-22 06:54] LABS: Potassium 4.4 mmoL/L (3.5-5.1)
[2023-12-22 06:56] LABS: Alanine Aminotransferase 115 U/L (12-78); Albumin Level 3.7 g/dl (3.5-5.0); Albumin/Globulin Ratio 1.2 (1.1-1.8); Alkaline Phosphatase 106 U/L (38-126); Anion Gap 7.4 mEq/L (5-15); Aspartate Amino Transferase 97 U/L (17-59); Bilirubin,Total 1.7 mg/dl (0.2-1.3); Blood Urea Nitrogen 20 mg/dl (9-20); Calcium 9.4 mg/dl (8.4-10.2); Carbon Dioxide 29 mmol/L (22.0-30.0); Creatinine Clearance Estimated 96 mL/min (50-200); Estimated Glomerular Filt Rate 74 ml/min (>60); GFR (African American) 89 ML/MIN (>60); Glucose 106 mg/dl (74-100); Total Protein,Serum 6.7 g/dl (6.3-8.2)
[2023-12-22 06:57] LABS: Magnesium 2.1 mg/dl (1.6-2.3)
[2023-12-22 06:58] LABS: Eosinophils % 0.6 % (0.1-12.0); Lymphocytes % 19.4 % (10-50); Mean Corpuscular HGB Conc 32.1 g/dL (31.8-35.4); Mean Corpuscular Hemoglobin 30.4 pg (27.0-31.2); Mean Corpuscular Volume 94.5 fl (80-94); Mean Platelet Volume 8.1 fl (7.4-10.4); Monocytes % 8.9 % (1.7-9.3); Neutrophils # 3.7 K/mm3 (1.8-7.8); Platelet Count 203 K/mm3 (142-424); Red Blood Count 4.55 M/mm3 (4.60-6.20); White Blood Count 5.2 K/mm3 (4.8-10.8)
[2023-12-22 07:00] LABS: Hemoglobin 13.8 g/dL (14.1-18.0)
--- NOTE | 2023-12-22 07:46 | HMH.PHAINT1 ---
Pharmacy Intervention Comments: MEDICATION RECONCILIATION COMPLETED ON PATIENT USING EXTERNAL FILL HISTORY FROM PHARMACY. -RYNE CARUSO, ALB[place]
[2023-12-22 08:00] VITALS: BP 128/76; PULSE 52; RESP 18; TEMP 36.7; O2SAT 93
[2023-12-22] MEDS: CITALOPRAM 10MG TABLET 10 MG PO (08:40)
[2023-12-22] MEDS: ALLOPURINOL 300MG TABLET 300 MG PO (08:40)
[2023-12-22] MEDS: IRBESARTAN 150MG TAB 150 MG PO (08:41)
--- NOTE | 2023-12-22 08:51 | P.CONS_ITS ---
History of Present Illness *Admission Date: 12/21/23 *Reason for visit:: Small bowel obstruction *History of present illness: This is a 68-year-old gentleman seen in consultation from the primary service for evaluation regarding small bowel obstruction. He presented yesterday evening to the emergency department with increasing abdominal pain. He was diagnosed with small bowel obstruction per CT scan and admitted for further evaluation and management. Although he did initially present with nausea/vomiting, this quickly abated and he states that he has not had limited nausea and no emesis since admission. He states that he feels quite a bit better this morning . He still has not passed flatus and states that he has not had a normal bowel movement in 2 to 3 days . Forwarded from emergency department evaluation/admission H&P: This is a 68-year-old male with PMHx of hiatal hernia, hernia repair surgery, bowel obstruction, hypertension, hyperlipidemia, CAD, and BPH presenting to the emergency department for evaluation with concern for generalized abdominal pain, nausea, vomiting, and inability to pass gas or had a bowel movement since yesterday around 8 AM. Emesis is bilious. He states that this feels the same as his prior bowel obstruction, which he had approximately 2 to 3 years ago. He states that bowel obstruction was treated conservatively. He did not have to have surgery. No other concerns noted, such as fevers, chills, or other issues. Admitted for evaluation and treatment. [facility] Disclaimer: The information contained in this section may have been updated after the patient was seen, as this information can be updated by other users. Medical History GERD (gastroesophageal reflux disease) Gout History of kidney stones HLD (hyperlipidemia) HTN (hypertension) Syncope, vasovagal Surgical History History of colonoscopy History of esophagogastroduodenoscopy (EGD) History of extraction of renal calculus Hx laparoscopic cholecystectomy Hx of appendectomy Hx of knee surgery Family History Other Family history of myocardial infarction Lung cancer Social History (Updated 12/21/23 @ 21:04 by Yanna Walton RN) Smoking Status: Never smoker second hand exposure: No alcohol intake: never counseling provided: none substance use type: denies use current occupational status: employed and unemployed Travel in the last 8 weeks: None household members: spouse housing: house lives independently: No marital status: service: No skilled nursing: No current occupation: [employer] current occupational exposures/hazards: No pets and animals: Yes caffeine: No Meds Home Medications and Allergies Home Medications Medication Instructions Recorded Confirmed Type citalopram 10 mg tablet 10 mg PO DAILY mood 04/17/18 12/22/23 History diclofenac sodium 75 mg 75 mg PO BIDP PRN Mild Pain (Scale 05/27/20 12/22/23 History tablet,delayed release Score 1-4) losartan 100 mg tablet 100 mg PO DAILY High blood pressure 05/27/20 12/22/23 History atorvastatin 20 mg tablet 20 mg PO HS Cholesterol 07/29/21 12/22/23 History tamsulosin 0.4 mg capsule 0.4 mg PO HS prostate 04/09/22 12/22/23 History allopurinol 300 mg tablet 300 mg PO DAILY gout 08/04/22 12/22/23 History magnesium oxide 400 mg (241.3 mg 400 mg PO BID muscle cramps 08/04/22 12/22/23 History magnesium) tablet bisoprolol fumarate 5 mg tablet 5 mg PO HS High Blood Pressure 12/21/23 12/22/23 History hydrocodone 5 mg-acetaminophen 325 1 tab PO Q6HP PRN Moderate Pain 12/21/23 12/22/23 History mg tablet (Scale Score 5-6) omeprazole 40 mg capsule,delayed 40 mg PO DAILY Acid Reflux 12/22/23 12/22/23 History release New Prescriptions to Start Prescriptions: Allergies Allergy/AdvReac Type Severity Reaction Status Date / Time No Known Allergies Allergy Verified 05/14/23 09:02 Exam (Inpt) Vital signs and Labs for Last 24 Hours: Temp Pulse Resp BP Pulse Ox O2 Del Method 98.1 F 52 L 18 128/76 93 L Room Air 12/22/23 08:00 12/22/23 08:00 12/22/23 08:00 12/22/23 08:00 12/22/23 08:00 12/22/23 08:00 Laboratory Results - last 24 hr 12/21/23 18:14: WBC 8.0, RBC 5.35, Hgb 15.6, Hct 50.3, MCV 94.0, MCH 29.2, MCHC 31.1 L, RDW 15.0, Plt Count 286, MPV 8.5, Neut % (Auto) 74.7, Lymph % (Auto) 18.0, [place] % (Auto) 6.6, Eos % (Auto) 0.5, Baso % (Auto) 0.2, Neut # (Auto) 6.0, Lymph # (Auto) 1.4, [place] # (Auto) 0.5, Eos # (Auto) 0.0, Baso # (Auto) 0.0, Sodium 138, Potassium 4.3, Chloride 102, Carbon Dioxide 29, Anion Gap 11.3, BUN 18, Creatinine 1.10, Estimated Creat Clear 92, Estimated GFR 66, Est GFR ( Amer) 80, Glucose 128 H, Calcium 10.8 H, Total Bilirubin 1.4 H, AST 47, ALT 59, Alkaline Phosphatase 97, Total Protein 7.9, Albumin 4.4, Globulin 3.5 H, Albumin/Globulin Ratio 1.3, Lipase 45 12/21/23 18:45: Lactate 1.6 12/21/23 19:22: Urine Color Yellow, Urine Appearance Clear, Urine pH 6.5, Ur Specific [place] 1.020, Urine Protein 1+, Urine Glucose (UA) Negative, Urine Ketones Negative, Urine Blood 3+, Urine Nitrate Negative, Urine Bilirubin 1+ A, Urine Urobilinogen 4.0, Ur Leukocyte Esterase Negative, Urine RBC 10-20, Urine WBC Occasional, Ur Squamous Epith Cells Occasional, Calcium Oxalate Crystal Trace, Urine Bacteria Trace 12/22/23 06:04: WBC 5.2 D, RBC 4.55 L, Hgb 13.8 L D, Hct 43.0, MCV 94.5 H, MCH 30.4, MCHC 32.1, RDW 15.0, Plt Count 203 D, MPV 8.1, Neut % (Auto) 70.9, Lymph % (Auto) 19.4, [place] % (Auto) 8.9, Eos % (Auto) 0.6, Baso % (Auto) 0.2, Neut # (Auto) 3.7, Lymph # (Auto) 1.0, [place] # (Auto) 0.5, Eos # (Auto) 0.0, Baso # (Auto) 0.0, Sodium 136, Potassium 4.4, Chloride 104, Carbon Dioxide 29, Anion Gap 7.4, BUN 20, Creatinine 1.00, Estimated Creat Clear 96, Estimated GFR 74, Est GFR ( Amer) 89, Glucose 106 H, Calcium 9.4, Magnesium 2.1, Total Bilirubin 1.7 H, AST 97 H D, ALT 115 H D, Alkaline Phosphatase 106, Total Protein 6.7, Albumin 3.7 D, Globulin 3.0, Albumin/Globulin Ratio 1.2 I & O for Labs for Last 24 Hours: Intake & Output 12/19/23 12/20/23 12/21/23 12/22/23 11:59 11:59 11:59 11:59 Intake Total 100 / 100 Balance 100 / 100 Weight 217 lb 1.6 oz Constitutional: no acute distress Respiratory: Absent respiratory distress Cardiac: Absent Tachycardia GI: Present soft and tenderness (Minimal global tenderness.); Absent guarding or rebound Results Labs 12/22/23 06:04 12/22/23 06:04 Labs: Laboratory Results - last 24 hr 12/21/23 18:14: WBC 8.0, RBC 5.35, Hgb 15.6, Hct 50.3, MCV 94.0, MCH 29.2, MCHC 31.1 L, RDW 15.0, Plt Count 286, MPV 8.5, Neut % (Auto) 74.7, Lymph % (Auto) 18.0, [place] % (Auto) 6.6, Eos % (Auto) 0.5, Baso % (Auto) 0.2, Neut # (Auto) 6.0, Lymph # (Auto) 1.4, [place] # (Auto) 0.5, Eos # (Auto) 0.0, Baso # (Auto) 0.0, Sodium 138, Potassium 4.3, Chloride 102, Carbon Dioxide 29, Anion Gap 11.3, BUN 18, Creatinine 1.10, Estimated Creat Clear 92, Estimated GFR 66, Est GFR ( Amer) 80, Glucose 128 H, Calcium 10.8 H, Total Bilirubin 1.4 H, AST 47, ALT 59, Alkaline Phosphatase 97, Total Protein 7.9, Albumin 4.4, Globulin 3.5 H, Albumin/Globulin Ratio 1.3, Lipase 45 12/21/23 18:45: Lactate 1.6 12/21/23 19:22: Urine Color Yellow, Urine Appearance Clear, Urine pH 6.5, Ur Specific [place] 1.020, Urine Protein 1+, Urine Glucose (UA) Negative, Urine Ketones Negative, Urine Blood 3+, Urine Nitrate Negative, Urine Bilirubin 1+ A, Urine Urobilinogen 4.0, Ur Leukocyte Esterase Negative, Urine RBC 10-20, Urine WBC Occasional, Ur Squamous Epith Cells Occasional, Calcium Oxalate Crystal Trace, Urine Bacteria Trace 12/22/23 06:04: WBC 5.2 D, RBC 4.55 L, Hgb 13.8 L D, Hct 43.0, MCV 94.5 H, MCH 30.4, MCHC 32.1, RDW 15.0, Plt Count 203 D, MPV 8.1, Neut % (Auto) 70.9, Lymph % (Auto) 19.4, [place] % (Auto) 8.9, Eos % (Auto) 0.6, Baso % (Auto) 0.2, Neut # (Auto) 3.7, Lymph # (Auto) 1.0, [place] # (Auto) 0.5, Eos # (Auto) 0.0, Baso # (Auto) 0.0, Sodium 136, Potassium 4.4, Chloride 104, Carbon Dioxide 29, Anion Gap 7.4, BUN 20, Creatinine 1.00, Estimated Creat Clear 96, Estimated GFR 74, Est GFR ( Amer) 89, Glucose 106 H, Calcium 9.4, Magnesium 2.1, Total Bilirubin 1.7 H, AST 97 H D, ALT 115 H D, Alkaline Phosphatase 106, Total Protein 6.7, Albumin 3.7 D, Globulin 3.0, Albumin/Globulin Ratio 1.[address] scan - abdomen: report reviewed and image reviewed CT scan - pelvis: report reviewed and image reviewed Assessment and Plan *Assessment and plan (1) Small bowel obstruction: Status: Acute Category: Medical Code(s): K56.609 - Unspecified intestinal obstruction, unspecified as to partial versus complete obstruction Plan: The patient has clinically improved over the past few hours; however, he has yet to pass flatus. CT scan results concerning. Continue n.p.o. for now The patient wishes to hold off on nasogastric decompression; however, this may become necessary if he does not continue to improve Serial abdominal exams Serial radiographs
--- NOTE | 2023-12-22 09:02 | XR_ITS ---
FINAL REPORT CLINICAL HISTORY: sbo COMPARISON: CT 12/21/2023 FINDINGS: A PA view of the chest was obtained. The cardiac and mediastinal silhouettes are within normal limits. The lungs are clear. There is no free air beneath the diaphragm. Upright and supine views of the abdomen reveal mildly dilated small bowel loops. There is gas throughout the colon. Right renal stones are noted. No acute osseous abnormalities identified. IMPRESSION: Mildly dilated small bowel loops with gas in the colon. Partial small bowel obstruction not excluded. Reviewed, Interpreted and Dictated by Laura Torres MD Transcribed by Lisa Mg Authenticated and . [facility]
[2023-12-22 15:49] VITALS: BP 124/68; PULSE 49; RESP 16; TEMP 36.6; O2SAT 95
--- NOTE | 2023-12-22 16:39 | EXP.PN ---
Subjective *Date: 12/22/23 *Time: 16:39 Interval history: patient was seen and evaluated at the bedside. He had 2 BMs today No reported acute events overnight, denies chest pain, shortness of breath He has mild abdominal discomfort but no pain Exam Data for Last 24 hours Vital signs and Labs for Last 24 Hours: Temp Pulse Resp BP Pulse Ox O2 Del Method 98 F 49 L 16 124/68 95 Room Air 12/22/23 15:49 12/22/23 15:49 12/22/23 15:49 12/22/23 15:49 12/22/23 15:49 12/22/23 15:49 Laboratory Results - last 24 hr 12/21/23 18:14: WBC 8.0, RBC 5.35, Hgb 15.6, Hct 50.3, MCV 94.0, MCH 29.2, MCHC 31.1 L, RDW 15.0, Plt Count 286, MPV 8.5, Neut % (Auto) 74.7, Lymph % (Auto) 18.0, [place] % (Auto) 6.6, Eos % (Auto) 0.5, Baso % (Auto) 0.2, Neut # (Auto) 6.0, Lymph # (Auto) 1.4, [place] # (Auto) 0.5, Eos # (Auto) 0.0, Baso # (Auto) 0.0, Sodium 138, Potassium 4.3, Chloride 102, Carbon Dioxide 29, Anion Gap 11.3, BUN 18, Creatinine 1.10, Estimated Creat Clear 92, Estimated GFR 66, Est GFR ( Amer) 80, Glucose 128 H, Calcium 10.8 H, Total Bilirubin 1.4 H, AST 47, ALT 59, Alkaline Phosphatase 97, Total Protein 7.9, Albumin 4.4, Globulin 3.5 H, Albumin/Globulin Ratio 1.3, Lipase 45 12/21/23 18:45: Lactate 1.6 12/21/23 19:22: Urine Color Yellow, Urine Appearance Clear, Urine pH 6.5, Ur Specific [place] 1.020, Urine Protein 1+, Urine Glucose (UA) Negative, Urine Ketones Negative, Urine Blood 3+, Urine Nitrate Negative, Urine Bilirubin 1+ A, Urine Urobilinogen 4.0, Ur Leukocyte Esterase Negative, Urine RBC 10-20, Urine WBC Occasional, Ur Squamous Epith Cells Occasional, Calcium Oxalate Crystal Trace, Urine Bacteria Trace 12/22/23 06:04: WBC 5.2 D, RBC 4.55 L, Hgb 13.8 L D, Hct 43.0, MCV 94.5 H, MCH 30.4, MCHC 32.1, RDW 15.0, Plt Count 203 D, MPV 8.1, Neut % (Auto) 70.9, Lymph % (Auto) 19.4, [place] % (Auto) 8.9, Eos % (Auto) 0.6, Baso % (Auto) 0.2, Neut # (Auto) 3.7, Lymph # (Auto) 1.0, [place] # (Auto) 0.5, Eos # (Auto) 0.0, Baso # (Auto) 0.0, Sodium 136, Potassium 4.4, Chloride 104, Carbon Dioxide 29, Anion Gap 7.4, BUN 20, Creatinine 1.00, Estimated Creat Clear 96, Estimated GFR 74, Est GFR ( Amer) 89, Glucose 106 H, Calcium 9.4, Magnesium 2.1, Total Bilirubin 1.7 H, AST 97 H D, ALT 115 H D, Alkaline Phosphatase 106, Total Protein 6.7, Albumin 3.7 D, Globulin 3.0, Albumin/Globulin Ratio 1.2 I & O for Last 24 hours: Intake & Output 12/19/23 12/20/23 12/21/23 12/22/23 23:59 23:59 23:59 23:59 Intake Total 100 / 100 Output Total 0 / 0 Balance 100 / 100 Weight 98.475 kg 98.475 kg Constitutional Constitutional: no acute distress *Routine HEENT Exam Head: Present normocephalic Eye: Present EOMI and PERRL ENT: Present mucous membranes moist *Routine Neck Exam Neck: Present supple; Absent lymphadenopathy *Routine Respiratory Exam Respiratory: Present CTA bilaterally *Routine Cardiovascular Exam Cardiovascular: Present RRR *Routine Abdominal Exam Abdominal: Present soft and normoactive bowel sounds; Absent tenderness *Routine Extremities Exam Extremities: Absent cyanosis, clubbing or edema *Routine Skin Exam Skin: Present warm; Absent rash *Routine Neurological Exam Neurological: Present alert and oriented X3 Assessment and Plan *Assessment and plan (1) Small bowel obstruction: Status: Acute Category: Medical Code(s): K56.609 - Unspecified intestinal obstruction, unspecified as to partial versus complete obstruction (2) Hiatal hernia: Status: Acute Category: Medical Code(s): K44.9 - Diaphragmatic hernia without obstruction or gangrene (3) BPH (benign prostatic hyperplasia): Status: Acute Qualifiers: Lower urinary tract symptom presence: unspecified whether lower urinary tract symptoms present Qualified Code(s): N40.0 - Benign prostatic hyperplasia without lower urinary tract symptoms Category: Medical Code(s): N40.0 - Benign prostatic hyperplasia without lower urinary tract symptoms (4) Hyperlipidemia: Status: Acute Qualifiers: Hyperlipidemia type: unspecified Qualified Code(s): E78.5 - Hyperlipidemia, unspecified Category: Medical Code(s): E78.5 - Hyperlipidemia, unspecified (5) Hypertension: Status: Acute Qualifiers: Hypertension type: unspecified Qualified Code(s): I10 - Essential (primary) hypertension Category: Medical Code(s): I10 - Essential (primary) hypertension Plan 68-year-old male with PMHx of hiatal hernia, hernia repair surgery, bowel obstruction, hypertension, hyperlipidemia, CAD, and BPH presenting to the emergency department for evaluation with concern for generalized abdominal pain, nausea, vomiting, and inability to pass gas or had a bowel movement since yesterday around 8 AM. Workup included CBC, CMP, lipase, lactic acid, urinalysis, and CT scan abdomen pelvis with IV contrast. He was given a bolus of IV fluids as well as IV Reglan and morphine for symptomatic improvement. CTA of abdomen concerned for bowel obstruction with dilated loops of bowel that are fluid-filled. imaging reviewed. Labs were obtained that demonstrated no significant leukocytosis, elevated lactic or other concerns. Finding discussed with ER for admission. Plan as follow: - SBO: hernia hiatal ADvance diet as tolerated pain and nausea management. Cont IV hydration started on Flagyl empirically He refused NG tube, advance diet as tolerated, he had 2 BMs, GS following, serial Abdominal Xrays -Others chronic conditions: BPH, HTN, CAD HLD. conditions reviewed and stables reconciled and resumed home medication SCD for DVT ppx On protonix Full code kat CHEN tomorrow if continues to improve
--- NOTE | 2023-12-22 17:12 | PC.NURSE ---
A&OX4. TOLERATING RA WELL. PT HAS HAD NO C/O THUS FAR THIS SHIFT. REPORTS THAT HE FEELS BETTER, HAS HAD NO NA/VO OR PAIN, AND IS PASSING GAS, ALONG WITH 2 LOOSE BMS THIS SHIFT. UP AND WALKING IN ROOM, TOLERATES WELL. REMAINS NPO AT THIS TIME PER GS. VSS.
[2023-12-22 20:00] VITALS: BP 144/90; PULSE 57; RESP 18; TEMP 36.9; O2SAT 96
[2023-12-22] MEDS: BISOPROLOL 5MG TABLET 5 MG PO (21:13)
[2023-12-22] MEDS: TAMSULOSIN 0.4MG CAPSULE 0.400000000000000022 MG PO (21:13)
[2023-12-22] MEDS: ATORVASTATIN 20MG TABLET 20 MG PO (21:14)
[2023-12-22] MEDS: DIATRIZOATE MEG 66% & DIATRIZOATE NA 10% 30ML UDC 120 ML PO (21:15)
[2023-12-23] VITALS: BP 149/90; PULSE 54; RESP 18; TEMP 36.6; O2SAT 96
[2023-12-23 04:00] VITALS: BP 128/71; PULSE 54; RESP 18; TEMP 36.6; O2SAT 94; BMI 31.2
--- NOTE | 2023-12-23 06:00 | XR_ITS ---
PROCEDURE INFORMATION: Exam: XR Complete Acute Abdomen Series Including Chest Exam date and time: 12/23/2023 5:37 AM Age: 68 years old Clinical indication: Abdominal pain; Additional info: Sbo TECHNIQUE: Imaging protocol: Radiologic exam. Complete acute abdomen series, including 2 or more views of the abdomen and a single view chest. COMPARISON: CR XR ACUTE ABDOMEN SERIES 12/22/2023 9:32 AM FINDINGS: Lungs: Normal. No consolidation. Pleural spaces: Normal. No pleural effusions. No pneumothorax. Heart/Mediastinum: Normal. No cardiomegaly. Gastrointestinal tract: Normal. No bowel dilation. Intraperitoneal space: Normal. No free air. Bones/joints: Normal. No acute fracture. Soft tissues: Normal. IMPRESSION: No acute findings.
[2023-12-23] MEDS: METRONIDAZ/SOD CHL 500 MG/100 ML PIGGYBACK 100 MG IV (06:33)
--- NOTE | 2023-12-23 06:42 | PC.NURSE ---
PT STATES HE HAS HAD A TOTAL OF 10 BMS THROUGH THE NIGHT- STATES THEY ARE LIQUID CONSISTENCY. BOWEL SOUNDS ACTIVE X4 THIS AM. PT HAS NOT VOICED ANY COMPLAINTS TO STAFF T/O SHIFT. PT STATES HE IS EAGER TO START A DIET.
[2023-12-23 07:21] LABS: Basophils % 0.6 % (0.1-2.0); Eosinophils # 0.1 K/mm3 (0.0-0.4); Eosinophils % 2.5 % (0.1-12.0); Hematocrit 43.9 % (42.0-52.0); Hemoglobin 13.9 g/dL (14.1-18.0); Lymphocytes # 1.4 K/mm3 (0.7-4.5); Lymphocytes % 32.3 % (10-50); Mean Corpuscular HGB Conc 31.8 g/dL (31.8-35.4); Mean Corpuscular Hemoglobin 30.5 pg (27.0-31.2); Mean Corpuscular Volume 96.1 fl (80-94); Mean Platelet Volume 7.6 fl (7.4-10.4); Monocytes # 0.4 K/mm3 (0.1-1.0); Monocytes % 9.8 % (1.7-9.3); Neutrophils # 2.3 K/mm3 (1.8-7.8); Neutrophils % 54.8 % (37.0-80.0); Platelet Count 214 K/mm3 (142-424); Red Blood Count 4.57 M/mm3 (4.60-6.20); Red Cell Distribution Width 14.9 % (11.5-17.5); White Blood Count 4.2 K/mm3 (4.8-10.8)
[2023-12-23 07:32] LABS: Chloride 106 mmol/L (98-107); Potassium 3.8 mmoL/L (3.5-5.1)
[2023-12-23 07:34] LABS: Alanine Aminotransferase 100 U/L (12-78); Aspartate Amino Transferase 63 U/L (17-59); Blood Urea Nitrogen 23 mg/dl (9-20); Creatinine Clearance Estimated 88 mL/min (50-200); Estimated Glomerular Filt Rate 66 ml/min (>60); GFR (African American) 80 ML/MIN (>60)
[2023-12-23 07:35] LABS: Albumin Level 3.9 g/dl (3.5-5.0); Albumin/Globulin Ratio 1.3 (1.1-1.8); Alkaline Phosphatase 106 U/L (38-126); Bilirubin,Total 1.2 mg/dl (0.2-1.3); Calcium 10.1 mg/dl (8.4-10.2); Carbon Dioxide 27 mmol/L (22.0-30.0); Globulin 3.1 g/dL (1.3-3.2); Glucose 95 mg/dl (74-100)
[2023-12-23 08:00] VITALS: BP 130/74; PULSE 61; RESP 20; TEMP 36.4; O2SAT 93
[2023-12-23] MEDS: IRBESARTAN 150MG TAB 150 MG PO (08:11)
[2023-12-23] MEDS: ALLOPURINOL 300MG TABLET 300 MG PO (08:11)
[2023-12-23] MEDS: CITALOPRAM 10MG TABLET 10 MG PO (08:11)
[2023-12-23 08:18] LABS: Anion Gap 8.8 mEq/L (5-15); Sodium 138 mmol/L (136-145)
--- NOTE | 2023-12-23 08:28 | EXP.SURG.PN ---
Subjective Patient reports: no new complaints, feels better and bowel movement Exam Data for Last 24 hours Vital signs and Labs for Last 24 Hours: Temp Pulse Resp BP Pulse Ox O2 Del Method 97.8 F 54 L 18 128/71 94 L Room Air 12/23/23 04:00 12/23/23 04:00 12/23/23 04:00 12/23/23 04:00 12/23/23 04:00 12/23/23 06:41 Laboratory Results - last 24 hr 12/23/23 06:32: WBC 4.2 L, RBC 4.57 L, Hgb 13.9 L, Hct 43.9, MCV 96.1 H, MCH 30.5, MCHC 31.8, RDW 14.9, Plt Count 214, MPV 7.6, Neut % (Auto) 54.8, Lymph % (Auto) 32.3, [place] % (Auto) 9.8 H, Eos % (Auto) 2.5, Baso % (Auto) 0.6, Neut # (Auto) 2.3, Lymph # (Auto) 1.4, [place] # (Auto) 0.4, Eos # (Auto) 0.1, Baso # (Auto) 0.0, Sodium 138, Potassium 3.8, Chloride 106, Carbon Dioxide 27, Anion Gap 8.8, BUN 23 H, Creatinine 1.10, Estimated Creat Clear 88, Estimated GFR 66, Est GFR ( Amer) 80, Glucose 95, Calcium 10.1, Total Bilirubin 1.2, AST 63 H D, ALT 100 H, Alkaline Phosphatase 106, Total Protein 7.0, Albumin 3.9, Globulin 3.1, Albumin/Globulin Ratio 1.3 I & O for Last 24 hours: Intake & Output 12/20/23 12/21/23 12/22/23 12/23/23 11:59 11:59 11:59 11:59 Intake Total 100 / 100 100 / 100 Output Total 0 / 0 Balance 100 / 100 100 / 100 Weight 217 lb 1.6 oz 218 lb 8 oz Constitutional Constitutional: no acute distress *Routine Respiratory Exam Respiratory: Absent respiratory distress *Routine Cardiovascular Exam Cardiovascular: Absent tachycardia *Routine Abdominal Exam Abdominal: Present soft; Absent tenderness Progress Note: A&P Assessment and plan (1) Small bowel obstruction: Status: Acute Assessment and plan: Currently without clinical evidence of obstruction. Morning films essentially normal. Okay from surgical standpoint for discharge home with outpatient follow-up.
--- NOTE | 2023-12-24 12:02 | CARE MANAGER ---
Contacted patient related to hospital discharge. He states he feels much better. He is aware of his follow up appointment and denies any questions or concerns. QUEENIE Gutierrez
--- NOTE | 2024-01-05 19:08 | EXP.DC.SUM ---
General Admission date:: 12/21/23 Discharge date: 01/05/24 HPI HPI HPI: This is a 68-year-old gentleman seen in consultation from the primary service for evaluation regarding small bowel obstruction. He presented yesterday evening to the emergency department with increasing abdominal pain. He was diagnosed with small bowel obstruction per CT scan and admitted for further evaluation and management. Although he did initially present with nausea/vomiting, this quickly abated and he states that he has not had limited nausea and no emesis since admission. He states that he feels quite a bit better this morning . He still has not passed flatus and states that he has not had a normal bowel movement in 2 to 3 days . Forwarded from emergency department evaluation/admission H&P: This is a 68-year-old male with PMHx of hiatal hernia, hernia repair surgery, bowel obstruction, hypertension, hyperlipidemia, CAD, and BPH presenting to the emergency department for evaluation with concern for generalized abdominal pain, nausea, vomiting, and inability to pass gas or had a bowel movement since yesterday around 8 AM. Emesis is bilious. He states that this feels the same as his prior bowel obstruction, which he had approximately 2 to 3 years ago. He states that bowel obstruction was treated conservatively. He did not have to have surgery. No other concerns noted, such as fevers, chills, or other issues. Admitted for evaluation and treatment. Hospital Course Hospital Course Hospital Course: 68-year-old male with PMHx of hiatal hernia, hernia repair surgery, bowel obstruction, hypertension, hyperlipidemia, CAD, and BPH presenting to the emergency department for evaluation with concern for generalized abdominal pain, nausea, vomiting, and inability to pass gas or had a bowel movement since yesterday around 8 AM. Workup included CBC, CMP, lipase, lactic acid, urinalysis, and CT scan abdomen pelvis with IV contrast. He was given a bolus of IV fluids as well as IV Reglan and morphine for symptomatic improvement. CTA of abdomen concerned for bowel obstruction with dilated loops of bowel that are fluid-filled. imaging reviewed. Labs were obtained that demonstrated no significant leukocytosis, elevated lactic or other concerns. Finding discussed with ER for admission. Plan as follow: - SBO - improved, tolerating diet and He refused NG tube, advance diet as tolerated, he had 2 BMs, GS following, serial Abdominal Xrays -Others chronic conditions BPH, HTN, CAD HLD. conditions reviewed and stables reconciled and resumed home medication SCD for DVT ppx On protonix Full code likely DC tomorrow if continues to improve Exam Data for Last 24 hours Vital signs and Labs for Last 24 Hours: Temp Pulse Resp BP Pulse Ox O2 Del Method 97.6 F 61 20 130/74 93 L Room Air 12/23/23 08:00 12/23/23 08:00 12/23/23 08:00 12/23/23 08:00 12/23/23 08:00 12/23/23 10:55 Constitutional Constitutional: no acute distress *Routine HEENT Exam Head: Present normocephalic Eye: Present EOMI and PERRL ENT: Present mucous membranes moist *Routine Neck Exam Neck: Present supple; Absent lymphadenopathy *Routine Respiratory Exam Respiratory: Present CTA bilaterally *Routine Cardiovascular Exam Cardiovascular: Present RRR *Routine Abdominal Exam Abdominal: Present soft and normoactive bowel sounds; Absent tenderness *Routine Extremities Exam Extremities: Absent cyanosis, clubbing or edema *Routine Skin Exam Skin: Present warm; Absent rash *Routine Neurological Exam Neurological: Present alert and oriented X3 DS: Diagnosis Discharge Diagnosis (1) Small bowel obstruction: Status: Resolved Code(s): K56.609 - Unspecified intestinal obstruction, unspecified as to partial versus complete obstruction Meds Home Medications and Allergies Home Medications Medication Instructions Recorded Confirmed Type citalopram 10 mg tablet 10 mg PO DAILY mood 04/17/18 12/31/23 History diclofenac sodium 75 mg 75 mg PO BIDP PRN Mild Pain (Scale 05/27/20 12/31/23 History tablet,delayed release Score 1-4) losartan 100 mg tablet 100 mg PO DAILY High blood pressure 05/27/20 12/31/23 History atorvastatin 20 mg tablet 20 mg PO HS Cholesterol 07/29/21 12/31/23 History tamsulosin 0.4 mg capsule 0.4 mg PO HS prostate 04/09/22 12/31/23 History allopurinol 300 mg tablet 300 mg PO DAILY gout 08/04/22 12/31/23 History magnesium oxide 400 mg (241.3 mg 400 mg PO BID muscle cramps 08/04/22 12/31/23 History magnesium) tablet bisoprolol fumarate 5 mg tablet 5 mg PO HS High Blood Pressure 12/21/23 12/31/23 History hydrocodone 5 mg-acetaminophen 325 1 tab PO Q6HP PRN Moderate Pain 12/21/23 12/31/23 History mg tablet (Scale Score 5-6) omeprazole 40 mg capsule,delayed 40 mg PO DAILY Acid Reflux 12/22/23 12/31/23 History release apixaban 5 mg tablet (Eliquis) See Rx Instructions .Route 12/29/23 12/31/23 Rx .COMPLEX #74 tabs New Prescriptions to Start Prescriptions: Allergies Allergy/AdvReac Type Severity Reaction Status Date / Time No Known Allergies Allergy Verified 12/31/23 09:05 Discharge Plan Disposition Patient Disposition: Home, Self-Care Condition: Good Discharge Order Discharge Orders: Discharge Order (Routine); Ordered 12/23/23 Ordered By: Eloise Bishop Follow up Plan Follow up with: Royal Abdul MD [Staff Physician] - 12/31/23 9:00 am Prescriptions/Medication Reconciliation: Continued losartan 100 MG tablet 100 mg PO DAILY Hold Instructions: pending follow-up with cardiology diclofenac sodium 75 MG tablet,delayed release (DR/EC) 75 mg PO BIDP PRN (Reason: Mild Pain (Scale Score 1-4)) atorvastatin 20 MG tablet 20 mg PO HS magnesium oxide 400 mg (241.3 mg magnesium) tablet 400 mg PO BID Patient Comments: TAKE 1 TABLET BY MOUTH TWICE DAILY WITH MEALS FOR MUSCLE CRAMPS allopurinol 300 mg tablet 300 mg PO DAILY Patient Comments: TAKE 1 TABLET BY MOUTH EVERY DAY citalopram 10 MG tablet 10 mg PO DAILY Patient Comments: TAKE 1 TABLET EVERY MORNING tamsulosin 0.4 MG capsule 0.4 mg PO HS hydrocodone-acetaminophen 5-325 mg Tablet 1 tab PO Q6HP PRN (Reason: Moderate Pain (Scale Score 5-6)) bisoprolol fumarate 5 mg tablet 5 mg PO HS omeprazole 40 mg capsule,delayed release(DR/EC) 40 mg PO DAILY Patient Comments: TAKE 1 CAPSULE BY MOUTH EVERY DAY No Action Eliquis 5 mg tablet See Rx Instructions .ROUTE .COMPLEX Qty: 74 0RF Rx Instructions: Take 10 mg (2 tablets) twice a day for 7 days. After this, take 5 mg (1 tablet) twice a day until otherwise instructed by your primary care provider. Problem Reconciliation Problems Reviewed?: Yes Patient Discharge Instructions ACTIVITY: Ambulate as tolerated DIET: continue same diet Patient Instructions: DI for Small Bowel Obstruction Providers Primary Care Provider: Mickey Fine Admit Provider: Eloise Bishop Attending Provider: Eloise Bishop
== END 2023-12-23 11:06 | disposition home or self-care (01) | DRG 392 ==
LOC: ER 20:18 → 2ND 12-22 01:16
PROVIDERS: Nurse Practitioner Family; Admitting Provider Internal Medicine; Emergency Provider Emergency Medicine; PCP Internal Medicine; Visit Provider Internal Medicine
DX: K44.0 Diaphragmatic hernia with obstruction, without gangrene (principal); K21.9 Gastro-esophageal reflux disease without esophagitis; E78.5 Hyperlipidemia, unspecified; I10 Essential (primary) hypertension; M10.9 Gout, unspecified; K44.9 Diaphragmatic hernia without obstruction or gangrene; N40.0 Benign prostatic hyperplasia without lower urinary tract symptoms; I25.10 Atherosclerotic heart disease of native coronary artery without angina pectoris
CPT/HCPCS: 36415; 74021; 74177; 80053; 81001; 83605; 83690; 83735; 85025; 99285; Q9967

== ENCOUNTER 2023-12-29 18:33 | Emergency (ER) | payer MEDICARE, SELFPAY ==
[2023-12-29 18:36] VITALS: BP 152/81; PULSE 60; RESP 16; TEMP 36.5; O2SAT 96; BMI 33.0
--- NOTE | 2023-12-29 19:11 | HMH.EDGENADL ---
Discharge Plan Disposition Patient Disposition: Home, Self-Care Condition: Good Prescriptions Prescriptions: New Eliquis 5 mg tablet See Rx Instructions .ROUTE .COMPLEX Qty: 74 0RF Rx Instructions: Take 10 mg (2 tablets) twice a day for 7 days. After this, take 5 mg (1 tablet) twice a day until otherwise instructed by your primary care provider. No Action losartan 100 MG tablet 100 mg PO DAILY Hold Instructions: pending follow-up with cardiology diclofenac sodium 75 MG tablet,delayed release (DR/EC) 75 mg PO BIDP PRN (Reason: Mild Pain (Scale Score 1-4)) atorvastatin 20 MG tablet 20 mg PO HS magnesium oxide 400 mg (241.3 mg magnesium) tablet 400 mg PO BID Patient Comments: TAKE 1 TABLET BY MOUTH TWICE DAILY WITH MEALS FOR MUSCLE CRAMPS allopurinol 300 mg tablet 300 mg PO DAILY Patient Comments: TAKE 1 TABLET BY MOUTH EVERY DAY citalopram 10 MG tablet 10 mg PO DAILY Patient Comments: TAKE 1 TABLET EVERY MORNING tamsulosin 0.4 MG capsule 0.4 mg PO HS hydrocodone-acetaminophen 5-325 mg Tablet 1 tab PO Q6HP PRN (Reason: Moderate Pain (Scale Score 5-6)) bisoprolol fumarate 5 mg tablet 5 mg PO HS omeprazole 40 mg capsule,delayed release(DR/EC) 40 mg PO DAILY Patient Comments: TAKE 1 CAPSULE BY MOUTH EVERY DAY Referrals Follow up/Referrals: Mickey Fine MD [Primary Care Provider] - See instructions Activity Restrictions/Add. Instructions Additional Instructions/Restrictions: You were evaluated in the emergency department today. 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 You were given your first dose in the emergency department here today. Follow-up with your primary care provider over the next 3 days for reassessment. Return to the emergency department for new or worsening symptoms, such as chest pain, shortness of breath, or other concerns. Clinical Impressions Clinical Impression: Acute deep vein thrombosis (DVT) of right upper extremity Qualifiers: Affected thrombotic vein of extremity: axillary Qualified Code(s): I82.A11 - Acute embolism and thrombosis of right axillary vein Instructions Patient Instructions: DI for Deep Vein Thrombosis Discharge ED Provider: Mi Reza General Adult HPI General Chief complaint: Extremity Injury, Upper Stated complaint: Right arm pain and shoulder Time Seen by Provider: 12/29/23 19:00 Mode of Arrival: Ambulatory Source of Information: Patient Limitations: No Limitations Description of Symptoms (Recalled from ER Triage Doc. by RN): pt states was inpatient and had several ivs in rt arm. day after discharge rt upper arm began hurting. History of Present Illness HPI narrative: This patient is a 68-year-old male with a history of small bowel obstruction with recent admission to the hospital 12/21/23-12/22/23 presenting to the ED for evaluation with concern for right upper arm pain and swelling. Patient states that he has had redness, warmth, and pain and swelling of his right upper arm since having an IV when he was admitted to the hospital. He states that he been persistent since discharge. He notes he had similar like this similarly in the past whenever he had an IV placed for a kidney stone, and he ended up with a DVT. He was on anticoagulation for a brief time, but he does not take any anticoagulation at this time. No fevers, chills, chest pain, shortness of breath, or other concerns. Related Data Home Medications Medication Instructions Recorded Confirmed citalopram 10 mg tablet 10 mg PO DAILY mood 04/17/18 12/22/23 diclofenac sodium 75 mg 75 mg PO BIDP PRN Mild Pain (Scale 05/27/20 12/22/23 tablet,delayed release Score 1-4) losartan 100 mg tablet 100 mg PO DAILY High blood pressure 05/27/20 12/22/23 atorvastatin 20 mg tablet 20 mg PO HS Cholesterol 07/29/21 12/22/23 tamsulosin 0.4 mg capsule 0.4 mg PO HS prostate 04/09/22 12/22/23 allopurinol 300 mg tablet 300 mg PO DAILY gout 08/04/22 12/22/23 magnesium oxide 400 mg (241.3 mg 400 mg PO BID muscle cramps 08/04/22 12/22/23 magnesium) tablet bisoprolol fumarate 5 mg tablet 5 mg PO HS High Blood Pressure 12/21/23 12/22/23 hydrocodone 5 mg-acetaminophen 325 1 tab PO Q6HP PRN Moderate Pain 12/21/23 12/22/23 mg tablet (Scale Score 5-6) omeprazole 40 mg capsule,delayed 40 mg PO DAILY Acid Reflux 12/22/23 12/22/23 release Previous Rx's Medication Instructions Recorded apixaban 5 mg tablet (Eliquis) See Rx Instructions .Route 12/29/23 .COMPLEX #74 tabs Allergies Allergy/AdvReac Type Severity Reaction Status Date / Time No Known Allergies Allergy Verified 05/14/23 09:02 [facility] Disclaimer: The information contained in this section may have been updated after the patient was seen, as this information can be updated by other users. Medical History Syncope, vasovagal Gout HLD (hyperlipidemia) HTN (hypertension) GERD (gastroesophageal reflux disease) History of kidney stones Surgical History History of esophagogastroduodenoscopy (EGD) History of colonoscopy History of extraction of renal calculus Hx of knee surgery Hx laparoscopic cholecystectomy Hx of appendectomy Family History Other Family history of myocardial infarction Lung cancer Social History Smoking Status: Never smoker second hand exposure: No alcohol intake: never counseling provided: none substance use type: denies use current occupational status: employed and unemployed Travel in the last 8 weeks: None household members: spouse housing: house lives independently: No marital status: service: No jail: No current occupation: [employer] current occupational exposures/hazards: No pets and animals: Yes caffeine: No ROS Obtained: Yes All systems reviewed & no additional complaints except as documented Physical Exam General General appearance: alert and in no apparent distress Head Head exam: atraumatic and normocephalic Eye Eye exam: Present normal appearance, PERRL and EOMI ENT ENT exam: Present normal exam, normal oropharynx, mucous membranes moist and normal external ear exam Neck Neck exam: Present normal inspection, full ROM and trachea midline; Absent tenderness Chest Chest inspection: Present normal inspection and symmetric chest wall rise; Absent tenderness Respiratory Respiratory exam: Present normal lung sounds bilaterally; Absent respiratory distress, wheezes, stridor or accessory muscle use Cardiovascular Cardiovascular exam: Present regular rate and normal rhythm Abdominal Exam Abdominal exam: Present soft; Absent distention, tenderness or guarding Extremities Exam Extremities exam: Present full ROM, tenderness, normal capillary refill, edema and other (R upper arm edema/erythema/tenderness; neurovascularly intact distally) Back Exam Back exam: Present normal inspection and full ROM; Absent tenderness Neurological Exam Neurological exam: Present alert, oriented X3, CN II-XII intact and normal gait; Absent motor sensory deficit Psychiatric Psychiatric exam: Present normal affect and normal mood Skin Skin exam: Present warm and dry Medical Decision Making Medical Records Medical records reviewed: Yes I reviewed the patient's medical records. Nicholas Inquiry Pt receiving controlled substance: No Vital Signs: 12/29/23 18:36 12/29/23 21:43 Temperature 97.7 F 97.9 F Temperature Source Oral Oral Pulse Rate 61 Pulse Rate [Right] 60 Respiratory Rate 16 18 Blood Pressure 126/84 Blood Pressure [Left Arm] 152/81 H Blood Pressure Mean [Left Arm] 104 02 Sat by Pulse Oximetry 96 Lab Data Lab results reviewed: Yes I reviewed the patient's lab results. Lab Results 12/29/23 19:53: WBC 6.7, RBC 5.02, Hgb 15.2, Hct 47.9, MCV 95.5 H, MCH 30.2, MCHC 31.6 L, RDW 15.0, Plt Count 248, MPV 8.2, Neut % (Auto) 59.5, Lymph % (Auto) 28.2, Island % (Auto) 7.7, Eos % (Auto) 3.4, Baso % (Auto) 1.2, Neut # (Auto) 4.0, Lymph # (Auto) 1.9, Island # (Auto) 0.5, Eos # (Auto) 0.2, Baso # (Auto) 0.1, ESR 14, PT 10.3, INR 0.95, APTT 23.9, D-Dimer 0.94 H, Sodium 135 L, Potassium 4.6, Chloride 99, Carbon Dioxide 31 H, Anion Gap 9.6, BUN 8 L, Creatinine 1.00, Estimated Creat Clear 101, Estimated GFR 74, Est GFR ( Amer) 89, Glucose 96, Calcium 10.6 H, Total Bilirubin 0.7, AST 50, ALT 67, Alkaline Phosphatase 97, C-Reactive Protein 2.0, Total Protein 8.2, Albumin 4.7, Globulin 3.5 H, Albumin/Globulin Ratio 1.3 12/29/23 19:53 12/29/23 19:53 Orders (Tests/Meds): ED MEDICATIONS Discontinued Medications Generic Name Dose Route Start Last Admin Trade Name Freq PRN Reason Stop Dose Admin Apixaban 10 mg 12/29/23 20:30 12/29/23 21:09 Apixaban 5mg Tablet PO 12/29/23 20:31 10 mg ONCE ONE Administration ORDERS Category Date Time Status POCUS Point of Care (ER Only) Stat Exams 12/29/23 19:07 Taken XR chest 2V Stat Exams 12/29/23 20:28 Completed Activated Partial Thrombo Time Stat Lab 12/29/23 19:53 Completed C-Reactive Protein Stat Lab 12/29/23 19:53 Completed Complete Blood Count Auto Diff Stat Lab 12/29/23 19:53 Completed Comprehensive Metabolic Panel Stat Lab 12/29/23 19:53 Completed D-Dimer Stat Lab 12/29/23 19:53 Completed Erythrocyte Sedimentation Rate Stat Lab 12/29/23 19:53 Completed Prothrombin Time INR Stat Lab 12/29/23 19:53 Completed Medical Decision Narrative: In summary, this patient is a 68 year old male presenting to the Emergency Department for evaluation of R upper arm pain/swelling/redness. Differential diagnoses considered include but are not limited to cellulitis, abscess, DVT. Ruling out the most morbid conditions drove assessment. On exam, the patient is well-appearing. He has no chest pain, shortness of breath, hypoxia, tachycardia, or other concerns. He is neurovascularly intact distally. Workup included CBC, CMP, ESR, CRP, D-dimer, PT, PTT, and bedside right upper extremity ultrasound. I also obtain chest x-ray to evaluate for possible obstructive process. I independently interpreted x-ray prior to the radiologist read and noted large masses or other concern. Please see their read for final interpretation. Labs were obtained that demonstrated elevated D-dimer without significantly other acute concerning abnormalities. Bedside ultrasound performed for myself is concerning for right upper extremity DVT with noncompressible veins. Feel this is likely the result of his recent intravenous catheter.. On reassessment, the patient is resting comfortably with normal vital signs on cardiac telemetry. He has no complaints of chest pain or shortness of breath. At this time, I had a discussion with the patient regarding the risk versus benefit of anticoagulation, including increased risk of bleeding. He states he would like to proceed with anticoagulation, as that is what he did when he had his prior DVT. He was given oral Eliquis here as well as a prescription for Eliquis to take at home. I advised that he follow-up very closely with his primary care provider and given strict return precautions. He was discharged in stable condition after all questions were answered. Procedures Limited Ultrasound Indication:: Limited DVT ultrasound Indication: Limited compression ultrasonography of the Right upper extremity was performed to evaluate for non-compressibility of the deep veins in the patient. The ultrasound was performed with the following indications, as noted in the H&P: Right arm pain, swelling, and erythema Identified structures: Right cephalic vein, R axillary vein Findings: Upper extremity: Right axillary vein is noncompressible with concerns for DVT Impression: Right upper extremity DVT Images were saved to permanent archive The study was technically adequate CPT: 19919-74-GO This study was performed by me, and I personally interpreted all images/videos. Based on my clinical judgement, these images were adequate and did not necessitate further imaging. Critical Care Critical Care Time Critical Care Time: No
[2023-12-29 20:03] LABS: Basophils # 0.1 K/mm3 (0-0.2); Basophils % 1.2 % (0.1-2.0); Eosinophils # 0.2 K/mm3 (0.0-0.4); Eosinophils % 3.4 % (0.1-12.0); Hematocrit 47.9 % (42.0-52.0); Hemoglobin 15.2 g/dL (14.1-18.0); Lymphocytes # 1.9 K/mm3 (0.7-4.5); Lymphocytes % 28.2 % (10-50); Mean Corpuscular HGB Conc 31.6 g/dL (31.8-35.4); Mean Corpuscular Hemoglobin 30.2 pg (27.0-31.2); Mean Corpuscular Volume 95.5 fl (80-94); Mean Platelet Volume 8.2 fl (7.4-10.4); Monocytes # 0.5 K/mm3 (0.1-1.0); Monocytes % 7.7 % (1.7-9.3); Neutrophils % 59.5 % (37.0-80.0); Platelet Count 248 K/mm3 (142-424); Red Blood Count 5.02 M/mm3 (4.60-6.20); White Blood Count 6.7 K/mm3 (4.8-10.8)
[2023-12-29 20:16] LABS: Alanine Aminotransferase 67 U/L (12-78); Albumin Level 4.7 g/dl (3.5-5.0); Albumin/Globulin Ratio 1.3 (1.1-1.8); Alkaline Phosphatase 97 U/L (38-126); Anion Gap 9.6 mEq/L (5-15); Aspartate Amino Transferase 50 U/L (17-59); Bilirubin,Total 0.7 mg/dl (0.2-1.3); Blood Urea Nitrogen 8 mg/dl (9-20); Calcium 10.6 mg/dl (8.4-10.2); Carbon Dioxide 31 mmol/L (22.0-30.0); Chloride 99 mmol/L (98-107); Creatinine Clearance Estimated 101 mL/min (50-200); Estimated Glomerular Filt Rate 74 ml/min (>60); GFR (African American) 89 ML/MIN (>60); Globulin 3.5 g/dL (1.3-3.2); Glucose 96 mg/dl (74-100); Potassium 4.6 mmoL/L (3.5-5.1); Sodium 135 mmol/L (136-145); Total Protein,Serum 8.2 g/dl (6.3-8.2)
[2023-12-29 20:17] LABS: Activated Partial Thrombo Time 23.9 seconds (22.8-30.6); INR 0.95 (0.9-1.1); Prothrombin Time 10.3 seconds (10.1-12.5)
[2023-12-29 20:26] LABS: D-Dimer 0.94 ug/mL (0.0-0.5)
--- NOTE | 2023-12-29 20:28 | XR_ITS ---
PROCEDURE INFORMATION: Exam: XR Chest Exam date and time: 12/29/2023 8:30 PM Age: 68 years old Clinical indication: Other: Arm pain; Additional info: Rue dvt, looking for obstruction TECHNIQUE: Imaging protocol: Radiologic exam of the chest. Views: 2 views. COMPARISON: CR XR ACUTE ABDOMEN SERIES 12/23/2023 5:37 AM and 02/17/2023 hiatal FINDINGS: Lungs: Unremarkable. No consolidation. Pleural spaces: Unremarkable. No pleural effusion. No pneumothorax. Heart/Mediastinum: Hiatal hernia redemonstrated. Bones/joints: Unremarkable. IMPRESSION: Stable chest x-ray with no acute disease.
[2023-12-29 20:32] LABS: Erythrocyte Sedimentation Rate 14 mm/hr (0-20)
[2023-12-29] MEDS: APIXABAN 5MG TABLET 10 MG PO (21:09)
[2023-12-29 21:43] VITALS: BP 126/84; PULSE 61; RESP 18; TEMP 36.6; O2SAT 98
--- NOTE | 2023-12-30 14:34 | PC.NURSE ---
pt called back due to him not having insurance to cover his eliquis at pharmacy and the hsieh is 700 which he cant afford CM unable to help at this time called to see about samples at cardiology office, no samples at this time in ER at this time states that we dont have a solution other than he returns to the ER for further care. PT aware and states that he will talk with his about a plan
== END 2023-12-29 21:44 | disposition home or self-care (01) ==
PROVIDERS: Emergency Provider Emergency Medicine; PCP Internal Medicine
DX: I82.A11 Acute embolism and thrombosis of right axillary vein (principal); M79.601 Pain in right arm; K21.9 Gastro-esophageal reflux disease without esophagitis; I10 Essential (primary) hypertension; E78.5 Hyperlipidemia, unspecified
CPT/HCPCS: 71046; 80053; 85025; 85378; 85610; 85651; 85730; 86140; 99284

== ENCOUNTER 2024-02-01 09:31 | Outpatient (CLI) | payer MEDICARE, SELFPAY ==
[2024-02-01 10:00] LABS: Basophils # 0.1 K/mm3 (0-0.2); Basophils % 1.6 % (0.1-2.0); Eosinophils # 0.2 K/mm3 (0.0-0.4); Eosinophils % 3.5 % (0.1-12.0); Hemoglobin 14.4 g/dL (14.1-18.0); Lymphocytes # 1.2 K/mm3 (0.7-4.5); Lymphocytes % 26.5 % (10-50); Mean Corpuscular Volume 93.6 fl (80-94); Mean Platelet Volume 8.4 fl (7.4-10.4); Monocytes # 0.3 K/mm3 (0.1-1.0); Monocytes % 7.1 % (1.7-9.3); Neutrophils # 2.8 K/mm3 (1.8-7.8); Neutrophils % 61.3 % (37.0-80.0); Platelet Count 249 K/mm3 (142-424); Red Blood Count 4.81 M/mm3 (4.60-6.20); Red Cell Distribution Width 15.2 % (11.5-17.5); White Blood Count 4.6 K/mm3 (4.8-10.8)
[2024-02-01 10:07] LABS: Chloride 108 mmol/L (98-107); Potassium 4.3 mmoL/L (3.5-5.1); Sodium 137 mmol/L (136-145)
--- NOTE | 2024-02-01 10:08 | ECG_ITS ---
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: Resting ECG HR:44 bpm ECG Measurements Heart Rate 44 AXES WI 218 P 22 QRSd 87 QRS -3 QT 445 T 21 QTc 394 Conclusion SINUS BRADYCARDIA WITH FIRST DEGREE AV BLOCK MODERATE VOLTAGE CRITERIA FOR LVH, CONSIDER NORMAL VARIANT [MEETS CRITERIA IN ONE OF: R(aVL), S(V1), R(V5), R(V5/V6)+S(V1)] ABNORMAL ECG UNCONFIRMED REPORT Electronically signed by : Douglas Pace MD 02/01/2024 20:36:27
[2024-02-01 10:10] LABS: Anion Gap 6.3 mEq/L (5-15); Blood Urea Nitrogen 18 mg/dl (9-20); Calcium 10.5 mg/dl (8.4-10.2); Carbon Dioxide 27 mmol/L (22.0-30.0); Estimated Glomerular Filt Rate 55 ml/min (>60); GFR (African American) 66 ML/MIN (>60); Glucose 109 mg/dl (74-100); Iron 129 ug/dL (49-181)
[2024-02-01 10:19] LABS: Total Iron Binding Capacity 346 ug/dL (261-462)
== END 2024-02-01 23:59 ==
LOC: LAB 09:33
PROVIDERS: PCP Internal Medicine; Visit Provider Internal Medicine
DX: D50.9 Iron deficiency anemia, unspecified (principal); I25.118 Atherosclerotic heart disease of native coronary artery with other forms of angina pectoris; I11.9 Hypertensive heart disease without heart failure
CPT/HCPCS: 36415; 80048; 83540; 83550; 85025; 93005

== ENCOUNTER 2024-03-10 10:22 | Outpatient (CLI) | payer MEDICARE, SELFPAY | END 2024-03-10 23:59 | disposition home or self-care (01) | LOC: RT 10:22 | PROVIDERS: PCP Internal Medicine; Visit Provider Physician Assistant | DX: R00.1 Bradycardia, unspecified (principal); I25.10 Atherosclerotic heart disease of native coronary artery without angina pectoris; Z01.818 Encounter for other preprocedural examination | CPT/HCPCS: 93270 ==

== ENCOUNTER 2024-03-22 07:51 | Outpatient (CLI) | payer MEDICARE, SELFPAY ==
--- NOTE | 2024-03-22 | CA_ITS ---
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: [place] Ht: 5 ft 10 in Wt: 229 lbs BSA: 2.21 m2 HR: 50 bpm BP: 129/79 mmHg Rhythm: Sinus fadumo, 1st degree AVB, inferior T wave abns Medical History Medications: Omeprazole,,,,, Losartan,,,,, Allopurinol,,,,, Atorvastatin,,,,, Citalopram,,,,, TAMSULOSIN,,,,, BisOPROLOL Fumarate,,,,, Magnesium OXIDE,,,,, Diclofenac Sodium,,,,, Cardiac Risk Factors: HTN, Hyperlipidemia, FHX of CAD Stress Test Details Test: LEXISCAN HR Resting HR: 51 bpm Max Heart Rate (APMHR): 150 bpm Max HR Achieved: 73 bpm Target HR (85% APMHR): 128 bpm % of APMHR: 49 Recovery HR: 62 bpm BP Resting BP: 129/79 mmHg Max BP: 129/79 mmHg Recovery BP: 103.0/70.0 mmHg ECG Resting ECG: sinus bradycardia, 1st degree AVB, inferior T wave abns Stress ECG: No significant ST changes Arrhythmia: None Clinical Exercise duration: 04:00 min Highest Stage Achieved: Exercise capacity: 1.0 METs Stress ECG Conclusion Switched from exercise due to very limited exercise tolerance During lexiscan pt experinced mild SOA and head discomfort. No CP noted. No significant ST changes. Conclusion: Unremarkable lexiscan stress. Myoview images reported separately. Test Summary REST . . . . . . . Sitting REST 04:42 . . 51 . 129/ 79 . . Stage 1 01:00 . . 59 . . . . Stage 2 01:00 . . 63 . . . . Stage 3 01:00 . . 61 . 113/ 74 . . Stage 4 01:00 . . 58 . 111/ 70 . Stop exercise at 04:00 RECOVERY 01:00 . . 65 . . . . RECOVERY 02:00 . . 60 . . . . RECOVERY 03:00 . . 64 . 103/ 70 . . RECOVERY 03:46 . . 59 . 104/ 77 . . Electronically signed by : Judie Gonzales MD 03/28/2024 14:22:29
--- NOTE | 2024-03-22 07:52 | CA_ITS ---
APPROVED REPORT EXAM: Comprehensive 2D, Doppler, and color-flow Echocardiogram Scientist Propagator: HANNAH Palacios, RVS Ht: 5 ft 10 in Wt: 229lbs BSA: 2.21 BP: 108/66 mmHg Indications: Bradycardia, HTN, HLD Echo Enhancing Agent Comments: Poor acoustics throughout exam due to body habitus. 2D Dimensions LVDd 4.88 cm LVEF (Visual) 53.20 % LVDs 3.54 cm LA Volume 54.10 mL Aortic Root 2.97 cm LA Volume Index 24.996036 mL/m2 (M/F) 16-34 Left Atrium 3.80 cm EF AP4 52.10 % RVID Base (AP4) 4.16 cm (M/F) 2.5-4.1 GL Strain -17.1 % LVOT 2.06 cm (M/F) 1.5-2.5 M-Mode Dimensions RVDd 1.94 cm (0.9-2.6) LVDd 4.88 cm (3.5-5.7) Ao Diam 3.75 cm (2.0-3.7) LVDs 3.71 cm (3.5-5.7) IVSd 1.13 cm (0.6-1.1) PWd 0.93 cm (0.6-1.1) EF (Teich) 67.10% EPSs 0.44 cm FS 34.43% EDV (Teich) 177.90 mL TAPSE 3.36 (<1.7) ESV (Teich) 58.50 mL LV Diastology E Decel Time 181 (160-240 msec) E/A Ratio 1.30 MED E' 7.6 (>= 7 cm/sec) MED A' 10.00 cm/s E'/MED E' Ratio 13.74 (<= 14) LAT E' 10.5 (>= 10 cm/sec) LAT A' 10.10 cm/s E/LAT E' Ratio 9.94 (<= 14) Aortic Valve LVOT Max 130.0 (70-110 cm/s) HUSEYIN Index 0.93 cm2/m2 LVOT VTI 30.10 cm AoV Peak Torey. 205.0 (50-130 cm/s) AO Mean GR. 8.80 (<5 mmHg) AO VTI 48.6 (18-25 cm) HUSEYIN (VTI) 2.06 (2.5-4.5 cm2) Mitral Valve MV E Max Torey. 104.0 (40-130 cm/s) MV A Velocity 80.0 (40-130 cm/s) E/A Ratio 1.30 MV Decel. Time 181 (160-240 ms) Tricuspid Valve TR P. Velocity 263.00 cm/s RAP Estimate 10.00 mmHg RVSP 37.70 mmHg Left Ventricle The left ventricle is normal size. The left ventricular systolic function is normal. The left ventricular ejection fraction is within the normal range. There is increased LV wall thickness. There is normal LV segmental wall motion. The left ventricular diastolic function is normal. LVEF is 55%. Right Ventricle The right ventricle is moderately dilated. Right ventricle is mildly hypokinetic. Atria The left atrium size is normal. Right atrium is mildly dilated. There is no Doppler evidence of interatrial shunt. Aortic Valve The aortic valve is mildly thickened. There is no Doppler evidence of interatrial shunt. Mild aortic stenosis. Peak velocity 2.2 m/s. Mean AV gradient 9 mmHg. Max AV gradient 17 mmHg. HUSEYIN by continuity equation is 1.8 cm???. Mild aortic regurgitation. Mitral Valve The mitral valve is normal in structure. No evidence of mitral valve stenosis. Mild mitral regurgitation. Tricuspid Valve The tricuspid valve leaflets are thin and pliable. Mild tricuspid regurgitation. RVSP is 30???35 mmHg. Pulmonic Valve The pulmonary valve is normal in structure. Mild pulmonic regurgitation. Great Vessels The aortic root is normal in size. The ascending aorta is normal in size. IVC is normal in size and collapses >50% with inspiration. Pericardium There is no pericardial effusion. Other Information Study Quality: Fair Conclusion Normal LV systolic function. Moderate RV dilation with mild reduction in RV function. RA dilation. Mild MR, mild TR, mild PI, mild AI. Mild (peak velocity 2.2 m/s. Mean AV gradient 9 mmHg. Max AV gradient 17 mmHg. HUSEYIN by continuity equation is 1.8 cm???). RVSP is 30???35 mmHg. Electronically signed by : Judie Gonzales MD 03/27/2024 12:21:49
--- NOTE | 2024-03-22 07:56 | NM_ITS ---
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: Nuclear Stress Test Indication: HTN, HYPERLIPIDEMIA, FM HX, BRADYCARDIA, PRE-OP Patient Location: Outpatient Stress Tech: Dayana CORREIA Tech:Cristina Castro AMOSRoseanne RT (R)(N)(M) Ht: 5 ft 11 in Wt: 210 lbs HR: 51 bpm BP: 129/79 mmHg BSA: 2.15 m2 TID: 1.20 BMI: 29.2 History: HTN, HYPERLIPIDEMIA, FM HX, BRADYCARDIA, PRE-OP Procedure: Patient received 0.4 mg of intravenous Lexiscan, resting heart rate 51 bpm, resting blood pressure 129/79 mmHg, with Lexiscan maximum heart rate achieved was 73 bpm which is % of the maximum predicted heart rate and blood pressure was 129/79 mmHg. With Lexiscan, patient denied any complaint of chest pain. Cardiac Stress and Resting SPECT Images: Cardiac Stress and Resting SPECT images were obtained using technetium 99m Myoview 31.6 mCi stress and 10.48 mCi at rest. Resting and stress imaging in supine and prone positions demonstrate no evidence of fixed or reversible perfusion defects. There is borderline increase in transient ischemic dilatation ratio (TID 1.20) suggestive of possible multivessel disease or balanced ischemia. Gated imaging demonstrates normal global and regional LV systolic function. LVEF is calculated at 64%. Conclusion: No evidence of fixed or reversible perfusion defects. There is borderline increase in transient ischemic dilatation ratio (TID 1.20) suggestive of possible multivessel disease or balanced ischemia. Gated imaging demonstrates normal global and regional LV systolic function. LVEF is calculated at 64%. Electronically signed by : Judie Gonzales MD 03/28/2024 14:23:45
[2024-03-22] MEDS: SODIUM CHLORIDE 0.9% 10ML SYR (RAD ONLY) 10 ML IV ×2 (08:05→09:00)
[2024-03-22] MEDS: REGADENOSON 0.4MG/5ML SYRINGE 0.400000000000000022 MG IV (09:00)
[2024-03-22] MEDS: ISOTOPE MYOVIEW (PER STUDY) 1 DOSE IV (09:59)
== END 2024-03-22 23:59 | disposition home or self-care (01) ==
LOC: RAD 07:52
PROVIDERS: PCP Internal Medicine; Visit Provider Physician Assistant
DX: R00.1 Bradycardia, unspecified (principal); I25.10 Atherosclerotic heart disease of native coronary artery without angina pectoris; Z01.818 Encounter for other preprocedural examination
CPT/HCPCS: 78452; 93017; 93018; 93306; A9502; J2785

== ENCOUNTER 2024-04-06 08:36 | Day surgery (SDC) | payer MEDICARE, SELFPAY ==
[2024-04-06] VITALS (12 sets, daily range): BP systolic 95–159; BP diastolic 59–90; PULSE 42–50; RESP 16–20; TEMP 36.6; O2SAT 94–97; BMI 33.3
--- NOTE | 2024-04-06 07:12 | IR_ITS ---
APPROVED REPORT Patient Location: Outpatient PROCEDURES Left heart catheterization Left ventriculogram Selective coronary angiogram INDICATION Abnormal Myoview, Angina pectoris Informed consent was obtained prior to the procedure. COMPLICATIONS NONE Estimated Blood Loss: LESS THAN 10 ML TECHNIQUE One percent lidocaine used to anesthetize the right anterior aspect of the wrist. The right radial artery was accessed via the Seldinger technique. A 6 Khmer sheath was placed in the right radial artery. 2.5 mg of Verapamil, 800 mcg of nitroglycerin, 1mg Lidocaine and 5000 U Heparin were given through the arterial sheath. The papa catheter was also used to perform left heart catheterization left ventriculogram and selective coronary angiogram. At the end of the procedure the sheath was removed good hemostasis was achieved using Traclet band, patient was transferred to the postop holding area in stable condition. ANGIOGRAPHIC RESULTS The left main artery Has an ostial eccentric 10 to 20% anatomical kink The left anterior descending artery Has proximal and mid vessel diffuse 30% stenoses The circumflex artery Has proximal 20 to 30% smooth stenosis with additional 20% stenoses in the first and second obtuse marginal artery The right coronary artery Has proximal 20% stenoses with distal smooth 30% stenoses The REAVES ventriculogram reveals Normal 65% The left ventricular end-diastolic pressure 25 mmHg IMPRESSION Nonflow limiting coronary disease as described above Elevated LVEDP PLAN 1. Medical management with risk factor modification Electronically signed by : [place] MD 04/06/2024 12:58:56
[2024-04-06 09:08] LABS: Basophils # 0.1 K/mm3 (0-0.2); Basophils % 1.4 % (0.1-2.0); Eosinophils # 0.2 K/mm3 (0.0-0.4); Eosinophils % 3.3 % (0.1-12.0); Hemoglobin 13.4 g/dL (14.1-18.0); Lymphocytes # 1.5 K/mm3 (0.7-4.5); Mean Corpuscular HGB Conc 35.3 g/dL (31.8-35.4); Mean Corpuscular Hemoglobin 32.7 pg (27.0-31.2); Mean Corpuscular Volume 92.9 fl (80-94); Mean Platelet Volume 8.4 fl (7.4-10.4); Monocytes # 0.3 K/mm3 (0.1-1.0); Monocytes % 6.1 % (1.7-9.3); Neutrophils # 2.7 K/mm3 (1.8-7.8); Neutrophils % 58.3 % (37.0-80.0); Platelet Count 226 K/mm3 (142-424); Red Blood Count 4.09 M/mm3 (4.60-6.20); Red Cell Distribution Width 15.1 % (11.5-17.5); White Blood Count 4.7 K/mm3 (4.8-10.8)
[2024-04-06 09:14] LABS: Chloride 105 mmol/L (98-107); Sodium 138 mmol/L (136-145)
[2024-04-06 09:15] LABS: Potassium 4.5 mmoL/L (3.5-5.1)
[2024-04-06 09:18] LABS: Anion Gap 9.5 mEq/L (5-15); Blood Urea Nitrogen 19 mg/dl (9-20); Calcium 10.2 mg/dl (8.4-10.2); Carbon Dioxide 28 mmol/L (22.0-30.0); Creatinine Clearance Estimated 68 mL/min (50-200); Estimated Glomerular Filt Rate 46 ml/min (>60); GFR (African American) 56 ML/MIN (>60); Glucose 100 mg/dl (74-100)
[2024-04-06] MEDS: HEPARIN 1,000 UNITS/500ML NS (CATH LAB) 3000 UNIT IV (10:56)
[2024-04-06] MEDS: LIDOCAINE 1% 10ML MDV 20 ML IJ (10:56)
[2024-04-06] MEDS: 0.9 % SODIUM CHLORIDE 500 ML 25 ML IV (10:56)
[2024-04-06] MEDS: VERAPAMIL 2.5MG/ML 2ML VIAL 2.5 MG IV (10:57)
[2024-04-06] MEDS: NITROGLYCERIN 800MCG/8ML SYR (CATH LAB) 800 MCG IA (10:57)
[2024-04-06] MEDS: HEPARIN 1,000 UNITS/ML 10ML VIAL (CATH LAB) 10000 UNIT IV (10:57)
[2024-04-06] MEDS: diphenhydrAMINE 50MG/ML VIAL 50 MG IV (10:57)
[2024-04-06] MEDS: FENTANYL 100MCG/2ML VIAL 50 MCG IV (11:01)
[2024-04-06] MEDS: MIDAZOLAM HCL 1MG/1ML 5ML VIAL 1 MG IV (11:02)
[2024-04-06] MEDS: IOPAMIDOL-370 (76%);100ML BOTTLE 50 ML IV (12:09)
== END 2024-04-06 14:02 | disposition home or self-care (01) ==
PROVIDERS: PCP Internal Medicine; Visit Provider Internal Medicine
DX: R00.1 Bradycardia, unspecified; E78.5 Hyperlipidemia, unspecified; I10 Essential (primary) hypertension; R55 Syncope and collapse; R94.39 Abnormal result of other cardiovascular function study; I25.118 Atherosclerotic heart disease of native coronary artery with other forms of angina pectoris; Z79.899 Other long term (current) drug therapy
CPT/HCPCS: 80048; 85025; 93458; 99152; C1725; C1769; J1644; J2250; J3010; Q9967

== ENCOUNTER 2024-04-21 10:17 | Outpatient (RCR) | payer MEDICARE, SELFPAY | END 2024-06-12 11:00 | disposition home or self-care (01) | LOC: PT 10:17 | PROVIDERS: Visit Provider Internal Medicine | DX: I25.10 Atherosclerotic heart disease of native coronary artery without angina pectoris (principal); Z95.5 Presence of coronary angioplasty implant and graft | CPT/HCPCS: 93798 ==

== ENCOUNTER 2024-08-23 13:19 | Emergency (ER) | payer MEDICARE, SELFPAY ==
[2024-08-23 13:22] VITALS: BP 126/78; PULSE 65; RESP 18; TEMP 36.6; O2SAT 96; BMI 33.0
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
[2024-08-23] MEDS: ACETAMINOPHEN 500MG TAB 1000 MG PO (13:55)
[2024-08-23] MEDS: IBUPROFEN 600 MG TABLET PO (13:56)
[2024-08-23 14:00] VITALS: BP 133/79; PULSE 65; O2SAT 94
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
[2024-08-23 15:23] VITALS: BP 126/77; PULSE 70; RESP 18; TEMP 36.6; O2SAT 97
== END 2024-08-23 15:25 | disposition home or self-care (01) ==
PROVIDERS: Emergency Provider Emergency Medicine; PCP Internal Medicine
DX: S87.81XA Crushing injury of right lower leg, initial encounter (principal); M79.604 Pain in right leg; W23.0XXA Caught, crushed, jammed, or pinched between moving objects, initial encounter; Y93.89 Activity, other specified; Y92.79 Other farm location as the place of occurrence of the external cause
CPT/HCPCS: 73562; 73590; 99283

== ENCOUNTER 2024-09-04 13:29 | Outpatient (CLI) | payer MEDICARE, SELFPAY ==
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
== END 2024-09-04 23:59 | disposition home or self-care (01) ==
LOC: RT 13:30
PROVIDERS: PCP Internal Medicine; Visit Provider Internal Medicine
DX: M79.661 Pain in right lower leg (principal); S87.81XA Crushing injury of right lower leg, initial encounter
CPT/HCPCS: 93971

== ENCOUNTER 2024-09-15 08:14 | Outpatient (CLI) | payer MEDICARE, MEDICAID, SELFPAY ==
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
--- OUTSIDE RECORDS SUMMARY | 2024-09-15 08:18 | XMS_ITS | Clinical Summary ---
Author Organization [facility] Address [address] [place] [address] Care Team Providers Care Senior Software Manager Name Role Phone Mickey Fine MD Primary Care Provider [phone] Allergies Active Allergy Reactions Criticality Noted Date Comments Wasp Venom Protein Other - please docum ent in the comment field Low 03/07/2024 Medications allopurinol (Zyloprim) 100 MG tablet Take 1 tablet (100 mg) by mouth every night. Active Eliquis 5 MG tablet Take 1 tablet (5 mg) by mouth twice a day. 02/03/2024 Active atorvastatin (Lipitor) 20 MG tablet Take 1 tablet (20 mg) by mouth every night. 02/14/2024 Active bisoprolol (Zebeta) 5 MG tablet Take 1 tablet (5 mg) by mouth every night. 12/21/2023 Active citalopram (CeleXA) 10 MG tablet Take 1 tablet (10 mg) by mouth every night. Active diclofenac (Voltaren) 75 MG EC tablet Take 1 tablet (75 mg) by mouth twice a day. 02/14/2024 Active HYDROcodone-acet aminophen ([place]) 5-325 MG tablet Take 1 tablet (5 mg of hydrocodone) by mouth every 6 (six) hours if needed. 12/21/2023 Active isosorbide mononitrate ER (Imdur) 30 MG 24 hr tablet Take 1 tablet (30 mg) by mouth every night. 02/01/2024 Active losartan (Cozaar) 100 MG tablet Take 1 tablet (100 mg) by mouth every night. 12/24/2023 Active magnesium oxide (Mag-Ox) 400 (240 Mg) MG tablet TAKE 1 TABLET BY MOUTH TWICE DAILY WITH MEALS FOR MUSCLE CRAMPS 02/14/2024 Active omeprazole (PriLOSEC) [address] capsule Take 1 capsule (40 mg) by mouth every night. Active tamsulosin (Flomax) 0.4 MG 24 hr capsule Take 1 capsule (0.4 mg) by mouth every night. 09/01/2016 Active psyllium (Metamucil) 58.6 % powder Take 1 packet by mouth every night. Active polyethylene glycol (Miralax) 17 GM/SCOOP powder Take 17 g by mouth every night. Active potassium chloride ER (Micro-K) 10 MEQ ER capsule Take 1 capsule (10 mEq) by mouth 2 (two) times a day. 07/24/2024 Active Active Problems Problem Noted Date Diagnosed Date Hiatal hernia with GERD 08/11/2024 Encounters Date Type Department Care Team Description 08/11/2024 9:40 AM EDT Office Visit [facility] [address] [place] [address] Alejandro Herrera MD Hiatal hernia with GERD (Primary Dx) 08/11/2024 Travel from Last 3 Months Family History Medical History Relation Name Comments Lung cancer Father Anemia Mother Cardiac disorder Mother Conversions - Other Mother Rheumato id arteritis Relation Name Status Comments Father Mother Social History Tobacco Use Types Packs/Day Years Used Date Smoking Tobacco: Never Passive Smoke Exposure: Never Smokeless Tobacco: Never Alcohol Use Standard Drinks/Week Comments No 0 (1 standard drink = 0.6 oz pur e alcohol) PHQ-2 Answer Date Recorded Patient Health Questionnaire-2 Score 0 03/07/2024 Sex and Gender Information Value Date Recorded Sex Assigned at Not on file Legal Sex Male 8:54 PM EDT Gender Identity Not on file Sexual Orientation Not on file Last Filed Vital Signs Vital Sign Reading Time Taken Comments Blood Pressure 122/69 08/11/2024 9:24 AM EDT Pulse 65 08/11/2024 9:24 AM EDT Temperature 36.4 ??C (97.5 ??F) 08/11/2024 9:24 AM ED T Respiratory Rate 16 08/11/2024 9:24 AM EDT Oxygen Saturation 97% 08/11/2024 9:24 AM EDT Inhaled Oxygen Concentration - - Weight 105 kg (230 lb 9.6 oz) 08/11/2024 9:24 AM EDT Height 177.8 cm (5' 10 ) 08/11/2024 9:24 AM EDT Body Mass Index 33.09 08/11/2024 9:24 AM EDT Plan of Treatment Upcoming Encounters Date Type Department Care Team (Late st Contact Info) Description 09/26/2024 7:30 AM EST Hospital Encounter [facility] Operating [address] [place] [address] Alejandro Herrera MD [address] [place] [phone] 09/26/2024 7:30 AM EST - 09/26/2024 10:35 AM EST Surgery [facility] Operating [address] [place] [address] Alejnadro Herrera MD [address] [place] [phone] REPAIR, HERNIA, HIATAL, LAPAROSCOPIC, USING MESH, TOUPET FUNDOPLICATION [[id number] (CPT??)] 11/01/2024 9:10 AM EST Office Visit [facility] General Surgery [address] [place] [address] Alejandro Herrera MD [address] [place] [phone] Scheduled Procedures Name Priority Associated Diagnoses Date/Ti me REPAIR, HERNIA, HIATAL, LAPAROSCOPIC, USING MESH Hiatal hernia with GERD 09/26/2024 7:30 AM EST Health Maintenance Due Date Last Done Comments Dental Oral Exam 1955 Dental Prophylaxis 1955 Dental X-Ray: Bitewings 1953 Dental X-Ray: Full Mouth 1953 [facility]-Hepatitis C Screening 1953 [facility]Medicare Annual Wellness (AWV) 1953 [facility]-/Child/Adol SDOH Screenings 1953 [facility]- SDOH Screenings 1971 [facility]-Adult SDOH Screenings 1971 [facility]-DTaP,Tdap,and Td Vaccines (1 - Tdap) 1972 CT Colonography 1998 Colonoscopy 1998 FIT-DNA 1998 FIT 1998 FOBT 1998 Sigmoidoscopy 1998 [facility]-Colorectal Cancer Screening 1998 [facility]-Zoster Vaccines (1 of 2) 2003 [facility]-Pneumococcal Vaccine: 65+ Years (1 of 1 - PCV) 2018 [facility]-Depression Screening 03/07/2025 03/07/2024 [facility]-RSV Vaccine: 60+ Years or (1 - 1-dose 75+ series) 2028 [id number] Vaccine Completed 07/19/2024, 09/15/2023, 10/23/2021, Additional history exists [facility]-Influenza Vaccine Completed 07/19/2024 , 09/15/2023, 08/12/2022 [facility]-Obesity Intervention Completed 08/11/2024, 02/22 [facility]-HIB Vaccines Aged Out No longer e ligible based on patient's age to complete this topic [facility]-HPV Vaccines Aged Out No longer e ligible based on patient's age to complete this topic [facility]-Hepatitis A Vaccines Aged Out No longer eligible based on patient's age to complete this topic [facility]-IPV Vaccines Aged Out No longer e ligible based on patient's age to complete this topic [facility]-Rotavirus Vaccines Aged Out No lo nger eligible based on patient's age to complete this topic [place] [address] Care Teams Senior Software Manager Relationship Specialty Start Date End Date Miceky Fine MD [address] [place] [id number] PCP - General 03/07/21
--- OUTSIDE RECORDS SUMMARY | 2024-09-15 08:18 | XMS_ITS | Encounter Summary ---
Author Organization [facility] Address [address] [place] [address] Care Team Providers Care Surfacer Name Role Phone Mickey Fine MD Primary Care Provider [phone] Reason for Visit * Auth/Cert Specialty Diagnoses / Procedures Referred By Digna t Referred To Contact Diagnoses Procedures ND CYSTO/URETERO/PYELOSCOPY W/LITHOTRIPSY RIGHT CYSTOSCOPY URETEROSCOPY WITH LASER AND STENT Referral ID Status Reason Start Date Expiration Date Visits Re quested Visits Authorized [id number] 1 1 Encounter Details Date Type Department Care Team (Late st Contact Info) Description 2018 9:15 AM EST - 2018 10:44 AM EST Surgery [address] [address] [place] [address] [place] [address] CYSTOSCOPY, RIGHT URETEROSCOPY, RIGHT RETROGRADE PYLOEGRAM, LASER LITHOTRIPSY, RIGHT URETERAL STENT PLACEMENT Social History Tobacco Use Types Packs/Day Years Used Date Smoking Tobacco: Never Smokeless Tobacco: Never Alcohol Use Standard Drinks/Week Comments No 0 (1 standard drink = 0.6 oz pur e alcohol) AUDIT-C Answer Date Recorded Frequency of Alcohol Consumption Never 2018 Average Number of Drinks Not on file 018 Frequency of Binge Drinking Not on file 04/2018 Sex and Gender Information Value Date Recorded Sex Assigned at Not on file Legal Sex Male 10:43 AM EDT Gender Identity Not on file Sexual Orientation Not on file documented as of this encounter Last Filed Vital Signs Vital Sign Reading Time Taken Comments Blood Pressure 120/79 2018 7:53 AM EST Pulse 53 2018 7:53 AM EST Temperature 36.1 ??C (96.9 ??F) 2018 7:53 AM ES T Respiratory Rate 18 2018 7:53 AM EST Oxygen Saturation 95% 2018 7:53 AM EST Inhaled Oxygen Concentration - - Weight 97.5 kg (215 lb) 2018 8:05 AM EST Height 177.8 cm (5' 10 ) 2018 8:05 AM EST Body Mass Index 30.85 2018 8:05 AM EST documented in this encounter Discharge Instructions * Attachments The following attachments cannot be sent through Care Everywhere. * Cystoscopy Care After ([place]) * Ureteral Stent Implantation Care After ([place]) * Lithotripsy Care After ([place]) * General Anesthesia Adult Care After ([place]) documented in this encounter Medications at Time of Discharge allopurinol (ZYLOPRIM) 100 MG tablet Take 1 tablet by mouth Daily. AMLODIPINE BESYLATE PO Take 10 mg by mouth Daily. citalopram (CeleXA) 10 MG tablet Take 1 tablet by mouth Daily. losartan-hydrochl orothiazide (HYZAAR) 100-25 MG per tablet Take 1 tablet by mouth Daily. omeprazole (priLOSEC) 20 MG capsule Take 1 capsule by mouth Daily. tamsulosin (FLOMAX) 0.4 MG capsule 24 hr capsule Take 1 capsule by mouth Every Night. ferrous sulfate 325 (65 FE) MG tablet Take 325 mg by mouth Daily With Breakfast. 07/06/2024 meloxicam (MOBIC) 15 MG tablet Take 1 tablet by mouth Daily. 07/06/2024 documented as of this encounter H&P Notes * Kelsie Wallace APRN - 2018 7:59 AM EST Pre-Op H&P Jairo Jin [id number] 1955 Chief complaint: Right renal stone HPI: Patient is a 63 y.o.male who presents with right renal stone and here today for cystoscopy, right ureteroscopy with laser and stent Review of Systems: General ROS: negative for chills, fever or skin lesions; No changes since last office visit Cardiovascular ROS: no chest pain or dyspnea on exertion. Negative activity intolerance Respiratory ROS: no cough, shortness of breath, or wheezing Allergies: No Known Allergies Home Meds: No current facility-administered medications on file prior to encounter. Current Outpatient Medications on File Prior to Encounter Medication Sig Dispense Refill ??? allopurinol (ZYLOPRIM) 100 MG tablet Take 100 mg by mouth Daily. ??? AMLODIPINE BESYLATE PO Take 10 mg by mouth Daily. ??? citalopram (CeleXA) 10 MG tablet Take 10 mg by mouth Daily. ??? ferrous sulfate 325 (65 FE) MG tablet Take 325 mg by mouth Daily With Breakfast. ??? losartan-hydrochlorothiazide (HYZAAR) 100-25 MG per tablet Take 1 tablet by mouth Daily. ??? meloxicam (MOBIC) 15 MG tablet Take 15 mg by mouth Daily. ??? omeprazole (priLOSEC) 20 MG capsule Take 20 mg by mouth Daily. ??? tamsulosin (FLOMAX) 0.4 MG capsule 24 hr capsule Take 1 capsule by mouth Every Night. PMH: Past Medical History: Diagnosis Date ??? Arthritis ankles ??? Depression ??? GERD (gastroesophageal reflux disease) ??? Gout ??? History of anemia ??? History of chest pain cause unknown ??? Hypertension PSH: Past Surgical History: Procedure Laterality Date ??? APPENDECTOMY ??? CARDIAC CATHETERIZATION ??? CYSTOSCOPY W/ LASER LITHOTRIPSY ??? EXCISION BAKERS CYST KNEE Right ??? HIATAL HERNIA REPAIR ??? LAPAROSCOPIC CHOLECYSTECTOMY ??? PERCUTANEOUS NEPHROLITHOTRIPSY ??? URETEROSCOPY BASKET EXTRACTION Social History: Tobacco: Social History Tobacco Use Smoking Status Never Smoker Smokeless Tobacco Never Used Alcohol: Social History Substance and Sexual Activity Alcohol Use No ??? Frequency: Never Vitals: BP 120/79 (BP Location: Right arm, Patient Position: Sitting) Pulse 53 Temp 96.9 ??F (36.1 ??C)(Temporal) Resp 18 SpO2 95% Physical Exam: General Appearance: Alert, cooperative, no distress, appears stated age Head: Normocephalic, without obvious abnormality, atraumatic Lungs: Clear to auscultation bilaterally, respirations unlabored Heart: Regular rate and rhythm, S1 and S2 normal, no murmur, rub or gallop Abdomen: Soft, non-tender. +bowel sounds Breast Exam: deferred Genitalia: deferred Extremities: Extremities normal, atraumatic, no cyanosis or edema Skin: Skin color, texture, turgor normal, no rashes or lesions Neurologic: Grossly intact Results Review I reviewed the patient's new clinical results. Cancer Staging (if applicable) Cancer Patient: __ yes _x_no __unknown; If yes, clinical stage T:__ N:__M:__, stage group or __N/A Impression: Right renal stone Plan: Cystoscopy, right ureteroscopy with laser and stent Kelsie Wallace APRN 2018 8:00 AM Cosigned by Chao Aparicio MD at 2018 10:49 AM EST documented in this encounter OR Notes * Op Note - Chao Aparicio MD - 2018 9:55 AM EST CYSTOSCOPY URETEROSCOPY Procedure Report Patient Name: Jairo Jin Date of : 1955 Date of Surgery: 2018 Indications: Right renal calculi Pre-op Diagnosis: Right renal calculi hydronephrosis Post-Op Diagnosis Codes: same, mild upjo Procedure/CPT?? Codes: Procedure(s): CYSTOSCOPY, RIGHT URETEROSCOPY, RIGHT RETROGRADE PYLOEGRAM, LASER LITHOTRIPSY, RIGHT URETERAL STENTPLACEMENT Dilation of right UPJ Staff: Surgeon(s): Chao Aparicio MD Anesthesia: General Estimated Blood Loss: none Implants: Implant Name Type Inv. Item Serial No. Chemical Inspector Lot No. LRB No. Used STENT PERCUFLX NO GW [id number] - [id number] Implant STENT PERCUFLX NO GW [id number] [employer] [id number] Right 1 Specimen: none Findings: multiple renal calculi Complications: none Description of Procedure: Pt in lithotomy , prepped and draped, 21 fr cystoscope placed with 30 degree lens. Prostate moderately obstructing, right retrograde pyelogram performed, No ureteral stones,6mm stone at UPJ and cluster of stone lower pole calyx, Sensor wire passed and then 11/13 access sheath easily advanded to proximal mid ureter. The flexible ureteroscope advanced but was constricted at the UPJ by a dense ring, This was dilated with 15 fr balloon and then easily allowed scope, The upj stone was now in the same calyx as others. 200 micron fiber used at 10 karimi to pulverize all stone to less that 2mm. Stent placed with good coil upper and lower. Bladder was drained. And string secured to penis with tegaderm. Chao Aparicio MD Date: 2018 Time: 10:51 AM documented in this encounter Plan of Treatment Upcoming Encounters Date Type Department Care Team (Late st Contact Info) Description 12/12/2024 11:00 AM EST Office Visit [facility] R[facility]ATOLOGY [address] [facility] [address] [place] [address] Yair Hood DO [address] [facility] [address] [place], [place] [id number] documented as of this encounter Procedures Procedure Name Priority Date/Time Associated Diagnosis Comments FL C ARM DURING SURGERY Routine 2018 10:51 AM EST CYSTOSCOPY URETEROSCOPY 2018 9:25 AM EST Special Needs X-RAY, HOLMIUM LASER+ COMPREHENSIVE METABOLIC PANEL STAT 2018 8:39 AM EST CBC (NO DIFF) STAT 2018 7:56 AM EST ECG 12-LEAD Routine 2018 7:45 AM EST documented in this encounter Results * FL C Arm During Surgery (2018 10:51 AM EST) Anatomical Region Laterality Modality Body, Other N/A Radiographic Nandini ging 2018 3:13 PM EST Impressions 2018 10:26 PM EST Fluoroscopy provided during cystoscopy. D: ??2018 E: ??2018 This report was finalized on 2018 10:[address] Skinny Raza MD. Narrative 2018 10:26 PM EST EXAMINATION: FL C-ARM DURING SURGERY-09/30/2018: INDICATION: Cysto; N20.0-Calculus of kidney. ? COMPARISON: NONE. FINDINGS: The dictation is to record 2 minutes and 36 seconds of fluoroscopy time. A single image obtained shows a cystoscope, and a double-J ureteral stent in expected location from the right renal pelvis to the bladder. Please see the procedure report for full details. Procedure Note Skinny Raza MD - 2018 EXAMINATION: FL C-ARM DURING SURGERY-09/30/2018: INDICATION: Cysto; N20.0-Calculus of kidney. COMPARISON: NONE. FINDINGS: The dictation is to record 2 minutes and 36 seconds of fluoroscopy time. A single image obtained shows a cystoscope, and a double-J ureteral stent in expected location from the right renal pelvis to the bladder. Please see the procedure report for full details. IMPRESSION: Fluoroscopy provided during cystoscopy. E: 2018 This report was finalized on 2018 10:[address] Skinny Raza MD. Chao Aparicio MD IMG FLUOROSCOPY ORDERABLE S Final Result * (ABNORMAL) Comprehensive Metabolic Panel (2018 8:39 AM EST) Pathologist [facility] Glucose 97 70 - 100 mg/dL 2018 9:37 AM EST [facility] BUN 26(H) 9 - 23 mg/dL 2018 9:37 AM EST [facility] Creatinine 1.12 0.60 - 1.30 mg/dL 2018 9:37 AM EST [facility] Sodium 133 132 - 146 mmol/L 2018 9:37 AM EST [facility] Potassium 3.5 3.5 - 5.5 mmol/L 2018 9:37 AM [facility] Chloride 100 99 - 109 mmol/L 2018 9:37 AM [facility] CO2 28.0 20.0 - 31.0 mmol/L 2018 9:37 AM [facility] Calcium 9.5 8.7 - 10.4 mg/dL 2018 9:37 AM [facility] Total Protein 6.4 5.7 - 8.2 g/dL 2018 9:37 AM [facility] Albumin 4.19 3.20 - 4.80 g/dL 2018 9:37 AM [facility] ALT (SGPT) 29 7 - 40 U/L 2018 9:37 AM [facility] AST (SGOT) 19 0 - 33 U/L 2018 9:37 AM [facility] Alkaline Phosphatase 88 25 - 100 U/L 2018 9:37 AM [facility] Total Bilirubin 0.4 0.3 - 1.2 mg/dL 2018 9:37 AM [facility] eGFR Non Amer 66 >60 mL/min/1.7 3 2018 9:37 AM [facility] Globulin 2.2 gm/dL 2018 9:37 AM [facility] A/G Ratio 1.9 1.5 - 2.5 g/dL 2018 9:37 AM [facility] BUN/Creatinine Ratio 23.2 7.0 - 25.0 2018 9:37 AM [facility] Anion Gap 5.0 3.0 - 11.0 mmol/L 2018 9:37 AM [facility] Blood Line / Unknown 2018 8: 39 AM EST 2018 8:46 AM [facility] - 2018 9:37 AM EST National Kidney Foundation Guidelines Stage ? Description ?GFR 1 ? Normal or High ? 90+ 2 ? Mild decrease ?60-89 3 ? Moderate decrease ??30-59 4 ? Severe decrease ?15-29 5 ? Kidney failure ? <15 The MDRD GFR formula is only valid for adults with stable renal function between ages 18 and 70. us Tara Givens MD LAB BLOOD ORDERABLES Final Result [facility]
[address] [place] [address], * CBC (No Diff) (2018 7:56 AM EST) WBC 6.05 3.50 - 10.80 10*3/mm3 2018 8:04 AM [facility] RBC 5.05 4.20 - 5.76 10*6/mm3 2018 8:04 AM [facility] Hemoglobin 14.7 13.1 - 17.5 g/dL 2018 8:04 AM [facility] Hematocrit 44.2 38.9 - 50.9 % 2018 8:04 AM [facility] MCV 87.5 80.0 - 99.0 fL 2018 8:04 AM [facility] MCH 29.1 27.0 - 31.0 pg 2018 8:04 AM [facility] MCHC 33.3 32.0 - 36.0 g/dL 2018 8:04 AM [facility] RDW 12.8 11.3 - 14.5 % 2018 8:04 AM [facility] RDW-SD 40.6 37.0 - 54.0 fl 2018 8:04 AM [facility] MPV 10.1 6.0 - 12.0 fL 2018 8:04 AM EST [facility] Platelets 264 150 - 450 10*3/mm3 2018 8:04 AM EST [facility] Blood Line / Unknown 2018 7: 56 AM EST 2018 8:02 AM EST Tara Givens MD LAB BLOOD ORDERABLES Final Result [facility]
[address] [place] [address], * ECG 12 Lead (2018 7:45 AM EST) 2018 7:45 AM EST 2018 10:48 AM EST Narrative ECG - 2018 10:48 AM EST Test Reason : Surgery Blood Pressure : / mmHG Vent. Rate : 052 BPM ? Atrial Rate : 052 BPM ?? P-R Int : 224 ms ?QRS Dur : 088 ms ?QT Int : 428 ms ? P-R-T Axes : 039 002 017 degrees ?? QTc Int : 398 ms Sinus bradycardia with 1st degree AV block Minimal voltage criteria for LVH, may be normal variant Borderline ECG When compared with ECG of 16-FEB-2011 04:25, ND interval has increased Confirmed by RADHA ??JULIANNE GRAMAJO ([id number]) on 2018 10:48:33 AM Referred By: ? Confirmed By:JULIANNE VITAL ?? Procedure Note Julianne Vital MD - 2018 Test Reason : Surgery Blood Pressure : / mmHG Vent. Rate : 052 BPM Atrial Rate : 052 BPM P-R Int : 224 ms QRS Dur : 088 ms QT Int : 428 ms P-R-T Axes : 039 002 017 degrees QTc Int : 398 ms Sinus bradycardia with 1st degree AV block Minimal voltage criteria for LVH, may be normal variant Borderline ECG When compared with ECG of 16-FEB-2011 04:25, ND interval has increased Confirmed by JULIANNE VITAL MD ([id number]) on 2018 10:48:33 AM Referred By: Confirmed By:JULIANNE VITAL MD us Tara Givens MD ECG ORDERABLES Final Resul t ECG documented in this encounter Visit Diagnoses Not on filedocumented in this encounter Administered Medications Inactive Administered Medications - up to 3 most recent administrations Medication Order MAR Action Action Date Dose Rate Site famotidine (PEPCID) tablet 20 mg 20 mg, Oral, Once, On Wed09/30/18 at 0727, For 1 dose Given 2018 8:10 AM EST 20 mg fentaNYL citrate (PF) (SUBLIMAZE) injection 50 mcg 50 mcg, Intravenous, Every 5 Minutes PRN, Moderate Pain, Starting on Wed09/30/18 at 1056, For 5 doses, If given for pain, use the following pain scale: Mild Pain = Pain Score of 1-3, CPOT 1-2 Moderate Pain = Pain Score of 4-6, CPOT 3-4 Severe Pain = Pain Score of 7-10, CPOT 5-8 HYDROcodone-acetaminophen (NORCO) 7.5-325 MG per tablet 1 tablet 1 tablet, Oral, Once As Needed, Moderate Pain, Starting on Wed09/30/18 at 1118, For 1 dose, {RYNE} Do not exceed 4 grams of acetaminophen in a 24 hr period. If given for pain, use the following pain scale: Mild Pain = Pain Score of 1-3, CPOT 1-2 Moderate Pain = Pain Score of 4-6, CPOT 3-4 Severe Pain = Pain Score of 7-10, CPOT 5-8 Given 2018 11:21 AM EST 1 tablet HYDROmorphone (DILAUDID) injection 0.5 mg 0.5 mg, Intravenous, Every 5 Minutes PRN, Severe Pain, Starting on Wed09/30/18 at 1056, For 4 doses, Maximum total dose of hydromorphone is 2 mg. If given for pain, use the following pain scale: Mild Pain = Pain Score of 1-3, CPOT 1-2 Moderate Pain = Pain Score of 4-6, CPOT 3-4 Severe Pain = Pain Score of 7-10, CPOT 5-8 iopamidol (ISOVUE-300) 61 % injection As Needed, Starting on Wed09/30/18 at 1002 Given 2018 10:02 AM EST 50 mL labetalol (NORMODYNE,TRANDATE) injection 5 mg 5 mg, Intravenous, Every 5 Minutes PRN, High Blood Pressure, for systolic blood pressure greater than 180 mmHg or diastolic blood pressure greater than 105 mmHg, Starting on Wed09/30/18 at 1056, Hold for heart rate less than 60. Give by slow IV Push each 20mg (or less) over 2 minutes lactated ringers bolus 500 mL 500 mL, Intravenous, at 2,000 mL/hr, Administer over 0.25 Hours, Once As Needed, for hypovolemia, call anesthesiologist before initiating, Starting on Wed09/30/18 at 1056, For 1 dose, Indications: HypovolemiaIndications:Hypovole keenan lactated ringers infusion 9 mL/hr, Intravenous, Continuous, Starting on Wed09/30/18 at 0727, May switch to NS IV at KVO if renal / if indicated New Bag 2018 7:50 AM EST 9 mL/hr 9 mL/hr lidocaine PF 1% (XYLOCAINE) injection 0.5 mL 0.5 mL, Injection, Once As Needed, IV Start, Starting on Wed09/30/18 at 0725, For 1 dose Given 2018 7:50 AM EST 0.2 mL ondansetron (ZOFRAN) injection 4 mg 4 mg, Intravenous, Once As Needed, Nausea, Vomiting, Starting on Wed09/30/18 at 1056, For 1 dose, If BOTH ondansetron (ZOFRAN) and promethazine (PHENERGAN) are ordered use ondansetron first and THEN promethazine IF ondansetron is ineffective. sodium chloride (NS) irrigation solution As Needed, Starting on Wed09/30/18 at 1002 Given 2018 10:02 AM EST 3,000 mL Given 2018 9:52 AM EST 3,000 mL sterile water irrigation solution As Needed, Starting on Wed09/30/18 at 1003 Given 2018 10:03 AM EST 1,000 mL documented in this encounter Active and Recently Administered Medications Times are shown in EST. Scheduled Medication Order 09/28/2018 09/29/2018 2018 cefoxitin (MEFOXIN) 2 g/100 mL 0.9% NS (MBP) (COMPLETED) 2 g, Intravenous, Administer over 30 Minutes, Once, On Wed09/30/18 at 0727, For 1 dose, Administer within 1 hour of surgical incision. Redose 2 hours from pre-op dose if procedure ongoing or >1.5 L blood loss. Caution: Look alike/sound alike drug alert Activate vial before using., Indications: Surgical Prophylaxis 0945 (Given - Provid er: Elizabeth Elder CRNA) famotidine (PEPCID) tablet 20 mg (COMPLETED) 20 mg, Oral, Once, On Wed09/30/18 at 0727, For 1 dose 0810 (Given - Provid er: Danna Salguero RN) Continuous Medication Order 09/28/2018 09/29/2018 2018 lactated ringers infusion 9 mL/hr, Intravenous, Continuous, Starting on Wed09/30/18 at 0727, May switch to NS IV at KVO if renal / if indicated 0750 (New Bag - Prov ider: Danna Salguero, QUEENIE) PRN Medication Order 09/28/2018 09/29/2018 2018 fentaNYL citrate (PF) (SUBLIMAZE) injection 50 mcg 50 mcg, Intravenous, Every 5 Minutes PRN, Moderate Pain, Starting on Wed09/30/18 at 1056, For 5 doses, If given for pain, use the following pain scale: Mild Pain = Pain Score of 1-3, CPOT 1-2 Moderate Pain = Pain Score of 4-6, CPOT 3-4 Severe Pain = Pain Score of 7-10, CPOT 5-8 HYDROcodone-acetaminophen (NORCO) 7.5-325 MG per tablet 1 tablet (COMPLETED) 1 tablet, Oral, Once As Needed, Moderate Pain, Starting on Wed09/30/18 at 1118, For 1 dose, {RYNE} Do not exceed 4 grams of acetaminophen in a 24 hr period. If given for pain, use the following pain scale: Mild Pain = Pain Score of 1-3, CPOT 1-2 Moderate Pain = Pain Score of 4-6, CPOT 3-4 Severe Pain = Pain Score of 7-10, CPOT 5-8 1121 (Given - Provid er: Thalia Savage RN) HYDROmorphone (DILAUDID) injection 0.5 mg 0.5 mg, Intravenous, Every 5 Minutes PRN, Severe Pain, Starting on Wed09/30/18 at 1056, For 4 doses, Maximum total dose of hydromorphone is 2 mg. If given for pain, use the following pain scale: Mild Pain = Pain Score of 1-3, CPOT 1-2 Moderate Pain = Pain Score of 4-6, CPOT 3-4 Severe Pain = Pain Score of 7-10, CPOT 5-8 iopamidol (ISOVUE-300) 61 % injection (CANCELED) As Needed, Starting on Wed09/30/18 at 1002 1002 (Given - Provid er: Chao Aparicio MD) labetalol (NORMODYNE,TRANDATE) injection 5 mg 5 mg, Intravenous, Every 5 Minutes PRN, High Blood Pressure, for systolic blood pressure greater than 180 mmHg or diastolic blood pressure greater than 105 mmHg, Starting on Wed09/30/18 at 1056, Hold for heart rate less than 60. Give by slow IV Push each 20mg (or less) over 2 minutes lactated ringers bolus 500 mL 500 mL, Intravenous, at 2,000 mL/hr, Administer over 0.25 Hours, Once As Needed, for hypovolemia, call anesthesiologist before initiating, Starting on Wed09/30/18 at 1056, For 1 dose, Indications: Hypovolemia lidocaine PF 1% (XYLOCAINE) injection 0.5 mL (COMPLETED) 0.5 mL, Injection, Once As Needed, IV Start, Starting on Wed09/30/18 at 0725, For 1 dose 0750 (Given - Provid er: Danna Salguero RN) ondansetron (ZOFRAN) injection 4 mg 4 mg, Intravenous, Once As Needed, Nausea, Vomiting, Starting on Wed09/30/18 at 1056, For 1 dose, If BOTH ondansetron (ZOFRAN) and promethazine (PHENERGAN) are ordered use ondansetron first and THEN promethazine IF ondansetron is ineffective. sodium chloride (NS) irrigation solution (CANCELED) As Needed, Starting on Wed09/30/18 at 1002 0952 (Given - Provid er: Chao Aparicio MD)1002 (Given - Provider: Chao Aparicio MD) sterile water irrigation solution (CANCELED) As Needed, Starting on Wed09/30/18 at 1003 1003 (Given - Provid er: Chao Aparicio MD) documented in this encounter Care Teams Surfacer Relationship Specialty Start Date End Date Mickey Fine MD [address] [facility] [address] [place] [address] PCP - General Internal Medicine 09/30/18 documented as of this encounter
--- OUTSIDE RECORDS SUMMARY | 2024-09-15 08:18 | XMS_ITS | Encounter Summary ---
Author Organization [facility] Address [address] [place] [id number] Care Team Providers Care Sub Prior Name Role Phone Mickey Fine MD Primary Care Provider [phone] Reason for Visit * Reason Onset Date Comments Med Refill 07/24/2024 Encounter Details Date Type Department Care Team (Late st Contact Info) Description 07/24/2024 Refill [facility] RHEUMATOLOGY [address] [facility] [address] [place] [address] Yair Hood DO [address] [facility] [place] [address] [place] [address] Primary osteoarthritis, unspecified site; High risk medication use Social History Tobacco Use Types Packs/Day Years Used Date Smoking Tobacco: Never Smokeless Tobacco: Never Alcohol Use Standard Drinks/Week Comments No 0 (1 standard drink = 0.6 oz pur e alcohol) AUDIT-C Answer Date Recorded Frequency of Alcohol Consumption Never 2018 Average Number of Drinks Not on file 018 Frequency of Binge Drinking Not on file 04/2018 Abuse Screen Answer Date Recorded Unsafe at Home or Work/School Not on file Feels Threatened by Someone? Not on file 06/2023 Does Anyone Keep You from Co ntacting Others or Doint Things Outside the Home? Not on file 08/02/2023 Physical Sign of Abuse Present Not on file 1 Housing Stability Answer Date Recorded Current Living Arrangements Not on file 06/2023 Potentially Unsafe Housing Conditions Not on brian e 08/02/2023 Family and Community Support Answer Indra e Recorded Help with Day-to-Day Activities Not on file 08/02/2023 Lonely or Isolated Not on file 08/02/2023 Employment Answer Date Recorded Do you want help finding or keeping work or a chel b? Not on file 08/02/2023 Disabilities Answer Date Recorded Concentrating, Remembering, or Making Decisions Difficulty Not on file 08/02/2023 Doing Errands Independently Difficulty Not on fi le 08/02/2023 Education Answer Date Recorded Help with school or training? Not on file Preferred Language Not on file 08/02/2023 Sex and Gender Information Value Date Recorded Sex Assigned at Not on file Legal Sex Male 10:43 AM EDT Gender Identity Not on file Sexual Orientation Not on file documented as of this encounter Miscellaneous Notes * Telephone Encounter - Ana Lilia Jade MA - 07/24/2024 10:18 AM EDT Pt requesting refill on hydrocodone documented in this encounter Plan of Treatment Upcoming Encounters Date Type Department Care Team (Late st Contact Info) Description 12/12/2024 11:00 AM EST Office Visit [facility] RHEUMATOLOGY [address] [facility] [address] [place] [address] Yair Hood DO 3000 [facility] [address] [place] [address] documented as of this encounter Visit Diagnoses Diagnosis Primary osteoarthritis, unspecified site High risk medication use documented in this encounter Care Teams Sub Prior Relationship Specialty Start Date End Date Mickey Fine MD [address] [facility] [address] [facility] [place] [address] PCP - General Internal Medicine 09/30/18 documented as of this encounter
--- OUTSIDE RECORDS SUMMARY | 2024-09-15 08:18 | XMS_ITS | Encounter Summary ---
Author Organization [facility] Address [address] [place] [id number] Care Team Providers Care Medical Oncologist Name Role Phone Mickey Fine MD Primary Care Provider [phone] Reason for Visit * Reason Onset Date Comments Med Refill 05/22/2024 Encounter Details Date Type Department Care Team (Late st Contact Info) Description 05/22/2024 Refill [facility] RHEUMATOLOGY [address] [facility] [address] [place] [address] Yair Hood DO [address] [facility] [place] [address] [place] [address] Primary osteoarthritis, unspecified site; High [...] encounter Miscellaneous Notes * Telephone Encounter - Karon Benitez MA - 05/24/2024 11:01 AM EDT Last seen and last UDS 03/02/24, rx last sent 04/21/24. Can you send this since [facility] is out of office? Thank you! * Telephone Encounter - Munira Michel RegSched Rep - 05/22/2024 1:09 PM EDT Incoming Refill Request Medication requested (name and dose): HYDROCODONE 5-325 MG PER TABLET [facility] [phone] FAX # [phone] Additional details provided by patient: NONE Best call back number: [phone] Does the patient have less than a 3 day supply: [] Yes [x] No Ludmila Miller 05/22/24, 13:10 EDT documented in this encounter Plan of Treatment Upcoming Encounters Date Type Department Care Team (Late st Contact Info) Description 12/12/2024 11:00 AM EST Office Visit [facility] RHEUMATOLOGY [address] [facility] [address] [place] [address] Yair Hood DO [address] [facility] [address] [place] [address] documented as of this encounter Visit Diagnoses Diagnosis Primary osteoarthritis, unspecified site High risk medication use documented in this encounter Care Teams Medical Oncologist Relationship Specialty Start Date End Date Mickey Fine MD [address] [facility] [address] [place] [address] PCP - General Internal Medicine 09/30/18 documented as of this encounter
--- OUTSIDE RECORDS SUMMARY | 2024-09-15 08:18 | XMS_ITS | Encounter Summary ---
Author Organization [facility] Address [address] [place] [address] Care Team Providers Care Repair Servicer Name Role Phone Mickey Fine MD Primary Care Provider [phone] Reason for Visit * Reason Comments Follow-up Encounter Details Date Type Department Care Team (Late st Contact Info) Description 08/11/2024 9:40 AM EDT Office Visit [facility] General Surgery [address] [place] [address] Alejandro Herrera MD [address] [facility] [address] [place] [address] Hiatal hernia with GERD (Primary Dx) Social History Tobacco Use Types Packs/Day Years [...] Mass Index 33.09 08/11/2024 9:24 AM EDT documented in this encounter Miscellaneous Notes * Patient Instructions - Philippe Mujica RN - 08/11/2024 9:40 AM EDT Post-operative Dietary Guidelines General Information: After your surgery, there will be swelling around your esophagus and stomach which could stop largepieces of food from passing into your stomach. To prevent problems, your diet will be modified temporarily and you will gradually advance back to your usual way of eating. Your diet will progress slowly in stages, starting with clear liquids. For most patients, it will take approximately eight weeks to return to a regular diet. The first week, you will remain on clear liquids. The second week you may progress to full liquids and pureed foods. After the first two weeks, you will advance to minced, soft foods. You should eat small, frequent meals. If you do not experience any problems, you may increase the amount of foods you eat every two to three days. You may lose weight. Take liquid medications as prescribed. Usual medications should be crushed for two weeks after surgery, then it will be ok to take pills. The foods listed on the following page are examples of foods/liquids that you can eat/drink during your recovery period. The list is provided as an example of foods/liquids you can eat/drink. Activities That Will Aid Digestion Eat only until you feel full. Drink plenty of fluids with meals. Try alternating bites of food with sips of fluids. Eat slowly and chew your food well. Sit upright when eating. Remain in an upright position for 20 minutes after eating. Do not recline. Adjust the temperature of the food for your comfort level. You may use spices as tolerated. Walking will improve digestion of food and help alleviate gas. To Avoid Swallowing Air: Avoid alcohol, smoking, and carbonated beverages. Do not use a straw. Do not chew gum. Do not eat dry, hard foods. First week (after surgery) - Clear Liquids Only: (Examples of clear liquids) Water; Apple juice, Cranberry juice, Grape juice Broth (vegetable, chicken, beef); Clear Ensure or Boost breeze Luís-aid; Popsicles; Jello (use homemade Jello only, do not use pre-packaged Jello); Gatorade; tea and coffee (without cream). Second week (after surgery): Full Liquids and Pureed Foods (Examples of full liquids and pureed foods) Cream of wheat; Cooked oatmeal Pureed Pasta Baby food vegetables; Pureed vegetables; Moist, mashed potatoes Baby food fruit; Pureed fruit; Fruit juice (without pulp or seeds) Smooth puddings, Custard, Forest Instant Breakfast Milk; Milkshakes; Ice cream; Sherbet; Plain yogurt Pureed cottage cheese; Pureed soups Starting on Third Week after Surgery (for approximately next six weeks): Soft foods: (Examples of soft foods) Hot cereals; Cold cereals that soften with milk Crackers and biscuits that soften with liquids Cooked, finely chopped pasta Soft, cooked, finely-chopped vegetables; Moist, mashed potatoes Soft, canned fruit; Soft, ripe fruit such as bananas Moist, minced meat with gravies Soft, cooked eggs Canned or cooked fish (without bones) Smooth puddings and custards Milk; Cream; Buttermilk; Chocolate milk; Milkshakes; Ice cream Plain yogurt; Frozen yogurt Cottage cheese; Shredded, soft cheeses Butter, Margarine, and vegetable oils as tolerated Spices as tolerated Foods to Avoid During Recovery Period (for approximately eight weeks after surgery) Bread, Rolls, Muffins and Bagels Granola, Shredded Wheat Pancakes; Waffles; Rice Raw vegetables; [place]; Coleslaw; Salads Skin from baked potato Fruits that contain seeds; Nuts; Peanut Butter Raisins, dates; Raw fruit Dried or candied fruit Unchopped Meat; Chicken, Dry meat; Fish with bones Hard cheeses Coconut; Popcorn; Pickles Chips Dr. Herrera's nurse telephone: * Progress Notes - Elis Davis MD - 08/11/2024 9:40 AM EDT Subjective Reason for Visit: Chief Complaint Patient presents with Follow-up Jairo Jin is a 68 y.o. male presenting for follow up after testing. Patient reports continued nausea, regurgitation, epigastric abdominal pain, and dysphagia with solids. He takes omeprazole daily to help with his symptoms. Patient reports recent hospitalization at [facility]SH ~5 months ago for dehydration where he received IV and ultimately developed thrombus. Patient prescribed Eliquis at OSH. He states he quit taking this about 1 month ago without consulting with his doctor. When asked about prior hernia repair, patient states he is 99% sure he received umbilical hernia repair with cholecystectomy. Patient received cardiac clearance for surgery. Past Surgical History: Prior Surgical History for Hiatal Hernia or Reflux: no Currently experiencing regurgitation, epigastric pain, and solid dysphagia. Denies liquid dysphagia, bloating, and weight loss . Testing Manometry: Other: Hiatal Hernia, LES relaxation pressure slightly elevated in upright swallow, no signs of dysmotility PH Tao Probe: Day 1 56.1 DeMeester Score, Day 2 7.7 DeMeester Score, and Total 33.3 DeMeester Score. SAP 98 and 99 for Regurgitation and Heartburn Symptoms PH Probe: not performed UGI Series: Other: Moderate hiatal hernia, severe esophageal dysmotility, silent aspiration of contrast Gastric Emptying: not performed Upper Endoscopy: Esophagitis B grade, Jun's Ulcer, Hiatal Hernia, and Pathology Results Basal cell hyperplasia and hyperkeratosis I personally reviewed above imaging, interpreting hiatal hernia with jun lesion and significantacid reflux. Body mass index is 33.09 kg/m??. Non-smoker Past Medical History: Diagnosis Date Esophageal obstruction Schatzki's ring History of obstruction of large intestine Personal history of other diseases of the circulatory system History of hypertension Personal history of other diseases of the musculoskeletal system and connective tissue History of backache Personal history of other diseases of the musculoskeletal system and connective tissue History of osteoarthritis Personal history of other diseases of the musculoskeletal system and connective tissue Personal history of gout Personal history of other endocrine, nutritional and metabolic disease History of hyperlipidemia Personal history of other specified conditions History of chest pain Personal history of urinary calculi Personal history of renal calculi Past Surgical History: Procedure Laterality Date APPENDECTOMY N/A Appendectomy from [facility] COLONOSCOPY N/A Complete Colonoscopy from [facility] EYE SURGERY N/A Eye Surgery from [facility] KIDNEY SURGERY N/A Kidney Surgery from [facility] KNEE SURGERY N/A Knee Surgery from [facility] OTHER SURGICAL HISTORY N/A Esophagogastroduodenoscopy from [facility] Family History Problem Relation Name Age of Onset Anemia Mother Cardiac disorder Mother Lung cancer Father Conversions - Other Mother Rheumatoid arteritis Current Outpatient Medications Medication Sig Dispense Refill allopurinol (Zyloprim) 100 MG tablet Take 1 tablet (100 mg) by mouth 1 (one) time each day. atorvastatin (Lipitor) 20 MG tablet Take 1 tablet (20 mg) by mouth 1 (one) time each day. bisoprolol (Zebeta) 5 MG tablet Take 1 tablet (5 mg) by mouth 1 (one) time each day. citalopram (CeleXA) 10 MG tablet Take 1 tablet (10 mg) by mouth 1 (one) time each day. diclofenac (Voltaren) 75 MG EC tablet Take 1 tablet (75 mg) by mouth twice a day. HYDROcodone-acetaminophen ([place]) 5-325 MG tablet Take 1 tablet (5 mg of hydrocodone) by mouth every 6 (six) hours if needed. isosorbide mononitrate ER (Imdur) 30 MG 24 hr tablet Take 1 tablet (30 mg) by mouth 1 (one) time each day. losartan (Cozaar) 100 MG tablet Take 1 tablet (100 mg) by mouth 1 (one) time each day. magnesium oxide (Mag-Ox) 400 (240 Mg) MG tablet TAKE 1 TABLET BY MOUTH TWICE DAILY WITH MEALS FOR MUSCLE CRAMPS omeprazole (PriLOSEC) [address] capsule Take by mouth 1 (one) time each day. polyethylene glycol (Miralax) 17 GM/SCOOP powder Take 17 g by mouth 1 (one) time each day. potassium chloride ER (Micro-K) 10 MEQ ER capsule Take 1 capsule (10 mEq) by mouth 2 (two) times a day. psyllium (Metamucil) 58.6 % powder Take 1 packet by mouth 3 (three) times a day. tamsulosin (Flomax) 0.4 MG 24 hr capsule Take 1 capsule (0.4 mg) by mouth 1 (one) time each day. Eliquis 5 MG tablet Take 1 tablet (5 mg) by mouth twice a day. (Patient not taking: Reported on 08/11/2024) No current facility-administered medications for this visit. Allergies Allergen Reactions Wasp Venom Protein Other - please document in the comment field Review of Systems Constitutional: Negative for activity change, appetite change, chills and fever. HENT: Negative for trouble swallowing and voice change. Respiratory: Negative for cough and shortness of breath. Cardiovascular: Negative for chest pain. Gastrointestinal: Positive for abdominal pain and nausea. Negative for abdominal distention, diarrhea and vomiting. Genitourinary: Negative for difficulty urinating. Skin: Negative for color change and wound. Neurological: Negative for dizziness, seizures and syncope. Psychiatric/Behavioral: Negative for agitation, behavioral problems and confusion. 08/11/2024 11:39 AM GERD Questionnaire Patient Status: Follow up after testing Have you had surgery in the past for hiatal hernia or reflux? N Heartburn Y Severity 3 Regurgitation Y Severity 3 Trouble swallowing solid foods Y Severity 3 Trouble swallowing liquids N Painful swallowing N Nausea Y Severity 1 Vomiting N Bloating N Epigastric/abdominal pain Y Severity 1 Hoarseness N Chronic Cough N Diarrhea N Constipation N Are you currently taking any antacid medications (proton pump inhibitors, H2 blockers, [id number] preparations)? Y Med 1. omeprazole Please select the type of diet you are currently eating or write in if none of the types of diets listed apply to you: Regular diet with no restrictions Do you drink carbonated beverages (Coke, Sprite, etc.)? Y Frequency Daily How often do you usually have a bowel movement? Daily What is the usual consistency of your bowel movement? formed stool Objective Visit Vitals BP 122/69 (BP Location: Right arm, Patient Position: Sitting) Pulse 65 Temp 36.4 ??C (97.5 ??F) (Temporal) Ht 1.778 m (5' 10 ) Wt 105 kg (230 lb 9.6 oz) SpO2 97% BMI 33.09 kg/m?? Physical Exam Constitutional: well developed, well nourished, and in no acute distress Eyes: equal, round, and reactive Ears, Nose, Throat: normal atraumatic, no neck masses Respiratory: Normal Effort, Normal Rate Cardiac: Heart regular rate and rhythm Abdomen: Soft, non-tender; no organomegaly or masses. Genitourinary: not indicated Musculoskeletal: normal strength, tone, and muscle mass, no deformities Psychiatric: oriented to time, place and person, mood and affect are within normal limits Neurologic: motor intact and no focal deficits Skin: Valeria, warm, well perfused Assessment/Plan Problem List Items Addressed This Visit Hiatal hernia with GERD - Primary Relevant Orders Case Request Operating Room: REPAIR, HERNIA, HIATAL, LAPAROSCOPIC, USING MESH, TOUPET FUNDOPLICATION (Completed) Patient is a 68 y.o. male presenting with hiatal hernia. Patient reports recent upper extremity thrombus within last 6 months at outside hospital. Description of event suggests superficial thrombus/ thrombophlebitis, but will obtain records from [place] to confirm. Will also obtain operative report for cholecystectomy and possible umbilical hernia repair to determine if umbilicus can be appropriately used as port site. Today we discussed the post operative dietary changes which will consist of clear liquids for 1 week, full liquids for 1 week, soft food for 2 weeks followed by a gradual return to regular diet over the next 6-8 weeks post operatively. The patient is aware no bread products for the first 6 weeks. The patient is aware to avoid carbonation, chewing gum, and straws lifelong. We discussed the risks, benefits and alternatives including infection, bleeding, liver injury, splenic injury requiring possible splenectomy, injury or perforation of the stomach or esophagus, conversion to open, injury to other viscera, long-term risk of dysphagia, inability to vomit or burp as well as anesthetic-related complications including deep venous thrombosis, pneumonia, renal failure and . We discussed the possible implantation of biosynthetic mesh for short term diaphragm reinforcement. All of the patient's questions were answered, informed consent was obtained in the office and arrangements will be made for laparoscopic Hiatal Hernia repair with mesh and Toupet in the near f uture. PAT required: no His chronic comorbid conditions that impact our treatment planning include: Hypertension (HTN) - well controlled, with a last BP of: BP Readings from Last 3 Encounters: 08/11/24 122/69 05/26/24 126/59 05/26/24 113/71 DVT or Other Thromboembolism. Cosigned by Alejandro Herrera MD at 08/17/2024 10:57 AM EDT Associated attestation - Alejandro Herrera MD - 08/17/2024 10:57 AM EDT I saw and evaluated the patient with the resident/fellow. I discussed the case with the resident/fellow and agree with the findings and plan as documented. documented in this encounter Plan of Treatment Upcoming Encounters Date Type Department Care Team (Late st Contact Info) Description 09/26/2024 7:30 AM EST Hospital Encounter [facility] Operating Room [address] [place] [address] Alejandro Herrera MD [address] [address] 09/26/2024 7:30 AM EST - 09/26/2024 10:35 AM EST Surgery [facility] Operating Room [address] [place] [address] Alejandro Herrera MD [address] [address] REPAIR, HERNIA, HIATAL, LAPAROSCOPIC, USING MESH, TOUPET FUNDOPLICATION [[id number] (CPT??)] 11/01/2024 9:10 AM EST Office Visit [facility] General Surgery [address], [address] [place] [address] Alejandro Herrera MD [address] [place] [phone] Scheduled Procedures Name Priority Associated Diagnoses Date/Ti fl REPAIR, HERNIA, HIATAL, LAPAROSCOPIC, USING MESH Hiatal hernia with GERD 09/26/2024 7:30 AM EST documented as of this encounter Visit Diagnoses Diagnosis Hiatal hernia with GERD- Primary Hiatal hernia with GERD- Primary Hiatal hernia with GERD documented in this encounter Additional Health Concerns Assessment Noted Time A fall risk assessment has been complete d for the patient 08/11/2024 9:25 AM EDT A Body Mass Index follow-up plan has been documented for the patient 08/17/2024 10:57 AM EDT documented as of this encounter Care Teams Repair Servicer Relationship Specialty Start Date End Date Mickey Fine MD [address] [place] [address] PCP - General 03/07/21 documented as of this encounter
--- OUTSIDE RECORDS SUMMARY | 2024-09-15 08:18 | XMS_ITS | Encounter Summary ---
Author Organization [facility] Address [address] [place] [id number] Care Team Providers Care House Builder Name Role Phone Mickey Fine MD Primary Care Provider [phone] Reason for Visit * Reason Onset Date Comments Med Refill 08/22/2024 Encounter Details Date Type Department Care Team (Late st Contact Info) Description 08/22/2024 Refill [facility] [address] [facility] [address] [place] [address] Yair Hood DO [address] [facility] [address] [place] [address] Primary osteoarthritis, unspecified site; High [...] help finding or keeping work or a chle b? Not on file 08/02/2023 Disabilities Answer [...] encounter Miscellaneous Notes * Telephone Encounter - Melanie Alonso RN - 08/22/2024 11:34 AM EDT Pt. Called in requesting Refill on Hydrocodone documented in this encounter Plan of Treatment Upcoming Encounters Date Type Department Care Team (Late st Contact Info) Description 12/12/2024 11:00 AM EST Office Visit [facility] RHEUM[facility] [address] [facility] [address] [place] [address] Yair Hood DO [address] [facility] [address] [place] [address] documented as of this encounter Visit Diagnoses Diagnosis Primary osteoarthritis, unspecified site High risk medication use documented in this encounter Care Teams House Builder Relationship Specialty Start Date End Date Mickey Fine MD [address] [facility] [address] [place] [address] PCP - General Internal Medicine 09/30/18 documented as of this encounter
--- OUTSIDE RECORDS SUMMARY | 2024-09-15 08:18 | XMS_ITS | Encounter Summary ---
Author Organization [facility] Address [address] [place] [id number] Care Team Providers Care Document Control Clerk Name Role Phone Mickey Fien MD Primary Care Provider [phone] Reason for Visit * Reason Onset Date Comments Med Refill 04/20/2024 Encounter Details Date Type Department Care Team (Late st Contact Info) Description 04/20/2024 Refill [facility] RHEUMATOLOGY [address] [facility] [address] [place] [address] Yair Hood DO [address] [facility] [place] [place] [address] [place] [address] Primary osteoarthritis, unspecified site; High [...] encounter Miscellaneous Notes * Telephone Encounter - Jefferson Randle RegSched Rep - 04/20/2024 9:07 AM EDT Incoming Refill Request Medication requested (name and dose): Hydrocodone-acetaminophen (NORCO) 5-325mg per tablet Pharmacy where request should be sent: [facility] Additional details provided by patient: n/a Best call back number: [phone] Does the patient have less than a 3 day supply: [] Yes [x] No Ludmila Marie 04/20/24, 09:07 EDT documented in this encounter Plan of Treatment Upcoming Encounters Date Type Department Care Team (Late st Contact Info) Description 12/12/2024 11:00 AM EST Office Visit [facility] RHEUMATOLOGY [address] [facility] [address] [place] [address] Yair Hood DO [address] [facility] [address] [place], [place] [id number] documented as of this encounter Visit Diagnoses Diagnosis Primary osteoarthritis, unspecified site High risk medication use documented in this encounter Care Teams Document Control Clerk Relationship Specialty Start Date End Date Mickey Fine MD [address] [place], [place] [address] [place] [address] PCP - General Internal Medicine 09/30/18 documented as of this encounter
--- OUTSIDE RECORDS SUMMARY | 2024-09-15 08:18 | XMS_ITS | Encounter Summary ---
Author Organization [facility] Address [address] [place] [address] Care Team Providers Care Varnish Dipper Name Role Phone Mickey Fine MD Primary Care Provider [phone] Encounter Details Date Type Department Care Team (Late st Contact Info) Description 03/02/2024 11:35 AM EDT Lab [facility] [place] [address] [facility] [address] [facility] [address] [place] [address] Primary osteoarthritis, unspecified site; High risk medication [...] on file documented as of this encounter Plan of Treatment Upcoming Encounters Date Type Department Care Team (Late st Contact Info) Description 12/12/2024 11:00 AM EST Office Visit [facility] RHE[facility]OLOGY [address] [facility] [address] [place] [address] Yair Hood DO [address] [facility] [address] [place] [address] documented as of this encounter Procedures Procedure Name Priority Date/Time Associated Diagnosis Comments URINE DRUG SCREEN Routine 03/02/2024 11: 35 AM EDT Primary osteoarthritis, unspecified site High risk medication use FENTANYL, URINE Routine 03/02/2024 11:35 AM EDT Primary osteoarthritis, unspecified site High risk medication use documented in this encounter Results * Fentanyl, Urine - Urine, Clean Catch (03/02/2024 11:35 AM EDT) Fentanyl, Urine Negative Negative 03/02/2024 4:50 PM EDT [facility] Urine Urine specimen obtained by clean catch procedure / Unknown Collection / Unknown 03/02/2024 11:35 AM EDT 03/02/2024 11:35 AM EDT Narrative [facility] - 03/02/2024 4:50 PM EDT Negative Threshold: ?? Fentanyl 5 ng/mL The normal value for the drug tested is negative. This report includes final unconfirmed screening results to be used for medical treatment purposes only. Unconfirmed results must not be used for non-medical purposes such as employment or legal testing. Clinical consideration should be applied to any drug of abuse test, particularly when unconfirmed results are used. ? Yair Hood DO URINE ORDERABLES Final Result [facility]
[address] [place] [address], * (ABNORMAL) Urine Drug Screen - Urine, Clean Catch (03/02/2024 11:35 AM EDT) [facility] THC, Screen, Urine Negative Negative 2023 4:22 PM EDT [facility] Phencyclidine (PCP), Urine Negative Negative 03/02/2024 4:22 PM EDT [facility] Cocaine Screen, Urine Negative Negative 03/02/2024 4:22 PM EDT [facility] Methamphetamine, Ur Negative Negative 03/02/2024 4:22 PM EDT [facility] Opiate Screen Positive(A) Negative 03/02/2024 4:22 PM EDT [facility] Amphetamine Screen, Urine Negative Negative 03/02/2024 4:22 PM EDT [facility] Benzodiazepine Screen, Urine Negative Negative 03/02/2024 4:22 PM EDT [facility] Tricyclic Antidepressants Screen Negative Negative 03/02/2024 4:22 PM EDT [facility] Methadone Screen, Urine Negative Negative 03/02/2024 4:22 PM EDT [facility] Barbiturates Screen, Urine Negative Negative 03/02/2024 4:22 PM EDT [facility] Oxycodone Screen, Urine Negative Negative 03/02/2024 4:22 PM EDT [facility] Buprenorphine, Screen, Urine Negative Negative 03/02/2024 4:22 PM T [facility] Urine Urine specimen obtained by clean catch procedure / Unknown Collection / Unknown 03/02/2024 11:35 AM EDT 03/02/2024 11:35 AM EDT Narrative [facility] - 03/02/2024 4:22 PM EDT Cutoff For Drugs Screened: Amphetamines ? 500 ng/ml Barbiturates ? 200 ng/ml Benzodiazepines ?150 ng/ml Cocaine ?150 ng/ml Methadone ?200 ng/ml Opiates ?100 ng/ml Phencyclidine ? 25 ng/ml THC ? 50 ng/ml Methamphetamine ?500 ng/ml Tricyclic Antidepressants ??300 ng/ml Oxycodone ?100 ng/ml Buprenorphine ? 10 ng/ml The normal value for all drugs tested is negative. This report includes unconfirmed screening results, with the cutoff values listed, to be used for medical treatment purposes only. ??Unconfirmed results must not be used for non-medical purposes such as employment or legal testing. ??Clinical consideration should be applied to any drug of abuse test, particularly when unconfirmed results are used. ?? Yair Hood DO URINE ORDERABLES Final Result [facility]
[address] [place] [id number], documented in this encounter Visit Diagnoses Diagnosis Primary osteoarthritis, unspecified site High risk medication use documented in this encounter Care Teams Varnish Dipper Relationship Specialty Start Date End Date Mickey Fine MD [address] [facility] [address] [place] [address] (work) PCP - General Internal Medicine 09/30/18 documented as of this encounter
--- OUTSIDE RECORDS SUMMARY | 2024-09-15 08:18 | XMS_ITS | Encounter Summary ---
Author Organization [facility] Address [address] [place] [address] Care Team Providers Care J2Ee Engineer Name Role Phone Mickey Fine MD Primary Care Provider [phone] Encounter Details Date Type Department Care Team (Latest Contact Info) Description 08/11/2024 Travel Social History Tobacco Use Types Packs/Day Years [...] st Contact Info) Description 09/26/2024 7:30 AM [facility] Hospital Encounter [facility] S Operating Room [address] [place] [address] Alejandro Herrera MD [address] [place] [address] 09/26/2024 7:30 AM EST - 09/26/2024 10:35 AM EST Surgery [facility] S Operating Room [address] [place] [address] Alejandro Herrera MD [address] [place] [address] REPAIR, HERNIA, HIATAL, LAPAROSCOPIC, USING MESH, TOUPET FUNDOPLICATION [[id number] (CPT??)] 11/01/2024 9:10 AM EST Office Visit [facility] General Surgery [address] [place] [address] Alejandro Herrera MD [address] [facility] [address] [place] [address] Scheduled Procedures Name Priority Associated Diagnoses Date/Ti me REPAIR, HERNIA, HIATAL, LAPAROSCOPIC, USING MESH Hiatal hernia with GERD 09/26/2024 7:30 AM EST documented as of this encounter Visit Diagnoses Not on filedocumented in this encounter Additional Health Concerns Assessment Noted Time A fall risk assessment has been complete d for the patient 08/11/2024 9:25 AM EDT A Body Mass Index follow-up plan has been documented for the patient 08/17/2024 10:57 AM EDT documented as of this encounter Care Teams J2Ee Engineer Relationship Specialty Start Date End Date Mickey Fine MD [address] [place] [address] PCP - General 03/07/21 documented as of this encounter
--- OUTSIDE RECORDS SUMMARY | 2024-09-15 08:18 | XMS_ITS | Clinical Summary ---
Author Organization [facility] Address [address] [place] [id number] Care Team Providers Care Linux Kernel Developer Name Role Phone Mickey Fine MD Primary Care Provider [phone] Allergies No known active allergies Medications AMLODIPINE BESYLATE PO Take 10 mg by mouth Daily. Active losartan-hydroch lorothiazide (HYZAAR) 100-25 MG per tablet Take 1 tablet by mouth Daily. Active omeprazole (priLOSEC) 20 MG capsule Take 1 capsule by mouth Daily. Active tamsulosin (FLOMAX) 0.4 MG capsule 24 hr capsule Take 1 capsule by mouth Every Night. Active citalopram (CeleXA) 10 MG tablet Take 1 tablet by mouth Daily. Active allopurinol (ZYLOPRIM) 100 MG tablet Take 1 tablet by mouth Daily. Active Eliquis 5 MG tablet tablet Take 1 tablet by mouth Every 12 (Twelve) Hours. 4 Active atorvastatin (LIPITOR) 20 MG tablet Take 1 tablet by mouth Every Evening. 4 Active diclofenac (VOLTAREN) 75 MG EC tablet Take 1 tablet by mouth 2 (Two) Times a Day. 4 Active bisoprolol (ZEBeta) 5 MG tablet Take 1 tablet by mouth every night at bedtime. Active isosorbide mononitrate (IMDUR) 30 MG 24 hr tablet Take 1 tablet by mouth Daily. 4 Active HYDROcodone-acet aminophen (NORCO) 5-325 MG per tabletIndication s:Primary osteoarthritis, unspecified site,High risk medication use Take 1 tablet by mouth Every 6 (Six) Hours As Needed for Moderate Pain. 120 tablet 4 Active HYDROcodone-acet aminophen (NORCO) 5-325 MG per tabletIndication s:Primary osteoarthritis, unspecified site,High risk medication use Take 1 tablet by mouth Every 6 (Six) Hours As Needed for Moderate Pain. 120 tablet 4 08/22/20 24 Discontinu ed(Reorder ) Active Problems Problem Noted Date Diagnosed Date Encounter for therapeutic drug monitoring 2023 Assessment & Plan (07/06/2024 10:48 AM EDT): * Controlled substance agreement updated 07/06/24 * Hydrocodone/APAP 5 mg every 6 hours PRN (started 11/01/20) Check MANSIH and Drug screen as required. Drug screen ordered today Primary osteoarthritis 03/02/2024 Assessment & Plan (07/06/2024 10:48 AM EDT): * Medications/treatments/interventions tried include: Tylenol, Surprise, allopurinol, Citalopram, meloxicam, he has done some physical therapy, Tramadol * 07/02/20 autoimmune evaluation negative 1. Tylenol PRN is ok as directed. 2. Weight loss would be helpful. 3. He has tried NSAIDs Like meloxicam PRN. 4. 07/02/20 we referred him for some physical therapy. 5. He tried/failed Tramadol 6. Continue hydrocodone/APAP PRN 7. Follow up in 4 months 8. We gave him a handout on arthritis to take home and review Assessment & Plan (03/02/2024 11:26 AM EDT): * Medications/treatments/interventions tried include: Tylenol, Surprise, allopurinol, Citalopram, meloxicam, he has done some physical therapy, Tramadol * 07/02/20 autoimmune evaluation negative 1. Tylenol PRN is ok as directed. 2. Weight loss would be helpful. 3. He has tried NSAIDs Like meloxicam PRN. 4. 07/02/20 we referred him for some physical therapy. 5. He tried/failed Tramadol 6. Continue hydrocodone/APAP PRN 7. Follow up in 4 months 8. We gave him a handout on OA to take home and review High risk medication use 03/02/2024 Assessment & Plan (03/02/2024 11:26 AM EDT): * Tried and failed Tramadol 50 mg every 6 hours PRN for pain * Controlled substance agreement signed 11/01/20 and again 03/11/22 * Hydrocodone/APAP 5 mg every 6 hours PRN (started 11/01/20) Check MANISH and Drug screen as required. Renal calculi 2018 Encounters Date Type Department Care Team Description 08/22/2024 Refill [facility] RHEUMATOLOGY [address] [facility] [address] [place] [address] Yair Hood, Primary osteoarthritis, unspecified site; High risk medication use 07/24/2024 Refill [facility] RHEUMATOLOGY [address] [facility] [address] [place] [address] Yair Hood, Primary osteoarthritis, unspecified site; High risk medication use 07/06/2024 11:45 AM EDT Office Visit [facility] RHEUMATOLOGY [address] [facility] [address] [place] [address] Yair Hood, Primary osteoarthritis involving multiple joints (Primary Dx); Encounter for therapeutic drug monitoring 07/06/2024 11:30 AM EDT Lab [facility] [place] [address] [facility] [address] [place] [id number] Primary osteoarthritis involving multiple joints; Encounter for therapeutic drug monitoring 06/21/2024 Refill [facility] RHEUMATOLOGY [address] [facility] [address] [place] [address] Yair Hood, Primary osteoarthritis, unspecified site; High risk medication use from Last 3 Months Immunizations Name Administration Dates Next Due Fluzone High-Dose 65+yrs 09/15/2023 influenza Split 08/12/2022 Family History Medical History Relation Name Comments Lung cancer Father Arthritis Mother Heart disease Mother Relation Name Status Comments Father Mother Social History Tobacco Use Types Packs/Day Years Used Date Smoking Tobacco: Never Smokeless Tobacco: Never Tobacco Cessation:Counseling Given: Not Answered Alcohol Use Standard Drinks/Week Comments No 0 [...] Sign Reading Time Taken Comments Blood Pressure 130/100 07/06/2024 10:39 AM EDT Pulse 48 07/06/2024 10:39 AM EDT Temperature 36.3 ??C (97.4 ??F) 07/06/2024 10:39 AM E DT Respiratory Rate 19 2018 11:45 AM EST Oxygen Saturation 97% 2018 11:45 AM EST Inhaled Oxygen Concentration - - Weight 106 kg (233 lb) 07/06/2024 10:39 AM EDT Height 177.8 cm (5' 10 ) 07/06/2024 10:39 AM EDT Body Mass Index 33.43 07/06/2024 10:39 AM EDT Plan of Treatment Upcoming Encounters Date Type Department Care Team (Late st Contact Info) Description 12/12/2024 11:00 AM EST Office [facility] [address] [facility] [address] [place] [address] Yair Hood DO [address] [facility] [address] [place] [address] Health Maintenance Due Date Last Done Comments BMI FOLLOWUP 1953 COLOGUARD 1953 COLON CANCER SCREENING 5 YEA R SIGMOIDOSCOPY 1953 COLONOSCOPY [address] CANCER SCREENING [address] CT COLONOGRAPHY 1953 FECAL OCCULT BLOOD TEST 1953 FIT Testing (1 year) 1953 TDAP/TD VACCINES (1 - Tdap) 1972 ZOSTER VACCINE (1 of 2) 2003 Pneumococcal Vaccine 65+ (1 of 1 - PCV) 2018 ANNUAL WELLNESS VISIT 03/02/2024 HEPATITIS C SCREENING 03/02/2024 INFLUENZA VACCINE 05/25/2024 09/15/2023, 08/12/2022 COVID-19 Vaccine ( season) 2024 09/15/2023, 10/23/2021, 01/01/2021 Medical Devices Implanted Type Area Edge Cutter Device Identifier Shelf Expiration Date Model / Serial / Lot Stent Percuflx No Gw 4.8x26 - [id number] Implanted:Qty : 1 on 2018 by Chao Aparicio MD at [facility] Implant Right: Ureter [employer] 06/14/2021 [id number] / / [id number] Procedures Procedure Name Priority Date/Time Associated Diagnosis Comments FENTANYL, URINE Routine 07/06/2024 11:23 AM EDT Primary osteoarthritis involving multiple joints Encounter for therapeutic drug monitoring URINE DRUG SCREEN Routine 07/06/2024 11: 23 AM EDT Primary osteoarthritis involving multiple joints Encounter for therapeutic drug monitoring from Last 3 Months Results * (ABNORMAL) Urine Drug Screen - Urine, Clean Catch (07/06/2024 11:23 AM EDT) [facility] THC, Screen, Urine Negative Negative 2023 4:56 PM EDT [facility] Phencyclidine (PCP), Urine Negative Negative 07/06/2024 4:56 PM EDT [facility] Cocaine Screen, Urine Negative Negative 07/06/2024 4:56 PM EDT [facility] Methamphetamine, Ur Negative Negative 07/06/2024 4:56 PM EDT [facility] Opiate Screen Positive(A) Negative 07/06/2024 4:56 PM EDT [facility] Amphetamine Screen, Urine Negative Negative 07/06/2024 4:56 PM EDT [facility] Benzodiazepine Screen, Urine Negative Negative 07/06/2024 4:56 PM EDT [facility] Tricyclic Antidepressants Screen Negative Negative 07/06/2024 4:56 PM EDT [facility] Methadone Screen, Urine Negative Negative 07/06/2024 4:56 PM EDT [facility] Barbiturates Screen, Urine Negative Negative 07/06/2024 4:56 PM EDT [facility] Oxycodone Screen, Urine Negative Negative 07/06/2024 4:56 PM [facility] Buprenorphine, Screen, Urine Negative Negative 07/06/2024 4:56 PM [facility] Urine Urine specimen obtained by clean catch procedure / Unknown Collection / Unknown 07/06/2024 11:23 AM EDT 07/06/2024 11:23 AM EDT [facility] - 07/06/2024 4:56 PM EDT Cutoff For Drugs Screened: Amphetamines [...] Yair Hood DO URINE ORDERABLES Final Result [facility]
[address] [place] [address], * Fentanyl, Urine - Urine, Clean Catch (07/06/2024 11:23 AM EDT) Fentanyl, Urine Negative Negative 07/06/2024 5:08 PM EDT [facility] Urine Urine specimen obtained by clean catch procedure / Unknown Collection / Unknown 07/06/2024 11:23 AM EDT 07/06/2024 11:23 AM EDT [facility] - 07/06/2024 5:08 PM EDT Negative Threshold: ?? Fentanyl 5 [...] Yair Hood DO URINE ORDERABLES Final Result [facility]
[address] [place] [address], from Last 3 Months Insurance [facility] MEDICARE A & B Care Teams Linux Kernel Developer Relationship Specialty Start Date End Date Mickey Fine MD [address] [facility] [address] [place] [address] PCP - General Internal Medicine 09/30/18
--- OUTSIDE RECORDS SUMMARY | 2024-09-15 08:18 | XMS_ITS | Encounter Summary ---
Author Organization [facility] Address [address] [place] [id number] Care Team Providers Care Confectionery Drops Machine Operator Name Role Phone Mickey Fine MD Primary Care Provider [phone] Reason for Visit * Reason Onset Date Comments HCN Clinical Concern/Question 05/31/2024 Encounter Details Date Type Department Care Team (Late st Contact Info) Description 05/31/2024 Telephone [facility] General Surgery [address] [place] [address] Mony Padilla, PRE ALGEBRA TEACHER [address] [place] [address] HCN Clinical Concern/Question Social History Tobacco Use Types Packs/Day Years [...] encounter Miscellaneous Notes * Telephone Encounter - Claribel Gee RN - 06/06/2024 8:06 AM EDT Attempted to reach patient to let him know we are still waiting on cardiac clearance. No answer, novoicemail. * Telephone Encounter - Murray Sinclair - 05/31/2024 11:53 AM EDT Clinical Concern/Question Reason for Call: Patient says Dr Ivelisse mancini/ [facility] has not received a request from provider for surgery , please follow-up Best contact number: [phone] (home) Optimal time of day to reach caller: ANYTIME Additional comments/information from caller: None Note: Please do not reply to this message. Follow-up communication and further actions as a result of this message need to be communicated with the patient directly, if the patient is not active onMyChart. If the patient is active on MyChart, they will receive notification of the communication/outcome via [employer]. documented in this encounter Plan of Treatment Upcoming Encounters Date Type Department Care Team (Late st Contact Info) Description 09/26/2024 7:30 AM EST Hospital Encounter [facility] Operating Room [address] [place] [address] Alejandro Herrera MD [address] [address] 09/26/2024 7:30 AM EST - 09/26/2024 10:35 AM EST Surgery [facility] Operating Room [address] [place] [address] Alejandro Herrera MD [address] [address] REPAIR, HERNIA, HIATAL, LAPAROSCOPIC, USING MESH, TOUPET FUNDOPLICATION [[id number] (CPT??)] 11/01/2024 9:10 AM EST Office Visit [facility] General Surgery [address], [address] [place] [address] Alejandro Herrera MD [address] [address] Scheduled Procedures Name Priority Associated Diagnoses Date/Ti me REPAIR, HERNIA, HIATAL, LAPAROSCOPIC, USING MESH Hiatal hernia with GERD 09/26/2024 7:30 AM EST documented as of this encounter Visit Diagnoses Not on filedocumented in this encounter Additional Health Concerns Assessment Noted Time A fall risk assessment has been complete d for the patient 03/07/2024 9:02 AM EDT A Body Mass Index follow-up plan has been documented for the patient 03/07/2024 10:30 AM EDT documented as of this encounter Care Teams Confectionery Drops Machine Operator Relationship Specialty Start Date End Date Mickey Fine MD [address] [place] [address] PCP - General 03/07/21 documented as of this encounter
--- OUTSIDE RECORDS SUMMARY | 2024-09-15 08:18 | XMS_ITS | Encounter Summary ---
Author Organization [facility] Address [address] [place] [id number] Care Team Providers Care Machine Room Engineer Name Role Phone Mickey Fine MD Primary Care Provider [phone] Encounter Details Date Type Department Care Team (Late st Contact Info) Description 07/06/2024 11:30 AM EDT Lab [facility] [place] [address] [facility] [address] [place] [address] Primary osteoarthritis involving multiple joints; Encounter for therapeutic drug monitoring Social History Tobacco Use Types Packs/Day Years [...] Description 12/12/2024 11:00 AM EST Office Visit [facility] RHE[facility]OLOGY [address] [facility] [address] [place] [address] Yair Hood DO [address] [facility] [address] [place], [place] [id number] documented as of this encounter Procedures Procedure Name Priority Date/Time Associated Diagnosis Comments URINE DRUG SCREEN Routine 07/06/2024 11: 23 AM EDT Primary osteoarthritis involving multiple joints Encounter for therapeutic drug monitoring FENTANYL, URINE Routine 07/06/2024 11:23 AM EDT Primary osteoarthritis involving multiple joints Encounter for therapeutic drug monitoring documented in this encounter Results * Fentanyl, Urine - Urine, Clean Catch (07/06/2024 11:23 AM EDT) Fentanyl, Urine Negative Negative 07/06/2024 5:08 PM EDT [facility] Urine Urine specimen obtained by clean catch procedure / Unknown Collection / Unknown 07/06/2024 11:23 AM EDT 07/06/2024 11:23 AM EDT Narrative [facility] - 07/06/2024 5:08 PM EDT Negative [...] particularly when unconfirmed results are used. ? Yairbismark Hood DO URINE ORDERABLES Final Result [facility]
[address] [place] [address], * (ABNORMAL) Urine Drug Screen - Urine, Clean Catch (07/06/2024 11:23 AM EDT) [facility] THC, Screen, Urine Negative Negative 2023 4:56 PM EDT [facility] Phencyclidine (PCP), Urine Negative Negative 07/06/2024 4:56 PM EDT [facility] Cocaine Screen, Urine Negative Negative 07/06/2024 4:56 PM EDT [facility] Methamphetamine, Ur Negative Negative 07/06/2024 4:56 PM EDT [facility] Opiate Screen Positive(A) Negative 07/06/2024 4:56 PM EDT [facility] Amphetamine Screen, Urine Negative Negative 07/06/2024 4:56 PM EDT [facility] Benzodiazepine Screen, Urine Negative Negative 07/06/2024 4:56 PM EDT [facility] Tricyclic Antidepressants Screen Negative Negative 07/06/2024 4:56 PM EDT [facility] Methadone Screen, Urine Negative Negative 07/06/2024 4:56 PM EDT [facility] Barbiturates Screen, Urine Negative Negative 07/06/2024 4:56 PM EDT [facility] Oxycodone Screen, Urine Negative Negative 07/06/2024 4:56 PM EDT [facility] Buprenorphine, Screen, Urine Negative Negative 07/06/2024 4:56 PM EDT [facility] Urine Urine specimen obtained by clean catch procedure / Unknown Collection / Unknown 07/06/2024 11:23 AM EDT 07/06/2024 11:23 AM EDT Narrative [facility] - 07/06/2024 4:56 PM EDT Cutoff [...] Yair Hood DO URINE ORDERABLES Final Result [facility]
[address] [place] [id number], documented in this encounter Visit Diagnoses Diagnosis Primary osteoarthritis involving multiple joints Encounter for therapeutic drug monitoring documented in this encounter Care Teams Machine Room Engineer Relationship Specialty Start Date End Date Mickey Fine MD [address] [facility] [address] [place] [id number] (work) PCP - General Internal Medicine 09/30/18 documented as of this encounter
--- OUTSIDE RECORDS SUMMARY | 2024-09-15 08:18 | XMS_ITS | Encounter Summary ---
Author Organization [facility] Address [address] [place] [id number] Care Team Providers Care Skip Miner Name Role Phone Mickey Fine MD Primary Care Provider [phone] Reason for Visit * Auth/Cert Specialty Diagnoses / Procedures Referred By Digna t Referred To Contact Diagnoses Procedures OH CYSTO/URETERO/PYELOSCOPY W/LITHOTRIPSY RIGHT CYSTOSCOPY URETEROSCOPY WITH LASER AND STENT Referral ID Status Reason Start Date Expiration Date Visits Re quested Visits Authorized [id number] 1 1 Encounter Details Date Type Department Care Team (Late st Contact Info) Description 2018 9:40 AM EST Anesthesia Event [facility] [address] [place] [address] Tara Givens MD [address] [place] [id number] Anesthesia Record Procedure Summary Procedure Name Responsible Anesthesiologist Anesthesia Start Time Anesthesia Stop Time CYSTOSCOPY, RIGHT URETEROSCOPY, RIGHT RETROGRADE PYLOEGRAM, LASER LITHOTRIPSY, RIGHT URETERAL STENT PLACEMENT (Right: Bladder) Tara Givens MD 09/30/18 0940 09/30/18 1051 Events Date Time Event Comment 2018 0759 0803 AN Equip Check 0908 An Start Data 0940 An Start 0945 An Induction The patient was reevaluated immediately before moderate or deep sedation use and before anesthesia induction. 0946 An LMA 1041 Airway Removed 1043 an stop data 1051 Handoff to RN The following has been completed: 1. Identification of Patient, workman family member(s) or patient surrogate 2. Identification of the responsible Practitioner (primary service) 3. Discussion of the pertinent/attainable medical history 4. Discussion of the surgical/procedure course (procedure, reason for surgery, procedure performed) 5. Intraoperative anesthetic management and issue/concerns to include things such as airway, hemodynamics, narcotic, sedation level and paralytic management and intravenous fluids/blood products and urine output during the procedure 6. Expectations/Plans for the early post-procedure period to include things such as anticipated course (anticipatory guidance), complications, need for laboratory or ECG and medication administration 7. Opportunity for questions and acknowledgment of understanding of report from the receiving PACU/ICU team 1051 An Stop Meds Name Total lidocaine PF (XYLOCAINE) local injection 1% 60 mg propofol (DIPRIVAN) injection 150 mg fentaNYL (SUBLIMAZE) injection 100 mcg dexamethasone (DECADRON) 4 mg/mL 4 mg phenylephrine (KRYSTLE-SYNEPHRINE) 10 mg/mL 1,000 mcg cefoxitin (MEFOXIN) 2 g/100 mL 0.9% NS ( MBP) 2 g glycopyrrolate (ROBINUL) injection 0.4 m g/2 mL 0.2 mg lactated ringers infusion 0 mL * Agents Name O2 Sevoflurane * Blood No blood administrations on file. Lines, Drains, and Airways Type Details Placement Removal Wound 09/30/18; 1001; peni s; incision 09/30/18 1001 by Amina Arango RN Peripheral IV Placement Date: 09/30/18; Placement Time: 0750; Change Due: 09/30/18; Catheter Size: 18 G; Orientation: Left; Location: Forearm; Site Prep: Chlorhexidine; Local Anes: Injectable; Technique: Anatomical landmarks; Inserted by: declan haynes rn; Insertion Attempts: 2; Patient Tolerance: Tolerated well; Removal Date: 09/30/18; Removal Time: 1143 09/30/18 0750 by Danna Salguero RN 09/30/18 1143 by Thalia Savage RN Supraglottic Airway Placement Date: 09/30/18; Placement Time: 0956 (created via procedure documentation); Mask Ventilation: Ventilated by mask (1); Size: 4; Comments: LMA placed without difficulty, ventilation with assist, equal breath sounds and symmetric chest rise and fall; Removal Date: 09/30/18; Removal Time: 1041 12/07/18 0956 by Elizabeth Elder CRNA 09/30/18 1041 by Elizabeth Elder CRNA documented in this encounter Social History Tobacco Use Types Packs/Day Years [...] on file documented as of this encounter OR Notes * Anesthesia Postprocedure Evaluation - Elizabeth Elder CRNA - 2018 10:52 AM EST Patient: Jairo Jin Procedure Summary Date: 09/30/18 Room / Location: [facility] [address] [place] [address] [facility] Anesthesia Start: 939 Anesthesia Stop: 1050 Procedure: CYSTOSCOPY, RIGHT URETEROSCOPY, RIGHT RETROGRADE PYLOEGRAM, LASER LITHOTRIPSY, RIGHT URETERAL STENT PLACEMENT (Right Bladder) Diagnosis: Surgeon: Chao Aparicio MD Provider: Tara Givens MD Anesthesia Type: general ASA Status: 2 Anesthesia Type: general Last vitals BP 106/73 (09/30/18 1051) Temp 97.1 ??F (36.2 ??C) (09/30/18 1051) Pulse 75 (09/30/18 1051) Resp 16 (09/30/18 1051) SpO2 92 % (09/30/18 1051) Post Anesthesia Care and Evaluation Patient location during evaluation: PACU Patient participation: complete - patient participated Level of consciousness: awake and alert Pain management: adequate Airway patency: patent Anesthetic complications: No anesthetic complications PONV Status: none Cardiovascular status: acceptable Respiratory status: acceptable Hydration status: acceptable * Anesthesia Procedure Notes - Elizabeth Elder CRNA - 2018 9:56 AM EST Associated Order(s): ANESTHESIA INTUBATION ANESTHESIA INTUBATION Urgency: elective Airway not difficult General Information and Staff Patient location during procedure: OR Indications and Patient Condition Indications for airway management: airway protection Preoxygenated: yes Mask difficulty assessment: 1 - vent by mask Final Airway Details Final airway type: supraglottic airway Successful airway: classic Size 4 Number of attempts at approach: 1 Additional Comments LMA placed without difficulty, ventilation with assist, equal breath sounds and symmetric chest rise and fall * Anesthesia Preprocedure Evaluation - Tara Givens MD - 2018 7:57 AM EST Images from the original note were not included. 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 Plan discussed with BIOLOGICAL CHEMIST. documented in this encounter Plan of Treatment Upcoming Encounters Date Type Department Care Team (Late st Contact Info) Description 12/12/2024 11:00 AM EST Office Visit [facility] RHE[facility]OLOGY [address] [facility] [address] [place] [address] Yair Hood DO [address] [facility] [address] [place] [address] documented as of this encounter Procedures Procedure Name Priority Date/Time Associated Diagnosis Comments ANESTHESIA INTUBATION Routine 2018 9:56 AM EST documented in this encounter Results * BH AN SUPRAGLOTTIC AIRWAY (2018 9:56 AM EST) Narrative Elizabeth Elder CRNA - 2018 9:56 AM EST Elizabeth Elder CRNA ? 2018 ??9:56 AM ANESTHESIA INTUBATION Urgency: elective Airway not difficult General Information and Staff Patient location during procedure: OR Indications and Patient Condition Indications for airway management: airway protection Preoxygenated: yes Mask difficulty assessment: 1 - vent by mask Final Airway Details Final airway type: supraglottic airway Successful airway: classic Size 4 Number of attempts at approach: 1 Additional Comments LMA placed without difficulty, ventilation with assist, equal breath sounds and symmetric chest rise and fall Procedure Note Elizabeth Elder CRNA - 2018 9:56 AM EST ANESTHESIA INTUBATION Urgency: elective Airway not difficult General Information and Staff Patient location during procedure: OR Indications and Patient Condition Indications for airway management: airway protection Preoxygenated: yes Mask difficulty assessment: 1 - vent by mask Final Airway Details Final airway type: supraglottic airway Successful airway: classic Size 4 Number of attempts at approach: 1 Additional Comments LMA placed without difficulty, ventilation with assist, equal breathsounds and symmetric chest rise and fall Tara Givens MD ANESTHESIA ORDERABLES Final Result documented in this encounter Visit Diagnoses Not on filedocumented in this encounter Administered Medications Inactive Administered Medications - up to 3 most recent administrations Medication Order MAR Action Action Date Dose Rate Site cefoxitin (MEFOXIN) 2 g/100 mL 0.9% NS (MBP) 2 g, Intravenous, Administer over 30 Minutes, Once, On Wed09/30/18 at 0727, For 1 dose, Administer within 1 hour of surgical incision. Redose 2 hours from pre-op dose if procedure ongoing or >1.5 L blood loss. Caution: Look alike/sound alike drug alert Activate vial before using., Indications: Surgical ProphylaxisIndications:Surgical Prophylaxis Given 2018 9:45 AM EST 2 g dexamethasone (DECADRON) injection Intravenous, As Needed, Starting on Wed09/30/18 at 0945 Given 2018 9:45 AM EST 4 mg fentaNYL citrate (PF) (SUBLIMAZE) injection Intravenous, As Needed, Starting on Wed09/30/18 at 0945 Given 2018 9:45 AM EST 100 mcg glycopyrrolate (ROBINUL) injection As Needed, Starting on Wed09/30/18 at 0949 Given 2018 9:49 AM EST 0.2 mg lidocaine PF 1% (XYLOCAINE) injection As Needed, Starting on Wed09/30/18 at 0945 Given 2018 9:45 AM EST 60 mg phenylephrine (KRYSTLE-SYNEPHRINE) injection Intravenous, As Needed, Starting on Wed09/30/18 at 0949 Given 2018 10:25 AM EST 100 mcg Given 2018 9:53 AM EST 300 mcg Given 2018 9:51 AM EST 300 mcg Propofol (DIPRIVAN) injection Intravenous, As Needed, Starting on Wed09/30/18 at 0945 Given 2018 9:45 AM EST 150 mg documented in this encounter Care Teams Skip Miner Relationship Specialty Start Date End Date Mickey Fine MD [address] [facility] [address] [place] [address] PCP - General Internal Medicine 09/30/18 documented as of this encounter
--- OUTSIDE RECORDS SUMMARY | 2024-09-15 08:18 | XMS_ITS | Encounter Summary ---
Author Organization [facility] Address [address] [place] [id number] Care Team Providers Care Meat Packer Name Role Phone Mickey Fine MD Primary Care Provider [phone] Reason for Visit * Reason Onset Date Comments Med Refill 06/21/2024 Encounter Details Date Type Department Care Team (Late st Contact Info) Description 06/21/2024 Refill [facility] RHEUMATOLOGY [address] [facility] [address] [place] [address] Yair Hood DO [address] [facility] [address] [place] [address] Primary osteoarthritis, unspecified site; High [...] encounter Miscellaneous Notes * Telephone Encounter - Joya Stuart RegSched Rep - 06/27/2024 12:24 PM EDT Hub staff attempted to follow warm transfer process and was unsuccessful Caller: Jairo Jin Relationship to patient: Self Best call back number: [phone] Patient is needing: PT STATES PHARMACY HASN'T RECEIVED * Telephone Encounter - Melody Benson MA - 06/21/2024 11:56 AM EDT Pt called stating that he needs a refill on his Hydrocodone. documented in this encounter Plan of Treatment Upcoming Encounters Date Type Department Care Team (Late st Contact Info) Description 12/12/2024 11:00 AM EST Office Visit [facility] RHEUMATOLOGY [address] [facility] [address] [place] [address] Yair Hood DO [address] [facility] [address] [place] [address] documented as of this encounter Visit Diagnoses Diagnosis Primary osteoarthritis, unspecified site High risk medication use documented in this encounter Care Teams Meat Packer Relationship Specialty Start Date End Date Mickey Fine MD [address] [facility] [address] [place] [address] PCP - General Internal Medicine 09/30/18 documented as of this encounter
--- OUTSIDE RECORDS SUMMARY | 2024-09-15 08:18 | XMS_ITS | Encounter Summary ---
Author Organization [facility] Address [address] [place] [id number] Care Team Providers Care Senior Medical Transcriptionist Name Role Phone Mickey Fine MD Primary Care Provider [phone] Reason for Visit * Reason Comments Osteoarthritis Follow up Encounter Details Date Type Department Care Team (Late st Contact Info) Description 03/02/2024 10:45 AM EDT Office Visit [facility] R[facility]OLOGY [address] [facility] [address] [place] [address] Yair Hood DO [address] [facility] [address] [place], [place] [id number] Primary osteoarthritis, unspecified site (Primary Dx); High risk medication use Social History Tobacco [...] Sign Reading Time Taken Comments Blood Pressure 120/70 03/02/2024 10:58 AM EDT Pulse 52 03/02/2024 10:58 AM EDT Temperature 36.2 ??C (97.1 ??F) 03/02/2024 10:58 AM E DT Respiratory Rate - - Oxygen Saturation - - Inhaled Oxygen Concentration - - Weight 105 kg (231 lb) 03/02/2024 10:58 AM EDT Height 177.8 cm (5' 10 ) 03/02/2024 10:58 AM EDT Body Mass Index 33.15 03/02/2024 10:58 AM EDT documented in this encounter Patient Instructions * Attachments The following attachments cannot be sent through Care Everywhere. * Osteoarthritis (Northern Irish) documented in this encounter Progress Notes * Yair Hood DO - 03/02/2024 10:45 AM EDTAssociated Problem(s): Primary osteoarthritis * Medications/treatments/interventions tried include: Tylenol, [place], allopurinol, Citalopram, meloxicam, he has done some [...] on OA to take home and review * Yair Hood DO - 03/02/2024 10:45 AM EDTAssociated Problem(s): High risk medication use * Tried and failed Tramadol 50 mg every 6 hours PRN for pain * Controlled substance agreement signed 11/01/20 and again 03/11/22 * Hydrocodone/APAP 5 mg every 6 hours PRN (started 11/01/20) Check MANISH and Drug screen as required. * Yair Hood, - 03/02/2024 10:45 AM EDT Images from the original note were not included. Office Follow Up Date: 03/02/2024 Patient Name: Jairo Jin Date of : 1955 Referring Physician: Mickey Fine MD Chief Complaint Patient presents with Osteoarthritis Follow up History of Present Illness: Jairo Jin is a 68 y.o. male who is here today for follow up. Weprescribe him hydrocodone/APAP take PRN. This is very helpful to him. No recent injuries or infections. No fevers. He rates his pain as 2/10 in severity. He has 30 minute(s)/day of morning stiffness. No red or hot joints. No swelling at this time. No back or neck pain. No muscle pain or weakness. No rash. No shortness of breath or chest pain. No GI or problems. No headaches. No sicca symptoms. No lymphadenopathy. No abnormal bleeding/bruising. No paresthesias. Subjective Review of Systems Constitutional: Negative. HENT: Negative. Eyes: Negative. Respiratory: Negative. Cardiovascular: Negative. Gastrointestinal: Negative. Endocrine: Negative. Genitourinary: Negative. Musculoskeletal: Positive for arthralgias. Skin: Negative. Allergic/Immunologic: Negative. Neurological: Negative. Hematological: Negative. Psychiatric/Behavioral: Negative. Current Outpatient Medications: allopurinol (ZYLOPRIM) 100 MG tablet, Take 1 tablet by mouth Daily., Disp: , Rfl: AMLODIPINE BESYLATE PO, Take 10 mg by mouth Daily., Disp: , Rfl: atorvastatin (LIPITOR) 20 MG tablet, Take 1 tablet by mouth Every Evening., Disp: , Rfl: citalopram (CeleXA) 10 MG tablet, Take 1 tablet by mouth Daily., Disp: , Rfl: diclofenac (VOLTAREN) 75 MG EC tablet, Take 1 tablet by mouth 2 (Two) Times a Day., Disp: , Rfl: Eliquis 5 MG tablet tablet, Take 1 tablet by mouth Every 12 (Twelve) Hours., Disp: , Rfl: HYDROcodone-acetaminophen (NORCO) 5-325 MG per tablet, Take 1 tablet by mouth Every 6 (Six) Hours As Needed for Moderate Pain., Disp: 120 tablet, Rfl: 0 isosorbide mononitrate (IMDUR) 30 MG 24 hr tablet, Take 1 tablet by mouth Daily., Disp: , Rfl: losartan-hydrochlorothiazide (HYZAAR) 100-25 MG per tablet, Take 1 tablet by mouth Daily., Disp: , Rfl: meloxicam (MOBIC) 15 MG tablet, Take 1 tablet by mouth Daily., Disp: , Rfl: omeprazole (priLOSEC) 20 MG capsule, Take 1 capsule by mouth Daily., Disp: , Rfl: tamsulosin (FLOMAX) 0.4 MG capsule 24 hr capsule, Take 1 capsule by mouth Every Night., Disp: , Rfl: bisoprolol (ZEBeta) 5 MG tablet, Take 1 tablet by mouth every night at bedtime., Disp: , Rfl: ferrous sulfate 325 (65 FE) MG tablet, Take 325 mg by mouth Daily With Breakfast. (Patient not taking: Reported on 03/02/2024), Disp: , Rfl: No Known Allergies I have reviewed and updated the patient's chief complaint, history of present illness, review of systems, past medical history, surgical history, family history, social history, medications and allergy list as appropriate. Objective Vitals: 03/02/24 1058 BP: 120/70 BP Location: Left arm Pulse: 52 Temp: 97.1 ??F (36.2 ??C) Weight: 105 kg (231 lb) Height: 177.8 cm (70 ) PainSc: 2 PainLoc: Generalized Comment: joints Body mass index is 33.15 kg/m??. Physical Exam General: Well appearing 68 year old male. Not in distress. He is ambulating unassisted. SKIN: No rashes. No alopecia. No subcutaneous nodules. No digital pits or ulcers. No sclerodactyly. HEENT: NCAT. Conjunctiva clear, no photophobia. No oral or nasal ulcers. Hearing intact. Pulmonary: Clear to auscultation bilaterally. No wheezing, rales, or rhonchi. CV: Regular rate and rhythm. No murmurs, rubs, or gallops. Psych: Normal mood and affect. Alert and oriented x 3. Extremities: No cyanosis or edema. Musculoskeletal: No warmth or erythema. Normal range of motion of the wrists, ankles, and elbows. No acute swelling or tenderness to palpation. Lymph: No palpable cervical adenopathy Procedures Assessment / Plan Assessment & Plan Primary osteoarthritis, unspecified site * Medications/treatments/interventions tried include: Tylenol, [place], allopurinol, Citalopram, meloxicam, he has done some [...] home and review High risk medication use * Tried and failed Tramadol 50 mg every 6 hours PRN for pain * Controlled substance agreement signed 11/01/20 and again 03/11/22 * Hydrocodone/APAP 5 mg every 6 hours PRN (started 11/01/20) Check MANISH and Drug screen as required. Orders Placed This Encounter Procedures Urine Drug Screen - Urine, Clean Catch Follow Up: Return in about 4 months (around 07/03/2024). Yair Hood DO [facility] [place] documented in this encounter Plan of Treatment Upcoming Encounters Date Type Department Care Team (Late st Contact Info) Description 12/12/2024 11:00 AM EST Office Visit [facility] RHE[facility]Y [address] [address] Yair Hood DO [address] [facility] [address] [place] [address] documented as of this encounter Results * (ABNORMAL) Urine Drug Screen - Urine, Clean Catch (03/02/2024 11:35 AM EDT) THC, Screen, Urine Negative Negative 2023 4:22 PM [facility] Phencyclidine (PCP), Urine Negative Negative 03/02/2024 4:22 PM EDT [facility] Cocaine Screen, Urine Negative Negative 03/02/2024 4:22 PM EDT [facility] Methamphetamine, Ur Negative Negative 03/02/2024 4:22 PM EDT [facility] Opiate Screen Positive(A) Negative 03/02/2024 4:22 PM EDT [facility] Amphetamine Screen, Urine Negative Negative 03/02/2024 4:22 PM [facility] Benzodiazepine Screen, Urine Negative Negative 03/02/2024 4:22 PM [facility] Tricyclic Antidepressants Screen Negative Negative 03/02/2024 4:22 PM [facility] Methadone Screen, Urine Negative Negative 03/02/2024 4:22 PM EDT [facility] Barbiturates Screen, Urine Negative Negative 03/02/2024 4:22 PM [facility] Oxycodone Screen, Urine Negative Negative 03/02/2024 4:22 PM [facility] Buprenorphine, Screen, Urine Negative Negative 03/02/2024 4:22 PM [facility] Urine Urine specimen obtained by clean catch procedure / Unknown Collection / Unknown 03/02/2024 11:35 AM EDT 03/02/2024 11:35 AM EDT [facility] - 03/02/2024 4:22 PM EDT Cutoff [...] Yair Hood DO URINE ORDERABLES Final Result [facility]
[address] [place] [address], documented in this encounter Visit Diagnoses Diagnosis Primary osteoarthritis, unspecified site- Primary High risk medication use documented in this encounter Care Teams Senior Medical Transcriptionist Relationship Specialty Start Date End Date Mickey Fine MD [address] [facility] [address] [facility] [address] PCP - General Internal Medicine 09/30/18 documented as of this encounter
--- OUTSIDE RECORDS SUMMARY | 2024-09-15 08:18 | XMS_ITS | Encounter Summary ---
Author Organization [facility] Address [address] [place] [address] Care Team Providers Care Dam Tender Assistant Name Role Phone Mickey Fine MD Primary Care Provider [phone] Reason for Referral * Imaging (Routine) - Closed Specialty Diagnoses / Procedures Referred By Contac t Referred To Contact Gastroenterology Diagnoses Hiatal hernia without gangrene or obstruction Procedures Manometry Manometry Mony Padilla APRN [address] [address] Phone: tel: fax: Referral ID Status Reason Start Date Expiration Date V isits Requested Visits Authorized [id number] Closed Specialty Services Required 03/07/2024 09/06/2025 1 1 Reason for Visit * Imaging (Routine) - Closed Specialty Diagnoses / Procedures Referred By Contac t Referred To Contact Gastroenterology Diagnoses Hiatal hernia without gangrene or obstruction Procedures Manometry Manometry Mony Padilla APRN [address] [place] [id number] [place] [address] Phone: tel: fax: Referral ID Status Reason Start Date Expiration Date V isits Requested Visits Authorized [id number] Closed Specialty Services Required 03/07/2024 09/06/2025 1 1 Encounter Details Date Type Department Care Team (Late st Contact Info) Description 05/26/2024 8:21 AM EDT - 05/26/2024 12:40 PM EDT Hospital Encounter [facility] [address] [place] [address] Alejandro Herrera MD [address] [facility] [address] [place] [address] Hiatal hernia without gangrene or obstruction Discharge Disposition: Home or Self Care Social History Tobacco Use Types Packs/Day Years [...] Sign Reading Time Taken Comments Blood Pressure 113/71 05/26/2024 8:50 AM EDT Pulse 45 05/26/2024 8:50 AM EDT Temperature - - Respiratory Rate 17 05/26/2024 8:50 AM EDT Oxygen Saturation - - Inhaled Oxygen Concentration - - Weight - - Height - - Body Mass Index - - documented in this encounter Medications at Time of Discharge allopurinol (Zyloprim) 100 MG tablet Take 1 tablet (100 mg) by mouth every night. atorvastatin (Lipitor) 20 MG tablet Take 1 tablet (20 mg) by mouth every night. 02/14/2024 bisoprolol (Zebeta) 5 MG tablet Take 1 tablet (5 mg) by mouth every night. 12/21/2023 citalopram (CeleXA) 10 MG tablet Take 1 tablet (10 mg) by mouth every night. diclofenac (Voltaren) 75 MG EC tablet Take 1 tablet (75 mg) by mouth twice a day. 02/14/2024 Eliquis 5 MG tablet Take 1 tablet (5 mg) by mouth twice a day. 02/03/2024 HYDROcodone-acetam inophen ([place]) 5-325 MG tablet Take 1 tablet (5 mg of hydrocodone) by mouth every 6 (six) hours if needed. 12/21/2023 isosorbide mononitrate ER (Imdur) 30 MG 24 hr tablet Take 1 tablet (30 mg) by mouth every night. 02/01/2024 losartan (Cozaar) 100 MG tablet Take 1 tablet (100 mg) by mouth every night. 12/24/2023 magnesium oxide (Mag-Ox) 400 (240 Mg) MG tablet TAKE 1 TABLET BY MOUTH TWICE DAILY WITH MEALS FOR MUSCLE CRAMPS 02/14/2024 omeprazole (PriLOSEC) [address] capsule Take 1 capsule (40 mg) by mouth every night. polyethylene glycol (Miralax) 17 GM/SCOOP powder Take 17 g by mouth every night. psyllium (Metamucil) 58.6 % powder Take 1 packet by mouth every night. tamsulosin (Flomax) 0.4 MG 24 hr capsule Take 1 capsule (0.4 mg) by mouth every night. 09/01/2016 documented as of this encounter Plan of Treatment Upcoming Encounters Date Type Department Care Team (Late st Contact Info) Description 09/26/2024 7:30 AM [facility] Hospital Encounter [facility] Operating Room [address] [place] [address] Alejandro Herrera MD [address] [address] 09/26/2024 7:30 AM EST - 09/26/2024 10:35 AM [facility] Surgery [facility] Operating Room [address] [place] [address] Alejandro Herrera MD [address] [place] [phone] REPAIR, HERNIA, HIATAL, LAPAROSCOPIC, USING MESH, TOUPET FUNDOPLICATION [[id number] (CPT??)] 11/01/2024 9:10 AM EST Office Visit [facility] General Surgery [address], [address] [place] [address] Alejandro Herrera MD [address] [place] [phone] Pending Results Name Type Priority Associated Diagnoses Date /Time Manometry GI Routine Hiatal hernia without gangrene or obstruction 05/26/2024 9:40 AM EDT Scheduled Orders Name Type Priority Associated Diagnoses Orde r Schedule Manometry GI Routine Hiatal hernia without gangrene or obstruction Once for 1 Occurrences starting 05/26/2024 until 05/26/2024 Scheduled Procedures Name Priority Associated Diagnoses Date/Ti me REPAIR, HERNIA, HIATAL, LAPAROSCOPIC, USING MESH Hiatal hernia with GERD 09/26/2024 7:30 AM EST documented as of this encounter Visit Diagnoses Diagnosis Hiatal hernia without gangrene or obstruction Hiatal hernia with GERD documented in this encounter Administered Medications Inactive Administered Medications - up to 3 most recent administrations Medication Order MAR Action Action Date Dose Rate Site lidocaine (Uro-Jet) 2 % gel Urethral, As needed, Starting on Wed05/26/24 at 0846, Until Wed05/26/24 at 0846, Routine Given 05/26/2024 8:46 AM EDT 1 Application Intranasal documented in this encounter Additional Health Concerns Assessment Noted Time A fall risk assessment has been complete d for the patient 03/07/2024 9:02 AM EDT A Body Mass Index follow-up plan has been documented for the patient 03/07/2024 10:30 AM EDT documented as of this encounter Care Teams Dam Tender Assistant Relationship Specialty Start Date End Date Mickey Fine MD [address] [place] [address] PCP - General 03/07/21 documented as of this encounter
--- OUTSIDE RECORDS SUMMARY | 2024-09-15 08:18 | XMS_ITS | Encounter Summary ---
Author Organization [facility] Address [address] [place] [address] Care Team Providers Care Guest Relations Executive Name Role Phone Mickey Fine MD Primary Care Provider [phone] Encounter Details Date Type Department Care Team (Latest Contact Info) Description 05/26/2024 Travel Social History Tobacco Use Types Packs/Day [...] st Contact Info) Description 09/26/2024 7:30 AM [facility] Hospital Encounter [facility] S Operating Room [address] [place] [address] Alejandro Herrera MD [address] [place] [phone] 09/26/2024 7:30 AM EST - 09/26/2024 10:35 AM EST Surgery [facility] S Operating Room [address] [place] [address] Alejandro Herrera MD [address] [place] [phone] REPAIR, HERNIA, HIATAL, LAPAROSCOPIC, USING MESH, TOUPET FUNDOPLICATION [[id number] (CPT??)] 11/01/2024 9:10 AM EST Office Visit [facility] General Surgery [address] [place] [address] Alejandro Herrera MD [address] [facility] [address] [place] [address] Scheduled Procedures Name Priority Associated Diagnoses Date/Ti [...] documented as of this encounter Care Teams Guest Relations Executive Relationship Specialty Start Date End Date Mickey Fine MD [address] [place] [address] PCP - General 03/07/21 documented as of this encounter
--- OUTSIDE RECORDS SUMMARY | 2024-09-15 08:18 | XMS_ITS | Encounter Summary ---
Author Organization [facility] Address [address] [place] [id number] Care Team Providers Care Surgical Scheduler Name Role Phone Mickey Fine MD Primary Care Provider Reason for Visit * Reason Comments Osteoarthritis Follow up Encounter Details Date Type Department Care Team (Latest Contact Info) Description 07/06/2024 11:45 AM EDT Office Visit [facility] RHEUMATOLOGY [address] [facility] [address] [place] [address] Yair Hood DO [address] [facility] [address] [place] [id number] Primary osteoarthritis involving multiple joints (Primary Dx); Encounter for therapeutic drug monitoring Social History [...] 07/06/2024 10:39 AM E DT Respiratory Rate - - Oxygen Saturation - - Inhaled Oxygen Concentration - - Weight 106 kg (233 lb) 07/06/2024 10:39 AM EDT Height 177.8 cm (5' 10 ) 07/06/2024 10:39 AM EDT Body Mass Index 33.43 07/06/2024 10:39 AM EDT documented in this encounter Patient Instructions * Attachments The following attachments cannot be sent through Care Everywhere. * Arthritis [id number] ([place]) documented in this encounter Progress Notes * Yair Hood, DO - 07/06/2024 11:45 AM EDTAssociated Problem(s): Primary osteoarthritis * Medications/treatments/interventions tried include: Tylenol, [place], allopurinol, Citalopram, meloxicam, he has done some [...] on arthritis to take home and review * Yair Hood DO - 07/06/2024 11:45 AM EDTAssociated Problem(s): Encounter for therapeutic drug monitoring * Controlled substance agreement updated 07/06/24 * Hydrocodone/APAP 5 mg every 6 hours PRN (started 11/01/20) Check MANISH and Drug screen as required. Drug screen ordered today * Yair Hood, - 07/06/2024 11:45 AM EDT Images from the original note were not included. Office Follow Up Date: 07/06/2024 Patient Name: Jairo Jin Date of : 1955 Referring Physician: No ref. provider found Chief Complaint Patient presents with Osteoarthritis Follow up History of Present Illness: Jairo Jin is a 68 y.o. male who is here today for follow up. Weprescribe him hydrocodone/APAP take PRN. This is very helpful to him. He last filled this 06/27/24. No recent injuries or infections. No fevers. He rates his pain as 3/10 in severity. He has 30 minute(s)/day of [...] by mouth Every Evening., Disp: , Rfl: bisoprolol (ZEBeta) 5 MG tablet, Take 1 tablet by mouth every night at bedtime., Disp: , Rfl: citalopram (CeleXA) 10 MG [...] by mouth Every Night., Disp: , Rfl: No Known Allergies I have reviewed and updated the patient's chief complaint, history of present illness, review of systems, past medical history, surgical history, family history, social history, medications and allergy list as appropriate. Objective Vitals: 07/06/24 1039 BP: 130/100 BP Location: Left arm Pulse: (!) 48 Temp: 97.4 ??F (36.3 ??C) Weight: 106 kg (233 lb) Height: 177.8 cm (70 ) PainSc: 3 Body mass index is 33.43 kg/m??. Physical Exam General: Well appearing 68 [...] Assessment / Plan Assessment & Plan Primary osteoarthritis involving multiple joints * Medications/treatments/interventions tried include: Tylenol, [place], allopurinol, Citalopram, meloxicam, he has done some [...] on arthritis to take home and review Encounter for therapeutic drug monitoring * Controlled substance agreement updated 07/06/24 * Hydrocodone/APAP 5 mg every 6 hours PRN (started 11/01/20) Check MANISH and Drug screen as required. Drug screen ordered today Orders Placed This Encounter Procedures Urine Drug Screen - Urine, Clean Catch Follow Up: Return in about 4 months (around 11/05/2024). Yair Hood DO [facility] Rheumatology [facility] documented in this encounter Plan of Treatment Upcoming Encounters Date Type Department Care Team (Late st Contact Info) Description 12/12/2024 11:00 AM EST Office Visit [facility] RHEUMATOLOGY [address] [facility] [address] [place] [phone] Yair Hood DO [address] [facility] [address] [place] [address] documented as of this encounter Results * (ABNORMAL) Urine Drug Screen - Urine, Clean Catch (07/06/2024 11:23 AM EDT) [facility] THC, Screen, Urine Negative Negative 2023 4:56 PM EDT [facility] Phencyclidine (PCP), Urine Negative Negative 07/06/2024 4:56 PM EDT [facility] Cocaine Screen, Urine Negative Negative 07/06/2024 4:56 PM EDT [facility] Methamphetamine, Ur Negative Negative 07/06/2024 4:56 PM EDT [facility] Opiate Screen Positive(A) Negative 07/06/2024 4:56 PM EDT [facility] Amphetamine Screen, Urine Negative Negative 07/06/2024 4:56 PM EDT [facility] Benzodiazepine Screen, Urine Negative Negative 07/06/2024 4:56 PM EDT [facility] Tricyclic Antidepressants Screen Negative Negative 07/06/2024 4:56 PM EDT [facility] Methadone Screen, Urine Negative Negative 07/06/2024 4:56 PM EDT [facility] Barbiturates Screen, Urine Negative Negative 07/06/2024 4:56 PM EDT [facility] Oxycodone Screen, Urine Negative Negative 07/06/2024 4:56 PM T [facility] Buprenorphine, Screen, Urine Negative Negative 07/06/2024 4:56 PM T [facility] Urine Urine specimen obtained by clean catch procedure / Unknown Collection / Unknown 07/06/2024 11:23 AM EDT 07/06/2024 11:23 AM EDT [facility] - 07/06/2024 4:56 PM EDT [...] Yair Hood DO URINE ORDERABLES Final Result Performing Organization Address City/State/[facility] Co de Phone Number [facility]
[address] [place] [address], documented in this encounter Visit Diagnoses Diagnosis Primary osteoarthritis involving multiple joints- Primary Encounter for therapeutic drug monitoring documented in this encounter Care Teams Surgical Scheduler Relationship Specialty Start Date End Date Mickey Fine MD [address] [facility] [address] [place] [address] PCP - General Internal Medicine 09/30/18 documented as of this encounter
--- OUTSIDE RECORDS SUMMARY | 2024-09-15 08:18 | XMS_ITS | Encounter Summary ---
Author Organization [facility] Address [address] [place] [address] Care Team Providers Care Route Rider Supervisor Name Role Phone Mickey Fine MD Primary Care Provider Encounter Details Date Type Department Care Team (Late st Contact Info) Description 03/16/2024 Refill [facility]HEUMATOLOGY [address] [address] Yair Hood DO 3000 [facility] [address] [place], [place] [id number] Primary osteoarthritis, unspecified site; High risk medication [...] encounter Miscellaneous Notes * Telephone Encounter - Marissa Lopez RegSched Rep - 03/16/2024 11:10 AM EDT Pt beeds a refIncoming Refill Request Medication requested (name and dose): hydrocodone 5-325 mg Pharmacy where request should be sent: [facility] Additional details provided by patient: Best call back number: [phone] Does the patient have less than a 3 day supply: [x] Yes [] No Ludmila Hou 03/16/24, 11:11 EDT documented in this encounter Plan of Treatment Upcoming Encounters Date Type Department Care Team (Late st Contact Info) Description 12/12/2024 11:00 AM EST Office Visit [facility] RHEUM[facility]Y 3000 [facility] [address] [place] [address] Yair Hood DO 3000 [facility] [address] [place], [place] [id number] documented as of this encounter Visit Diagnoses Diagnosis Primary osteoarthritis, unspecified site High risk medication use documented in this encounter Care Teams Route Rider Supervisor Relationship Specialty Start Date End Date Mickey Fine MD 1210 [facility] [address] [place] [address] PCP - General Internal Medicine 09/30/18 documented as of this encounter
--- OUTSIDE RECORDS SUMMARY | 2024-09-15 08:18 | XMS_ITS | Encounter Summary ---
Author Organization [facility] Address [address] [place] [address] Care Team Providers Care [employer] [place] [employer] [place] Manager Name Role Phone Mickey Fine MD Primary Care Provider [phone] Encounter Details Date Type Department Care Team ([facility] st Contact Info) Description 05/26/2024 1:41 PM EDT Anesthesia Event [facility] [address] [place] [address] Renny Mann MD [address] [place] [address] Anesthesia Record Procedure Summary Procedure Name Responsible Anesthesiologist Anesthesia Start Time Anesthesia Stop Time EGD Renny Mann MD 05/26/24 1341 1408 Events Date Time Event Comment 05/26/2024 1313 1341 In Room 1341 An Start The patient was reevaluated immediately before sedation and remains eligible for anesthesia plan. 1342 An Start Data 1344 An Induction The patient was reevaluated immediately before moderate or deep sedation use and before anesthesia induction. 1345 Anesthesia Ready 1345 Proc Start 1356 Proc Fin 1357 Out of Room 1358 an stop data 1408 Handoff to Receiving I compl eted my handoff to the receiving clinician during which we: 1. Identified the patient 2. Identified the responsible provider 3. Reviewed the pertinent medical history 4. Discussed the surgical course 5. Reviewed intra-op anesthesia management and issues during anesthesia 6. Set expectations for post-procedure period 7. Allowed opportunity for questions and acknowledgement of understanding. 1408 An Stop Meds Name Total lidocaine PF (Xylocaine-MPF) 2% 100 mg propofol (Diprivan) infusion 10 mg/mL 24 7.94 mg propofol (Diprivan) injection 10 mg/mL 5 0 mg glycopyrrolate (Robinul) injection 0.2 m g/mL 0.2 mg ePHEDrine injection prefilled syringe 5 mg/mL 15 mg lactated Ringer's infusion 300 mL * Agents No agents on file. * Blood No blood administrations on file. Lines, Drains, and Airways Type Details Placement Removal Peripheral IV Placement Date: 12/18; Placement Time: 1323; Catheter Size: 22 G; Orientation: Left, Posterior; Location: Forearm; Inserted by: Ivan; Insertion Attempts: 2; Removal Date: 05/26/24; Removal Time: 1444; Removal Reason: Per protocol 05/26/24 1323 by Lucho Cerrato RN 05/26/24 1444 by Minna Harper RN documented in this encounter Social History Tobacco [...] as of this encounter Miscellaneous Notes * Anesthesia Postprocedure Evaluation - Mariela Rivera CRNA - 05/26/2024 2:08 PM EDT Patient: Jairo Jin Anesthesia Type: general Vitals Value Taken Time BP 88/50 05/26/24 1407 Temp 36.1 ??C (97 ??F) 05/26/24 1400 Pulse 56 05/26/24 1407 Resp 13 05/26/24 1407 SpO2 92 % 05/26/24 1407 Vitals shown include unfiled device data. Anesthesia Post Evaluation Patient location during evaluation: PACU Level of consciousness: sedated Airway patency: natural airway Cardiovascular status: acceptable Respiratory status: acceptable Hydration status: stable No notable events documented. * Anesthesia Preprocedure Evaluation - Renny Mann MD - 05/26/2024 7:31 AM EDT Patient: Jairo Jin Procedure Information Date/Time: 05/26/24 1330 Scheduled providers: Alejandro Herrera MD; Renny Mann MD; Mariela Rivera CRNA; Caio Mansfield RN Procedures: EGD ASHLEY Location: [facility] Relevant Problems No relevant active problems Anesthesia Evaluation No anesthesia staff entered. HPI Jairo Jin is a 68 y.o. male who presents for EGD/Ashley. ALLERGIES Allergies Allergen Reactions Wasp Venom Protein Other - please document in the comment field NPO STATUS AIRWAY HISTORY Past Medical History: Diagnosis Date Esophageal obstruction Schatzki's ring Personal history of other diseases of the [...] urinary calculi Personal history of renal calculi MEDICATIONS Outpatient (Not in a hospital admission) Current Outpatient Medications Medication Instructions allopurinol (ZYLOPRIM) 100 mg, Oral, ZZ Daily RT atorvastatin (LIPITOR) 20 mg, Oral, ZZ Daily RT bisoprolol (ZEBETA) 5 mg, Oral, ZZ Daily RT citalopram (CELEXA) 10 mg, Oral, ZZ Daily RT diclofenac (VOLTAREN) 75 mg, Oral, 2 times daily Eliquis 5 mg, Oral, 2 times daily HYDROcodone-acetaminophen ([place]) 5-325 MG tablet 1 tablet, Oral, Every 6 hours PRN isosorbide mononitrate ER (IMDUR) 30 mg, Oral, ZZ Daily RT losartan (COZAAR) 100 mg, Oral, Daily magnesium oxide (Mag-Ox) 400 (240 Mg) MG tablet TAKE 1 TABLET BY MOUTH TWICE DAILY WITH MEALS FOR MUSCLE CRAMPS omeprazole (PriLOSEC) [address] capsule Oral, Daily polyethylene glycol (MIRALAX) 17 g, Oral, Daily psyllium (Metamucil) 58.6 % powder 1 packet, Oral, 3 times daily tamsulosin (FLOMAX) 0.4 mg, Oral, ZZ Daily RT Scheduled PRNs SURGICAL HX: Past Surgical History: Procedure Laterality Date APPENDECTOMY N/A [email or web address] COLONOSCOPY N/A Complete Colonoscopy from [facility] EYE SURGERY N/A Eye Surgery from [facility] KIDNEY SURGERY N/A Kidney Surgery from [facility] KNEE SURGERY N/A Knee Surgery from [facility] OTHER SURGICAL HISTORY N/A Esophagogastroduodenoscopy from [facility] FUNCTIONAL CAPACITY SOCIAL HX: Social History Tobacco Use Smoking status: Never Passive exposure: Never Smokeless tobacco: Never Vaping Use Vaping status: Never Used Substance Use Topics Alcohol use: No Drug use: Never Comment: Drug use: No drug use OBJECTIVE DATA LABS Type and Screen No results found for: ABO COVID No results found for: SARSCOV2 Lab Results Component Value Date WBC 6.05 2018 HGB 14.7 2018 HCT 44.2 2018 MCV 87.5 2018 PLT 264 2018 Lab Results Component Value Date GLUCOSE 105 (H) 12/23/2016 NA 140 12/23/2016 K 4.1 12/23/2016 CO2 25 12/23/2016 CL 100 (L) 12/23/2016 BUN 16 12/23/2016 CREATININE 0.97 12/23/2016 Diabetic Labs No results found for: HGBA1C No results found for: HGBA1C , PGLU ABG No results found for: PHART , XTS0UJX , PO2ART , SO2ART , BEART , PIP4FQE , HCTART , SODIUMART , POTASSIUMART , POCTCL , POCGLU , IONCALART , LACTATE Lab Results Component Value Date NA 140 12/23/2016 EKG No results found for this or any previous visit (from the past 4464 hour(s)). ECHO No echocardiogram results found for the past 12 months PFTs No results found for: IOJ8GVE , DDF6NPPA , GPG3UOE , FVCPRED Physical Exam Airway Mallampati: II Mouth opening: normal TM distance: >3 FB Neck ROM: full Cardiovascular Rhythm: regular Rate: abnormal Comments: Bradycardia Dental Comments: Poor dentition, multiple missing and broken teeth Pulmonary - normal exam Neurological Oriented: normal to time, normal to place and normal to person and oriented to person, place and time Skin Musculoskeletal Extremities Anesthesia Plan ASA 2 Plan was reviewed with: EMERGENCY MEDICINE PHYSICIAN ASSISTANT and attending Anesthesia technique(s) discussed with the patient/family: general Anesthesia plan agreed upon was: general Anesthetic plan and risks discussed with patient. Additional Equipment Requests documented in this encounter Plan of Treatment Upcoming Encounters Date Type Department Care Team (Late st Contact Info) Description 09/26/2024 7:30 AM EST Hospital Encounter [facility] Operating Room [address] [place] [address] Alejandro Herrera MD [address] [place] [phone] 09/26/2024 7:30 AM EST - 09/26/2024 10:35 AM EST Surgery [facility] Operating Room [address] [place] [address] Alejandro Herrera MD [address] [place] [address] REPAIR, HERNIA, HIATAL, LAPAROSCOPIC, USING MESH, TOUPET FUNDOPLICATION [[id number] (CPT??)] 11/01/2024 9:10 AM EST Office Visit [facility] General Surgery [address], [address] [place] [address] Alejandro Herrera MD [address] [place] [phone] Scheduled Procedures Name Priority Associated Diagnoses Date/Ti me REPAIR, HERNIA, HIATAL, LAPAROSCOPIC, USING MESH Hiatal hernia with GERD 09/26/2024 7:30 AM EST documented as of this encounter Visit Diagnoses Not on filedocumented in this encounter Administered Medications Inactive Administered Medications - up to 3 most recent administrations Medication Order MAR Action Action Date Dose Rate Site ePHEDrine Sulfate injection Intravenous, As needed, Starting on Wed05/26/24 at 1405, Until Wed05/26/24 at 1408, Routine, Anesthesia Intraprocedure Given 05/26/2024 2:05 PM EDT 15 mg glycopyrrolate (Robinul) injection Intravenous, As needed, Starting on Wed05/26/24 at 1351, Until Wed05/26/24 at 1408, Routine, Anesthesia Intraprocedure Given 05/26/2024 1:51 PM EDT 0.2 mg lactated Ringer's infusion Intravenous, Continuous PRN, Starting on Wed05/26/24 at 1341, Until Wed05/26/24 at 1408, Routine New Bag 05/26/2024 1:41 PM EDT lidocaine PF (Xylocaine) 2 % injection Intravenous, As needed, Starting on Wed05/26/24 at 1344, Until Wed05/26/24 at 1408, Routine, Anesthesia Intraprocedure Given 05/26/2024 1:44 PM EDT 100 mg propofol (Diprivan) infusion 10 mg/mL Intravenous, Continuous PRN, Starting on Wed05/26/24 at 1344, Until Wed05/26/24 at 1408, Routine Rate/Dose Change 05/26/2024 1:51 PM EDT 175 mcg/kg/min 106.26 mL/hr New Bag 05/26/2024 1:44 PM EDT 200 mcg/kg/min 121.44 mL /hr propofol (Diprivan) injection Intravenous, As needed, Starting on Wed05/26/24 at 1344, Until Wed05/26/24 at 1408, Routine, Anesthesia Intraprocedure Given 05/26/2024 1:44 PM EDT 50 mg documented in this encounter Additional Health Concerns Assessment Noted Time A fall risk assessment has been complete d for the patient 03/07/2024 9:02 AM EDT A Body Mass Index follow-up plan has been documented for the patient 03/07/2024 10:30 AM EDT documented as of this encounter Care Teams [employer] Manager Relationship Specialty Start Date End Date Mickey Fine MD [address] [place] [address] PCP - General 03/07/21 documented as of this encounter
--- OUTSIDE RECORDS SUMMARY | 2024-09-15 08:18 | XMS_ITS | Encounter Summary ---
Author Organization [facility] Address [address] [place] [address] Care Team Providers Care Maintenance Data Analyst Name Role Phone Mickey Fine MD Primary Care Provider [phone] Reason for Visit * Auth/Cert Specialty Diagnoses / Procedures Referred By Digna t Referred To Contact Diagnoses Procedures ND CYSTO/URETERO/PYELOSCOPY W/LITHOTRIPSY RIGHT CYSTOSCOPY URETEROSCOPY WITH LASER AND STENT Referral ID Status Reason Start Date Expiration Date Visits Re quested Visits Authorized [id number] 1 1 Encounter Details Date Type Department Care Team (Late st Contact Info) Description 2018 7:15 AM EST - 2018 11:45 AM [facility] Hospital Encounter [address] [address] [place] [address] [place] [address] Renal stone (Primary Dx) Discharge Disposition: Home or Self Care Social [...] Sign Reading Time Taken Comments Blood Pressure 120/76 2018 11:45 AM EST Pulse 65 2018 11:45 AM EST Temperature 36.7 ??C (98 ??F) 2018 11:45 AM EST Respiratory Rate 19 2018 11:45 AM EST [...] through Care Everywhere. * Cystoscopy Care After (Burkinan) * Ureteral Stent Implantation Care After (Burkinan) * Lithotripsy Care After (Burkinan) * General Anesthesia Adult Care After (Burkinan) documented in this encounter Medications at Time [...] 7:59 AM EST Pre-Op H&P Jairo Jin [id number] Chief complaint: Right renal stone HPI: [...] Implant Name Type Inv. Item Serial No. Otolaryngology Physician Lot No. LRB No. Used STENT PERCUFLX NO GW [id number] - [id number] Implant STENT PERCUFLX NO GW [id number] [employer] [id number] Right 1 Specimen: none Findings: multiple renal calculi Complications: none Description of Procedure: Pt in lithotomy , prepped and draped, 21 fr cystoscope placed with 30 degree lens. Prostate moderately obstructing, right retrograde pyelogram performed, No ureteral stones,6mm stone at UPJ and cluster of stone lower pole calyx, Sensor wire passed and then / access sheath easily advanded to proximal mid [...] Description 12/12/2024 11:00 AM EST Office Visit [facility] RHEUMATOLOGY [address] [facility] [address] [place] [address] Yair Hood DO 3000 [facility] [address] [place] [address] documented as of this encounter Procedures Procedure [...] Region Laterality Modality Body, Other N/A Radiographic Nanidni ging 2018 3:13 PM EST Impressions 2018 [...] Comprehensive Metabolic Panel (2018 8:39 AM EST) [facility] Glucose 97 70 - 100 mg/dL 2018 9:37 AM EST [facility] BUN 26(H) 9 - 23 mg/dL 2018 9:37 AM EST [facility] Creatinine 1.12 0.60 - 1.30 mg/dL 2018 9:37 AM EST [facility] Sodium 133 132 - 146 mmol/L 2018 9:37 AM EST [facility] Potassium 3.5 3.5 - 5.5 mmol/L 2018 9:37 AM [facility] Chloride 100 99 - 109 mmol/L 2018 9:37 AM [facility] CO2 28.0 20.0 - 31.0 mmol/L 2018 9:37 AM [facility] Calcium 9.5 8.7 - 10.4 mg/dL 2018 9:37 AM [facility] Total Protein 6.4 5.7 - 8.2 g/dL 2018 9:37 AM [facility] Albumin 4.19 3.20 - 4.80 g/dL 2018 9:37 AM [facility] ALT (SGPT) 29 7 - 40 U/L 2018 9:37 AM [facility] AST (SGOT) 19 0 - 33 U/L 2018 9:37 AM [facility] Alkaline Phosphatase 88 25 - 100 U/L 2018 9:37 AM [facility] Total Bilirubin 0.4 0.3 - 1.2 mg/dL 2018 9:37 AM [facility] eGFR Non Amer 66 >60 mL/min/1.7 3 2018 9:37 AM [facility] Globulin 2.2 gm/dL 2018 9:37 AM [facility] A/G Ratio 1.9 1.5 - 2.5 g/dL 2018 9:37 AM [facility] BUN/Creatinine Ratio 23.2 7.0 - 25.0 2018 9:37 AM [facility] Anion Gap 5.0 3.0 - 11.0 mmol/L 2018 9:37 AM [facility] Blood Line / Unknown 2018 8: 39 AM EST 2018 8:46 AM EST [facility]ATORY - 2018 9:37 AM [facility] National Kidney Foundation Guidelines Stage ? Description ?GFR 1 ? Normal or High ? 90+ 2 ? Mild decrease ?60-89 3 ? Moderate decrease ??30-59 4 ? Severe decrease ?15-29 5 ? Kidney failure ? <15 The MDRD GFR formula is only valid for adults with stable renal function between ages 18 and 70. us Tara Givens MD LAB BLOOD ORDERABLES Final Result [facility]
[address] [place] [address], * CBC (No Diff) (2018 7:56 AM EST) WBC 6.05 3.50 - 10.80 10*3/mm3 2018 8:04 AM [facility] RBC 5.05 4.20 - 5.76 10*6/mm3 2018 8:04 AM EST [facility] Hemoglobin 14.7 13.1 - 17.5 g/dL 2018 8:04 AM [facility] Hematocrit 44.2 38.9 - 50.9 % 2018 8:04 AM [facility] MCV 87.5 80.0 - 99.0 fL 2018 8:04 AM EST [facility] MCH 29.1 27.0 - 31.0 pg 2018 8:04 AM [facility] MCHC 33.3 32.0 - 36.0 g/dL 2018 8:04 AM [facility] RDW 12.8 11.3 - 14.5 % 2018 8:04 AM [facility] RDW-SD 40.6 37.0 - 54.0 fl 2018 8:04 AM [facility] MPV 10.1 6.0 - 12.0 fL 2018 8:04 AM EST [facility] Platelets 264 150 - 450 10*3/mm3 2018 8:04 AM EST [facility] Blood Line / Unknown 2018 7: 56 AM EST 2018 8:02 AM EST Tara Givens MD LAB BLOOD ORDERABLES Final Result [facility]
[address] [place] [address], * ECG 12 Lead (2018 7:45 AM EST) 2018 7:45 AM EST 2018 10:48 AM EST Narrative BH ECG - 2018 10:48 AM EST Test [...] ECG documented in this encounter Visit Diagnoses Diagnosis Renal stone- Primary Calculus of kidney Renal calculi Calculus of kidney documented in this encounter Administered Medications Inactive [...] = Pain Score of 7-10, CPOT 5-8 labetalol (NORMODYNE,TRANDATE) injection 5 mg 5 mg, [...] 0727, May switch to NS IV at [facility] if renal / if indicated New Bag [...] and THEN promethazine IF ondansetron is ineffective. documented in this encounter Active and Recently [...] 0750 (New Bag - Prov ider: Danna Salguero RN) PRN Medication Order 09/28/2018 09/29/2018 2018 [email or web address] [...] MD) documented in this encounter Care Teams Maintenance Data Analyst Relationship Specialty Start Date End Date Mickey Fine MD [address] [facility] [address] [place] [address] PCP - General Internal Medicine 09/30/18 documented as of this encounter
--- OUTSIDE RECORDS SUMMARY | 2024-09-15 08:19 | XMS_ITS | Encounter Summary ---
Author Organization [facility] Address [address] [place] [address] Care Team Providers Care Furniture Associate Name Role Phone Mickey Fine MD Primary Care Provider [phone] Encounter Details Date Type Department Care Team (Late Contact Info) Description 09/04/2016 Orders Only External Location [address] [place] [address] Provider, External Social History Tobacco Use Types Packs/Day Years Used Date Smoking Tobacco: Never Assessed Sex and Gender Information Value Date Recorded Sex Assigned at Not on file Legal Sex Male 8:54 PM EDT Gender Identity Not on file Sexual Orientation Not on file documented as of this encounter Plan of Treatment Upcoming Encounters Date Type Department Care Team (Late st Contact Info) Description 09/26/2024 7:30 AM [facility] Hospital Encounter [facility] Operating Room [address] [place] [address] Alejandro Herrera MD [address] [address] 09/26/2024 7:30 AM EST - 09/26/2024 10:35 AM EST Surgery [facility] Operating Room [address] [place] [address] Alejandro Herrera MD [address] [address] REPAIR, HERNIA, HIATAL, LAPAROSCOPIC, USING MESH, TOUPET FUNDOPLICATION [[id number] (CPT??)] 11/01/2024 9:10 AM EST Office Visit [facility] General Surgery [address], [address] [place] [address] Alejandro Herrera MD [address] [facility] [address] [place] [address] Scheduled Procedures Name Priority Associated Diagnoses Date/Ti me REPAIR, HERNIA, HIATAL, LAPAROSCOPIC, USING MESH Hiatal hernia with GERD 09/26/2024 7:30 AM EST documented as of this encounter Procedures Procedure Name Priority Date/Time Associated Diagnosis Comments CT OUTSIDE IMAGES 09/04/2016 9:56 AM EST documented in this encounter Results * CT OUTSIDE IMAGES (09/04/2016 9:56 AM EST) Anatomical Region Laterality Modality Computed Tomogra phy 09/04/2016 9:56 AM EST us External Provider IMG CT PROCEDURES Final Result documented in this encounter Visit Diagnoses Not on filedocumented in this encounter Care Teams Furniture Associate Relationship Specialty Start Date End Date Mickey Fine MD [address] [place] [address] PCP - General 03/07/21 documented as of this encounter
--- OUTSIDE RECORDS SUMMARY | 2024-09-15 08:19 | XMS_ITS | Encounter Summary ---
Author Organization [facility] Address [address] [place] [address] Care Team Providers Care Accounting Officer Name Role Phone Unavailable Primary Care Provider Unavailabl e Encounter Details Date Type Department Care Team (Late st Contact Info) Description 11/05/2016 [facility] Vitals Encounter [facility] [address] [place] [address] ProviderArnav MD [address] [place] [address] Social History Tobacco Use Types Packs/Day Years Used Date Smoking Tobacco: Never Assessed Sex and Gender Information Value Date Recorded Sex Assigned at Not on file Legal Sex Male 8:54 PM EDT Gender Identity Not on file Sexual Orientation Not on file documented as of this encounter Last Filed Vital Signs Vital Sign Reading Time Taken Comments Blood Pressure - - Pulse - - Temperature - - Respiratory Rate - - Oxygen Saturation - - Inhaled Oxygen Concentration - - Weight 102 kg (225 lb 6 oz) 11/05/2016 12:01 PM EST Height 177.8 cm (5' 10 ) 11/05/2016 12:01 PM EST Body Mass Index 32.34 11/05/2016 12:01 PM EST documented in this encounter Plan of Treatment Upcoming Encounters Date Type Department Care Team (Late st Contact Info) Description 09/26/2024 7:30 AM EST Hospital Encounter [facility] Operating Room [address] [place] [address] Alejandro Herrera MD [address] [address] 09/26/2024 7:30 AM EST - 09/26/2024 10:35 AM EST Surgery [facility] Operating Room [address] [place] [address] Alejandro Herrera MD [address] [address] REPAIR, HERNIA, HIATAL, LAPAROSCOPIC, USING MESH, TOUPET FUNDOPLICATION [[id number] (CPT??)] 11/01/2024 9:10 AM EST Office Visit [facility] General Surgery [address], [address] [place] [address] Alejandro Herrera MD [address] [phone] [phone] Scheduled Procedures Name Priority Associated Diagnoses Date/Ti me REPAIR, HERNIA, HIATAL, LAPAROSCOPIC, USING MESH Hiatal hernia with GERD 09/26/2024 7:30 AM EST documented as of this encounter Visit Diagnoses Not on filedocumented in this encounter
--- OUTSIDE RECORDS SUMMARY | 2024-09-15 08:19 | XMS_ITS | Encounter Summary ---
Author Organization [facility] Address [address] [place] [address] Care Team Providers Care Molding Process Technician Name Role Phone Mickey Fine MD Primary Care Provider [phone] Encounter Details Date Type Department Care Team (Late st Contact Info) Description 04/02/2023 Orders Only External Location [address] [place] [address] Provider, External Social History Tobacco Use Types Packs/Day Years Used Date Smoking Tobacco: Never Alcohol Use Standard Drinks/Week Comments No 0 (1 standard drink = 0.6 oz pur e alcohol) Sex and Gender Information Value Date Recorded Sex Assigned at Not on file Legal Sex Male 8:54 PM EDT Gender Identity Not on file Sexual Orientation Not on file documented as of this encounter Plan of Treatment Upcoming Encounters Date Type Department Care Team (Late st Contact Info) Description 09/26/2024 7:30 AM [facility] Hospital Encounter P[facility] S Operating Room [address] [place] [phone] Alejandro Herrera MD [address] [address] 09/26/2024 7:30 AM EST - 09/26/2024 10:35 AM EST Surgery [facility] Operating [facility] [address] [place] [address] Alejandro Herrera MD [address] [address] REPAIR, HERNIA, HIATAL, LAPAROSCOPIC, USING MESH, TOUPET FUNDOPLICATION [[id number] (CPT??)] 11/01/2024 9:10 AM EST Office Visit [facility] General Surgery [address] [place] [phone] Alejandro Herrera MD [address] [facility] [address] [place] [address] Scheduled Procedures Name Priority Associated Diagnoses Date/Ti me REPAIR, HERNIA, HIATAL, LAPAROSCOPIC, USING MESH Hiatal hernia with GERD 09/26/2024 7:30 AM EST documented as of this encounter Procedures Procedure Name Priority Date/Time Associated Diagnosis Comments FL OUTSIDE IMAGES 04/02/2023 11:28 AM EDT documented in this encounter Results * FL OUTSIDE IMAGES (04/02/2023 11:28 AM EDT) Anatomical Region Laterality Modality Radiographic Nandini ging 04/02/2023 11:2 8 AM EDT us External Provider IMG FLUOROSCOPY PROCEDURES Fin al Result documented in this encounter Visit Diagnoses Not on filedocumented in this encounter Care Teams Molding Process Technician Relationship Specialty Start Date End Date Mickey Fine MD [address] [place] [address] PCP - General 03/07/21 documented as of this encounter
--- OUTSIDE RECORDS SUMMARY | 2024-09-15 08:19 | XMS_ITS | Encounter Summary ---
Author Organization [employer] Address [address] [place] [address] Care Team Providers Care Implementation Consultant Name Role Phone Unavailable Primary Care Provider Unavailabl e Encounter Details Date Type Department Care Team (Late st Contact Info) Description 01/13/2019 Historic Encounter [facility] [address] [place] [address] ProviderCecil Historical Social History Tobacco Use Types Packs/Day Years Used Date Smoking Tobacco: Never Assessed Sex and Gender Information Value Date Recorded Sex Assigned at Male 04/22/2022 11:16 PM CDT Legal Sex Male 4:26 PM CDT Gender Identity Male 04/22/2022 11:16 PM CDT Sexual Orientation Not on file documented as of this encounter Plan of Treatment Not on file documented as of this encounter Procedures Procedure Name Priority Date/Time Associated Diagnosis Comments [facility] BASIC METABOLIC PANEL ([facility] DATA CONV) Routine 01/13/2019 7:33 AM EDT documented in this encounter Results * (ABNORMAL) [facility] BASIC METABOLIC PANEL ([facility] BK DATA CONV) (01/13/2019 7:33 AM EDT) [facility] Glucose Level 94 74 - 106 mg/dL 01/13/2019 12:25 PM EDT Comment: [employer] has become aware of sulfasalazine and sulfapyridine drug interference in the assays ALT, AST, T4, CKMB, glucose, and ammonia. The probability of misinterpretation of results for the assays is remote and would be limited to scenarios where a patient has taken the drug and had a blood sample drawn before clearance of the drug to a level that does not interfere with laboratory testing. Venipuncture should occur prior to administration of the drug. Blood Urea Nitrogen 20 7 - 22 mg/dL 01/13/2019 12:25 PM EDT Creatinine Level 1.10 0.70 - 1.30 mg/dL 01/13/2019 12:25 PM EDT Sodium Level 139 136 - 146 mmol/L 01/13/2019 12:25 PM EDT Potassium Level 4.4 3.5 - 5.1 mmol/L 01/13/2019 12:25 PM EDT Chloride Level 108 102 - 112 mmol/L 01/13/2019 12:25 PM EDT Carbon Dioxide Level 27 21 - 32 mmol/L 01/13/2019 12:25 PM EDT Anion Gap 8(L) 9 - 20 01/13/2019 12:25 PM EDT Calcium Level 8.9 8.4 - 10.1 mg/dL 01/13/2019 12:25 PM EDT Bun/Creatinine 18.2 8.0 - 20.0 01/13/2019 12:25 PM EDT eGFR NonAfrican >60 >=60 mL/min/1. 73m2 01/13/2019 12:25 PM EDT Comment: GFR <60 suggests chronic kidney disease, if found over 3 month period. GFR <15 indicates renal failure. eGFR >60 >=60 mL/min/1. 73m2 01/13/2019 12:25 PM EDT Comment: GFR <60 suggests chronic kidney disease, if found over 3 month period. GFR <15 indicates renal failure. Blood 01/13/2019 7:33 AM EDT 01/13/2019 12:15 PM EDT us Sle Historical Provider LAB BLOOD ORDERABLES Fi nal Result [facility] [address] [phone] documented in this encounter Visit Diagnoses Not on filedocumented in this encounter
--- OUTSIDE RECORDS SUMMARY | 2024-09-15 08:19 | XMS_ITS | Encounter Summary ---
Author Organization [employer] Address [address] [place] [address] Care Team Providers Care Surveillance Dual Rate Officer Name Role Phone Unavailable Primary Care Provider Unavailabl e Encounter Details Date Type Department Care Team (Late st Contact Info) Description 01/13/2019 Historic Encounter [facility] [address] [place] [address] ProviderCecil Historical Social History Tobacco [...] Procedure Name Priority Date/Time Associated Diagnosis Comments CBC W/ AUTO DIFF ([facility] DATA CONV) Routine 01/13/2019 7:33 AM EDT documented in this encounter Results * (ABNORMAL) CBC W/ AUTO DIFF ([facility] BK DATA CONV) (01/13/2019 7:33 AM EDT) WBC 5.0 3.6 - 9.5 K/uL 01/13/2019 11:56 AM EDT RBC 4.33 4.20 - 5.70 Million/uL 01/13/2019 11:56 AM EDT Hgb 12.6(L) 13.5 - 17.3 g/dL 01/13/2019 11:56 AM EDT Hct 38.0(L) 40.1 - 51.0 % 01/13/2019 11:56 AM EDT MCV 87.8 79.0 - 94.8 fL 01/13/2019 11:56 AM EDT MCH 29.1 25.6 - 32.2 pg 01/13/2019 11:56 AM EDT MCHC 33.2 32.2 - 36.5 Gram/dL 01/13/2019 11:56 AM EDT RDW 13.3 11.7 - 14.9 % 01/13/2019 11:56 AM EDT Platelet Count 189 163 - 369 K/uL 01/13/2019 11:56 AM EDT MPV 10.2 9.4 - 12.4 fL 01/13/2019 11:56 AM EDT Slide Review No 01/13/2019 12:02 PM EDT Blood 01/13/2019 7:33 AM EDT 01/13/2019 11:46 AM EDT [facility] Historical Provider LAB BLOOD ORDERABLES Fi nal Result [facility] [address] [place] [address], [facility] [phone] documented in this encounter Visit Diagnoses Not on filedocumented in this encounter
--- OUTSIDE RECORDS SUMMARY | 2024-09-15 08:19 | XMS_ITS | Encounter Summary ---
Author Organization [employer] Address [address] [place] [address] Care Team Providers Care Carbon Lamp Cleaner Name Role Phone Unavailable Primary Care Provider Unavailabl e Encounter Details Date Type Department Care Team (Late st Contact Info) Description 01/12/2019 Historic Encounter [facility] [address] [place] [address] Provider, [facility] Historical Social History Tobacco Use Types Packs/Day [...] Procedure Name Priority Date/Time Associated Diagnosis Comments PLATELET COUNT Routine 01/12/2019 11:02 AM EDT documented in this encounter Results * Platelet count (01/12/2019 11:02 AM EDT) Platelet Count 241 163 - 369 K/uL 01/12/2019 3:13 PM EDT Blood 01/12/2019 11:0 2 AM EDT 01/12/2019 3:09 PM EDT [facility] Historical Provider LAB BLOOD ORDERABLES Fi nal Result [facility] [address] [place] [address], [facility] [phone] documented in this encounter Visit Diagnoses Not on filedocumented in this encounter
--- OUTSIDE RECORDS SUMMARY | 2024-09-15 08:19 | XMS_ITS | Encounter Summary ---
Author Organization [facility] Address [address] [place] [address] Care Team Providers Care Livestock Rancher Name Role Phone Unavailable Primary Care Provider Unavailabl e Encounter Details Date Type Department Care Team (Late st Contact Info) Description 07/04/2014 [facility] Vitals En[facility] [address] [place] [address] ProviderArnav MD [address] [place] [address] Social History Tobacco Use Types Packs/Day [...] Oxygen Concentration - - Weight 105 kg (232 lb 0.2 oz) 07/04/2014 1:41 PM EDT Height 180.3 cm (5' 11 ) 07/04/2014 1:41 PM EDT Body Mass Index 32.36 07/04/2014 1:41 PM EDT documented in this encounter Plan of Treatment Upcoming Encounters Date Type Department Care Team (Late st Contact Info) Description 09/26/2024 7:30 AM EST Hospital Encounter [facility] Operating Room [address] [place] [address] Alejandro Herrera MD [address] [address] 09/26/2024 7:30 AM EST - 09/26/2024 10:35 AM EST Surgery [facility] Operating Room [address] [place] [address] Alejandro Herrera MD [address] [address] REPAIR, HERNIA, HIATAL, LAPAROSCOPIC, USING MESH, TOUPET FUNDOPLICATION [[id number] (CPT??)] 11/01/2024 9:10 AM EST Office Visit [facility] General Surgery [address], [address] [place] [address] Alejandro Herrera MD [address] [address] Scheduled Procedures Name Priority Associated Diagnoses Date/Ti me REPAIR, HERNIA, HIATAL, LAPAROSCOPIC, USING MESH Hiatal hernia with GERD 09/26/2024 7:30 AM EST documented as of this encounter Visit Diagnoses Not on filedocumented in this encounter
--- OUTSIDE RECORDS SUMMARY | 2024-09-15 08:19 | XMS_ITS | Encounter Summary ---
Author Organization [facility] Address [address] [place] [address] Care Team Providers Care Tile Roofer Name Role Phone Unavailable Primary Care Provider Unavailabl e Encounter Details Date Type Department Care Team (Late st Contact Info) Description 02/07/2014 [facility] Vitals En[facility] [address] [place] [address] ProviderArnav MD [address] [place] [address] Social History Tobacco Use Types Packs/Day [...] - Inhaled Oxygen Concentration - - Weight 103 kg (228 lb) 02/07/2014 2:42 PM EDT Height 180.3 cm (5' 11 ) 02/07/2014 2:42 PM EDT Body Mass Index 31.8 02/07/2014 2:42 PM EDT documented in this encounter Plan of Treatment Upcoming Encounters Date Type Department Care Team (Late st Contact Info) Description 09/26/2024 7:30 AM [facility] Hospital Encounter PAV S Operating Room [address] [place] [address] Alejandro Herrera MD [address] [address] 09/26/2024 7:30 AM EST - 09/26/2024 10:35 AM EST Surgery P[facility] S Operating Room [address] [place] [address] Alejandro Herrera MD [address] [address] REPAIR, HERNIA, HIATAL, LAPAROSCOPIC, USING MESH, TOUPET FUNDOPLICATION [[id number] (CPT??)] 11/01/2024 9:10 AM EST Office Visit [facility] General Surgery [address], [address] [place] [address] Alejandro Herrera MD [address] [address] Scheduled Procedures Name Priority Associated Diagnoses Date/Ti me REPAIR, HERNIA, HIATAL, LAPAROSCOPIC, USING MESH Hiatal hernia with GERD 09/26/2024 7:30 AM EST documented as of this encounter Visit Diagnoses Not on filedocumented in this encounter
--- OUTSIDE RECORDS SUMMARY | 2024-09-15 08:19 | XMS_ITS | Encounter Summary ---
Author Organization [facility] Address [address] [place] [address] Care Team Providers Care Columnist Name Role Phone Mickey Fine MD Primary Care Provider [phone] Reason for Referral * Imaging (Routine) - Closed Specialty Diagnoses / Procedures Referred By Digna t Referred To Contact Gastroenterology Diagnoses Hiatal hernia without gangrene or obstruction Procedures Tao (Off Acid Reducers) Mony Padilla APRN [address] [address] Phone: tel: fax: Referral ID Status Reason Start Date Expiration Date V isits Requested Visits Authorized [id number] Closed Specialty Services Required 03/07/2024 09/06/2025 1 1 * Imaging (Routine) - Closed Specialty Diagnoses / Procedures Referred By Contjohnny t Referred To Contact Gastroenterology Diagnoses Hiatal hernia without gangrene or obstruction Procedures EGD Mony Padilla APRN [address] [address] Phone: tel: fax: Referral ID Status Reason Start Date Expiration Date V isits Requested Visits Authorized [id number] Closed Specialty Services Required 03/07/2024 09/06/2025 1 1 Reason for Visit * Imaging (Routine) - Closed Specialty Diagnoses / Procedures Referred By Contac t Referred To Contact Gastroenterology Diagnoses Hiatal hernia without gangrene or obstruction Procedures Tao (Off Acid Reducers) Mony Padilla L, BOOT LACE CUTTER MACHINE [address] [place] [address] Phone: tel: fax: Referral ID Status Reason Start Date Expiration Date V isits Requested Visits Authorized [id number] Closed Specialty Services Required 03/07/2024 09/06/2025 1 1 Encounter Details Date Type Department Care Team (Late st Contact Info) Description 05/26/2024 12:41 PM EDT - 05/26/2024 11:59 PM EDT Hospital Encounter [facility] [address] [place] [address] Alejandro Herrera MD [address] [address] Renny Mann MD [address] [place] [address] Mariela Rivera CRNA [address] [place] [address] Caio Mansfield RN GS - Endoscopy Hiatal hernia without gangrene or obstruction Discharge [...] Sign Reading Time Taken Comments Blood Pressure 126/59 05/26/2024 2:30 PM EDT Pulse 47 05/26/2024 2:30 PM EDT Temperature 36.1 ??C (97 ??F) 05/26/2024 2:00 PM EDT Respiratory Rate 13 05/26/2024 2:30 PM EDT Oxygen Saturation 96% 05/26/2024 2:30 PM EDT Inhaled Oxygen Concentration - - Weight 101 kg (223 lb 1.7 oz) 05/26/2024 1:02 PM EDT Height 177.8 cm (5' 10 ) 05/26/2024 1:02 PM EDT Body Mass Index 32.01 05/26/2024 1:02 PM EDT documented in this encounter Medications at Time [...] mouth twice a day. 02/03/2024 HYDROcodone-acetam inophen (Grass Range) 5-325 MG tablet Take 1 tablet (5 [...] night. 09/01/2016 documented as of this encounter Miscellaneous Notes * H&P - Allegra Nicolas MD - 05/26/2024 1:30 PM EDT Images from the original note were not included. Chief Concern & History Of Present Illness Jairo Jin is a 68 y.o. male presenting for EGD and tao placement in the setting of hiatalhernia. No changes to health since last clinic visit. He has been off Eliquis for this procedure. Off reflux meds for 5 days. Past Medical History He has a past medical history of Esophageal obstruction, History of obstruction of large intestine,Personal history of other diseases of the circulatory system, Personal history of other diseases ofthe musculoskeletal system and connective tissue, Personal history of other diseases of the musculoskeletal system and connective tissue, Personal history of other diseases of the musculoskeletal system and connective tissue, Personal history of other endocrine, nutritional and metabolic disease, Personal history of other specified conditions, and Personal history of urinary calculi. Surgical History He has a past surgical history that includes Appendectomy (N/A); Colonoscopy (N/A); Kidney surgery (N/A); Other surgical history (N/A); Knee surgery (N/A); and Eye surgery (N/A). Family History Family History Problem Relation Name Age of Onset Anemia Mother Cardiac disorder Mother Lung cancer Father Conversions - Other Mother Rheumatoid arteritis Social History He reports that he has never smoked. He has never been exposed to tobacco smoke. He has never used smokeless tobacco. He reports that he does not drink alcohol and does not use drugs. Occupational History Employer: No address on file. Travel History Relevant International Travel History: Travel Screening Question Response Have you been in contact with someone who was sick? No / Unsure Do you have any of the following new or worsening symptoms? None of these Have you traveled internationally or domestically in the last month? No Travel History Travel since 04/25/24 No documented travel since 04/25/24 Relevant Domestic Travel History: Immunizations reviewed VACCINE/DOSE Flu Tetanus Pneumovax Shingles Allergies Wasp venom protein Medications Current Outpatient Medications Medication Sig Dispense Refill [...] (75 mg) by mouth twice a day. Eliquis 5 MG tablet Take 1 tablet (5 mg) by mouth twice a day. HYDROcodone-acetaminophen (Grass Range) 5-325 MG tablet Take 1 tablet (5 [...] by mouth 1 (one) time each day. psyllium (Metamucil) 58.6 % powder Take 1 packet by mouth 3 (three) times a day. tamsulosin (Flomax) 0.4 MG 24 hr capsule Take 1 capsule (0.4 mg) by mouth 1 (one) time each day. No current facility-administered medications for this encounter. Review of Systems Constitutional: Negative. HENT: Positive for trouble swallowing. Eyes: Negative. Respiratory: Negative. Cardiovascular: Positive for chest pain. Gastrointestinal: Positive for abdominal pain. Endocrine: Negative. Genitourinary: Negative. Musculoskeletal: Negative. Skin: Negative. Allergic/Immunologic: Negative. Neurological: Negative. Hematological: Negative. Psychiatric/Behavioral: Negative. All other systems reviewed and are negative. Physical Exam Vitals and nursing note reviewed. Constitutional: General: He is not in acute distress. Appearance: He is not toxic-appearing. HENT: Head: Normocephalic and atraumatic. Right Ear: External ear normal. Left Ear: External ear normal. Eyes: General: No scleral icterus. Cardiovascular: Rate and Rhythm: Normal rate. Pulmonary: Effort: Pulmonary effort is normal. No respiratory distress. Abdominal: General: There is no distension. Palpations: Abdomen is soft. Musculoskeletal: General: No deformity. Skin: General: Skin is warm and dry. Coloration: Skin is not jaundiced. Neurological: Mental Status: He is alert and oriented to person, place, and time. Mental status is at baseline. Psychiatric: Mood and Affect: Mood normal. Behavior: Behavior normal. Thought Content: Thought content normal. Judgment: Judgment normal. Last Recorded Vitals There were no vitals taken for this visit. Relevant Results N/A Assessment/Plan Active Problems: There are no active Hospital Problems. PLAN - Proceed with EGD and Tao - E consent signed Cosigned by Alejandro Herrera MD at 05/26/2024 4:36 PM EDT Associated attestation - Alejandro Herrera MD - 05/26/2024 4:36 PM EDT I saw and evaluated the patient with the resident/fellow. I discussed the case with the resident/fellow and agree with the findings and plan as documented. * Josephine Acuna - 05/26/2024 12:49 PM EDT Images from the original note were not included. [id number] Anesthesia: General Anesthesia You?re due to have surgery. During surgery, you?ll be given medicine called anesthesia or anesthetic. This will keep you comfortable and pain-free. Your anesthesia provider will use general anesthesia . You are watched continuously during your procedure by your anesthesia provider. What is general anesthesia? General anesthesia puts you into a state like deep sleep. It goes into the bloodstream (IV anesthetics), into the lungs (gas anesthetics),or both. You feel nothing during the procedure. You won't remember it either. During the procedure, the anesthesia provider monitors you continuously. They trackyour heart rate and rhythm, blood pressure, breathing, and blood oxygen. ?? IV anesthetics. IV anesthetics are given through an IV (intravenous) line in your arm. They?re often given first. This is so you're asleep before a gas anesthetic is started. Some kinds of IV anesthetics ease pain. Others relax you. Your healthcare provider will decide which kind is best in yourcase. ?? Gas anesthetics. Gas anesthetics are breathed into the lungs. They're often used to keep you asleep. They can be given through a face mask. Or they can be given through a tube placed in your voicebox (larynx) or breathing tube (trachea). o Face mask. Your anesthesia provider will most likely place the face mask over your nose and mouthwhile you?re still awake. You?ll breathe oxygen through the mask as your IV anesthetic is started. Gas anesthetic may be added through the mask. o Tube in the larynx or trachea. The tube will be inserted into your throat after you?re asleep. Anesthesia tools and medicines You will likely have: ?? IV anesthetics. These are put into an IV line into your bloodstream. ?? Gas anesthetics. You breathe these anesthetics into your lungs. Then they pass into your bloodstream. ?? Pulse oximeter. This is a small clip that's attached to the end of your finger. It measures yourblood oxygen level. ?? Electrocardiography leads (electrodes). These are small sticky pads that are placed on your chest. They record your heart rate and rhythm. ?? Blood pressure cuff. This reads your blood pressure. Risks and possible complications General anesthesia has some risks. These include: ?? Breathing problems ?? Upset stomach (nausea) and vomiting ?? Sore throat or hoarseness (usually temporary) ?? Allergic reaction to the anesthetic ?? Irregular heartbeat (rare) ?? Cardiac arrest (rare) Anesthesia safety ?? Follow any directions you're given for not eating or drinking before your procedure. ?? Tell your healthcare provider what medicines you take. This includes prescription and nlte-zda-itjxahz medicines. It also includes vitamins, herbs, and other supplements. You'll be asked when those were last taken. ?? Have a trusted adult drive you home after the procedure. ?? For the first 24 hours after your surgery: o Don't drive or use heavy equipment. o Don't make important decisions or sign legal documents. If important decisions or signing legal documents is necessary during the first 24 hours after surgery, have a trusted family member or spouse act on your behalf. o Don't drink alcohol. o Have a responsible adult stay with you. They can watch for problems and help keep you safe. Last Reviewed Date: 2024 ?? [id number] The [a[employer]. All rights reserved. This information is not intended as a substitute for professional medical care. Always follow your healthcare professional's instructions. documented in this encounter Plan of Treatment Upcoming Encounters Date Type Department Care Team (Late st Contact Info) Description 09/26/2024 7:30 AM EST Hospital Encounter [facility] Operating Room [address] [place] [address] Alejandro Herrera MD [address] [address] 09/26/2024 7:30 AM EST - 09/26/2024 10:35 AM EST Surgery [facility] Operating Room [address] [place] [address] Alejandro Herrera MD [address] [address] REPAIR, HERNIA, HIATAL, LAPAROSCOPIC, USING MESH, TOUPET FUNDOPLICATION [52247 (CPT??)] 11/01/2024 9:10 AM EST Office Visit [facility] General Surgery [address] [place] [address] Alejandro Herrera MD [address] [address] Pending Results Name Type Priority Associated Diagnoses Date /Time Tao (Off Acid Reducers) GI Routine Hiatal hernia without gangrene or obstruction 05/26/2024 1:57 PM EDT Scheduled Orders Name Type Priority Associated Diagnoses Orde r Schedule Tao (Off Acid Reducers) GI Routine Hiatal hernia without gangrene or obstruction Once for 1 Occurrences starting 05/26/2024 until 05/26/2024 Scheduled Procedures Name Priority Associated Diagnoses Date/Ti me REPAIR, HERNIA, HIATAL, LAPAROSCOPIC, USING MESH Hiatal hernia with GERD 09/26/2024 7:30 AM EST documented as of this encounter Procedures Procedure Name Priority Date/Time Associated Diagnosis Comments EGD Routine 05/26/2024 1:57 PM EDT Hiatal hernia without gangrene or obstruction SURGICAL PATHOLOGY EXAM Routine 05/26/2024 1:53 PM EDT Hiatal hernia without gangrene or obstruction documented in this encounter Results * EGD (05/26/2024 1:57 PM EDT) Anatomical Region Laterality Modality Endoscopy Narrative 05/26/2024 1:59 PM EDT Table formatting from the original result was not included. Impression: Grade B esophagitis in the GE junction; performed cold forceps biopsy Type III hiatal hernia with Jun lesions present The stomach appeared normal. The duodenum appeared normal. The upper third of the esophagus and middle third of the esophagus appeared normal. Recommendations Await pathology results Follow up with me in clinic Indication Hiatal hernia without gangrene or obstruction Medications See anesthesia record for anesthesia administered medications. Staff Staff Role Renny Mann MD Anesthesiologist Caio Mansfield RN Endo Nurse Alejandro Herrera MD Proceduralist Lula Pugh Endo Patch Machine Operator Mariela Rivera CRNA CRNA Preprocedure A history and physical has been performed, and patient medication allergies have been reviewed. The patient's tolerance of previous anesthesia has been reviewed. The risks and benefits of the procedure and the sedation options and risks were discussed with the patient. All questions were answered and informed consent obtained. Details of the Procedure The patient underwent monitored anesthesia care, which was administered by an anesthesia professional. The patient's blood pressure, heart rate, level of consciousness, oxygen and respirations were monitored throughout the procedure. The scope was introduced through the mouth and advanced to the second part of the duodenum. Retroflexion was performed in the cardia. The patient experienced no blood loss. The procedure was not difficult. The patient tolerated the procedure well. There were no apparent adverse events. The TAO capsule with delivery system was introduced through the mouth and advanced into the esophagus, such that the TAO pH capsule was positioned ?? 29 cm from the incisors, which was 6 cm proximal to the GE junction. ??Suction was applied to the well of the TAO pH capsule to suck in the adjacent mucosa of the esophagus using the external vacuum pump pressure of 550 mmHg for 45 seconds. ??The TAO pH capsule was then deployed by depressing the plunger on the top of the handle to advance the locking pin into the mucosa, thereby attaching the capsule to the esophagus. ??The plunger was then rotated a quarter turn clockwise to release the capsule from the delivery system. ??The delivery system was then withdrawn, and placement was confirmed via endoscopy. ??Endoscopy was utilized for probe placement and diagnostic evaluation. Attestation I was present for the entire procedure Specimens ID Type Source Tests Collected by Time A : Distal bx Tissue Esophagus SURGICAL PATHOLOGY EXAM Alejandro Herrera MD 05/26/2024 1353 Findings Grade B esophagitis with mucosal breaks measuring 5 mm or more not continuous between folds, covering less than 75% of the circumference appearing with erosion in the GE junction (GE junction); performed cold forceps biopsy Herniation of both GE junction and stomach (type III hiatal hernia) with Jun lesions present The stomach appeared normal. The duodenum appeared normal. The upper third of the esophagus and middle third of the esophagus appeared normal. Mony Padilla APRN GI PROCEDURE ORDERABLES Final Result * Surgical Pathology Exam (05/26/2024 1:53 PM EDT) Case Report Surgical Pathology ?Case: [id number] ? Authorizing Provider: ??Alejandro Herrera MD ? Collected: ? 05/26/2024 1353 ? Ordering Location: ? [facility] ?Received: ?05/29/2024 0735 ? Pathologist: ? Lauren Alonso MD ? Specimen: ?Esophagus, Distal bx ? 4 4:37 PM EDT [facility] Final Diagnosis ESOPHAGUS, DISTAL, BIOPSY: - MARKED BASAL CELL HYPERPLASIA AND HYPERKERATOSIS - NEGATIVE GMS STAIN FOR TERESA ORGANISMS. 4 4:37 PM EDT [facility] Clinical Information K44.9 - Hiatal hernia without gangrene or obstruction [ICD-10-CM] Grade B esophagitis in the GE junction 4 4:37 PM EDT [facility] Special and Immunohistochemical Stains Special Stain: A1-2 GMS Negative All controls show appropriate reactivity. All immunohistochemi stry, in situ hybridization, and histochemical tests were developed by and are performed at the [facility], [address] [place] [address]. All tests reported here, except those addressing HER2 (breast) and PD-L1 expression as predictive markers, have not been cleared by or approved by the US Food and Drug Administration (FDA). The FDA has determined that such clearance or approval is not necessary. The laboratory is regulated under CLIA as qualified to perform high-complexity testing. The tests are used for clinical purposes. They should not be regarded as investigational or for research. This assay has not been validated on decalcified tissues. Results should be interpreted with caution given the likelihood of false negativity on decalcified specimens. 4:37 PM EDT [email or web address] Gross Description A. DISTAL BX Received in formalin labeled ? distal esophagus biopsy? , are two white-goncalves, wispy soft tissue fragments measuring 0.3 and 0.5 cm. Entirely submitted in cassette A1. Cold Time: 0 Jen Roge Light 4:37 PM EDT [email or web address] Note: A resident was involved in the service. I attest I examined the relevant preparations for the specimens and confirmed the diagnosis or interpretation. 4:37 PM EDT [facility] Tissue Esophageal structure / Unknown 05/26/2024 1:53 PM EDT 05/29/2024 7:35 AM EDT Alejandro Herrera MD LAB PATHOLOGY ORDERABLES Final R esult Performing Organization Address City/State/[facility] Co de Phone Number [facility] [address] [place] [phone] documented in this encounter Visit Diagnoses Diagnosis Hiatal hernia without gangrene or obstruction Hiatal hernia with GERD documented in this encounter Additional Health Concerns Assessment Noted Time A fall risk assessment has been complete d for the patient 03/07/2024 9:02 AM EDT A Body Mass Index follow-up plan has been documented for the patient 03/07/2024 10:30 AM EDT documented as of this encounter Care Teams Columnist Relationship Specialty Start Date End Date Mickey Fine MD [address] [place] [phone] PCP - General 03/07/21 documented as of this encounter
--- OUTSIDE RECORDS SUMMARY | 2024-09-15 08:19 | XMS_ITS | Encounter Summary ---
Author Organization [facility] Address [address] [place] [address] Care Team Providers Care Child Adolescent Psychiatrist Name Role Phone Unavailable Primary Care Provider Unavailabl e Encounter Details Date Type Department Care Team (Late st Contact Info) Description 01/12/2019 Historic Encounter [facility] [address] [place] [address] Provider, [facility] Historical Social History Tobacco Use Types Packs/Day [...] Procedure Name Priority Date/Time Associated Diagnosis Comments HEMOGLOBIN Routine 01/12/2019 11:02 AM EDT documented in this encounter Results * HEMOGLOBIN (01/12/2019 11:02 AM EDT) Hgb 15.0 13.5 - 17.3 g/dL 01/12/2019 3:13 PM EDT Blood 01/12/2019 11:0 2 AM EDT 01/12/2019 3:09 PM EDT [facility] Historical Provider LAB BLOOD ORDERABLES Fi nal Result [facility] [address] [place] [address], [facility] [phone] documented in this encounter Visit Diagnoses Not on filedocumented in this encounter
--- OUTSIDE RECORDS SUMMARY | 2024-09-15 08:19 | XMS_ITS | Encounter Summary ---
Author Organization [facility] Address [address] [place] [address] Care Team Providers Care Billet Shearer Name Role Phone Mickey Fine MD Primary Care Provider Encounter Details Date Type Department Care Team (Late st Contact Info) Description 02/17/2023 8:50 AM EDT Ancillary Procedure [facility] [address] [place] [address] Chest pain Social History Tobacco Use Types Packs/Day Years [...] st Contact Info) Description 09/26/2024 7:30 AM [facility] Hospital Encounter PAV S Operating Room [address] [place] [address] Alejandro Herrera MD [address] [place] [phone] 09/26/2024 7:30 AM EST - 09/26/2024 10:35 AM EST Surgery PAV S Operating Room [address] [place] [address] Alejandro Herrera MD [address] [place] [address] REPAIR, HERNIA, HIATAL, LAPAROSCOPIC, USING MESH, TOUPET FUNDOPLICATION [15008 (CPT??)] 11/01/2024 9:10 AM EST Office Visit [facility] General Surgery [address], [address] [place] [address] Alejandro Herrera MD [address] [facility] [address]nd [place] [address] Scheduled Procedures Name Priority Associated Diagnoses Date/Ti me REPAIR, HERNIA, HIATAL, LAPAROSCOPIC, USING MESH Hiatal hernia with GERD 09/26/2024 7:30 AM EST documented as of this encounter Procedures Procedure Name Priority Date/Time Associated Diagnosis Comments ADULT ECHO OUTSIDE READ Routine 02/17/2023 8:46 AM EDT Chest pain documented in this encounter Results * ADULT ECHO OUTSIDE READ (02/17/2023 8:46 AM EDT) Baseline Systolic BP 155 JOHN ISCV Baseline Diastolic BP 87 JOHN ISCV Heart Rate 51 JOHN ISCV LVIDd 46 mm JOHN ISCV LVIDs 30 mm JOHN ISCV IVSd 14 mm JOHN ISCV LVPWd 10 mm JOHN ISCV LV RWT 0.52 mm JOHN ISCV MV E Vmax 101.0 cm/s JOHN ISCV MV A Vmax 68.0 cm/s JOHN ISCV MV E/A 1.5 cm/s JOHN ISCV LV Lat e' Velocity 7.1 cm/s JOHN ISCV LV Sept e' Torey 6.0 cm/s JOHN ISCV Lat E/e' 14.2 JOHN ISCV Sep E/e' 16.8 JOHN ISCV Avg E/e' 15.5 JOHN ISCV TR Vmax 205.0 cm/s JOHN ISCV TR Max PG 17 mmHG JONH ISCV RVSP 20 mmHg JOHN ISCV RAP systole 3 mmHg JOHN ISCV Anatomical Region Laterality Modality Echocardiography Narrative 02/17/2023 10:58 AM EDT ?Left??Ventricle: The left ventricle is normal size. The proximal septum is thickened, but with no evidence of left ventricular outflow tract (LVOT) obstruction. The left ventricular systolic function is normal. The LVEF is visually estimated at 55 - 60%. The diastolic function is abnormal. There is grade II (moderate) diastolic dysfunction. The left ventricular filling pressure is elevated. ?Right??Ventricle: The right ventricle is normal in size. The right ventricular systolic function is normal. ?Aortic??Valve: There is mild aortic valve regurgitation. ?Pericardium: No pericardial effusion. ?There is no recent study available for direct [id number] comparison. ?? Left Ventricle The left ventricle is normal size. The proximal septum is thickened, but with no evidence of left ventricular outflow tract (LVOT) obstruction. The left ventricular systolic function is normal. The LVEF is visually estimated at 55 - 60%. The diastolic function is abnormal. There is grade II (moderate) diastolic dysfunction. The left ventricular filling pressure is elevated. No regional wall motion abnormalities are seen. Right Ventricle The right ventricle is normal in size. The right ventricular systolic function is normal. Right ventricular systolic pressure is normal (<35mmHg). Left Atrium The left atrium is dilated by visual assessment. The interatrial septum is not well visualized. Right Atrium The right atrial size is normal. IVC/SVC Based on the IVC size and respiratory variation, the estimated right atrial pressure is 3mmHg. Mitral Valve The mitral valve leaflets are normal in appearance with no evidence of mitral valve prolapse. There is mild mitral regurgitation. There is no mitral stenosis. Tricuspid Valve The tricuspid valve is normal in appearance. There is mild tricuspid regurgitation. There is no tricuspid stenosis. Aortic Valve The aortic valve appears to be trileaflet. The cusp(s) are calcified. There is mild aortic valve regurgitation. There is no hemodynamically significant valvular aortic stenosis. Pulmonic Valve The pulmonic valve was not well visualized. There is mild pulmonic regurgitation. There is no pulmonic stenosis. Pericardium No pericardial effusion. Great Vessels The aortic root is normal in size. The main pulmonary artery is not well visualized. Study Details A complete transthoracic echocardiogram using two-dimensional (2D), m-mode, color and spectral flow Doppler imaging was performed. This complete 2D, M-mode, and Doppler transthoracic echocardiogram was performed on site at [facility] ([place], [place]) and interpreted remotely by faculty at the [facility] ([place], [place]). BP: 155/87 mmHg. Heart Rate: 51 bpm. Study Recommendation There is no recent study available for direct [id number] comparison. us Leonard Browning CV ECHO PROCEDURES Final Result documented in this encounter Visit Diagnoses Diagnosis Chest pain Unspecified chest pain Hiatal hernia with GERD documented in this encounter Care Teams Billet Shearer Relationship Specialty Start Date End Date Mickey Fine MD [address] [place] [address] PCP - General 03/07/21 documented as of this encounter
--- OUTSIDE RECORDS SUMMARY | 2024-09-15 08:19 | XMS_ITS | Referral Summary ---
Author Organization [employer] [facility] [employer] Address [address] [place] [address] Care Team Providers Care Orchid Worker Name Role Phone Unavailable Primary Care Provider Unavailabl e Social History Tobacco Use Types Packs/Day Years Used Date Smoking Tobacco: Never Assessed Sex and Gender Information Value Date Recorded Sex Assigned at Male 04/22/2022 11:16 PM CDT Legal Sex Male 4:26 PM CDT Gender Identity Male 04/22/2022 11:16 PM CDT Sexual Orientation Not on file Plan of Treatment Not on file
--- OUTSIDE RECORDS SUMMARY | 2024-09-15 08:19 | XMS_ITS | Encounter Summary ---
Author Organization [employer] [facility] [employer] Address [address] [place] [address] Care Team Providers Care Project Manager/Team Coach Name Role Phone Unavailable Primary Care Provider Unavailabl e Encounter Details Date Type Department Care Team (Late st Contact Info) Description 10/26/2019 Historic Encounter [facility] [address] [place] [address] Provider, [facility] Historical Social History Tobacco Use Types Packs/Day [...] Procedure Name Priority Date/Time Associated Diagnosis Comments POCT-POTASSIUM Routine 10/26/2019 11:49 AM EST documented in this encounter Results * POC-Potassium (10/26/2019 11:49 AM EST) Potassium POC 4.8 3.5 - 4.9 mmol/L 10/26/2019 4:49 PM EST [facility] Cosmetic Sales Consultant [phone] 10/26/2019 4:49 PM EST [facility] Device SN [id number] 10/26/2019 4:49 PM EST [facility] Blood 10/26/2019 11:4 9 AM EST 10/26/2019 4:55 PM EST [facility] Historical Provider POINT OF CARE TEST ORDHermila HUSSEIN Final Result [facility] [address] [place], [place] [address] [phone] documented in this encounter Visit Diagnoses Not on filedocumented in this encounter
--- OUTSIDE RECORDS SUMMARY | 2024-09-15 08:19 | XMS_ITS | Encounter Summary ---
Author Organization [facility] Address [address] [place] [address] Care Team Providers Care Personal Injury Attorney Name Role Phone Mickey Fine MD Primary Care Provider [phone] Encounter Details Date Type Department Care Team (Late Contact Info) Description 08/24/2016 Orders Only External Location [address] [place] [address] Provider, External Social History Tobacco Use Types [...] st Contact Info) Description 09/26/2024 7:30 AM [facility] Hospital Encounter PAV S Operating Room [address] [place] [address] Alejandro Herrera MD [address] [address] 09/26/2024 7:30 AM EST - 09/26/2024 10:35 AM EST Surgery PAV S Operating Room [address] [place] [address] Alejandro Herrera MD [address] [address] REPAIR, HERNIA, HIATAL, LAPAROSCOPIC, USING MESH, TOUPET FUNDOPLICATION [[id number] (CPT??)] 11/01/2024 9:10 AM EST Office Visit [facility] General Surgery [address], 1st [place] [address] Alejandro Herrera MD [address] [facility] 2nd [place] [address] Scheduled Procedures Name Priority Associated Diagnoses Date/Ti me REPAIR, HERNIA, HIATAL, LAPAROSCOPIC, USING MESH Hiatal hernia with GERD 09/26/2024 7:30 AM EST documented as of this encounter Procedures Procedure Name Priority Date/Time Associated Diagnosis Comments NM OUTSIDE IMAGES 08/24/2016 9:18 AM EDT documented in this encounter Results * NM OUTSIDE IMAGES (08/24/2016 9:18 AM EDT) Anatomical Region Laterality Modality Nuclear Medicine 08/24/2016 9:18 AM EDT External Provider IMG NM PROCEDURES Final Result documented in this encounter Visit Diagnoses Not on filedocumented in this encounter Care Teams Personal Injury Attorney Relationship Specialty Start Date End Date Mickey Fine MD [address] [place] [address] PCP - General 03/07/21 documented as of this encounter
--- OUTSIDE RECORDS SUMMARY | 2024-09-15 08:19 | XMS_ITS | Encounter Summary ---
Author Organization [employer] Address [address] [place] [address] Care Team Providers Care Lab Coordinator Name Role Phone Unavailable Primary Care Provider Unavailabl e Encounter Details Date Type Department Care Team (Late st Contact Info) Description 01/13/2019 Historic Encounter [address] [address] ProviderCecil Historical Social History Tobacco Use [...] Procedure Name Priority Date/Time Associated Diagnosis Comments AUTOMATED DIFFERENTIAL ([facility] DATA CONV) Routine 01/13/2019 7:33 AM EDT documented in this encounter Results * (ABNORMAL) AUTOMATED DIFFERENTIAL ([facility] DATA CONV) (01/13/2019 7:33 AM EDT) Neut% 66.9 34.0 - 71.0 % 01/13/2019 11:56 AM EDT Lymph% 18.8(L) 19.3 - 53.1 % 01/13/2019 11:56 AM EDT [place]% 11.1(H) 3.0 - 9.0 % 01/13/2019 11:56 AM EDT Eos% 2.4 0.0 - 7.0 % 01/13/2019 11:56 AM EDT Baso% 0.6 0.0 - 1.5 % 01/13/2019 11:56 AM EDT IG% 0.20 0.00 - 0.60 % 01/13/2019 11:56 AM EDT Neut# 3.37 1.56 - 6.13 K/uL 01/13/2019 11:56 AM EDT Lymph# 0.95(L) 1.00 - 3.90 x10(3)/uL 01/13/2019 11:56 AM EDT [place]# 0.56 0.16 - 1.00 K/uL 01/13/2019 11:56 AM EDT Eos# 0.12 0.00 - 0.80 x10(3)/uL 01/13/2019 11:56 AM EDT Baso# 0.03 0.00 - 0.20 x10(3)/uL 01/13/2019 11:56 AM EDT IG# 0.01 0.00 - 0.05 x10(3)/uL 01/13/2019 11:56 AM EDT Blood 01/13/2019 7:33 AM EDT 01/13/2019 11:46 AM EDT Narrative [facility] - 01/13/2019 12:02 PM EDT Added by Discern Expert us Sle Historical Provider LAB BLOOD ORDERABLES Fi nal Result [facility] [address] [place] [address], [facility] [phone] documented in this encounter Visit Diagnoses Not on filedocumented in this encounter
--- OUTSIDE RECORDS SUMMARY | 2024-09-15 08:19 | XMS_ITS | Clinical Summary ---
Author Organization [employer] [facility] [employer] Address [address] [place] [address] Care Team Providers Care Felled Seam Operator Name Role Phone Unavailable Primary Care Provider [...]
--- OUTSIDE RECORDS SUMMARY | 2024-09-15 08:19 | XMS_ITS | Encounter Summary ---
Author Organization [facility] Address [address] [place] [address] Care Team Providers Care Security Manager Name Role Phone Unavailable Primary Care Provider Unavailabl e Encounter Details Date Type Department Care Team (Late st Contact Info) Description 10/08/2016 [facility] Vitals Encounter [facility] [address] [place] [address] ProviderArnav MD [address] [place] [address] Social History Tobacco Use Types Packs/Day [...] Oxygen Concentration - - Weight 103 kg (225 lb 15.9 oz) 10/08/2016 1:05 P M EST Height 180.3 cm (5' 11 ) 10/08/2016 1:05 PM EST Body Mass Index 31.52 10/08/2016 1:05 PM EST documented in this encounter Plan of Treatment Upcoming Encounters Date Type Department Care Team (Late st Contact Info) Description 09/26/2024 7:30 AM EST Hospital Encounter PAV S Operating Room [address] [place] [address] Alejandro Herrera MD [address] [address] 09/26/2024 7:30 AM EST - 09/26/2024 10:35 AM EST Surgery PAV S Operating Room [address] [place] [address] Alejandro Herrera MD [address] [place] [address] [address] REPAIR, HERNIA, HIATAL, LAPAROSCOPIC, USING MESH, TOUPET FUNDOPLICATION [[id number] (CPT??)] 11/01/2024 9:10 AM EST Office Visit [facility] General Surgery [address], [address]st [place] [address] Alejandro Herrera MD [address] [address] Scheduled Procedures Name Priority Associated Diagnoses Date/Ti me REPAIR, HERNIA, HIATAL, LAPAROSCOPIC, USING MESH Hiatal hernia with GERD 09/26/2024 7:30 AM EST documented as of this encounter Visit Diagnoses Not on filedocumented in this encounter
--- OUTSIDE RECORDS SUMMARY | 2024-09-15 08:19 | XMS_ITS | Encounter Summary ---
Author Organization [facility] Address [address] [place] [address] Care Team Providers Care Rn Teacher Name Role Phone Mickey Fine MD Primary Care Provider [phone] Encounter Details Date Type Department Care Team (Latest Contact Info) Description 03/07/2024 Travel Social History Tobacco Use Types Packs/Day [...] st Contact Info) Description 09/26/2024 7:30 AM [facility] Hospital Encounter [facility] S Operating Room [address] [place] [address] Alejandro Herrera MD [address] [place] [address] 09/26/2024 7:30 AM EST - 09/26/2024 10:35 AM EST Surgery [facility] S Operating Room [address] [place] [address] Alejandro Herrera MD [address] [place] [phone] REPAIR, HERNIA, HIATAL, LAPAROSCOPIC, USING MESH, TOUPET FUNDOPLICATION [[id number] (CPT??)] 11/01/2024 9:10 AM EST Office Visit [facility] General Surgery [address], [address]st [place] [address] Alejandro Herrera MD [address] [facility] 2nd [place] [address] Scheduled Procedures Name Priority Associated Diagnoses Date/Ti [...] documented as of this encounter Care Teams Rn Teacher Relationship Specialty Start Date End Date Mickey Fine MD [address] [place] [address] PCP - General 03/07/21 documented as of this encounter
--- OUTSIDE RECORDS SUMMARY | 2024-09-15 08:19 | XMS_ITS | Encounter Summary ---
Author Organization [employer] [facility] Address [address] [place] [address] Care Team Providers Care Brineyard Supervisor Name Role Phone Unavailable Primary Care Provider Unavailabl e Encounter Details Date Type Department Care Team (Late st Contact Info) Description 01/12/2019 Historic Encounter [address] [address] ProviderCecil Historical Social History Tobacco [...] Procedure Name Priority Date/Time Associated Diagnosis Comments CREATININE Routine 01/12/2019 11:02 AM EDT documented in this encounter Results * CREATININE (01/12/2019 11:02 AM EDT) Creatinine Level 1.00 0.70 - 1.30 mg/dL 01/12/2019 3:31 PM EDT eGFR NonAfrican >60 >=60 mL/min/1.7 3m2 01/12/2019 3:31 PM EDT Comment: GFR <60 suggests chronic kidney disease, if found over 3 month period. GFR <15 indicates renal failure. eGFR >60 >=60 mL/min/1.7 3m2 01/12/2019 3:31 PM EDT Comment: GFR <60 suggests chronic kidney disease, if found over 3 month period. GFR <15 indicates renal failure. Blood 01/12/2019 11:0 2 AM EDT 01/12/2019 3:09 PM EDT [facility] Historical Provider MICROBIOLOGY - GENERAL ORDERABLES Final Result Performing Organization Address City/State/[facility] Co de Phone Number [facility] [address] [place] [address] documented in this encounter Visit Diagnoses Not on filedocumented in this encounter
--- OUTSIDE RECORDS SUMMARY | 2024-09-15 08:19 | XMS_ITS | Encounter Summary ---
Author Organization [facility] Address [address] [place] [address] Care Team Providers Care Salad Bar Clerk Name Role Phone Unavailable Primary Care Provider Unavailabl e Encounter Details Date Type Department Care Team (Late st Contact Info) Description 08/22/2014 [facility] Vitals Encounter [facility] [address] [place] [address] ProviderArnav MD [address] [place] [address] Social History Tobacco Use Types Packs/Day [...] Weight 103 kg (225 lb 15.9 oz) 08/22/2014 12:02 PM EDT Height 180.3 cm (5' 11 ) 08/22/2014 12:02 PM EDT Body Mass Index 31.52 08/22/2014 12:02 PM EDT documented in this encounter Plan of Treatment Upcoming Encounters Date Type Department Care Team (Late st Contact Info) Description 09/26/2024 7:30 AM EST Hospital Encounter PAV S Operating Room [address] [place] [address] Alejandro Herrera MD [address] [address] 09/26/2024 7:30 AM EST - 09/26/2024 10:35 AM EST Surgery PAV S Operating Room [address] [place] [address] Alejandro Herrera MD [address] [place] [address] [address] REPAIR, HERNIA, HIATAL, LAPAROSCOPIC, USING MESH, TOUPET FUNDOPLICATION [[id number] (CPT??)] 11/01/2024 9:10 AM EST Office Visit [facility] General Surgery [address], [address]st [place] [address] Alejandro Herrera MD [address] [address] Scheduled Procedures Name Priority Associated Diagnoses Date/Ti me REPAIR, HERNIA, HIATAL, LAPAROSCOPIC, USING MESH Hiatal hernia with GERD 09/26/2024 7:30 AM EST documented as of this encounter Visit Diagnoses Not on filedocumented in this encounter
--- OUTSIDE RECORDS SUMMARY | 2024-09-15 08:19 | XMS_ITS | Encounter Summary ---
Author Organization [facility] Address [address] [place] [address] Care Team Providers Care Medicare Biller Name Role Phone Mickey Fine MD Primary Care Provider [phone] Encounter Details Date Type Department Care Team (Late st Contact Info) Description 04/03/2021 Abstract [facility] [address] [place] [address] Dental, Provider, DDS [address] [place] [address] Social History Tobacco Use Types Packs/Day [...] Encounters Date Type Department Care Team (Late Contact Info) Description 09/26/2024 7:30 AM [facility] Hospital Encounter PAV S Operating Room [address] [place] [address] Alejandro Herrera MD [address] [place] [address] 09/26/2024 7:30 AM EST - 09/26/2024 10:35 AM EST Surgery PAV S Operating Room [address] [place] [address] Alejandro Herrera MD [address] [place] [address] REPAIR, HERNIA, HIATAL, LAPAROSCOPIC, USING MESH, TOUPET FUNDOPLICATION [[id number] (CPT??)] 11/01/2024 9:10 AM EST Office Visit [facility] General Surgery [address], 1st [place] [address] Alejandro Herrera MD [address] [place] [address] Scheduled Procedures Name Priority Associated Diagnoses Date/Ti me REPAIR, HERNIA, HIATAL, LAPAROSCOPIC, USING MESH Hiatal hernia with GERD 09/26/2024 7:30 AM EST documented as of this encounter Procedures Procedure Name Priority Date/Time Associated Diagnosis Comments 32 EXTRACTION Routine 01/27/2021 12:00 AM EDT LIMITED ORAL EVAL - PROBLEM FOCUS Routine 01/27/2021 12:00 AM EDT PANORAMIC RADIOGRAPHIC IMAGE IN PROCESS A Routine 01/27/2021 12:00 AM EDT documented in this encounter Visit Diagnoses Not on filedocumented in this encounter Care Teams Medicare Biller Relationship Specialty Start Date End Date Mickey Fine MD [address] [place] [address] PCP - General 03/07/21 documented as of this encounter
--- OUTSIDE RECORDS SUMMARY | 2024-09-15 08:19 | XMS_ITS | Encounter Summary ---
Author Organization [facility] Address [address] [place] [address] Care Team Providers Care Ice Skater Name Role Phone Mickey Fine MD Primary Care Provider [phone] Encounter Details Date Type Department Care Team (Late Contact Info) Description 05/23/2024 Telephone [facility] General Surgery [address], [address]st [place] [address] Mony Padilla APRN [address] [place] [address] Social History Tobacco Use Types Packs/Day Years [...] encounter Miscellaneous Notes * Telephone Encounter - Mony Padilla APRN - 05/23/2024 11:52 AM EDT Left message informing patient that cardiac clearance has not been received documented in this encounter Plan of Treatment Upcoming Encounters Date Type Department Care Team (Late st Contact Info) Description 09/26/2024 7:30 AM EST Hospital Encounter [facility] S Operating Room [address] [place] [address] Alejandro Herrera MD [address] [address] 09/26/2024 7:30 AM EST - 09/26/2024 10:35 AM EST Surgery [facility] S Operating Room [address] [place] [address] Alejandro Herrera MD [address] [place] [address] REPAIR, HERNIA, HIATAL, LAPAROSCOPIC, USING MESH, TOUPET FUNDOPLICATION [[id number] (CPT??)] 11/01/2024 9:10 AM EST Office Visit [facility] General Surgery [address], [address]st [place] [address] Alejandro Herrera MD [address] [address] Scheduled Procedures Name Priority Associated Diagnoses Date/Ti [...] documented as of this encounter Care Teams Ice Skater Relationship Specialty Start Date End Date Mickey Fine MD [address] [place] [address] PCP - General 03/07/21 documented as of this encounter
--- OUTSIDE RECORDS SUMMARY | 2024-09-15 08:19 | XMS_ITS | Encounter Summary ---
Author Organization [facility] Address [address] [place] [address] Care Team Providers Care Senior Strategy Manager Name Role Phone Unavailable Primary Care Provider Unavailabl e Encounter Details Date Type Department Care Team (Late st Contact Info) Description 04/18/2014 [facility] Vitals Encounter [facility] [address] [place] [address] ProviderArnav MD [address] [place] [address] Social History Tobacco Use Types Packs/Day [...] - Inhaled Oxygen Concentration - - Weight 104 kg (228 lb 15.9 oz) 04/18/2014 2:28 P M EDT Height 180.3 cm (5' 11 ) 04/18/2014 2:28 PM EDT Body Mass Index 31.94 04/18/2014 2:28 PM EDT documented in this encounter Plan of Treatment Upcoming Encounters Date Type Department Care Team (Late st Contact Info) Description 09/26/2024 7:30 AM EST Hospital Encounter [facility] S Operating Room [address] [place] [address] Alejandro Herrera MD [address] [address] 09/26/2024 7:30 AM EST - 09/26/2024 10:35 AM EST Surgery [facility] S Operating Room [address] [place] [address] Alejandro Herrera MD [address] [address] REPAIR, HERNIA, HIATAL, LAPAROSCOPIC, USING MESH, TOUPET FUNDOPLICATION [[id number] (CPT??)] 11/01/2024 9:10 AM EST Office Visit [facility] General Surgery [address], 1st [place] [address] Alejandro Herrera MD [address] [phone] Scheduled Procedures Name Priority Associated Diagnoses Date/Ti me REPAIR, HERNIA, HIATAL, LAPAROSCOPIC, USING MESH Hiatal hernia with GERD 09/26/2024 7:30 AM EST documented as of this encounter Visit Diagnoses Not on filedocumented in this encounter
--- OUTSIDE RECORDS SUMMARY | 2024-09-15 08:19 | XMS_ITS | Encounter Summary ---
Author Organization [facility] Address [address] [place] [address] Care Team Providers Care Channeler Name Role Phone Mickey Fine MD Primary Care Provider [phone] Encounter Details Date Type Department Care Team (Late Contact Info) Description 08/19/2016 Orders Only External Location [address] [place] [address] Provider, External Social History Tobacco Use Types [...] st Contact Info) Description 09/26/2024 7:30 AM [facility] Hospital Encounter P[facility] S Operating Room [address] [place] [address] Alejandro Herrera MD [address] [address] 09/26/2024 7:30 AM EST - 09/26/2024 10:35 AM EST Surgery [facility] Operating [address] [place] [address] Alejandro Herrera MD [address] [address] REPAIR, HERNIA, HIATAL, LAPAROSCOPIC, USING MESH, TOUPET FUNDOPLICATION [35906 (CPT??)] 11/01/2024 9:10 AM EST Office Visit [facility] General Surgery [address], [address] [place] [address] Alejandro Herrera MD [address] [address] Scheduled Procedures Name Priority Associated Diagnoses Date/Ti me REPAIR, HERNIA, HIATAL, LAPAROSCOPIC, USING MESH Hiatal hernia with GERD 09/26/2024 7:30 AM EST documented as of this encounter Procedures Procedure Name Priority Date/Time Associated Diagnosis Comments US OUTSIDE IMAGES 08/19/2016 7:41 AM EDT documented in this encounter Results * US OUTSIDE IMAGES (08/19/2016 7:41 AM EDT) Anatomical Region Laterality Modality Ultrasound 08/19/2016 7:41 AM EDT us External Provider IMG US PROCEDURES Final Result documented in this encounter Visit Diagnoses Not on filedocumented in this encounter Care Teams Channeler Relationship Specialty Start Date End Date Mickey Fine MD [address] [place] [address] PCP - General 03/07/21 documented as of this encounter
--- OUTSIDE RECORDS SUMMARY | 2024-09-15 08:19 | XMS_ITS | Encounter Summary ---
Author Organization [facility] Address [address] [place] [address] Care Team Providers Care Privacy Director Name Role Phone Mickey Fine MD Primary Care Provider [phone] Encounter Details Date Type Department Care Team (Late st Contact Info) Description 04/28/2024 Telephone [facility] General Surgery [address], [address] [place] [address] Mony Padilla APRN [address] [place] [address] Social History Tobacco Use Types [...] Telephone Encounter - Mony Padilla APRN - 04/28/2024 2:18 PM EDT Left message for pt advising that cardiac clearance and instructions for holding Eliquis has not been received documented in this encounter Plan of Treatment Upcoming Encounters Date Type Department Care Team (Late st Contact Info) Description 09/26/2024 7:30 AM EST Hospital Encounter P[facility] S Operating Room [address] [place] [address] Alejandro Herrera MD [address] [address] 09/26/2024 7:30 AM EST - 09/26/2024 10:35 AM EST Surgery [facility] Operating Room [address] [place] [address] Alejandro Herrera MD [address] [place] [phone] REPAIR, HERNIA, HIATAL, LAPAROSCOPIC, USING MESH, TOUPET FUNDOPLICATION [34054 (CPT??)] 11/01/2024 9:10 AM EST Office Visit [facility] General Surgery [address], [address] [place] [address] Alejandro Herrera MD [address] [place] [phone] Scheduled Procedures Name Priority Associated Diagnoses Date/Ti [...] documented as of this encounter Care Teams Privacy Director Relationship Specialty Start Date End Date Mickey Fine MD [address] [place] [address] PCP - General 03/07/21 documented as of this encounter
--- OUTSIDE RECORDS SUMMARY | 2024-09-15 08:19 | XMS_ITS | Encounter Summary ---
Author Organization [facility] Address [address] [place] [address] Care Team Providers Care Supervisor [place] Name Role Phone Mickey Fine MD Primary Care Provider [phone] Reason for Referral * Imaging (Routine) - Closed Specialty Diagnoses / Procedures Referred By Digna t Referred To Contact Gastroenterology Diagnoses Hiatal hernia without gangrene or obstruction Procedures Manometry Manometry Mony Padilla APRN [address] [address] Phone: tel: fax: Referral ID Status Reason Start Date Expiration Date V isits Requested Visits Authorized [id number] Closed Specialty Services Required 03/07/2024 09/06/2025 1 1 * Imaging (Routine) - Closed Specialty Diagnoses / Procedures Referred By Contjohnny t Referred To Contact Gastroenterology Diagnoses Hiatal hernia without gangrene or obstruction Procedures Ashley (Off Acid Reducers) Mony Padilla APRN [id number] [place] [address] Phone: tel: fax: Referral ID Status Reason Start Date Expiration Date V isits Requested Visits Authorized [id number] Closed Specialty Services Required 03/07/2024 09/06/2025 1 1 * Imaging (Routine) - Closed Specialty Diagnoses / Procedures Referred By Digna hayward Referred To Contact Gastroenterology Diagnoses Hiatal hernia without gangrene or obstruction Procedures EGD Mony Padilla APRN [id number] [place] [address] Phone: tel: fax: Referral ID Status Reason Start Date Expiration Date V isits Requested Visits Authorized [id number] Closed Specialty Services Required 03/07/2024 09/06/2025 1 1 Reason for Visit * Reason Comments Consult * Consultation (Routine) - Closed Specialty Diagnoses / Procedures Referred By Digna hayward Referred To Contact General, Endocrine & Minimally Invasive Surgery / General Surgery Diagnoses Diaphragmatic hernia without obstruction or gangrene Royal Abdul MD [address] [place] [address] Phone: tel: fax: Referral ID Status Reason Start Date Expiration Date V isits Requested Visits Authorized [id number] Closed Specialty Services Required 12/31/2023 07/01/2025 1 1 Encounter Details Date Type Department Care Team (Late st Contact Info) Description 03/07/2024 9:30 AM EDT Consult [facility] General Surgery [address], [address] [place] [address] Mony Padilla APRN [id number] [place] [address] Hiatal hernia without gangrene or obstruction (Primary Dx) Social History Tobacco Use Types [...] Sign Reading Time Taken Comments Blood Pressure 128/75 03/07/2024 9:02 AM EDT Pulse 50 03/07/2024 9:02 AM EDT Temperature 36.4 ??C (97.6 ??F) 03/07/2024 9:02 AM ED T Respiratory Rate 16 03/07/2024 9:02 AM EDT Oxygen Saturation - - Inhaled Oxygen Concentration - - Weight 105 kg (232 lb) 03/07/2024 9:02 AM EDT Height 174.4 cm (5' 8.68 ) 03/07/2024 9:02 AM ED T Body Mass Index 34.58 03/07/2024 9:02 AM EDT documented in this encounter Miscellaneous Notes * Progress Notes - Mony Padilla, LESLI - 03/07/2024 9:30 AM EDT ADDENDUM: 06/05/2024 Cardiac clearance received and in Media Subjective Reason for Visit: Chief Complaint Patient presents with Consult Jairo Jin is a 68 y.o. male presenting in Consultation for hiatal hernia from Dr. Royal Abdul for surgical consult with Dr. Herrera Mr. Jin has a hiatal hernia that was diagnosed several years ago. He currently takes omeprazole 40 mg daily which controls heartburn, regurgitation, and epigastric pain well. His primary complaint today is dysphagia with solids and occasionally with liquids. He reports he often has severe dysphagia resulting in vomiting of undigested food. It occasionally occurs with liquids as well. Additional medical surgery includes hypertension, hyperlipidemia, DVT on chronic Eliquis, GERD. Additional surgical history includes lithotripsy, knee surgery, laparoscopic cholecystectomy, and appendectomy. He currently reports ongoing chest pain, dizziness, and two episodes of syncope in the last severalmonths. Past Surgical History: Prior Surgical History for Hiatal Hernia or Reflux: no Currently experiencing heartburn, regurgitation, liquid dysphagia, and solid dysphagia. Denies epigastric pain and bloating. Testing Manometry: not performed PH Ashley Probe: not performed PH Probe: not performed UGI Series: Possibly at [facility], records requested Gastric Emptying: not performed Upper Endoscopy: 03/16/2023 mild Schatzki ring with no significant stricture, sliding hiatal hernia Outside medical records reviewed and commented on above. Body mass index is 34.58 kg/m??. Non-smoker Past Medical History: Diagnosis Date [...] Procedure Laterality Date APPENDECTOMY N/A Appendectomy from [facility] COLONOSCOPY N/A Complete Colonoscopy from [facility] EYE SURGERY N/A Eye Surgery from [facility] KIDNEY SURGERY N/A Kidney Surgery from [facility] KNEE SURGERY N/A Knee Surgery from [facility] OTHER SURGICAL HISTORY N/A Esophagogastroduodenoscopy from [facility] Family History Problem Relation Name Age of [...] mg) by mouth twice a day. HYDROcodone-acetaminophen ([place]) 5-325 MG tablet Take 1 tablet (5 [...] by mouth 1 (one) time each day. famotidine (Pepcid) 20 MG tablet Take 1 tablet (20 mg) by mouth 1 (one) time each day in the morning. 30 tablet 3 No current facility-administered medications for this visit. Allergies Allergen Reactions Wasp Venom Protein Other - please document in the comment field Review of Systems Constitutional: Positive for fatigue. HENT: Positive for trouble swallowing. Eyes: Positive for visual disturbance. Respiratory: Positive for shortness of breath (mild, stable). Negative for apnea. Cardiovascular: Positive for chest pain. Gastrointestinal: Positive for constipation. Negative for abdominal pain, nausea and vomiting. Genitourinary: Negative for difficulty urinating. Musculoskeletal: Positive for arthralgias and myalgias. Skin: Negative for rash and wound. Neurological: Positive for dizziness and syncope (2 months ago). Hematological: DVT, 2 episodes, on Eliquis Psychiatric/Behavioral: The patient is nervous/anxious. 03/07/2024 10:28 AM GERD Questionnaire Patient Status: New patient Have you had surgery in the past for hiatal hernia or reflux? N Heartburn Y Severity 5 Regurgitation Y Severity 3 Trouble swallowing solid foods Y Severity 8 Trouble swallowing liquids Y Severity 2 Painful swallowing N Nausea Y Severity 2 Vomiting Y Severity 1 Bloating N Epigastric/abdominal pain N Hoarseness N Chronic Cough N Diarrhea N Constipation Y Severity 6 Are you currently taking any antacid medications (proton pump inhibitors, H2 blockers, sexg-wix-awyqnor preparations)? Y Med 1. omeprazole 40 mg Med 1 - Frequency of use Twice/day Please select the type of diet you are currently eating or write in if none of the types of diets listed apply to you: Regular diet with no restrictions Do you drink carbonated beverages (Coke, Sprite, etc.)? Y Frequency Daily How often do you usually have a bowel movement? Daily What is the usual consistency of your bowel movement? formed stool Do you use medications or other products to maintain bowel function, such as stool softeners, laxatives, suppositories? Y If yes, please write in product(s) used and frequency of use. Miralax Objective Visit Vitals BP 128/75 (BP Location: Right arm, Patient Position: Sitting) Pulse 50 Temp 36.4 ??C (97.6 ??F) (Temporal) Ht 1.744 m (5' 8.68 ) Wt 105 kg (232 lb) BMI 34.58 kg/m?? Physical Exam Constitutional: well developed, well nourished, and in no acute distress Eyes: equal, round, and reactive Ears, Nose, Throat: normal atraumatic, no neck masses Respiratory: Normal Effort, Normal Rate Cardiac: Heart regular rate and rhythm Abdomen: Soft, non-distended Genitourinary: not indicated Musculoskeletal: normal strength, tone, and muscle mass, no deformities Psychiatric: oriented to time, place and person, mood and affect are within normal limits Neurologic: motor intact and no focal deficits Skin: [place], warm, well perfused Assessment/Plan Problem List Items Addressed This Visit None Visit Diagnoses Hiatal hernia without gangrene or obstruction - Primary Relevant Medications omeprazole (PriLOSEC) [address] capsule famotidine (Pepcid) 20 MG tablet Other Relevant Orders EGD Ashley (Off Acid Reducers) Manometry Patient is a 68 y.o. male presenting with a hiatal hernia that has been present for several years. He takes omeprazole 40 mg daily which controls heartburn, regurgitation, and gastric pain well. His primary complaint is dysphagia with solids and occasionally with liquids. He also endorses nausea and vomiting primarily associated with the feeling of food being lodged in his throat. Due to ongoing chest pain and episodes of syncope, he will need cardiac clearance/risk stratification prior to proceeding with surgery. He will also need instructions for holding Eliquis 3-5 days before surgery. The patient was advised to hold Eliquis 3 days prior to EGD/Ashley but was advised to contact prescribing provider for permission to hold the Eliquis prior to doing so. Today we have discussed the pathophysiology of Hiatal Hernia and reviewed the patient's known anatomy in drawings. We have discussed the need to evaluated the esophageal muscle function, esophageal length, determine if acid is refluxing into esophagus and evaluated the patient's anatomy with endoscopy. We discussed the potential complications associated with using nicotine prior to and after hernia repair, including increased risk of wound infection, mesh infection, wound dehiscence, and recurrenceof hernia. Today we discussed the post operative dietary [...] avoid carbonation, chewing gum, and straws lifelong. Patient was also advisedthat there will be under a lifting restriction, no more than 5- 10 lb, for 6 weeks after surgery. We discussed lifestyle modifications, including elevating the head of the bed 4 inches, taking proton pump inhibitor on an empty stomach then eating something 30 minutes after taking, avoiding carbonated beverages and foods that trigger reflux, avoiding eating 2-3 hours prior to lying down, and taking famotidine or other H2 mamadou to help treat breakthrough heartburn and reflux. Screening EGD with possible biopsies., Ashley testing at the time of an EGD, reviewed rules of avoiding acid suppression therapy in the 7 days prior to testing and confirmed the patient does not have a known contraindication to testing., and The details of manometry were discussed with the patient including steps or procedure, confirmed no known contraindications including no known strictures. We will move forward with testing to determine if fundoplication is appropriate and if so how to personalize it to the patient. The patient will follow up with Dr. Herrera after testing is complete and cardiac clearance and instructions for holding plavix have been obtained. A prescription for Pepcid was provided with instructions to take twice daily (last dose at bedtime). I spent 60 minutes performing the following components of the encounter (on the day of the encounter): reviewing history, examining the patient, reviewing imaging and/or labs, communicating with other health nursing care partner, and entering clinical information in the EHR. documented in this encounter Plan of Treatment Upcoming Encounters Date Type Department Care Team (Late st Contact Info) Description 09/26/2024 7:30 AM EST Hospital Encounter PAV S Operating Room [address] [place] [address] Alejandro Herrera MD [address] [address] 09/26/2024 7:30 AM EST - 09/26/2024 10:35 AM EST Surgery PAV S Operating Room [address] [place] [address] Alejandro Herrera MD [address] [address] REPAIR, HERNIA, HIATAL, LAPAROSCOPIC, USING MESH, TOUPET FUNDOPLICATION [07404 (CPT??)] 11/01/2024 9:10 AM EST Office Visit [facility] General Surgery [address], [address] [place] [address] Alejandro Herrera MD [address] [address] Pending Results Name Type Priority Associated Diagnoses Date /Time Ashley (Off Acid Reducers) GI Routine Hiatal hernia without gangrene or obstruction 05/26/2024 1:57 PM EDT Manometry GI Routine Hiatal hernia without gangrene or obstruction 05/26/2024 9:40 AM EDT Scheduled Orders Name Type Priority Associated Diagnoses Orde r Schedule Ashley (Off Acid Reducers) GI Routine Hiatal hernia without gangrene or obstruction Expected: 03/07/2024, Expires: 03/07/2025 Manometry GI Routine Hiatal hernia without gangrene or obstruction Expected: 03/07/2024, Expires: 03/07/2025 Scheduled Procedures Name Priority Associated Diagnoses Date/Ti me REPAIR, HERNIA, HIATAL, LAPAROSCOPIC, USING MESH Hiatal hernia with GERD 09/26/2024 7:30 AM EST documented as of this encounter Results * EGD (05/26/2024 1:57 [...] Alejandro Herrera MD Proceduralist Lula Pugh Endo Heel Dipper Mariela Rivera CRNA CRNA Preprocedure A history [...] There were no apparent adverse events. The ASHLEY capsule with delivery system was introduced through the mouth and advanced into the esophagus, such that the ASHLEY pH capsule was positioned ?? 29 cm from the incisors, which was 6 cm proximal to the GE junction. ??Suction was applied to the well of the ASHLEY pH capsule to suck in the adjacent mucosa of the esophagus using the external vacuum pump pressure of 550 mmHg for 45 seconds. ??The ASHLEY pH capsule was then deployed by depressing [...] Padilla APRN GI PROCEDURE ORDERABLES Final Result documented in this encounter Visit Diagnoses Diagnosis Hiatal hernia without gangrene or obstruction- Primary Hiatal hernia without gangrene or obstruction Hiatal hernia with GERD documented in this encounter Additional Health Concerns Assessment Noted Time A fall risk assessment has been complete d for the patient 03/07/2024 9:02 AM EDT A Body Mass Index follow-up plan has been documented for the patient 03/07/2024 10:30 AM EDT documented as of this encounter Care Teams Supervisor Hide House Relationship Specialty Start Date End Date Mickey Fine MD [address] [place] [address] PCP - General 03/07/21 documented as of this encounter
--- OUTSIDE RECORDS SUMMARY | 2024-09-15 08:19 | XMS_ITS | Encounter Summary ---
Author Organization [facility] Address [address] [place] [address] Care Team Providers Care Paint And Table Edger Name Role Phone Unavailable Primary Care Provider Unavailabl e Encounter Details Date Type Department Care Team (Late st Contact Info) Description 01/12/2019 Historic Encounter [facility] [address] [place] [address] ProviderJad Historical Social History Tobacco Use Types Packs/Day [...] Procedure Name Priority Date/Time Associated Diagnosis Comments HEMATOCRIT (HCT) Routine 01/12/2019 11:0 2 AM EDT documented in this encounter Results * HEMATOCRIT (HCT) (01/12/2019 11:02 AM EDT) Hct 44.0 40.1 - 51.0 % 01/12/2019 3:13 PM EDT Blood 01/12/2019 11:0 2 AM EDT 01/12/2019 3:09 PM EDT [facility] Historical Provider MICROBIOLOGY - GENERAL ORDERABLES Final Result [facility] [address] [place] [address], [facility] [phone] documented in this encounter Visit Diagnoses Not on filedocumented in this encounter
--- OUTSIDE RECORDS SUMMARY | 2024-09-15 08:19 | XMS_ITS | Encounter Summary ---
Author Organization [facility] Address [address] [place] [address] Care Team Providers Care Wind Science And Planning Name Role Phone Unavailable Primary Care Provider Unavailabl e Encounter Details Date Type Department Care Team (Late st Contact Info) Description 01/12/2019 Historic Encounter [facility] [address] [place] [address] ProviderCecil Historical Social History Tobacco [...] Procedure Name Priority Date/Time Associated Diagnosis Comments PT/INR PROTHROMBIN TIME ([facility] DATA CONV) Routine 01/12/2019 11:02 AM EDT documented in this encounter Results * PT/INR PROTHROMBIN TIME ([facility] DATA CONV) (01/12/2019 11:02 AM EDT) PT 10.4 9.6 - 12.0 Second(s) 01/12/2019 3:26 PM EDT INR 1.0 0.9 - 1.1 01/12/2019 3:26 PM EDT Comment: DIAGNOSIS ?THERAPEUTIC RANGE a) Primary and secondary prevention of ?2.0-3.0 venous thrombosis b) Active venous thrombosis, pulmonary ?2.0-4.0 embolism and prevention of recurrent venous thrombosis c) Prevention of arterial thromboembolism ? 3.0-4.5 including patients with mechanical heart valves Anticoagulant? (Y/N) No 12/24 2:54 PM EDT Blood 01/12/2019 11:0 2 AM EDT 01/12/2019 3:09 PM EDT [facility] Historical Provider LAB BLOOD ORDERABLES Fi nal Result [facility] [address] [phone] documented in this encounter Visit Diagnoses Not on filedocumented in this encounter
== END 2024-09-15 23:59 | disposition home or self-care (01) ==
LOC: RT 08:16
PROVIDERS: PCP Internal Medicine; Visit Provider Internal Medicine
DX: I82.461 Acute embolism and thrombosis of right calf muscular vein (principal); S80.11XA Contusion of right lower leg, initial encounter; S87.81XA Crushing injury of right lower leg, initial encounter
CPT/HCPCS: 93971

== ENCOUNTER 2025-02-13 15:48 | Outpatient (CLI) | payer MEDICARE, MEDICAID, SELFPAY ==
--- NOTE | 2025-02-13 16:10 | ECG_ITS ---
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: Resting ECG HR:44 bpm ECG Measurements Heart Rate 44 AXES MA 219 P 15 QRSd 90 QRS 4 QT 440 T 4 QTc 390 Conclusion SINUS BRADYCARDIA WITH FIRST DEGREE AV BLOCK VOLTAGE CRITERIA FOR LVH [MEETS CRITERIA IN ONE OF: R(aVL), S(V1), R(V5), R(V5/V6)+S(V1)] ABNORMAL ECG UNCONFIRMED REPORT Electronically signed by : Douglas Pace MD 02/14/2025 08:22:09
[2025-02-13 17:26] LABS: Basophils # 0.1 K/mm3 (0-0.2); Basophils % 1.1 % (0.1-2.0); Eosinophils # 0.2 Kmm3 (0.0-0.4); Eosinophils % 3.6 % (0.1-12.0); Hematocrit 38.7 % (42.0-52.0); Hemoglobin 12.6 g/dL (14.1-18.0); Lymphocytes # 1.5 K/mm3 (0.7-4.5); Lymphocytes % 29.1 % (10-50); Mean Corpuscular HGB Conc 32.6 g/dL (31.8-35.4); Mean Corpuscular Hemoglobin 27.9 pg (27.0-31.2); Mean Corpuscular Volume 85.8 fl (80-94); Mean Platelet Volume 10.5 fl (7.4-10.4); Monocytes # 0.5 K/mm3 (0.1-1.0); Monocytes % 8.6 % (1.7-9.3); Neutrophils % 57.4 % (37.0-80.0); Nucleated Red Blood Cells # 0 10^3/uL; Nucleated Red Blood Cells % 0 %; Platelet Count 258 K/mm3 (142-424); Red Blood Count 4.51 M/mm3 (4.60-6.20); Red Cell Distribution Width 13.3 % (11.5-17.5); White Blood Count 5.2 K/mm3 (4.8-10.8)
[2025-02-13 21:12] LABS: Albumin Level 4.3 g/dl (3.5-5.0); Chloride 103 mmol/L (98-107); Potassium 5.3 mmoL/L (3.5-5.1); Sodium 137 mmol/L (136-145)
[2025-02-13 21:15] LABS: Alanine Aminotransferase 48 U/L (12-78); Albumin/Globulin Ratio 1.4 (1.1-1.8); Alkaline Phosphatase 79 U/L (38-126); Anion Gap 12.3 mEq/L (5-15); Aspartate Amino Transferase 45 U/L (17-59); Bilirubin,Total 0.4 mg/dl (0.2-1.3); Blood Urea Nitrogen 18 mg/dl (9-20); Carbon Dioxide 27 mmol/L (22.0-30.0); Cholesterol 221 mg/dl (140-200); Estimated Glomerular Filt Rate 66 ml/min (>60); GFR (African American) 80 ML/MIN (>60); Globulin 3.1 g/dL (1.3-3.2); Total Protein,Serum 7.4 g/dl (6.3-8.2); Triglycerides 228 mg/dl (30-150); VLDL Cholesterol 46 mg/dL (0-40)
[2025-02-13 21:16] LABS: Calcium 10.4 mg/dl (8.4-10.2); Chol/HDL Ratio 4.9 (1-3.5); Glucose 82 mg/dl (74-100); HDL Cholesterol 45 mg/dl (40-60)
[2025-02-13 21:26] LABS: Direct LDL Cholesterol 109.33 mg/dL (100-129)
== END 2025-02-13 23:59 | disposition home or self-care (01) ==
LOC: RT 15:50
PROVIDERS: PCP Internal Medicine; Visit Provider Internal Medicine
DX: R00.1 Bradycardia, unspecified (principal); I10 Essential (primary) hypertension; E78.5 Hyperlipidemia, unspecified
CPT/HCPCS: 80053; 80061; 85025; 93005; 93225; 93226; 93227

== ENCOUNTER 2025-03-02 14:19 | Outpatient (CLI) | payer MEDICARE, MEDICAID, SELFPAY ==
--- NOTE | 2025-03-02 14:30 | CA_ITS ---
FINAL REPORT TECHNIQUE: Bahena scale, color and spectral doppler images of the bilateral carotid arteries were obtained. CLINICAL HISTORY: HTN, Dizziness COMPARISON: None FINDINGS: Peak systolic velocity in the right internal carotid artery is 80 cm/sec. The internal carotid to common carotid artery ratio is 1.1. There is no significant carotid artery stenosis and mild to moderate plaque formation. The right vertebral artery is normal in direction. Peak systolic velocity in the left internal carotid artery is 92 cm/sec. The internal carotid to common carotid artery ratio is 1.3. There is no significant carotid artery stenosis and no significant plaque formation. The left vertebral artery is normal in direction. IMPRESSION: No ultrasound evidence of hemodynamically significant carotid artery stenosis. Normal peak systolic velocities and normal internal to common carotid artery ratios bilaterally. Reviewed, Interpreted and Dictated by Laura Torres MD Transcribed by Jolly Burns Authenticated and [facility]
== END 2025-03-02 23:59 | disposition home or self-care (01) ==
LOC: RT 14:19
PROVIDERS: PCP Internal Medicine; Visit Provider Internal Medicine
DX: I10 Essential (primary) hypertension (principal); R42 Dizziness and giddiness
CPT/HCPCS: 93880

== ENCOUNTER 2025-10-23 12:57 | Emergency (ER) | payer MEDICARE, MEDICAID, SELFPAY ==
[2025-10-23] VITALS (11 sets, daily range): BP systolic 150–183; BP diastolic 84–101; PULSE 51–76; RESP 15–16; TEMP 36.6–36.9; O2SAT 96–99; BMI 32.3
--- NOTE | 2025-10-23 13:00 | ED_ITS ---
<Statement entered by Raymond De Leon MD - 10/24/25 15:56> Raymond De Leon MD: I was consulted by the VERONIKA, and we discussed the complexity of the problems being addressed. I approved the treatment and management plan for this patient's care in the emergency department, thus performing a substantive portion of the medical decision making. <Statement entered by Hung Crain MD - 10/23/25 23:20> I was consulted by the VERONIKA, and we discussed the complexity of the problems being addressed. I approved the treatment and management plan for this patient's care in the emergency department, thus performing a substantive portion of the medical decision making. Hung Crain MD, ABRAHAM, FACEP Discharge Plan Disposition Patient Disposition: Home, Self-Care Condition: Good Prescriptions Prescriptions: No Action psyllium husk (with sugar) [Metamucil (with sugar)] 3 gram/7 gram powder 1 tbsp PO DAILY magnesium oxide 400 mg (241.3 mg magnesium) tablet See Rx Instructions .ROUTE .COMPLEX Qty: 60 5RF Dose Instruction: TAKE 1 TABLET BY MOUTH TWICE DAILY WITH MEALS FOR MUSCLE CRAMPS Rx Instructions: TAKE 1 TABLET BY MOUTH TWICE DAILY WITH MEALS FOR MUSCLE CRAMPS bisoprolol fumarate 5 mg tablet 2.5 mg PO HS 90 Days Qty: 45 3RF omeprazole 40 mg capsule,delayed release(DR/EC) 40 mg PO DAILY Qty: 90 1RF potassium chloride 10 mEq capsule, extended release 10 meq PO BID Qty: 180 1RF allopurinol 300 mg tablet 300 mg PO DAILY Qty: 90 1RF isosorbide mononitrate 30 mg tablet extended release 24 hr See Rx Instructions .ROUTE .COMPLEX Qty: 90 1RF Dose Instruction: TAKE ONE TABLET VISH DAILY BY MOUTH IN THE MORNING Rx Instructions: TAKE ONE TABLET VISH DAILY BY MOUTH IN THE MORNING diclofenac sodium 75 mg tablet,delayed release (DR/EC) See Rx Instructions .ROUTE .COMPLEX Qty: 60 2RF Dose Instruction: TAKE 1 TABLET BY MOUTH TWICE DAILY WITH FOOD NEEDED FOR ARTHRITIS PAIN. DISCONTINUE MELOXICAM 30 Rx Instructions: TAKE 1 TABLET BY MOUTH TWICE DAILY WITH FOOD NEEDED FOR ARTHRITIS PAIN. DISCONTINUE MELOXICAM 30 losartan 100 mg tablet See Rx Instructions .ROUTE .COMPLEX Qty: 90 1RF Dose Instruction: TAKE 1 TABLET BY MOUTH DAILY Rx Instructions: TAKE 1 TABLET BY MOUTH DAILY Eliquis 5 mg tablet See Rx Instructions .ROUTE .COMPLEX Qty: 60 2RF Dose Instruction: TAKE 1 TABLET BY MOUTH 2 TIMES EVERY DAY TO THIN BLOOD Rx Instructions: TAKE 1 TABLET BY MOUTH 2 TIMES EVERY DAY TO THIN BLOOD tamsulosin 0.4 mg capsule See Rx Instructions .ROUTE .COMPLEX Qty: 90 1RF Dose Instruction: TAKE 1 CAPSULE BY MOUTH DAILY Rx Instructions: TAKE 1 CAPSULE BY MOUTH DAILY citalopram 10 mg tablet 10 mg PO DAILY Qty: 90 1RF atorvastatin 20 MG tablet 20 mg PO HS hydrocodone-acetaminophen 5-325 mg Tablet 1 tab PO Q6HP PRN (Reason: Moderate Pain (Scale Score 5-6)) Referrals Follow up/Referrals: Mickey Fine MD [Primary Care Provider, Medical] - See instructions Alejandro Morris MD [Staff Physician, Urology] - See instructions Activity Restrictions/Add. Instructions Additional Instructions/Restrictions: You were evaluated on an emergency basis. It is very important that you follow- up with your primary care provider and any specialist who we discussed within the next 2 days in order to better assess your health more comprehensively. For example, incidental findings on imaging or laboratory results that were performed today may be discovered, which do not require immediate medical care, but may impact your health in the future. If your symptoms worsen or persist, please return to the emergency department immediately for reassessment. Take all medications as prescribed. In queue for allowing me to participate in your health care, and I hope you feel better soon. Clinical Impressions Clinical Impression: Low back pain Instructions Patient Instructions: DI for Low Back Pain Print Language Print Language: Kiswahili Discharge ED Provider: Raymond De Leon General Adult HPI <Ana Lilia Gupta - Last Filed: 10/23/25 16:18> General Chief complaint: Back Pain/Injury Stated complaint: abdominal pain Time Seen by Provider: 10/23/25 12:59 History of Present Illness HPI narrative: 70-year-old male with a history of kidney stones and right kidney cancer presents the emergency department with complaints of right flank pain for the past 3 to 4 days. He states his pain is similar to previous kidney stones. He denies nausea, vomiting, diarrhea, urinary symptoms or fevers. Related Data Home Medications ?Medication ?Instructions ?Recorded ?Confirmed atorvastatin 20 mg tablet 20 mg PO HS Cholesterol 10/0 03/1402/13/25 hydrocodone 5 mg-acetaminophen 325 1 tab PO Q6HP PRN M oderate Pain 12/21/23 02/13/25 mg tablet (Scale Score 5-6) psyllium husk (with sugar) 3 1 tbsp PO DAILY 03/10/24 02/13/25 gram/7 gram oral powder (Metamucil (with sugar)) Previous Rx's ?Medication ?Instructions ?Recorded magnesium oxide 400 mg (241.3 mg See Rx Instructions . Route 12/22/24 magnesium) tablet .COMPLEX #60 tabs bisoprolol fumarate 5 mg tablet 2.5 mg (1/2 x 5 mg) PO HS High 01/05/25 Blood Pressure 90 days #45 tabs omeprazole 40 mg capsule,delayed 40 mg PO DAILY Acid R eflux #90 caps 01/17/25 release potassium chloride 10 mEq 10 meq PO BID #180 caps 05/25 12/19 capsule,extended release allopurinol 300 mg tablet 300 mg PO DAILY gout #90 tab s 07/13/25 isosorbide mononitrate 30 mg See Rx Instructions .Rout e 07/16/25 tablet,extended release 24 hr .COMPLEX #90 tabs diclofenac sodium 75 mg See Rx Instructions .Route 1 tablet,delayed release .COMPLEX #60 tabs losartan 100 mg tablet See Rx Instructions .Route 1 .COMPLEX #90 tabs apixaban 5 mg tablet (Eliquis) See Rx Instructions .Ro ta 08/08/25 .COMPLEX #60 tabs tamsulosin 0.4 mg capsule See Rx Instructions .Route 1 10/31/24 .COMPLEX #90 caps citalopram 10 mg tablet 10 mg PO DAILY mood #90 tabs 09/12/25 Allergies Allergy/AdvReac Type Severity Reaction Status Date / Time No Known Allergies Allergy Verified 02/13/25 14:49 [facility] <Ana Lilia Gupta - Last Filed: 10/23/25 16:18> [facility] Disclaimer: The information contained in this section may have been updated after the patient was seen, as this information can be updated by other users. Medical History (Updated 10/23/25 @ 16:18 by Ana Lilia Gupta) Iron deficiency anemia Syncope Pre-op testing Syncope, vasovagal Gout HLD (hyperlipidemia) HTN (hypertension) GERD (gastroesophageal reflux disease) History of kidney stones Surgical History History of esophagogastroduodenoscopy (EGD) History of colonoscopy History of extraction of renal calculus Hx of knee surgery Hx laparoscopic cholecystectomy Hx of appendectomy Family History Other Family history of myocardial infarction Lung cancer Social History Smoking Status: Never smoker second hand exposure: No alcohol intake: never counseling provided: none substance use type: denies use current occupational status: employed and unemployed Travel in the last 8 weeks?: None household members: spouse housing: house lives independently: No marital status: service: No senior care: No current occupation: [employer] current occupational exposures/hazards: No pets and animals: Yes caffeine: No Have you lived/traveled outside US in past 30 days?: No Contact w/someone who lives/traveled outside US past 30 days?: No Exposure to someone with infectious disease in past 14 days?: No Do you have a fever (greater than 100.4 F or 38 C)?: No Have you tested positive for COVID-19?: No Exposed to someone with COVID-19 in past 14 days?: No Do you have a sore throat?: No Do you have a cough?: No Do you have any weakness?: No Do you have any diarrhea?: No Are you experiencing any unusual bleeding?: No Do you have any muscle aches/pain?: No Do you have any abdominal pain?: No Are you experiencing loss of taste or smell?: No Other Medical History Have you received the Flu Vaccine for this season: No Have you received the Pneumonia Vaccine: No <Ana Lilia Gupta - Last Filed: 10/23/25 16:18> ROS Obtained: Yes other Genitourinary Male Genitourinary: Reports flank pain Physical Exam <Ana Lilia Gupta - Last Filed: 10/23/25 16:18> Narrative Physical exam: General: Awake, aware, in no acute distress HEENT: Normocephalic, no evidence of trauma CV: RRR, no murmurs, rubs, or gallops Pulm: CTA bilaterally with no rhonchi, rales, wheezes ABD: Nontender, no swelling, guarding, or rebound tenderness. Patient reports tenderness on palpation of right CVA Psych, appropriate mood and affect General General appearance: alert <Raymond De Leon MD - Last Filed: 10/23/25 14:58> Respiratory Respiratory exam: Present normal lung sounds bilaterally Cardiovascular Cardiovascular exam: Present bradycardia Neurological Exam Neurological exam: Present alert Medical Decision Making <Ana Lilia Alonso - Last Filed: 10/23/25 16:18> Medical Records Screening: Per USPSTF and CDC recommendations, given the prevalence of disease in our region, it is our hospital?s policy to screen for HIV and viral Hepatitis for all patients aged 18 and over and those with ongoing risk factors. Nicholas Inquiry Pt receiving controlled substance: No Vital Signs: 10/23/25 13:03 10/23/25 13:05 10/23/25 13:15 Temperature 97.8 F Temperature Source Oral Pulse Rate 59 L 59 L Pulse Rate [Right Radial] 66 Respiratory Rate 15 Blood Pressure 183/99 H Blood Pressure [Right Arm] 183/99 H Blood Pressure Mean [Right Arm] 127 Blood Pressure Source [Right Arm] Automatic Cuff Blood Pressure Position [Right Arm] Supine 02 Sat by Pulse Oximetry 97 97 98 Oxygen Delivery Method Room Air 10/23/25 13:30 10/23/25 14:00 10/23/25 14:32 Temperature Temperature Source Pulse Rate 58 L 76 56 L Pulse Rate [Right Radial] Respiratory Rate Blood Pressure 156/90 H Blood Pressure [Right Arm] Blood Pressure Mean [Right Arm] Blood Pressure Source [Right Arm] Blood Pressure Position [Right Arm] 02 Sat by Pulse Oximetry 96 97 96 Oxygen Delivery Method 10/23/25 15:01 Temperature Temperature Source Pulse Rate 51 L Pulse Rate [Right Radial] Respiratory Rate Blood Pressure 169/98 H Blood Pressure [Right Arm] Blood Pressure Mean [Right Arm] Blood Pressure Source [Right Arm] Blood Pressure Position [Right Arm] 02 Sat by Pulse Oximetry 96 Oxygen Delivery Method Lab Data Lab Results 10/23/25 13:05: WBC 5.0, RBC 4.82, Hgb 13.9 L, Hct 41.7 L, MCV 86.5, MCH 28.8, MCHC 33.3, RDW 14.0, Plt Count 238, MPV 10.1, Neut % (Auto) 69.0, Lymph % (Auto) 17.6, [place] % (Auto) 10.2 H, Eos % (Auto) 2.4, Baso % (Auto) 0.6, Neut # (Auto) 3.5, Lymph # (Auto) 0.9, [place] # (Auto) 0.5, Eos # (Auto) 0.1, Baso # (Auto) 0.0, Sodium 138, Potassium 4.2, Chloride 103, Carbon Dioxide 29, Anion Gap 10.2, BUN 20, Creatinine 1.20, Estimated Creat Clear 80, Estimated GFR 60, Est GFR ( Amer) 72, Glucose 100, Calcium 11.2 H, Total Bilirubin 0.6, AST 38, ALT 44, Alkaline Phosphatase 64, Total Protein 7.9, Albumin 4.8, Globulin 3.1, Albumin/Globulin Ratio 1.5, HCV Ab MARLA w/Rflx PCR Qn Negative, HIV Ag/Ab Combo Qual Negative 10/23/25 13:26: Urine Color Yellow, Urine Appearance Clear, Urine pH 6.0, Ur Specific [place] 1.020, Urine Protein Negative, Urine Glucose (UA) Negative, Urine Ketones Negative, Urine Blood Negative, Urine Nitrate Negative, Urine Bilirubin Negative, Urine Urobilinogen 0.2, Ur Leukocyte Esterase Negative, Urine RBC 10-20, Urine WBC 5-10, Ur Squamous Epith Cells 3-5, Calcium Oxalate Crystal 1+, Urine Bacteria 1+, Urine Mucus 1+ 10/23/25 13:05 10/23/25 13:05 Orders (Tests/Meds): ED MEDICATIONS Generic Name Dose Route Start Last Admin Trade Name Freq PRN Reason Stop Dose Admin Sodium Chloride 10 ml 10/23/25 13:47 10/23/25 13:48 Sodium Chloride 0.9% 10ml Syr (Rad Only) IV 11/22/25 13:46 10 ml NEEDED PRN Administration Maintain IV Site Discontinued Medications Generic Name Dose Route Start Last Admin Trade Name Freq PRN Reason Stop Dose Admin Ceftriaxone Sodium 1 gm/ 50 mls @ 100 mls/hr 10/23/25 14:38 10/23/25 16:01 Sodium Chloride IV 10/23/25 15:07 Infused ONCE ONE Infusion Iopamidol 75 ml 10/23/25 13:47 10/23/25 13:48 Iopamidol-370 (76%);100ml Bottle IV 12/30/25 13:48 75 ml ONCE ONE Administration ORDERS Category Date Time Status CT abdomen w con Stat Cat Scan 10/23/25 13:[address] pelvis wo con Stat Cat Scan 10/23/25 14:06 Taken CMP [Comprehensive Metabolic Panel] Stat Lab 10/23/25 13:05 Completed Complete Blood Count Auto Diff Stat Lab 10/23/25 13:05 Completed HIV Combo Stat Lab 10/23/25 13:05 Completed Hepatitis C Ab Qual. W/ RFX Stat Lab 10/23/25 13:05 Completed Urinalysis and Microscopic Stat Lab 10/23/25 13:26 Completed Medical Decision Narrative: Initial impression of presenting illness: 70-year-old male with a history of kidney stones and right kidney cancer presents emergency department with complaints of right flank pain for the past several days. He denies nausea, vomiting, diarrhea, fevers. He states his pain feels similar to previous kidney stones. Patient states he is unsure what kind of kidney cancer that he had. He states that that was several years ago. He reports that he had to have a cryo freeze procedure done but never had chemo or radiation. He states he does not follow his oncologist anymore. Differential diagnosis includes but is not limited to: Kidney stone, pyelonephritis, urinary tract infection, malignancy, appendicitis, musculoskeletal strain Patient arrives hemodynamically stable, afebrile, without respiratory distress with vital signs interpreted by myself. Initial physical exam reveals tenderness on palpation of right CVA. Abdomen soft nontender with normal active bowel sounds. Rest of exam is unremarkable. Initial diagnostic plan: Abdominal pain workup including CT of abdomen pelvis with IV contrast. Patient declines pain medication at this time. Raymond De Leon MD: I was consulted by the VERONIKA, and we discussed the complexity of the problems being addressed. I approved the treatment and management plan for this patient's care in the emergency department, thus performing a substantive portion of the medical decision making. I agree with initial workup and imaging which formal read was pending at time of transition of care to the oncoming physician, Dr. Crain. Results from initial plan were reviewed and interpreted by myself, pertinent positives include: Laboratory studies were nonactionable. Urinalysis positive for 1+ bacteria with 10-20 red blood cells, 5-10 white blood cells as well as 1+ calcium oxalate crystals however patient was leukocyte Estrace negative as well as nitrate negative. CT of abdomen and pelvis shows multiple nonobstructing right renal stones with no other acute abnormalities. Interventions in the ED: Patient was given Rocephin for treatment of possible urinary tract infection while we are waiting on CT results in case patient had an obstructing stone. Patient was made aware of the results and the findings, upon reevaluation patient has remained stable throughout stay, symptoms remained stable. Upon reevaluation patient is resting comfortably in bed with no signs of acute distress. Disposition: Reviewed finding today's workup with patient informed him that he does have several nonobstructing kidney stones however that is likely not the cause of his pain. Advised him his pain could be related to musculoskeletal strain. Recommend he continue with his previously prescribed pain medications at home. Advised him that I will give him contact information for urologist Dr. Morris to schedule outpatient follow-up for evaluation of the calcium oxalate crystals that he has in his urine as well as his enlarged prostate and recurrent kidney stones. Instructed him to return to the emergency department for any new or worsening symptoms. Patient is agreeable to plan of care. Patient made aware of findings and had a detailed discussion with symptomatic care and return precautions, patient voiced understanding. <Raymond De Leon MD - Last Filed: 10/23/25 14:58> Vital Signs: 10/23/25 13:03 10/23/25 13:05 10/23/25 13:15 Temperature 97.8 F Temperature Source Oral Pulse Rate 59 L 59 L Pulse Rate [Right Radial] 66 Respiratory Rate 15 Blood Pressure 183/99 H Blood Pressure [Right Arm] 183/99 H Blood Pressure Mean [Right Arm] 127 Blood Pressure Source [Right Arm] Automatic Cuff Blood Pressure Position [Right Arm] Supine 02 Sat by Pulse Oximetry 97 97 98 Oxygen Delivery Method Room Air 10/23/25 13:30 10/23/25 14:00 10/23/25 14:32 Temperature Temperature Source Pulse Rate 58 L 76 56 L Pulse Rate [Right Radial] Respiratory Rate Blood Pressure 156/90 H Blood Pressure [Right Arm] Blood Pressure Mean [Right Arm] Blood Pressure Source [Right Arm] Blood Pressure Position [Right Arm] 02 Sat by Pulse Oximetry 96 97 96 Oxygen Delivery Method 10/23/25 15:01 Temperature Temperature Source Pulse Rate 51 L Pulse Rate [Right Radial] Respiratory Rate Blood Pressure 169/98 H Blood Pressure [Right Arm] Blood Pressure Mean [Right Arm] Blood Pressure Source [Right Arm] Blood Pressure Position [Right Arm] 02 Sat by Pulse Oximetry 96 Oxygen Delivery Method Lab Data Lab Results 10/23/25 13:05: WBC 5.0, RBC 4.82, Hgb 13.9 L, Hct 41.7 L, MCV 86.5, MCH 28.8, MCHC 33.3, RDW 14.0, Plt Count 238, MPV 10.1, Neut % (Auto) 69.0, Lymph % (Auto) 17.6, [place] % (Auto) 10.2 H, Eos % (Auto) 2.4, Baso % (Auto) 0.6, Neut # (Auto) 3.5, Lymph # (Auto) 0.9, [place] # (Auto) 0.5, Eos # (Auto) 0.1, Baso # (Auto) 0.0, Sodium 138, Potassium 4.2, Chloride 103, Carbon Dioxide 29, Anion Gap 10.2, BUN 20, Creatinine 1.20, Estimated Creat Clear 80, Estimated GFR 60, Est GFR ( Amer) 72, Glucose 100, Calcium 11.2 H, Total Bilirubin 0.6, AST 38, ALT 44, Alkaline Phosphatase 64, Total Protein 7.9, Albumin 4.8, Globulin 3.1, Albumin/Globulin Ratio 1.5, HCV Ab MARLA w/Rflx PCR Qn Negative, HIV Ag/Ab Combo Qual Negative 10/23/25 13:26: Urine Color Yellow, Urine Appearance Clear, Urine pH 6.0, Ur Specific [place] 1.020, Urine Protein Negative, Urine Glucose (UA) Negative, Urine Ketones Negative, Urine Blood Negative, Urine Nitrate Negative, Urine Bilirubin Negative, Urine Urobilinogen 0.2, Ur Leukocyte Esterase Negative, Urine RBC 10-20, Urine WBC 5-10, Ur Squamous Epith Cells 3-5, Calcium Oxalate Crystal 1+, Urine Bacteria 1+, Urine Mucus 1+ Orders (Tests/Meds): ED MEDICATIONS Generic Name Dose Route Start Last Admin Trade Name Freq PRN Reason Stop Dose Admin Sodium Chloride 10 ml 10/23/25 13:47 10/23/25 13:48 Sodium Chloride 0.9% 10ml Syr (Rad Only) IV 11/22/25 13:46 10 ml NEEDED PRN Administration Maintain IV Site Discontinued Medications Generic Name Dose Route Start Last Admin Trade Name Freq PRN Reason Stop Dose Admin Ceftriaxone Sodium 1 gm/ 50 mls @ 100 mls/hr 10/23/25 14:38 10/23/25 16:01 Sodium Chloride IV 10/23/25 15:07 Infused ONCE ONE Infusion Iopamidol 75 ml 10/23/25 13:47 10/23/25 13:48 Iopamidol-370 (76%);100ml Bottle IV 10/23/25 13:48 75 ml ONCE ONE Administration ORDERS Category Date Time Status CT abdomen w con Stat Cat Scan 10/23/25 13:[address] pelvis wo con Stat Cat Scan 10/23/25 14:06 Taken CMP [Comprehensive Metabolic Panel] Stat Lab 10/23/25 13:05 Completed Complete Blood Count Auto Diff Stat Lab 10/23/25 13:05 Completed HIV Combo Stat Lab 10/23/25 13:05 Completed Hepatitis C Ab Qual. W/ RFX Stat Lab 10/23/25 13:05 Completed Urinalysis and Microscopic Stat Lab 10/23/25 13:26 Completed Medical Decision Narrative: Initial impression of presenting illness: 70-year-old male with a history of kidney stones and right kidney cancer presents emergency department with complaints of right flank pain for the past several days. He denies nausea, vomiting, diarrhea, fevers. He states his pain feels similar to previous kidney stones. Patient states he is unsure what kind of kidney cancer that he had. He states that that was several years ago. He reports that he had to have a cryo freeze procedure done but never had chemo or radiation. He states he does not follow his oncologist anymore. Differential diagnosis includes but is not limited to: Kidney stone, pyelonephritis, urinary tract infection, malignancy, appendicitis, musculoskeletal strain Patient arrives hemodynamically stable, afebrile, without respiratory distress with vital signs interpreted by myself. Initial physical exam reveals tenderness on palpation of right CVA. Abdomen soft nontender with normal active bowel sounds. Rest of exam is unremarkable. Initial diagnostic plan: Abdominal pain workup including CT of abdomen pelvis with IV contrast. Patient declines pain medication at this time. Raymond De Leon MD: I was consulted by the VERONIKA, and we discussed the complexity of the problems being addressed. I approved the treatment and management plan for this patient's care in the emergency department, thus performing a substantive portion of the medical decision making. I agree with initial workup and imaging which formal read was pending at time of transition of care to the oncoming physician, Dr. Crain. Critical Care <Raymond De Leon MD - Last Filed: 10/23/25 14:58> Critical Care Time Critical Care Time: No
--- OUTSIDE RECORDS SUMMARY | 2025-10-23 13:11 | XMS_ITS | Encounter Summary ---
Author Organization [facility] Address [address] [place] [id number] Care Team Providers Care Patient Service Specialist Name Role Phone Mickey Fine MD Primary Care Provider [phone] Reason for Visit * Reason Onset Date Comments Med Refill 09/25/2025 Encounter Details Date Type Department Care Team (Late st Contact Info) Description 09/25/2025 Refill [facility] [address] [id number] Yair Hood DO [address] [id number] Primary osteoarthritis, unspecified site; High risk medication use Social History Tobacco Use Types Packs/Day Years Used Date Smoking Tobacco: Never Passive Smoke Exposure: Past Smokeless Tobacco: Never Alcohol Use Standard Drinks/Week [...] encounter Miscellaneous Notes * Telephone Encounter - Sil Bains MA - 09/25/2025 3:03 PM EST Rx Refill Note Requested Prescriptions Pending Prescriptions Disp Refills HYDROcodone-acetaminophen (NORCO) 5-325 MG per tablet 120 tablet 0 Sig: Take 1 tablet by mouth Every 6 (Six) Hours As Needed for Moderate Pain. Last office visit with prescribing clinician: 7 Last telemedicine visit with prescribing clinician: Visit date not found Next office visit with prescribing clinician: 10/30/2025 Sil Bains MA 09/25/25, 15:03 EST Please advise: Opioid Analgesics Medication Protocol Failed Controlled Substance Med Protocol Failed * Telephone Encounter - Rosalio Houser RegSched Rep - 09/25/2025 11:01 AM EST Incoming Refill Request Medication requested (name): HYDROcodone-acetaminophen (NORCO) 5-325 MG per tablet Dosage and frequency: 1 tablet, Every 6 Hours PRN Pharmacy where request should be sent: [id number] - [place], [place] - [address] AT [address] [phone] [facility] [phone] FX Best call back number: Cell Does the patient have less than a 3 day supply? [x] Yes [] No Last labs recorded in chart: 12/12/2024 Last completed appointment: 04/26/2025 Does the patient have a follow up scheduled? [x] Yes [] No Okay to leave voicemail if contacted by clinical? [x] Yes [] No Ludmila Sewell 09/25/25 documented in this encounter Plan of Treatment Upcoming Encounters Date Type Department Care Team (Late st Contact Info) Description 10/30/2025 8:30 AM EST Office Visit [facility] [address] [place] [phone] Yair Hood DO [address] [facility] [address] [place] [address] documented as of this encounter Visit Diagnoses Diagnosis Primary osteoarthritis, unspecified site High risk medication use documented in this encounter Care Teams Patient Service Specialist Relationship Specialty Start Date End Date Mickey Fine MD [address] [address] [address] [facility] [address] [place] [address] PCP - General Internal Medicine 09/30/18 documented as of this encounter
--- OUTSIDE RECORDS SUMMARY | 2025-10-23 13:11 | XMS_ITS | Clinical Summary ---
Author Organization [facility] Address [address] [place] [id number] Care Team Providers Care Linotype Worker Name Role Phone Mickey Fine MD Primary Care Provider [phone] Allergies Active Allergy Reactions Criticality Noted Date Comments Wasp Venom Protein Other (See Comments) Low 024 Medications AMLODIPINE BESYLATE PO Take 10 mg by mouth Daily. Active losartan-hydroc hlorothiazide (HYZAAR) 100-25 MG per tablet Take 1 [...] 1 tablet by mouth Daily. 4 Active Magnesium Oxide -Mg Supplement 400 (240 Mg) MG tablet Take 1 tablet by mouth 2 (Two) Times a Day. Active potassium chloride (MICRO-K) 10 MEQ CR capsule Take 1 capsule by mouth 2 (Two) Times a Day. Active psyllium (METAMUCIL) 58.6 % powder Take 1 packet by mouth. Active prednisoLONE acetate (PRED FORTE) 1 % ophthalmic suspension INSTILL 1 DROP INTO THE OPERATIVE EYE FOUR TIMES DAILY FOR 7 DAYS THEN DECREASE TO TWICE DAILY FOR 14 DAYS 5 Active polyethylene glycol (MIRALAX) 17 GM/SCOOP powder Take 17 g by mouth. Active ofloxacin (OCUFLOX) 0.3 % ophthalmic solution INSTILL 1 DROP INTO OPERATIVE EYE FOUR TIMES DAILY FOR 7 DAYS 5 Active losartan (COZAAR) 100 MG tablet Take 1 tablet by mouth Daily. Active ketorolac (ACULAR) 0.5 % ophthalmic solution 5 Active HYDROcodone-maryana taminophen (NORCO) 5-325 MG per tabletIndicatio ns:Primary osteoarthritis, unspecified site,High risk medication use Take 1 tablet by mouth Every 6 (Six) Hours As Needed for Moderate Pain. 120 tablet 5 Active HYDROcodone-maryana taminophen (NORCO) 5-325 MG per tabletIndicatio ns:Primary osteoarthritis, unspecified site,High risk medication use Take 1 tablet by mouth Every 6 (Six) Hours As Needed for Moderate Pain. 120 tablet 5 09/25/20 25 Discontinu ed(Reorder ) Active Problems Problem Noted Date Diagnosed Date Encounter for therapeutic drug monitoring 2023 Assessment & Plan (04/26/2025 10:52 AM EDT): * Controlled substance agreement updated 07/06/24 * Hydrocodone/APAP 5 mg every 6 hours PRN (started 11/01/20) Check MANISH and Drug screen as required. Drug screen 12/12/24 He does not need a refill today. Assessment & Plan (12/12/2024 11:02 AM EST): * Controlled substance agreement updated 07/06/24 * Hydrocodone/APAP 5 mg every 6 hours PRN (started 11/01/20) Check MANISH and Drug screen as required. Drug screen ordered today Assessment & Plan (07/06/2024 10:48 AM EDT): * Controlled substance agreement updated 07/06/24 * Hydrocodone/APAP 5 mg every 6 hours PRN (started 11/01/20) Check MANISH and Drug screen as required. Drug screen ordered today Primary osteoarthritis 03/02/2024 Assessment & Plan (04/26/2025 10:52 AM EDT): * Medications/treatments/interventions tried include: Tylenol, [place], allopurinol, Citalopram, meloxicam, he has done some physical therapy, Tramadol, he has seen orthopaedic surgeons at * 07/02/20 autoimmune evaluation negative 1. Tylenol PRN is ok as directed. 2. Weight loss would be helpful. 3. He has tried NSAIDs Like meloxicam PRN. 4. 07/02/20 we referred him for some physical therapy. 5. He tried/failed Tramadol 6. Continue hydrocodone/APAP PRN. He does not feel he can function without this. 7. Follow up in 4 months 8. His hands worse him the worse. He does exercise them. 9. He cannot bend his first finger on right hand 10. Handout on hand pain given to patient to take home and review Assessment & Plan (12/12/2024 11:10 AM EST): * Medications/treatments/interventions tried include: Tylenol, [place], allopurinol, Citalopram, meloxicam, he has done some physical therapy, Tramadol, he has seen orthopaedic surgeons at * 07/02/20 autoimmune evaluation negative 1. Tylenol PRN is ok as directed. 2. Weight loss would be helpful. 3. He has tried NSAIDs Like meloxicam PRN. 4. 07/02/20 we referred him for some physical therapy. 5. He tried/failed Tramadol 6. Continue hydrocodone/APAP PRN 7. Follow up in 4 months 8. We gave him a handout on hydrocodone/APAP to take home and review 9. He recently fell and was hospitalized. He saw orthopaedics surgeons at . Assessment & Plan (07/06/2024 10:48 AM EDT): * Medications/treatments/interventions tried include: Tylenol, Com[place], allopurinol, Citalopram, meloxicam, he has done some [...] AM EDT): * Medications/treatments/interventions tried include: Tylenol, [place], allopurinol, Citalopram, meloxicam, he has done some [...] Encounters Date Type Department Care Team Description 09/25/2025 Refill [facility] [address] [address] Yair Hood, DO Primary osteoarthritis, unspecified site; High risk medication use 08/20/2025 Refill [facility] [address] [address] Yair Hood, DO Primary osteoarthritis, unspecified site; High risk medication use from Last 3 Months Immunizations Immunization Administration Dates Next Due Fluzone High-Dose 65+yrs 09/15/2023 influenza Split 08/12/2022 Family History Medical History Relation Name Comments Lung cancer Father Arthritis Mother Heart disease Mother Relation Name Status Comments Father Mother Social History Tobacco Use Types Packs/Day Years Used Date Smoking Tobacco: Never Passive Smoke Exposure: Past Smokeless Tobacco: Never Tobacco Cessation:Counseling Given: Not [...] Sign Reading Time Taken Comments Blood Pressure 110/70 04/26/2025 10:31 AM EDT Pulse 58 04/26/2025 10:31 AM EDT Temperature 36.1 C (97 F) 04/26/2025 10:31 AM EDT Respiratory Rate 19 2018 11:45 AM EST Oxygen Saturation 97% 2018 11:45 AM EST Inhaled Oxygen Concentration - - Weight 101 kg (221 lb 9.6 oz) 04/26/2025 10:31 A M EDT Height 177.8 cm (5' 10 ) 04/26/2025 10:31 AM EDT Body Mass Index 31.8 04/26/2025 10:31 AM EDT Plan of Treatment Upcoming Encounters Date Type Department Care Team (Late st Contact Info) Description 10/30/2025 8:30 AM EST Office Visit [facility] [address] [address] Yair Hood DO [address] [address] Health Maintenance Due Date Last Done Comments TDAP/TD VACCINES (1 - Tdap) 1972 COLOGUARD 1998 COLON CANCER SCREENING 5 YEA R SIGMOIDOSCOPY 1998 COLONOSCOPY [address]CER SCREENING [address] COLONOGRAPHY 1998 FECAL OCCULT BLOOD TEST 1998 FIT Testing (1 year) 1998 Pneumococcal Vaccine 50+ (1 of 1 - PCV) 2003 ZOSTER VACCINE (1 of 2) 2003 ANNUAL WELLNESS VISIT 03/02/2024 HEPATITIS C SCREENING 03/02/2024 INFLUENZA VACCINE 05/25/2025 07/19/2024, , 08/12/2022 COVID-19 Vaccine (2023- 5 season) 2025 07/19/2024, 09/15/2023, 10/23/2021, Additional history exists Medical Devices Implanted Type Area [employer] Consultant Device Identifier Shelf Expiration Date Model / Serial / Lot Stent Percuflx No Gw 4.8x26 - [id number] Implanted:Qty : 1 on 2018 by Chao Aparicio MD at [facility] Implant Right: Ureter [employer]ubbles DANILO 06/14/2021 [id number] / / [id number] Insurance [employer] A & B Care Teams Linotype Worker Relationship Specialty Start Date End Date Mickey Fine MD [address] [facility] [address] [facility] [place] [address] PCP - General Internal Medicine 09/30/18
--- OUTSIDE RECORDS SUMMARY | 2025-10-23 13:11 | XMS_ITS | Clinical Summary ---
Author Organization [facility] Address [address] [place] [address] Care Team Providers Care Plate Stacker Hand Name Role Phone Mickey Fine MD Unavailable [phone] Mickey Fine MD Primary Care Provider [phone] Allergies Active Allergy Reactions Criticality Noted Date Comments Wasp Venom Protein Other - please docum ent in the comment field Low 03/07/2024 Medications allopurinol (Zyloprim) 100 MG tablet Take 1 tablet (100 mg) by mouth every night. Active Eliquis 5 MG tablet Take 1 tablet (5 mg) by mouth twice a day. 4 Active atorvastatin (Lipitor) 20 MG tablet Take 1 tablet (20 mg) by mouth every night. 4 Active bisoprolol (Zebeta) 5 MG tablet Take 1 tablet (5 mg) by mouth every night. 4 Active citalopram (CeleXA) 10 MG tablet Take 1 tablet (10 mg) by mouth every night. Active diclofenac (Voltaren) 75 MG EC tablet Take 1 tablet (75 mg) by mouth twice a day. 4 Active HYDROcodone-acet aminophen ([place]) 5-325 MG tablet Take 1 tablet (5 mg of hydrocodone) by mouth every 6 (six) hours if needed. 4 Active isosorbide mononitrate ER (Imdur) 30 MG 24 hr tablet Take 1 tablet (30 mg) by mouth every night. 4 Active losartan (Cozaar) 100 MG tablet Take 1 tablet (100 mg) by mouth every night. 4 Active magnesium oxide (Mag-Ox) 400 (240 Mg) MG tablet TAKE 1 TABLET BY MOUTH TWICE DAILY WITH MEALS FOR MUSCLE CRAMPS 4 Active omeprazole (PriLOSEC) [address] capsule Take 1 capsule (40 mg) by mouth every night. Active tamsulosin (Flomax) 0.4 MG 24 hr capsule Take 1 capsule (0.4 mg) by mouth every night. 6 Active psyllium (Metamucil) 58.6 % powder Take 1 packet by mouth every night. Active polyethylene glycol (Miralax) 17 GM/SCOOP powder Take 17 g by mouth every night. Active potassium chloride ER (Micro-K) 10 MEQ ER capsule Take 1 capsule (10 mEq) by mouth 2 (two) times a day. 4 Active citalopram (CeleXA) 10 MG tablet Take 1 tablet (10 mg) by mouth 1 (one) time each day. Patient takes daily at 2300 Active omeprazole (PriLOSEC) [address] capsule Take 1 capsule (40 mg) by mouth 1 (one) time each day. Do not crush or chew. Patient takes daily at 2300 Active losartan (Cozaar) 100 MG tablet Take 1 tablet (100 mg) by mouth 1 (one) time each day. Patient takes daily at 2300 Active potassium chloride CR (Klor-Con) 10 MEQ ER tablet Take 1 tablet (10 mEq) by mouth 1 (one) time each day. Do not crush, chew, or split. Patient takes daily at 2300 Active allopurinol (Zyloprim) 300 MG tablet Take 1 tablet (300 mg) by mouth 1 (one) time each day. Patient takes daily at 2300 Active tamsulosin (Flomax) 0.4 MG 24 hr capsule Take 1 capsule (0.4 mg) by mouth 1 (one) time each day with dinner. Patient takes daily at 2300 Active magnesium oxide (Mag-Ox) 400 (240 Mg) MG tablet Take 1 tablet (400 mg) by mouth 2 (two) times a day. Patient takes daily at 2300 Active atorvastatin (Lipitor) 20 MG tablet Take 1 tablet (20 mg) by mouth 1 (one) time each day. Active apixaban (Eliquis) 5 MG tablet Take 2 tablets (10 mg) by mouth 2 (two) times a day for 4 days, THEN 1 tablet (5 mg) 2 (two) times a day. 188 tablet 4 Active calcium carbonate (Tums) 500 MG chewable tablet Chew 1 tablet (500 mg) 1 (one) time each day. 30 tablet 4 Active acetaminophen (Tylenol) 500 MG tablet Take 2 tablets (1,000 mg) by mouth every 6 (six) hours. 112 tablet 4 Active gabapentin (Neurontin) 300 MG capsule Take 1 capsule (300 mg) by mouth 3 (three) times a day. 42 capsule 4 Active lidocaine (Lidoderm) 5 % patch Apply 2 patches topically 1 (one) time each day at the same time over 12 hours. Remove & discard patch within 12 hours or as directed by MD. 28 patch 4 Active methocarbamol (Robaxin) 500 MG tablet Take 2 tablets (1,000 mg) by mouth 4 (four) times a day. 112 tablet 4 Active polyethylene glycol (Miralax) 17 g packet Take 17 g by mouth 1 (one) time each day. 14 packet 4 Active senna-docusate (Ingris-Colace) 8.6-50 MG tablet Take 1 tablet by mouth every night. 14 tablet 4 Active naloxone (Narcan) 4 mg/0.1 mL nasal spray 1. Give 1 spray in nostril for no/slow breathing or cannot wake after opioid use 2. Call 911 3. Repeat in other nostril if symptoms continue 1 each 4 Active Additional Information Patient not taking.Reported on 11/17/2024 Active Problems Problem Noted Date Diagnosed Date Disorientation 10/11/2024 Overview (10/11/2024): Likely Hospital Delirium ON on 10/10: Patient reportedly became progressively confused Disoriented to time and situation; Patient endorsed visual hallucinations (seeing faces on ceiling) ABG negative for hypoxemia or hypercapnia CTH: negative for mass, hemorrhage, infarction Mental status returned to normal 10/11 (A&O x4; GCS 15; no hallucination) Waxing and waning pattern without identifiable cause supports Hospital Delirium Atherosclerosis of aorta 10/10/2024 Overview (10/10/2024): Noted on CT trauma scans Encouraged healthy lifestyle Meds as appropriate FU with PCP for chronic management Hiatal hernia 10/10/2024 Overview (10/10/2024): Noted on CT trauma scans Protonix for reflux FU with PCP for chronic management Diverticulosis 10/10/2024 Overview (10/10/2024): Noted on Trauma CT scans Encouraged healthy diet, high in fiber Bowel Reg FU with PCP for chronic management Cervical spine fracture 10/08/2024 Overview (10/13/2024): C7 lamina and C6 SP fxs - NSGY spine consulted - No acute neurosurgical intervention - Maintain cervical collar at all times - Ordered outpatient follow-up with Dr. Gill in clinic in 6 weeks with xrays at that time Closed fracture of thoracic vertebra 10/08/2024 Overview (10/10/2024): T1 lamina fx T3-T5 TP fxs MMPC AC joint derangement 10/08/2024 Overview (10/10/2024): Widening of the AC joint by approximately 1.0-1.5 cm seen on imaging ORT consulted: non-op; ROMAT & WBAT; Sling PRN for comfort MMPC Injury of left clavicle 10/08/2024 Overview (10/09/2024): Mild posterior and superior displacement of the lateral left clavicle from the acromion seen on imaging ORT consulted Non-op, RUE WBAT, ROMAT, f/u in 2-3 weeks Pulmonary embolism on long-term anticoagulation therapy 10/07/2024 Overview (10/13/2024): Evidence of R heart strain Low dose heparin gtt Transitioned heparin gtt to apixaban Will need prolonged anticoagulation (3 months) at DC Closed fracture of sternum 10/07/2024 Overview (10/10/2024): L paramedian minimally displaced fracture of sternal manubrium [facility] No signs of BCI- normal EKG and normal trops Closed fracture of multiple ribs of left side Overview (10/10/2024): Fractures of L Ribs 1-6 [facility] Pulmonary toilet Currently Pulling 2000 mL on IS Closed fracture of one rib of right side 024 Overview (10/12/2024): R first rib dislocation [facility] Pulmonary toilet Pulling 2000 mL on IS Ruptured cyst of kidney 10/07/2024 Overview (10/12/2024): Monitor H&H or signs of bleeding H&H has remained stable during admission Hiatal hernia with GERD 08/11/2024 Resolved Problems Problem Noted Date Diagnosed Date Resolved Date Acute cystitis with hematuria 10/12/2024 07/15/2025 Overview (10/13/2024): Patient endorsed dysuria, increased urgency & frequency on 10/11 UA obtained and showed: Mod Leukocytes; 21-50 WBC; Large Blood; Bacteria present Bactrim until 10/17 Dental caries 10/10/2024 10/14/2025 Overview (10/10/2024): Noted on CT Trauma scans Emphasize importance of oral care Encourage FU with Dentistry Acute kidney injury 10/08/2024 07/15/20 25 Overview (10/10/2024): Pre-renal (resolved) CK elevated; Now down-trending; No further need to monitor CK SrCr WNL on 10/10 (1.07) DC IVF on 10/10 Encourage PO intake No further need to repeat BMP for monitoring Fall 10/07/2024 07/15/2025 Family History Medical History Relation Name Comments Cancer Father Johnie Jin Lung cancer Father Johnie Jin Anemia Mother Filomena Jin Arthritis Mother Filomena Jin Cardiac disorder Mother Filomena Jin Conversions - Other Mother Filomena Jin Rheumato id arteritis Hypertension Mother Filomena Jin Relation Name Status Comments Father Johnie Jin Mother Filomena Jin Social History Tobacco Use Types Packs/Day Years Used Date Smoking Tobacco: Never Passive Smoke Exposure: Never Smokeless Tobacco: Never Alcohol Use Standard Drinks/Week Comments No 0 (1 standard drink = 0.6 oz pur e alcohol) Humiliation, Afraid, Rape, and Kick questionnair e Answer Date Recorded Within the last year, have y ou been afraid of your partner or ex-partner? No 10/09/2024 Within the last year, have y ou been humiliated or emotionally abused in other ways by your partner or ex-partner? No Within the last year, have y ou been kicked, hit, slapped, or otherwise physically hurt by your partner or ex-partner? No 10/09/2024 Within the last year, have y ou been raped or forced to have any kind of sexual activity by your partner or ex-partner? No 10/09/2024 PHQ-2 Answer Date Recorded Patient Health Questionnaire-2 Score 0 03/07/2024 Hunger Vital Sign Answer Date Recorded Within the past 12 months, y ou worried that your food would run out before you got the money to buy more. Never true 10/09/20 24 Within the past 12 months, t he food you bought just didn't last and you didn't have money to get more. Never true 10/09/2024 PRAPARE - Transportation Answer Date Re corded In the past 12 months, has l ack of transportation kept you from medical appointments or from getting medications? No 09/24 In the past 12 months, has l ack of transportation kept you from meetings, work, or from getting things needed for daily living? No 10/09/2024 Housing Stability Vital Sign Answer Indra e Recorded In the last 12 months, was t here a time when you were not able to pay the mortgage or rent on time? No 10/09/2024 Number of Times Moved in the Last Year Not on fi le 10/09/2024 At any time in the past 12 m [facility], were you homeless or living in a prison (including now)? No 10/09/2024 Utilities Answer Date Recorded In the past 12 months has th [employer], gas, oil, or water company threatened to shut off services in your home? No 10/09/2024 Sex and Gender Information Value Date Recorded Sex Assigned at Not on file Legal Sex Male 8:54 PM EDT Gender Identity Not on file Sexual Orientation Not on file Last Filed Vital Signs Vital Sign Reading Time Taken Comments Blood Pressure 109/73 11/28/2024 9:24 AM EST Pulse 64 11/28/2024 9:24 AM EST Temperature 36.3 C (97.3 F) 11/28/2024 9:24 AM EST Respiratory Rate 16 11/17/2024 9:40 AM EST Oxygen Saturation 97% 11/28/2024 9:24 AM EST Inhaled Oxygen Concentration - - Weight 106 kg (234 lb) 11/28/2024 9:24 AM EST Height 177.8 cm (5' 10 ) 11/28/2024 9:24 AM EST Body Mass Index 33.58 11/28/2024 9:24 AM EST Plan of Treatment Health Maintenance Due Date Last Done Comments [facility]-Hepatitis C Screening 1955 [facility]-Medicare Annual Wellness (AWV) 1955 [facility]-Infant/Child/Adol SDOH Screenings 1955 [facility]- SDOH Screenings 1971 [facility]-Adult SDOH Screenings 1971 [facility]-DTaP,Tdap,and Td Vaccines (1 - Tdap) 1972 CT Colonography 1998 Colonoscopy 1998 FIT-DNA 1998 FIT 1998 FOBT 1998 Sigmoidoscopy 1998 [facility]-Colorectal Cancer Screening 1998 [facility]-Pneumococcal Vaccine: 50+ Years (1 of 1 - PCV) 2003 [facility]-Zoster Vaccines (1 of 2) 2003 [facility]-Depression Screening 03/07/2025 03/07/2024 [id number] Vaccine ( - season) 2025 07/19/2024, 09/15/2023, 10/23/2021, Additional history exists [facility]-Influenza Vaccine (#1) 06/25/202507/19, 09/15/2023, 08/12/2022 [facility]-RSV Vaccine: 60+ Years or (1 - 1-dose 75+ series) 2028 [facility]-Obesity Intervention Completed 025, 11/20/2024, 11/17/2024, Additional history exists HPV Vaccines (No Doses Required) Completed [facility]-HIB Vaccines Aged Out No longer e [...] age to complete this topic Insurance MEDICARE Advance Directives * Full Code (Latest Code Status on File) Date Activated Date Inactivated Comments 10/07/2024 10:30 PM 10/13/2024 3:23 PM Question Answer Comments Patient has decision-making capacity? Yes Care Teams Plate Stacker Hand Relationship Specialty Start Date End Date Mickey Fine MD [address] [place] [address] PCP - General 11/17/24 Mickey Fine MD [address] [place] [address] 09/08/24
--- OUTSIDE RECORDS SUMMARY | 2025-10-23 13:11 | XMS_ITS | Encounter Summary ---
Author Organization [facility] Address [address] [place] [address] Care Team Providers Care Payroll Services Analyst Name Role Phone Mickey Fine MD Primary Care Provider [phone] Pcp, No Primary Care Provider Unavailabl e Mickey Fine MD Unavailable [phone] Mickey Fine MD Primary Care Provider [phone] Encounter Details Date Type Department Care Team (Late st Contact Info) Description 08/19/2016 Orders Only External Location [address] [place] [address] Provider, External Social History Tobacco Use Types [...] on filedocumented in this encounter Care Teams Payroll Services Analyst Relationship Specialty Start Date End Date Mickey Fine MD [address] [place] [address] PCP - General 03/07/21 09/07/24 Pcp, Anais [address] [place] [address] PCP - General Family Medicine 09/08/24 11/16/24 Mickey Fine MD [address] [place] [address] PCP - General 11/17/24 Mickey Fine MD [address] [place] [address] 09/08/24 documented as of this encounter
--- OUTSIDE RECORDS SUMMARY | 2025-10-23 13:11 | XMS_ITS | Encounter Summary ---
Author Organization [facility] Address [address] [place] [address] Care Team Providers Care Product Management Consultant Name Role Phone Mickey Fine MD Primary Care Provider Pcp, No Primary Care Provider Unavailabl e Mickey Fine MD Unavailable [phone] Mickey Fine MD Primary Care Provider Encounter Details Date Type Department Care Team (Late st Contact Info) Description 04/02/2023 Orders Only External Location [address] [place] [address] Provider, External Social History Tobacco Use Types [...] on filedocumented in this encounter Care Teams Product Management Consultant Relationship Specialty Start Date End Date Mickey Fine MD [address] [place] [address] PCP - General 03/07/21 09/07/24 Pcp, Anais [address] [place] [address] PCP - General Family Medicine 09/08/24 11/16/24 Mickey Fine MD [address] [place] [address] PCP - General 11/17/24 Mickey Fine MD [address] [place] [address] 09/08/24 documented as of this encounter
--- OUTSIDE RECORDS SUMMARY | 2025-10-23 13:11 | XMS_ITS | Encounter Summary ---
Author Organization [facility] Address [address] [place] [address] Care Team Providers Care Regional Account Executive Name Role Phone Mickey Fine MD Primary Care Provider Pcp, No Primary Care Provider Unavailabl e Mickey Fine MD Unavailable [phone] Mickey Fine MD Primary Care Provider [phone] Encounter Details Date Type Department Care Team (Late st Contact Info) Description 08/24/2016 Orders Only External Location [address] [place] [address] Provider, External Social History Tobacco Use Types [...] Modality Nuclear Medicine 08/24/2016 9:18 AM EDT us External Provider IMG NM PROCEDURES Final Result documented in this encounter Visit Diagnoses Not on filedocumented in this encounter Care Teams Regional Account Executive Relationship Specialty Start Date End Date Mickey Fine MD [address] [place] [address] PCP - General 03/07/21 09/07/24 Pcp, Anais [address] [place] [address] PCP - General Family Medicine 09/08/24 11/16/24 Mickey Fine MD [address] [place] [address] PCP - General 11/17/24 Mickey Fine MD [address] [place] [address] 09/08/24 documented as of this encounter
--- OUTSIDE RECORDS SUMMARY | 2025-10-23 13:11 | XMS_ITS | Encounter Summary ---
Author Organization [facility] Address [address] [place] [address] Care Team Providers Care Quality Compliance Consultant Name Role Phone Mickey Fine MD Primary Care Provider [phone] Pcp, No Primary Care Provider Unavailabl e Mickey Fine MD Unavailable [phone] Mickey Fine MD Primary Care Provider Encounter Details Date Type Department Care Team (Late st Contact Info) Description 09/04/2016 Orders Only External Location [address] [place] [address] Provider, External Social History Tobacco Use Types [...] on filedocumented in this encounter Care Teams Quality Compliance Consultant Relationship Specialty Start Date End Date Mickey Fine MD [address] [place] [address] PCP - General 03/07/21 09/07/24 Pcp, Anais [address] [place] [address] PCP - General Family Medicine 09/08/24 11/16/24 Mickey Fine MD [address] [place] [address] PCP - General 11/17/24 Mickey Fine MD [address] [place] [address] 09/08/24 documented as of this encounter
[2025-10-23 13:17] LABS: Hematocrit 41.7 % (42.0-52.0); Hemoglobin 13.9 g/dL (14.1-18.0); Immature Granulocytes % 0.2 %; Mean Corpuscular HGB Conc 33.3 g/dL (31.8-35.4); Mean Corpuscular Hemoglobin 28.8 pg (27.0-31.2); Mean Corpuscular Volume 86.5 fl (80-94); Nucleated Red Blood Cells % 0 %; Platelet Count 238 K/mm3 (142-424); Red Blood Count 4.82 M/mm3 (4.60-6.20); Red Cell Distribution Width-SD 44.2 fL; White Blood Count 5.0 K/mm3 (4.8-10.8)
--- NOTE | 2025-10-23 13:24 | CT_ITS ---
FINAL REPORT TECHNIQUE: After the administration of IV contrast, axial images through the abdomen was performed by computed tomography. Sagittal and coronal reformatted images were obtained and reviewed. This study was performed with techniques to keep radiation doses as low as reasonably achievable, (ALARA). Individualized dose reduction techniques using automated exposure control or adjustment of mA and/or kV according to the patient's size were employed. CLINICAL HISTORY: right flank pain with h/o stones COMPARISON: 12/21/2023 FINDINGS: There is a small hypodense lesion in the right lobe of the liver that is unchanged from prior exam, favor a small cyst. The gallbladder is absent. The spleen, pancreas, and adrenal glands are unremarkable. Again identified are multiple nonobstructing right renal stones. Several stones in the lower aspect of the right renal pelvis appear smaller than on previous exam. The size and number of stones in the inferior pole of the right kidney have increased since prior exam. There is a cyst in the upper pole of the left kidney. Scarring in the lower pole of the right kidney is stable. There is a moderate hiatal hernia, unchanged. The previously seen small bowel obstruction is no longer present. The appendix is not identified but there are no secondary findings to suggest appendicitis. IMPRESSION: No acute abnormality. Multiple nonobstructing right renal stones. Stable scarring in the right kidney. Reviewed, Interpreted and Dictated by Laura Torres MD Transcribed by Francie Perez Authenticated and . [facility]
[2025-10-23 13:29] LABS: Microscopic, Urine URINE MICROSCOPIC (MICROSCOPIC)
[2025-10-23 13:33] LABS: Albumin Level 4.8 g/dl (3.5-5.0); Chloride 103 mmol/L (98-107); Sodium 138 mmol/L (136-145)
[2025-10-23 13:34] LABS: Potassium 4.2 mmoL/L (3.5-5.1)
[2025-10-23 13:36] LABS: Alanine Aminotransferase 44 U/L (12-78); Albumin/Globulin Ratio 1.5 (1.1-1.8); Alkaline Phosphatase 64 U/L (38-126); Anion Gap 10.2 mEq/L (5-15); Aspartate Amino Transferase 38 U/L (17-59); Bilirubin,Total 0.6 mg/dl (0.2-1.3); Blood Urea Nitrogen 20 mg/dl (9-20); Calcium 11.2 mg/dl (8.4-10.2); Carbon Dioxide 29 mmol/L (22.0-30.0); Creatinine Clearance Estimated 80 mL/min (50-200); Creatinine,Serum 1.20 mg/dl (0.66-1.25); Estimated Glomerular Filt Rate 60 ml/min (>60); GFR (African American) 72 ML/MIN (>60); Globulin 3.1 g/dL (1.3-3.2); Glucose 100 mg/dl (74-100); Total Protein,Serum 7.9 g/dl (6.3-8.2)
[2025-10-23 13:43] LABS: Bilirubin,Urine Negative (Negative); Color,Urine YELLOW (Yellow); Glucose,Urine (UA) Negative (Negative); Ketones,Urine Negative (Negative); Leukocyte Esterase,Urine Negative (Negative); PH,Urine 6.0 (5.0-8.5); Protein,Urine Negative (Negative); Specific Gravity, Urine 1.020 (1.005-1.030); Urobilinogen,Urine 0.2 EU/dl (0.2)
[2025-10-23] MEDS: IOPAMIDOL-370 (76%);100ML BOTTLE 75 ML IV (13:48)
[2025-10-23] MEDS: SODIUM CHLORIDE 0.9% 10ML SYR (RAD ONLY) 10 ML IV (13:48)
--- NOTE | 2025-10-23 14:06 | CT_ITS ---
FINAL REPORT TECHNIQUE: Axial images through the pelvis were performed by computed tomography. Sagittal and coronal reformatted images were obtained and reviewed. This study was performed with techniques to keep radiation doses as low as reasonably achievable, (ALARA). Individualized dose reduction techniques using automated exposure control or adjustment of mA and/or kV according to the patient's size were employed. CLINICAL HISTORY: R flank pain COMPARISON: 12/21/2023 FINDINGS: There is contrast in solitary ureters bilaterally. The more proximal ureters are not included on this exam. No ureteral filling defects are identified. There is contrast in the urinary bladder which is incompletely distended. The prostate is enlarged. There is wall thickening of the urinary bladder which could be related to incomplete distention or may be related to chronic outlet obstruction. The visualized GI tract is without acute abnormality. There is no lymphadenopathy or free fluid. There is no acute osseous abnormality. IMPRESSION: No acute abnormality. Enlarged prostate with findings suggestive of chronic outlet obstruction. Reviewed, Interpreted and Dictated by Laura Torres MD Transcribed by Francie Perez Authenticated and . [facility]
[2025-10-23 14:25] LABS: Hepatitis C Ab Qual. W/ RFX NEGATIVE (Negative)
[2025-10-23 14:31] LABS: Bacteria,Urine 1+ /lpf; Calcium Oxalate Crystals,Urine 1+ /lpf; Mucus,Urine 1+ /lpf
--- NOTE | 2025-10-23 14:38 | PC.NURSE ---
rounded on patient, warm blanket provided at this time.
--- NOTE | 2025-10-23 15:35 | PC.NURSE ---
Patient in room and was given a [place] per the provider
== END 2025-10-23 16:54 | disposition home or self-care (01) ==
PROVIDERS: Emergency Provider Emergency Medicine; PCP Internal Medicine
DX: R10.A1 Flank pain, right side (principal); M54.50 Low back pain, unspecified; N20.0 Calculus of kidney; R82.998 Other abnormal findings in urine; Z87.442 Personal history of urinary calculi
CPT/HCPCS: 72192; 74160; 80053; 81001; 85025; 86803; 87389; 96365; 99285; J0696; Q9967